=== PATIENT | female | born 1955 | race Caucasian/White ===

== ENCOUNTER 2016-11-17 13:21 | Outpatient (CLI) | payer MEDICARE, MEDICAID ==
[2016-11-17 19:30] LABS: ALBUMIN/GLOBULIN RATIO 1.2 (1.0-2.2); BILIRUBIN,TOTAL 1.8 mg/dL (0.2-1.0); CALCIUM 9.2 mg/dL (8.5-10.3); CREATININE 0.5 mg/dL (0.4-1.0); POTASSIUM 3.8 mmol/L (3.5-5.0)
[2016-11-17 19:33] LABS: BASOPHILS # (AUTO) 0.2 10^3/uL (0.0-0.1); BASOPHILS % (AUTO) 2.7 %; EOSINOPHILS # (AUTO) 0.2 10^3/uL (0.0-0.7); EOSINOPHILS % (AUTO) 3.3 %; HCT - HEMATOCRIT 46.6 % (37.0-47.0); LYMPHOCYTES # (AUTO) 1.2 10^3/uL (1.5-3.5); LYMPHOCYTES % (AUTO) 20.1 %; MEAN CORPUSCULAR HGB CONC 34.2 g/dL (32.0-36.0); MEAN CORPUSCULAR VOLUME 102.4 fL (81.0-99.0); MEAN PLATELET VOLUME 9.8 fL (7.9-10.8); MONOCYTES # (AUTO) 0.6 10^3/uL (0.0-1.0); MONOCYTES % (AUTO) 9.3 %; NEUTROPHILS # (AUTO) 3.9 10^3/uL (1.5-6.6); NEUTROPHILS % (AUTO) 64.6 %; NUCLEATED RED BLOOD CELLS AUTO 0.2 /100WBC; RED BLOOD COUNT 4.55 10^6/uL (4.20-5.40); RED CELL DISTRIBUTION WIDTH 12.7 % (12.0-15.0)
== END 2016-11-17 13:22 | disposition home or self-care (01) ==
LOC: LAB.N 13:21
PROVIDERS: ATTEND Family Medicine
DX: R63.5 Abnormal weight gain (principal)
CPT/HCPCS: 36415; 80053; 80061; 84443; 85025

== ENCOUNTER 2017-01-02 08:28 | Outpatient (CLI) | payer MEDICARE, MEDICAID ==
--- NOTE | 2017-01-03 02:16 | Ultrasound Report ---
EXAM: ABDOMEN ULTRASOUND LIMITED, RUQ EXAM DATE: 01/02/2017 09:40 AM. CLINICAL HISTORY: Hepatitis. Abnormal transaminase. COMPARISON: None. TECHNIQUE: Real-time scanning was performed with static images obtained. FINDINGS: Liver: Liver is diffusely heterogeneous. Multiple mass lesions are noted in the liver. These include a 3 x 2.9 x 5.1 cm solid, mildly vascular left liver mass. Mild capsular retraction is noted. Previou sly measuring 4 x 2.5 x 2.2 cm. 2.1 x 1.8 x 1.4 cm posterior left liver echogenic mass. Posterior aco ustic shadowing noted. 1.1 x 1.3 x 1 cm right-sided echogenic liver mass. Posterior acoustic shadowin g noted. Right liver measures 16 cm. Main portal vein flow: Hepatopetal. Gallbladder: Multiple non-mobile echogenic nodular structure adherent to the gallbladder wall. No gal lstones or sonographic Abbott sign or pericholecystic fluid. Biliary System: CBD measures 11 mm. Incidental dilated common bile duct. No intrahepatic bile duct di lation. Other: None. IMPRESSION: 1. Multiple liver lesions. The dominant lesion in the left liver currently measures 5.1 cm compared w ith the previous 4 cm. Recommend MRI with and without contrast given interval growth. 2. Normal gallbladder. Common bile duct mildly prominent. [id number] Referring Provider Line: [phone] SITE ID: [id number]
== END 2017-01-02 08:29 | disposition home or self-care (01) ==
LOC: DI 08:28
PROVIDERS: ATTEND Family Medicine
DX: K76.9 Liver disease, unspecified (principal)
CPT/HCPCS: 76705

== ENCOUNTER 2017-01-06 13:37 | Outpatient (CLI) | payer MEDICARE, MEDICAID ==
[2017-01-06 19:33] LABS: ALBUMIN/GLOBULIN RATIO 1.1 (1.0-2.2); BILIRUBIN,TOTAL 0.9 mg/dL (0.2-1.0); CALCIUM 9.4 mg/dL (8.5-10.3); CREATININE 0.6 mg/dL (0.4-1.0); POTASSIUM 3.9 mmol/L (3.5-5.0); TOTAL PROTEIN 7.9 g/dL (6.7-8.2)
== END 2017-01-06 13:38 | disposition home or self-care (01) ==
LOC: LAB.N 13:37
PROVIDERS: ATTEND Family Medicine
DX: K76.89 Other specified diseases of liver (principal)
CPT/HCPCS: 36415; 80053

== ENCOUNTER 2017-01-09 08:17 | Outpatient (CLI) | payer MEDICARE, MEDICAID ==
[2017-01-09] MEDS ORDERED: GADOBUTROL 7.5 MMOL/7.5 ML VIAL IVP ONE (10:24)
--- NOTE | 2017-01-09 17:43 | MRI Report ---
EXAM: MR ABDOMEN WITH AND WITHOUT CONTRAST (MR LIVER) EXAM DATE: 01/09/2017 10:26 AM. CLINICAL HISTORY: Liver mass on ultrasound. COMPARISON: Right upper quadrant abdominal ultrasound 01/02/2017. TECHNIQUE: Multiplanar breath-hold T1, T2, and DWI sequences obtained through the abdomen on an sc devin. Images obtained before and after administration of 7 mL Gadavist intravenous contrast. Multiph ase postcontrast images obtained of the liver and abdomen. FINDINGS: Lung Bases: Clear as visualized. Liver: Diffuse parenchymal signal loss on the out of phase images, compatible with steatosis. Multiple (at least 8) hemangiomata, the largest measuring 4.8 x 3.3 cm in left hepatic lobe segment 2 (series 1201 image 74) and 1.0 x 1.3 cm in the posterior right hepatic dome (series 1201 image 84). Multiple (at least 7) small scattered hepatic cysts, the largest level 1 cm in posterior right hepati c lobe segment 7 (series 1201 image 73). Multiple scattered ill-defined subcentimeter hypervascular foci on the arterial phase images without corresponding findings on the portal venous or delayed phases, likely representing perfusion anomalie s (for example in the right hepatic lobe on series 1101 image 81). Conventional hepatic arterial anatomy. Diminutive, patent portal veins. Normal caliber of the portal venous confluence, splenic vein, and SMV. Gallbladder and Bile Ducts: The gallbladder is partially distended and appears normal with no wall th ickening or stone. Mild intra-and extrahepatic biliary ductal dilatation, the common bile duct measur ing 12 mm. No choledocholithiasis seen. Pancreas: Normal. No ductal dilatation. Spleen: Normal. Kidneys: 12 mm exophytic cyst with thin septations arising from the posterior right lower pole, with questionable thickening of the inferior wall (series 1101 image 16). Several small simple cysts elsew here in the bilateral renal cortices, the largest 7 mm in the right upper pole. No hydronephrosis. Adrenal Glands: Normal. Peritoneal Cavity/GI Tract: The stomach and visualized small bowel and colon are unremarkable, withou t evidence of obstruction or acute inflammatory process. No free fluid or adenopathy. Retroperitoneum: Unremarkable. Bones: Dextroscoliosis centered at L2-L3. Degenerative marrow signal changes. IMPRESSION: 1. Steatotic liver. 2. Multiple hemangiomata, as detailed above, the largest corresponding to the dominant lesion seen in the left hepatic lobe on recent ultrasound. 3. Multiple small hepatic cysts. 4. Diminutive caliber of the portal veins. 5. Mild intra-and extrahepatic biliary duct dilatation. Consider correlation with laboratory values t o assess for evidence of obstruction. 6. Mildly complex 12 mm right renal cyst, Bosniak IIF. Consider follow-up renal protocol MRI in 6-12 months. [facility] Referring Provider Line: [phone] SITE ID: [id number]
== END 2017-01-09 08:18 | disposition home or self-care (01) ==
LOC: DI 08:17
PROVIDERS: ATTEND Family Medicine
DX: K76.89 Other specified diseases of liver (principal); K76.9 Liver disease, unspecified
CPT/HCPCS: 74183; A9585

== ENCOUNTER 2017-02-17 11:41 | Emergency (ER) | payer MEDICARE, MEDICAID ==
[2017-02-17 13:12] LABS: BASOPHILS % (AUTO) 1.2 %; EOSINOPHILS # (AUTO) 0.2 10^3/uL (0.0-0.7); EOSINOPHILS % (AUTO) 5.3 %; HCT - HEMATOCRIT 44.3 % (37.0-47.0); HGB - HEMOGLOBIN 15.5 g/dL (12.0-16.0); LYMPHOCYTES # (AUTO) 0.6 10^3/uL (1.5-3.5); LYMPHOCYTES % (AUTO) 19.2 %; MEAN CORPUSCULAR HEMOGLOBIN 34.5 pg (27.0-31.0); MEAN CORPUSCULAR HGB CONC 34.9 g/dL (32.0-36.0); MEAN PLATELET VOLUME 8.9 fL (7.9-10.8); MONOCYTES # (AUTO) 0.3 10^3/uL (0.0-1.0); NEUTROPHILS # (AUTO) 2.2 10^3/uL (1.5-6.6); NEUTROPHILS % (AUTO) 65.3 %; NUCLEATED RED BLOOD CELLS AUTO 0.1 /100WBC; RED BLOOD COUNT 4.48 10^6/uL (4.20-5.40); RED CELL DISTRIBUTION WIDTH 12.2 % (12.0-15.0); UNCORRECTED WHITE BLOOD COUNT 3.4 x10^3/uL; WHITE BLOOD COUNT 3.4 x10^3/uL (4.8-10.8)
--- NOTE | 2017-02-17 13:23 | XRAY Preliminary Report ---
Exam: XR Chest 2 View PA/LAT IMPRESSION: Subtle irregular opacities in left lung base laterally. A short interval follow-up PA and lateral chest radiograph should be considered. If this persists then a chest CT with contrast should be obtained as an underlying lesion cannot be excluded on this examination. [facility] SITE ID: [id number]
[2017-02-17 13:25] LABS: ALBUMIN/GLOBULIN RATIO 1.2 (1.0-2.2); BILIRUBIN,TOTAL 1.1 mg/dL (0.2-1.0); CALCIUM 9.2 mg/dL (8.5-10.3); CREATININE 0.4 mg/dL (0.4-1.0); POTASSIUM 3.7 mmol/L (3.5-5.0); TOTAL PROTEIN 8.2 g/dL (6.7-8.2)
--- NOTE | 2017-02-17 13:26 | XRAY Report ---
EXAM: CHEST RADIOGRAPHY EXAM DATE: 02/17/2017 12:49 PM. CLINICAL HISTORY: Constant sharp pain under right breast x1 week. COMPARISON: None. TECHNIQUE: 2 views. FINDINGS: Lungs/Pleura: Subtle irregular opacities in the left lung base laterally. No pleural effusion or pneu mothorax. Mediastinum: Heart and mediastinal contours are unremarkable. Other: None. IMPRESSION: Subtle irregular opacities in left lung base laterally. A short interval follow-up PA and lateral chest radiograph should be considered. If this persists then a chest CT with contrast should be obtained as an underlying lesion cannot be excluded on this examination. [facility] Referring Provider Line: [phone] SITE ID: [id number]
[2017-02-17] MEDS ORDERED: KETOROLAC 60 MG/2 ML VIAL IVP STA (15:25)
--- NOTE | 2017-02-17 15:28 | ED Physician Documentation ---
PD HPI ABD PAIN - Stated complaint Stated Complaint: SOA, R SIDE CHEST PX - Chief complaint Chief Complaint: Abd Pain - History obtained from History obtained from: Patient - History of Present Illness Timing - onset: Other (This is a 61-year-old woman with history of hepatitis C, a week ago she woke up in the middle the night with sharp lower anterior right- sided chest pain that is worse with coughing and deep breathing but does not change with eating. She had never had it before, it has been constant since. She noted she was sneezing hard the day prior. Of note recently she had had rising liver enzymes and was sent for an abdominal ultrasound which showed masses in the liver, this was followed by MRI of the liver showing multiple hemangiomas but no gallstones.) Review of Systems Ten Systems: 10 systems reviewed and negative Constitutional: denies: Fever, Chills Cardiac: denies: Pedal edema, Calf pain Respiratory: denies: Hemoptysis, Wheezing GI: denies: Nausea, Vomiting, Diarrhea PD PAST MEDICAL HISTORY - Past Medical History Cardiovascular: None Respiratory: None Neuro: None Endocrine/Autoimmune: None GI: Hepatitis : None HEENT: Chronic hearing loss Psych: Depression, Anxiety Musculoskeletal: Osteoarthritis, Chronic back pain Derm: Other - Past Surgical History Past Surgical History: Yes Ortho: Other - Present Medications Home Medications: Ambulatory Orders Medication Instructions Recorded Confirmed HYDROcod/ACETAM 5/325 [[place] 5/325] 1 - 2 ea PO Q6H PRN #20 tablet 06/04/16 oxyCODONE [Roxicodone] 5 mg PO Q4-6H PRN #15 tablet 02/17/17 - Allergies Allergies/Adverse Reactions: Allergies Allergy/AdvReac Type Severity Reaction Status Date / Time ampicillin AdvReac Unknown Verified 06/04/16 14:42 gabapentin AdvReac Dizziness Verified 06/04/16 14:42 risperidone [From Risperdal] AdvReac Unknown Verified 06/04/16 14:42 venlafaxine HCl * AdvReac Dizziness Verified 06/04/16 14:42 [From Effexor] - Social History Does the pt smoke?: Yes Smoking Status: Current every day smoker Does the pt drink ETOH?: Yes Does the pt have substance abuse?: No - Immunizations Immunizations are current?: No Immunizations: TDAP >10years/unknown PD ED PE NORMAL - Vitals Vital signs reviewed: Yes - General General: Alert and oriented X 3, No acute distress - Neck Neck: Supple, no meningeal sign, No bony TTP - Cardiac Cardiac: RRR, No murmur - Respiratory Respiratory: No respiratory distress, Clear bilaterally - Abdomen Abdomen: Soft, Non tender, Other (She is really not tender to the right upper quadrant, but does have focal tenderness laterally over the ribs, maybe rib 9 or so.) - Extremities Extremities: No edema, No calf tenderness / cord - Neuro Neuro: Alert and oriented X 3, Normal speech - Psych Psych: Normal mood, Normal affect Results - Vitals Vitals: Vital Signs - 24 hr 02/17/17 02/17/17 02/17/17 11:57 13:52 15:24 Temperature 36.3 C L 37.2 C 36.9 C Heart Rate 84 106 H 76 Respiratory 22 22 15 Rate Blood Pressure 154/89 H 161/86 H 179/100 H O2 Saturation 94 95 95 02/17/17 17:25 Temperature 37.2 C Heart Rate 77 Respiratory 15 Rate Blood Pressure 157/85 H O2 Saturation 95 Oxygen O2 Source Room air - EKG (time done) 1531 Rate: Rate (enter#) (71) Rhythm: NSR [place]: Normal Intervals: Normal [place] QRS: Normal Ischemia: Normal ST segments Computer interpretation: Agree with computer - Labs Labs: Laboratory Tests 02/17/17 02/17/17 02/17/17 13:07 13:07 15:41 WBC 3.4 L RBC 4.48 Hgb 15.5 Hct 44.3 MCV 99.0 MCH 34.5 H MCHC 34.9 RDW 12.2 Plt Count 131 MPV 8.9 Neut # 2.2 Lymph # 0.6 L [place] # 0.3 Eos # 0.2 Baso # 0.0 Absolute Nucleated RBC 0.00 Nucleated RBCs 0.1 Sodium 141 Potassium 3.7 Chloride 105 Carbon Dioxide 26 Anion Gap 10.0 BUN 13 Creatinine 0.4 Estimated GFR (MDRD) 163 Glucose 103 H Calcium 9.2 Total Bilirubin 1.1 H AST 337 H ALT 191 H Alkaline Phosphatase 108 Troponin I < 0.04 Total Protein 8.2 Albumin 4.4 Globulin 3.8 Albumin/Globulin Ratio 1.2 Lipase 53 H - Rads (name of study) 2 view chest Radiology: EMP read contemporaneously (Focal opacities in the left lower lobe) CTAchest Radiology: EMP read contemporaneously (Bibasilar atelectasis with liver findings but no PE.) PD MEDICAL DECISION MAKING - ED course ED course: 61-year-old woman with right upper quadrant/right chest pain in the setting of known increasing liver enzymes and multiple hemangiomas of the liver, there is no right upper quadrant tenderness, but she does have rib tenderness. We will obtain an EKG and a troponin in addition to the labs that were ordered by the triage nurse, and we will follow the abnormal chest x-ray with a CT. The CT was negative for acute pathology, given the rib tenderness I suspect she has an intercostal strain/tear, she is following up with a inspector electromechanical later this month regarding the liver. Departure - Departure Disposition: Home, Self Care Clinical Impression: Elevated liver enzymes Chest pain Qualifiers: Chest pain type: chest pain on breathing Qualified Code(s): R07.1 - Chest pain on breathing; R07.81 - Pleurodynia Condition: Good Record reviewed to determine appropriate education?: Yes Instructions: ED Chest Pain NonCardiac Prescriptions: oxyCODONE [Roxicodone] 5 mg PO Q4-6H PRN #15 tablet PRN Reason: Pain Comments: As discussed the need to follow-up with the liver doctor later this month as scheduled. Return if worse or if new symptoms develop. Your blood pressure was elevated today on check into the emergency department. This does not mean that you have hypertension, it is a common phenomenon to come to the emergency department and have elevated blood pressure. I recommend that she see your primary care physician within the week to have it rechecked when you are feeling better. Do not drink or drive while taking narcotic pain medication. Note that many narcotic pain relievers also contain Tylenol/acetaminophen. Please ensure that your total dose of acetaminophen from all sources does not exceed 3 g (3000 mg) per day. You may get constipated while on this medication. Take a stool softener such as Colace twice a day while you are on it. Also add an [id number] laxative such as senna or MiraLAX on any day that you do not have a bowel movement. If you received a narcotic pain medication or sedative while in the emergency department, do not drive for the next 24 hours.
[2017-02-17] MEDS ORDERED: KETOROLAC 30 MG/ML VIAL ONE (15:34)
[2017-02-17] MEDS ORDERED: IOPAMIDOL-300 100 ML VIAL ONE (15:36)
[2017-02-17 17:25] VITALS: BP 157/85
--- NOTE | 2017-02-17 18:18 | CT Preliminary Report ---
Exam: CT Chest Angio (PE) IMPRESSION: 1. Negative for acute pulmonary embolism. 2. Bibasilar atelectasis without convincing pneumonia. 3. Heterogeneous appearing liver with inhomogeneous enhancement. Nonspecific findings which could rep resent benign or malignant liver disease. Not well characterized on this exam. Significance uncertain . [facility] SITE ID: [id number]
--- NOTE | 2017-02-17 18:21 | CT Report ---
EXAM: CT ANGIOGRAM CHEST EXAM DATE: 02/17/2017 06:01 PM. CLINICAL HISTORY: R chest pain, abn cxr. COMPARISON: No prior CT.. TECHNIQUE: Routine helical imaging was performed through the chest in the pulmonary arterial phase. I V Contrast: 100 cc Isovue-300 IV. Reconstructions: Coronal 3-D MIP reconstructions.Sagittal and coron al. In accordance with CT protocol optimization, one or more of the following dose reduction techniques w ere utilized for this exam: automated exposure control, adjustment of mA and/or KV based on patient s ize, or use of iterative reconstructive technique. FINDINGS: Pulmonary Arteries: Diagnostic quality: Adequate through the segmental arteries. Negative for acute pulmonary embolism. Main pulmonary artery is normal in size. Lungs/Pleura: There are linear bandlike densities associated with volume loss in the bilateral lower lobes and right middle lobe. Consistent with bibasilar atelectasis. There is no pleural effusion or p neumothorax. No central endobronchial obstructing mass. Mediastinum: Heart size is normal. There is no pericardial effusion. No mediastinal or hilar lymphade nopathy. Thoracic Aorta: No thoracic aortic aneurysm or dissection. Upper Abdomen: The liver demonstrates a heterogeneous pattern of enhancement. There are early areas o f enhancement located within the right and left lobe. There is calcification in the left lobe of the liver and in the dome of the liver. Other: None. IMPRESSION: 1. Negative for acute pulmonary embolism. 2. Bibasilar atelectasis without convincing pneumonia. 3. Heterogeneous appearing liver with inhomogeneous enhancement. Nonspecific findings which could rep resent benign or malignant liver disease. Not well characterized on this exam. Significance uncertain . [facility] Referring Provider Line: [phone] SITE ID: [id number]
== END 2017-02-17 18:51 | disposition home or self-care (01) ==
LOC: ED 11:41
DX: R07.1 Chest pain on breathing (principal); R07.81 Pleurodynia; R03.0 Elevated blood-pressure reading, without diagnosis of hypertension; R79.89 Other specified abnormal findings of blood chemistry; M19.90 Unspecified osteoarthritis, unspecified site; Z86.19 Personal history of other infectious and parasitic diseases; F17.200 Nicotine dependence, unspecified, uncomplicated
CPT/HCPCS: 36415; 71020; 71275; 80053; 83690; 84484; 85025; 93005; 96374; 99283; Q9967

== ENCOUNTER 2017-03-04 11:05 | Outpatient (CLI) | payer MEDICARE, MEDICAID | END 2017-03-04 11:06 | LOC: LAB.WCP 11:05 | PROVIDERS: ATTEND Internal Medicine | DX: C22.0 Liver cell carcinoma (principal) | CPT/HCPCS: 36415; 86317; 86704; 87340; 87522; 87902 ==

== ENCOUNTER 2017-07-14 13:45 | Day surgery (SDC) | payer MEDICARE, MEDICAID ==
[2017-07-14] MEDS ORDERED: LACTATED RINGERS 1,000 ML IV ONE (13:54)
[2017-07-14] MEDS ORDERED: LIDOCAINE-MPF 2% 5 ML VIAL IM ONE (15:30)
[2017-07-14] MEDS ORDERED: PROPOFOL 200 MG/20 ML VIAL IVP ONE (15:30)
[2017-07-14 16:33] VITALS: BP 132/80
== END 2017-07-14 13:46 | disposition home or self-care (01) ==
LOC: SDS 13:45
PROVIDERS: ATTEND Internal Medicine
PROC: 0DBN8ZX Excision of Sigmoid Colon, Via Natural or Artificial Opening Endoscopic, Diagnostic (ICD-10-PCS; principal; 2017-07-14 15:00)
DX: Z12.11 Encounter for screening for malignant neoplasm of colon (principal); K63.5 Polyp of colon; K64.8 Other hemorrhoids; B19.20 Unspecified viral hepatitis C without hepatic coma; Z87.891 Personal history of nicotine dependence
CPT/HCPCS: 45380; J7120

== ENCOUNTER 2018-01-20 09:33 | Outpatient (CLI) | payer MEDICARE, MEDICAID ==
[2018-01-20 12:12] LABS: BASOPHILS # (AUTO) 0.1 10^3/uL (0.0-0.1); BASOPHILS % (AUTO) 1.8 %; EOSINOPHILS # (AUTO) 0.2 10^3/uL (0.0-0.7); EOSINOPHILS % (AUTO) 6.5 %; HGB - HEMOGLOBIN 14.5 g/dL (12.0-16.0); LYMPHOCYTES # (AUTO) 0.7 10^3/uL (1.5-3.5); LYMPHOCYTES % (AUTO) 21.3 %; MEAN CORPUSCULAR HEMOGLOBIN 35.3 pg (27.0-31.0); MEAN CORPUSCULAR HGB CONC 34.8 g/dL (32.0-36.0); MEAN CORPUSCULAR VOLUME 101.4 fL (81.0-99.0); MEAN PLATELET VOLUME 10.3 fL (7.9-10.8); MONOCYTES # (AUTO) 0.3 10^3/uL (0.0-1.0); MONOCYTES % (AUTO) 10.2 %; NEUTROPHILS # (AUTO) 1.9 10^3/uL (1.5-6.6); NEUTROPHILS % (AUTO) 60.2 %; PLT - PLATELET COUNT 93 10^3/uL (130-450); RED BLOOD COUNT 4.11 10^6/uL (4.20-5.40); RED CELL DISTRIBUTION WIDTH 12.8 % (12.0-15.0); WHITE BLOOD COUNT 3.2 x10^3/uL (4.8-10.8)
[2018-01-20 19:09] LABS: ALBUMIN 4.2 g/dL (3.2-5.5); BILIRUBIN,TOTAL 1.8 mg/dL (0.2-1.0); CALCIUM 9.4 mg/dL (8.5-10.3); CREATININE 0.5 mg/dL (0.4-1.0); TOTAL PROTEIN 8.4 g/dL (6.7-8.2)
[2018-01-22 19:42] LABS: HCV RNA QNT 5.07 Log IU/mL (NOT DETECTED); HCV RNA QUANT RT PCR 117000 IU/mL (NOT DETECTED)
== END 2018-01-20 09:34 ==
LOC: LAB.N 09:33
PROVIDERS: ATTEND Internal Medicine
DX: B18.2 Chronic viral hepatitis C (principal)
CPT/HCPCS: 36415; 80053; 85025; 87522

== ENCOUNTER 2018-03-23 13:49 | Day surgery (SDC) | payer MEDICARE, MEDICAID ==
[2018-03-23] MEDS ORDERED: LACTATED RINGERS 1,000 ML IV ONE (14:39)
[2018-03-23] MEDS ORDERED: ONDANSETRON 4 MG/2 ML VIAL ONE (14:45)
--- NOTE | 2018-03-23 15:23 | ANESTHESIA ---
Pre-Anesthesia VS, & Labs - Diagnosis elevated LFTs, chronic Hep C, hx of polyps - Procedure EGD, Cscope Vital Signs: Temp Pulse Resp BP Pulse Ox 37.6 C H 93 20 163/110 H 94 03/23/18 14:24 03/23/18 14:24 03/23/18 14:24 03/23/18 14:24 03/23/18 14:24 Height 5 ft 3 in Weight (kg) 64 kg Body Mass Index 25.7 - NPO >8 hours - Is Patient ?: No Home Medications and Allergies Home Medications: Ambulatory Orders Aspirin 3 PRN 03/23/18 Aspirin 3 PRN 03/23/18 Allergies/Adverse Reactions: Allergies Allergy/AdvReac Type Severity Reaction Status Date / Time ampicillin AdvReac Unknown Verified 07/13/17 13:33 gabapentin AdvReac Dizziness Verified 07/13/17 13:33 risperidone [From Risperdal] AdvReac Unknown Verified 07/13/17 13:33 venlafaxine HCl * AdvReac Dizziness Verified 07/13/17 13:33 [From Effexor] Anes History & Medical History - Anesthetic History Anesthesia Complications: reports: No previous complications Family history of Anesthesia Complications: Denies Family history of Malignant Hyperthermia: Denies - Medical History Cardiovascular: reports: None Pulmonary: reports: None Gastrointestinal: reports: Hepatitis Urinary: reports: None Musculoskeletal: reports: Rheumatoid arthritis Endocrine/Autoimmune: reports: None Blood Disorders: reports: None Skin: reports: None Smoking Status: Current every day smoker - Surgical History General: Colonoscopy, Other Orthopedic: Spine surgery, Other Exam General: Alert, Oriented x3, Cooperative Dental: Other Mouth Openin Fingerbreadth Mallampati classification: I Respiratory: Lungs clear, Decreased breath sounds Cardiovascular: Regular rate Neurological: Normal speech Mental/Cognitive Status: Alert/Oriented X3 Plan Anesthesia Type: MAC Consent for Procedure(s) Verified and Reviewed: Yes Code Status: Attempt Resuscitation ASA classification: 3-Severe systemic disease Is this case an emergency?: No
[2018-03-23] MEDS ORDERED: PROPOFOL 200 MG/20 ML VIAL IVP ONE (15:40)
[2018-03-23] MEDS ORDERED: KETAMINE 500 MG/10 ML VIAL IVP ONE (15:40)
[2018-03-23] MEDS ORDERED: MIDAZOLAM 2 MG/2 ML VIAL IVP ONE (15:40)
[2018-03-23] MEDS ORDERED: ACETAMINOPHEN 325 MG TABLET PO ONE (16:59)
[2018-03-23 17:19] VITALS: BP 150/110
== END 2018-03-23 13:50 | disposition home or self-care (01) ==
LOC: SDS 13:49
PROVIDERS: ATTEND Internal Medicine
PROC: 0DJ08ZZ Inspection of Upper Intestinal Tract, Via Natural or Artificial Opening Endoscopic (ICD-10-PCS; principal; 2018-03-23 15:00)
DX: K76.6 Portal hypertension (principal); K31.89 Other diseases of stomach and duodenum; K25.9 Gastric ulcer, unspecified as acute or chronic, without hemorrhage or perforation; B19.20 Unspecified viral hepatitis C without hepatic coma; R79.89 Other specified abnormal findings of blood chemistry; R19.7 Diarrhea, unspecified; F10.10 Alcohol abuse, uncomplicated; Z86.010 Personal history of colon polyps; K76.89 Other specified diseases of liver; K76.0 Fatty (change of) liver, not elsewhere classified; K83.9 Disease of biliary tract, unspecified; M19.90 Unspecified osteoarthritis, unspecified site; H91.90 Unspecified hearing loss, unspecified ear; F41.9 Anxiety disorder, unspecified; R53.83 Other fatigue; Z87.891 Personal history of nicotine dependence
CPT/HCPCS: 43235; A9270; J7120

== ENCOUNTER 2018-04-14 08:34 | Outpatient (CLI) | payer MEDICARE, MEDICAID ==
[2018-04-14 18:39] LABS: BASOPHILS # (AUTO) 0.2 10^3/uL (0.0-0.1); BASOPHILS % (AUTO) 3.6 %; EOSINOPHILS # (AUTO) 0.3 10^3/uL (0.0-0.7); EOSINOPHILS % (AUTO) 4.2 %; HGB - HEMOGLOBIN 14.6 g/dL (12.0-16.0); LYMPHOCYTES # (AUTO) 1.4 10^3/uL (1.5-3.5); LYMPHOCYTES % (AUTO) 22.2 %; MEAN CORPUSCULAR HEMOGLOBIN 34.5 pg (27.0-31.0); MEAN CORPUSCULAR HGB CONC 33.1 g/dL (32.0-36.0); MEAN CORPUSCULAR VOLUME 104.4 fL (81.0-99.0); MEAN PLATELET VOLUME 10.6 fL (7.9-10.8); MONOCYTES # (AUTO) 0.6 10^3/uL (0.0-1.0); MONOCYTES % (AUTO) 9.5 %; NEUTROPHILS # (AUTO) 3.8 10^3/uL (1.5-6.6); NEUTROPHILS % (AUTO) 60.5 %; PLT - PLATELET COUNT 220 10^3/uL (130-450); RED BLOOD COUNT 4.24 10^6/uL (4.20-5.40); RED CELL DISTRIBUTION WIDTH 12.5 % (12.0-15.0); WHITE BLOOD COUNT 6.3 x10^3/uL (4.8-10.8)
[2018-04-14 18:56] LABS: ALBUMIN 3.9 g/dL (3.2-5.5); BILIRUBIN,TOTAL 2.3 mg/dL (0.2-1.0); CALCIUM 9.4 mg/dL (8.5-10.3); CREATININE 0.7 mg/dL (0.4-1.0); TOTAL PROTEIN 7.9 g/dL (6.7-8.2)
== END 2018-04-14 08:35 | disposition home or self-care (01) ==
LOC: LAB.N 08:34
PROVIDERS: ATTEND Internal Medicine
DX: B18.2 Chronic viral hepatitis C (principal)
CPT/HCPCS: 36415; 80053; 85025

== ENCOUNTER 2018-04-29 08:45 | Outpatient (CLI) | payer MEDICARE, MEDICAID ==
[2018-04-29 13:17] LABS: BILIRUBIN,TOTAL 2.2 mg/dL (0.2-1.0); CALCIUM 9.1 mg/dL (8.5-10.3); CREATININE 0.5 mg/dL (0.4-1.0); TOTAL PROTEIN 7.9 g/dL (6.7-8.2)
[2018-04-29 13:37] LABS: BASOPHILS # (AUTO) 0.1 10^3/uL (0.0-0.1); BASOPHILS % (AUTO) 1.9 %; EOSINOPHILS # (AUTO) 0.6 10^3/uL (0.0-0.7); EOSINOPHILS % (AUTO) 9.3 %; HGB - HEMOGLOBIN 15.5 g/dL (12.0-16.0); LYMPHOCYTES # (AUTO) 1.4 10^3/uL (1.5-3.5); LYMPHOCYTES % (AUTO) 23.3 %; MEAN CORPUSCULAR HEMOGLOBIN 34.5 pg (27.0-31.0); MEAN CORPUSCULAR HGB CONC 34.5 g/dL (32.0-36.0); MEAN CORPUSCULAR VOLUME 100.2 fL (81.0-99.0); MEAN PLATELET VOLUME 10.6 fL (7.9-10.8); MONOCYTES # (AUTO) 0.4 10^3/uL (0.0-1.0); MONOCYTES % (AUTO) 7.2 %; NEUTROPHILS # (AUTO) 3.6 10^3/uL (1.5-6.6); NEUTROPHILS % (AUTO) 58.3 %; PLT - PLATELET COUNT 137 10^3/uL (130-450); RED BLOOD COUNT 4.48 10^6/uL (4.20-5.40); RED CELL DISTRIBUTION WIDTH 12.2 % (12.0-15.0); WHITE BLOOD COUNT 6.1 x10^3/uL (4.8-10.8)
== END 2018-04-29 08:46 | disposition home or self-care (01) ==
LOC: LAB.N 08:45
PROVIDERS: ATTEND Internal Medicine
DX: B18.2 Chronic viral hepatitis C (principal)
CPT/HCPCS: 36415; 80053; 85025; 87522

== ENCOUNTER 2018-06-24 08:00 | Outpatient (CLI) | payer MEDICARE, MEDICAID ==
[2018-06-24 12:32] LABS: BASOPHILS # (AUTO) 0.1 10^3/uL (0.0-0.1); BASOPHILS % (AUTO) 2.4 %; EOSINOPHILS # (AUTO) 0.5 10^3/uL (0.0-0.7); EOSINOPHILS % (AUTO) 8.7 %; HGB - HEMOGLOBIN 15.4 g/dL (12.0-16.0); LYMPHOCYTES # (AUTO) 1.2 10^3/uL (1.5-3.5); MEAN CORPUSCULAR HEMOGLOBIN 34.4 pg (27.0-31.0); MEAN CORPUSCULAR HGB CONC 34.5 g/dL (32.0-36.0); MEAN CORPUSCULAR VOLUME 99.7 fL (81.0-99.0); MEAN PLATELET VOLUME 10.2 fL (7.9-10.8); MONOCYTES # (AUTO) 0.5 10^3/uL (0.0-1.0); NEUTROPHILS # (AUTO) 2.9 10^3/uL (1.5-6.6); NEUTROPHILS % (AUTO) 55.9 %; PLT - PLATELET COUNT 176 10^3/uL (130-450); RED BLOOD COUNT 4.48 10^6/uL (4.20-5.40); WHITE BLOOD COUNT 5.2 x10^3/uL (4.8-10.8)
[2018-06-24 12:46] LABS: ALBUMIN 4.1 g/dL (3.2-5.5); ALBUMIN/GLOBULIN RATIO 1.1 (1.0-2.2); BILIRUBIN,TOTAL 2.3 mg/dL (0.2-1.0); CALCIUM 9.4 mg/dL (8.5-10.3); CREATININE 0.5 mg/dL (0.4-1.0); TOTAL PROTEIN 7.9 g/dL (6.7-8.2)
[2018-06-27 18:36] LABS: HCV RNA QNT <1.18 NOT DETECTED Log IU/mL (NOT DETECTED); HCV RNA QUANT RT PCR <15 NOT DETECTED IU/mL (NOT DETECTED)
== END 2018-06-24 23:59 | disposition home or self-care (01) ==
LOC: LAB.N 08:00
PROVIDERS: ATTEND Internal Medicine
DX: B18.2 Chronic viral hepatitis C (principal)
CPT/HCPCS: 36415; 80053; 85025; 87522

== ENCOUNTER 2018-10-04 09:09 | Outpatient (CLI) | payer MEDICARE, MEDICAID ==
--- NOTE | 2018-10-04 18:34 | Ultrasound Report ---
Reason: HEPATITIS C CHRONIC Procedure Date: 10/04/2018 Accession Number: [id number] / [id number] Procedure: US - Abdomen Limited CPT Code: FULL RESULT: EXAM: ABDOMEN ULTRASOUND LIMITED, RUQ EXAM DATE: 10/04/2018 10:23 AM. CLINICAL HISTORY: HEPATITIS C CHRONIC. COMPARISON: Ultrasound 01/02/2017 and 02/09/2014, MRI 01/09/[address] 02/17/2017. TECHNIQUE: Real-time scanning was performed with static images obtained. FINDINGS: Liver: Increased in size. 18 cm. Increased in echotexture consistent with fatty infiltration. A dominant heterogeneous echogenic left lobe vascular mass measures 3.8 x 3.6 x 3.8 cm. This is been previously evaluated by MRI and felt to be consistent with a hemangioma. A second left lobe echogenic mass measuring 2.2 x 1.4 x 1.8 cm is also seen as well as a right lateral 1.3 x 1.2 x 1.2 cm possible cyst. Main portal vein flow: Hepatopetal. Gallbladder: Mildly contracted. 5.3 mm polyp. No definite stones seen. Biliary System: CBD measures 11 mm. Mild intrahepatic biliary ductal dilatation is present. Free fluid: None. Right kidney 12.3 cm in length. Mid lateral echogenic mass 2.3 x 1.2 x 1.2 cm. It previously measured 9 x 8 x 8 mm on 2013 ultrasound. IMPRESSION: 1. Hepatomegaly with fatty infiltration of the liver and a dominant left lobe vascular mass previously demonstrated to be consistent with a hemangioma by MRI. Overall stable. 2. Gallbladder polyp. 3. Mild intra-and extrahepatic biliary ductal dilatation similar to previous MRI. 4. Enlarging echogenic right renal lesion, question angiomyolipoma versus other. Suggest follow-up by dedicated renal CT. [facility]
== END 2018-10-04 09:10 | disposition home or self-care (01) ==
LOC: DI 09:09
PROVIDERS: ATTEND Internal Medicine
DX: B18.2 Chronic viral hepatitis C (principal); K76.0 Fatty (change of) liver, not elsewhere classified; R16.0 Hepatomegaly, not elsewhere classified; K82.4 Cholesterolosis of gallbladder; N28.9 Disorder of kidney and ureter, unspecified
CPT/HCPCS: 76705

== ENCOUNTER 2018-10-13 13:59 | Outpatient (CLI) | payer MEDICARE, MEDICAID ==
[2018-10-13 19:12] LABS: ALBUMIN 4.1 g/dL (3.2-5.5); BILIRUBIN,TOTAL 1.8 mg/dL (0.2-1.0); CALCIUM 9.4 mg/dL (8.5-10.3); CREATININE 0.5 mg/dL (0.4-1.0); TOTAL PROTEIN 8.3 g/dL (6.7-8.2)
[2018-10-14 13:12] LABS: HEPATITIS C ANTIBODY REACTIVE (NON-REACTIVE)
[2018-10-17 15:50] LABS: HCV RNA QNT 1.66 Log IU/mL (NOT DETECTED); HCV RNA QUANT RT PCR 46 IU/mL (NOT DETECTED)
== END 2018-10-13 23:59 | disposition home or self-care (01) ==
LOC: LAB.N 13:59
PROVIDERS: ATTEND Nurse Practitioner Gerontology
DX: B19.20 Unspecified viral hepatitis C without hepatic coma (principal); I10 Essential (primary) hypertension
CPT/HCPCS: 36415; 80053; 86803

== ENCOUNTER 2018-10-18 10:45 | Outpatient (CLI) | payer MEDICARE, MEDICAID ==
[2018-10-18] MEDS ORDERED: IOVERSOL 320 100 ML VIAL IVP ONE ×2 (11:01→12:15)
--- NOTE | 2018-10-18 15:41 | CT Report ---
Reason: CYST OF KIDNEY,ACQUIRED Procedure Date: 10/18/2018 Accession Number: [id number] / [id number] Procedure: CT - ABDOMEN W CPT Code: FULL RESULT: EXAM: CT ABDOMEN EXAM DATE: 10/18/2018 11:02 AM. CLINICAL HISTORY: Follow-up atypical cyst of right kidney described on abdominal MRI 01/09/2017. History of liver hemangiomata. COMPARISON: 10/04/2018 10:20 AM 10/04/2018 9:51 AM ABDOMEN W/WO 01/09/2017 10:00 AM CHEST ANGIO 02/17/2017 5:47 PM. TECHNIQUE: Routine helical CT imaging was performed through the abdomen. IV contrast: 100 mL Optiray 320 contrast. Enteric contrast: No. Reconstruction: Coronal and sagittal. In accordance with CT protocol optimization, one or more of the following dose reduction techniques were utilized for this exam: automated exposure control, adjustment of mA and/or KV based on patient size, or use of iterative reconstructive technique. FINDINGS: Lung Bases: Unremarkable. Liver: There is a 4.7 cm mass of the left lobe of liver segment 2 with peripheral puddling type enhancement consistent with hemangioma, stable in size. Similar morphology 1.6 cm enhancing liver nodule right lobe of liver segment 7 measuring 16 mm, similar in size, consistent with hemangioma. Stable hepatic cyst. Stable parenchymal calcifications in the upper liver compared to a prior CTA of 2017. Stable 11 mm focal enhancement also segment 2 of liver consistent with additional hemangioma. Gallbladder/Bile Ducts: Normal appearance of the gallbladder. There is stable dilatation of the extrahepatic common bile duct, up to 12 mm with stable abrupt tapered appearance to the ampullary portion. No intrahepatic ductal dilatation. Spleen: Normal. Pancreas: Normal. Adrenal Glands: Normal. Kidneys: Right kidney: There is a 12 mm fat density lesion of the lower pole cortex right kidney series 3 image 45 corresponding to finding requested for surveillance. Size is stable and finding consistent with angiomyolipoma. No stone or hydronephrosis. Left kidney: There is nonobstructing particulate nephrolithiasis of the upper and lower pole. No hydronephrosis. Peritoneal Cavity/Bowel: Normal. No free fluid, free air or adenopathy. No masses or acute inflammatory process. Vasculature: No aneurysms appreciated. 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 In retrospect, this finding was present on the comparison MRI of 2017. Bones: Degenerative disk changes of the lumbar spine with mild dextroscoliosis. Other: None. IMPRESSION: 1. Finding requested for imaging surveillance lower pole right kidney consistent with incidental angiomyolipoma. 2. Stable liver hemangiomata, liver cysts and parenchymal calcifications as described. 3. Stable dilatation of the extrahepatic common bile duct with abrupt tapered appearance to the distal duct. 4. Nonobstructive particulate left-sided nephrolithiasis. 5. 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 [facility]
== END 2018-10-18 10:46 | disposition home or self-care (01) ==
LOC: DI 10:45
PROVIDERS: ATTEND Nurse Practitioner Gerontology
DX: D18.03 Hemangioma of intra-abdominal structures (principal); K76.89 Other specified diseases of liver; N20.0 Calculus of kidney; K83.8 Other specified diseases of biliary tract
CPT/HCPCS: 74160; Q9967

== ENCOUNTER 2019-05-21 07:56 | Emergency (ER) | payer MEDICARE, MEDICAID ==
[2019-05-21] MEDS ORDERED: ONDANSETRON ODT 4 MG TABLET TL STA (08:15)
[2019-05-21 08:36] LABS: BASOPHILS # (AUTO) 0.1 10^3/uL (0.0-0.1); BASOPHILS % (AUTO) 1.4 %; EOSINOPHILS % (AUTO) 0.6 %; HGB - HEMOGLOBIN 14.7 g/dL (12.0-16.0); LYMPHOCYTES # (AUTO) 0.5 10^3/uL (1.5-3.5); LYMPHOCYTES % (AUTO) 9.3 %; MEAN CORPUSCULAR HEMOGLOBIN 36.7 pg (27.0-31.0); MEAN CORPUSCULAR HGB CONC 35.2 g/dL (32.0-36.0); MEAN CORPUSCULAR VOLUME 104.2 fL (81.0-99.0); MEAN PLATELET VOLUME 11.6 fL (7.9-10.8); MONOCYTES # (AUTO) 0.2 10^3/uL (0.0-1.0); MONOCYTES % (AUTO) 4.7 %; NEUTROPHILS # (AUTO) 4.3 10^3/uL (1.5-6.6); NEUTROPHILS % (AUTO) 82.8 %; PLT - PLATELET COUNT 78 10^3/uL (130-450); RED BLOOD COUNT 4.01 10^6/uL (4.20-5.40); RED CELL DISTRIBUTION WIDTH 12.4 % (12.0-15.0); WHITE BLOOD COUNT 5.1 x10^3/uL (4.8-10.8)
[2019-05-21 08:37] VITALS: BP 157/92
[2019-05-21 08:39] LABS: INR 1.5 (0.8-1.2); PT - PROTHROMBIN TIME 16.8 secs (9.9-12.6)
[2019-05-21] MEDS ORDERED: PHYTONADIONE 10 MG/ML AMP PO ONE (08:43)
[2019-05-21] MEDS ORDERED: CHERRY SYRUP 10 ML UDC PO ONE ×2 (08:43→09:02)
[2019-05-21 08:46] LABS: ALBUMIN 3.7 g/dL (3.2-5.5); ALBUMIN/GLOBULIN RATIO 0.7 (1.0-2.2); BILIRUBIN,TOTAL 5.4 mg/dL (0.2-1.0); CALCIUM 9.5 mg/dL (8.5-10.3); CREATININE 0.5 mg/dL (0.4-1.0); TOTAL PROTEIN 9.2 g/dL (6.7-8.2)
--- NOTE | 2019-05-21 08:47 | ED Physician Documentation ---
PD HPI UPPER EXT INJURY - Stated complaint Stated Complaint: LT HAND SWELLING - Chief complaint Chief Complaint: Ext Problem - History obtained from History obtained from: Patient - History of Present Illness Location: Left, Hand Where injury occurred: Home Timing - onset: How many days ago (5) Timing - duration: Days (5) Timing - details: Abrupt onset, Still present Improved by: Rest, Immobilization Worsened by: Moving, Palpating Associated symptoms: Swelling, Discolored Contributing factors: Anticoagulated (has hep C with cirrhosis) Similar symptoms before: Has not had sx before Recently seen: Not recently seen - Additonal information Additional information: 64-year-old female with history of treated hepatitis C and cirrhosis has developed swelling of her left hand. She states that she had this after digging around in her purse and she does not recall any significant injury to her hand. She has increased swelling this morning and she has come to the emergency department with concerns about the swelling to her hand. Review of Systems Constitutional: denies: Fever Eyes: denies: Decreased vision Ears: denies: Ear pain Nose: denies: Congestion Throat: denies: Sore throat Respiratory: reports: Cough GI: reports: Nausea Musculoskeletal: reports: Extremity pain, Extremity swelling Neurologic: denies: Generalized weakness, Focal weakness, Numbness PD PAST MEDICAL HISTORY - Past Medical History Cardiovascular: Hypertension Respiratory: COPD Endocrine/Autoimmune: None GI: Hepatitis : None HEENT: None Psych: None Musculoskeletal: Rheumatoid arthritis Derm: None - Past Surgical History Past Surgical History: Yes General: Colonoscopy, Other Ortho: Spine surgery, Other - Present Medications Home Medications: Ambulatory Orders Medication Instructions Recorded Confirmed Lisinopril mg PO 05/21/19 - Allergies Allergies/Adverse Reactions: Allergies Allergy/AdvReac Type Severity Reaction Status Date / Time ampicillin AdvReac Unknown Verified 05/21/19 08:13 gabapentin AdvReac Dizziness Verified 05/21/19 08:13 risperidone [From Risperdal] AdvReac Unknown Verified 05/21/19 08:13 venlafaxine HCl * AdvReac Dizziness Verified 05/21/19 08:13 [From Effexor] - Social History Does the pt smoke?: Yes Smoking Status: Current every day smoker Does the pt drink ETOH?: Yes Does the pt have substance abuse?: No - Immunizations Immunizations are current?: No Immunizations: TDAP >10years/unknown PD ED PE NORMAL - Vitals Vital signs reviewed: Yes (tachy and hypertensive ) - General General: No acute distress, Well developed/nourished - HEENT HEENT: Atraumatic, PERRL, EOMI, Other (dry mucous membranes) - Neck Neck: Supple, no meningeal sign - Cardiac Cardiac: No murmur, Other (tachy to 100) - Respiratory Respiratory: No respiratory distress, Other (diminished breath sounds ) - Abdomen Abdomen: Soft, Non tender - Back Back: No CVA TTP, No spinal TTP - Derm Derm: Normal color, Warm and dry, No rash - Extremities Extremities: Other (There is swelling and ecchymosis to the dorsum of the left hand michael over the distal 3rd MC. 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, No motor deficit, No sensory deficit, Normal speech Eye Opening: Spontaneous Motor: Obeys Commands Verbal: Oriented GCS Score: 15 - Psych Psych: Normal mood, Normal affect Results - Vitals Vitals: Vital Signs - 24 hr 05/21/19 05/21/19 08:08 08:37 Temperature 36.8 C Heart Rate 109 H 95 Respiratory 16 18 Rate Blood Pressure 165/104 H 157/92 H O2 Saturation 94 94 Oxygen O2 Source Room air - Labs Labs: Laboratory Tests 05/21/19 05/21/19 05/21/19 08:25 08:25 08:25 WBC 5.1 RBC 4.01 L Hgb 14.7 Hct 41.8 MCV 104.2 H MCH 36.7 H MCHC 35.2 RDW 12.4 Plt Count 78 L MPV 11.6 H Neut # (Auto) 4.3 Lymph # (Auto) 0.5 L [place] # (Auto) 0.2 Eos # (Auto) 0.0 Baso # (Auto) 0.1 Absolute Nucleated RBC 0.00 Nucleated RBC % 0.0 PT 16.8 H INR 1.5 H Sodium 139 Potassium 3.5 Chloride 103 Carbon Dioxide 20 L Anion Gap 16.0 H BUN 9 Creatinine 0.5 Estimated GFR (MDRD) 125 Glucose 133 H Calcium 9.5 Total Bilirubin 5.4 H AST 247 H ALT 92 H Alkaline Phosphatase 89 Total Protein 9.2 H Albumin 3.7 Globulin 5.5 H Albumin/Globulin Ratio 0.7 L Lipase 77 H - Rads (name of study) hand Radiology: Prelim report reviewed (Impression: No evidence for acute osseous injury. Soft tissue swelling over dorsum of the metacarpals.), EMP read indepedently, See rad report PD MEDICAL DECISION MAKING - ED course Complexity details: reviewed old records, reviewed results, re-evaluated patient, considered differential, d/w patient ED course: 64-year-old female with a history of cirrhosis has a bruise to the dorsum of the left hand she has a lot of swelling associated with this and she has an elevated INR. She is administered vitamin K 10 mg orally and her hand is placed into a splint. X-rays without evidence of fracture. Departure - Departure Disposition: 01 Home, Self Care Clinical Impression: Elevated INR Traumatic hematoma of left hand Qualifiers: Encounter type: initial encounter Qualified Code(s): S60.222A - Contusion of left hand, initial encounter Condition: Stable Instructions: ED Hematoma Follow-Up: Aria Conway ARNP [Primary Care Provider] -
--- NOTE | 2019-05-21 08:50 | XRAY Report ---
Reason: swelling over distal 3rd MC Procedure Date: 05/21/2019 Accession Number: [id number] / [id number] Procedure: XR - Hand 3 View LT CPT Code: Final Report FULL RESULT: EXAM: LEFT HAND RADIOGRAPHY EXAM DATE: 05/21/2019 08:25 AM. CLINICAL HISTORY: Swelling over distal 3rd MC. COMPARISON: [facility] 05/13/2006 7:05 PM. TECHNIQUE: 3 views. FINDINGS: Bones: No fractures or bone lesions. Joints: No subluxations. Soft Tissues: Soft tissue swelling over the dorsum of the metacarpals. IMPRESSION: No evidence for acute osseous injury. Soft tissue swelling over dorsum of the metacarpals. RADIA
== END 2019-05-21 09:15 | disposition home or self-care (01) ==
LOC: ED 07:56
DX: S60.222A Contusion of left hand, initial encounter (principal); X58.XXXA Exposure to other specified factors, initial encounter; Y92.009 Unspecified place in unspecified non-institutional (private) residence as the place of occurrence of the external cause; R79.1 Abnormal coagulation profile; I10 Essential (primary) hypertension; B19.20 Unspecified viral hepatitis C without hepatic coma; K74.60 Unspecified cirrhosis of liver; F17.200 Nicotine dependence, unspecified, uncomplicated
CPT/HCPCS: 36415; 73130; 80053; 83690; 85025; 85610; 99283; 99284; A9270; Q0162; 80320

== ENCOUNTER 2019-05-23 18:24 | Outpatient (CLI) | payer MEDICARE, MEDICAID | END 2019-05-23 18:25 | disposition critical access hospital (66) | LOC: EMS 18:24 | PROVIDERS: ATTEND Surgery | DX: M79.642 Pain in left hand (principal); R22.32 Localized swelling, mass and lump, left upper limb | CPT/HCPCS: A0425; A0429 ==

== ENCOUNTER 2019-05-23 18:44 | Emergency (ER) | payer MEDICARE, MEDICAID ==
--- NOTE | 2019-05-23 18:55 | ED Physician Documentation ---
History of Present Illness - Stated complaint Stated Complaint: SWELLING/ BRUSING TO L HAND - Chief complaint Chief Complaint: Ext Problem - History obtained from History obtained from: Patient - History of Present Illness Timing: How many days ago (3) Pain level max: 10 Pain level now: 10 Improved by: rest Worsened by: movement - Additonal information Additional information: L hand swelling, ecchymosis. states worse than a few days ago. Was placed in a splint a few days ago, this was removed in clinic this morning. Does not recall any injury. no redness. no fever. Review of Systems Constitutional: denies: Fever, Chills GI: denies: Vomiting Skin: denies: Rash Musculoskeletal: denies: Neck pain, Back pain Neurologic: denies: Headache PD PAST MEDICAL HISTORY - Past Medical History Cardiovascular: Hypertension Respiratory: COPD Endocrine/Autoimmune: None GI: Hepatitis : None HEENT: None Psych: None Musculoskeletal: Rheumatoid arthritis Derm: None - Past Surgical History Past Surgical History: Yes General: Colonoscopy, Other Ortho: Spine surgery, Other - Present Medications Home Medications: Ambulatory Orders Medication Instructions Recorded Confirmed Lisinopril mg PO 05/21/19 - Allergies Allergies/Adverse Reactions: Allergies Allergy/AdvReac Type Severity Reaction Status Date / Time ampicillin AdvReac Unknown Verified 05/21/19 08:13 gabapentin AdvReac Dizziness Verified 05/21/19 08:13 risperidone [From Risperdal] AdvReac Unknown Verified 05/21/19 08:13 venlafaxine HCl * AdvReac Dizziness Verified 05/21/19 08:13 [From Effexor] - Social History Does the pt smoke?: Yes Smoking Status: Current every day smoker Does the pt drink ETOH?: Yes Does the pt have substance abuse?: No - Immunizations Immunizations are current?: No Immunizations: TDAP >10years/unknown PD ED PE NORMAL - Vitals Vital signs reviewed: Yes - General General: Alert and oriented X 3, No acute distress - HEENT HEENT: Moist mucous membranes - Neck Neck: Supple, no meningeal sign - Cardiac Cardiac: RRR - Respiratory Respiratory: No respiratory distress, Clear bilaterally - Derm Derm: Warm and dry - Extremities Extremities: Other (L hand swelling and ecchymosis to the dorsum of the hand with fluctuant clot. NVI. ) - Neuro Neuro: Alert and oriented X 3 - Psych Psych: Normal mood, Normal affect Results - Vitals Vitals: Vital Signs - 24 hr 05/23/19 05/23/19 20:40 21:05 Temperature 36.9 C Heart Rate 88 85 Respiratory 16 20 Rate Blood Pressure 136/88 H 144/79 H O2 Saturation 93 Oxygen O2 Source Room air Procedures - General procedure General procedure: L hand hematoma - EMLA was applied to the area. Stab incision was then made on the dorsum of the hand. Large clot was evacuated. Soaked in warm water. No recurrence hematoma. Patient feels much better. Bandage applied. PD MEDICAL DECISION MAKING - ED course Complexity details: considered differential, d/w patient ED course: 64-year-old female presents to the emergency department with a left hand hematoma. This was drained. Tolerated well. Feels better. No evidence of compartment syndrome. No evidence of infection. Patient counseled regarding signs and symptoms for which I believe and urgent re-evaluation would be necessary. Patient with good understanding of and agreement to plan and is comfortable going home at this time This document was made in part using voice recognition software. While efforts are made to proofread this document, sound alike and grammatical errors may occur. Departure - Departure Disposition: 01 Home, Self Care Clinical Impression: Hematoma Condition: Good Instructions: ED Hematoma Follow-Up: Aria Conway ARNP [Primary Care Provider] - Within 1 week Comments: Return if you worsen. Remove the bandage when you get home. Discharge Date/Time: 05/23/19 22:03
[2019-05-23] MEDS ORDERED: LIDOCAINE/PRILOCAINE 2.5% CREAM 5 GM TUBE TOP STA (19:03)
[2019-05-23 21:06] VITALS: BP 144/79
== END 2019-05-23 22:03 | disposition home or self-care (01) ==
LOC: EDUNIT# → ED 18:44
DX: M79.81 Nontraumatic hematoma of soft tissue (principal); I10 Essential (primary) hypertension; F17.200 Nicotine dependence, unspecified, uncomplicated
CPT/HCPCS: 10140; 99282; 99283; J3490

== ENCOUNTER 2019-05-25 06:07 | Emergency (ER) | payer MEDICARE, MEDICAID ==
[2019-05-25] MEDS ORDERED: BUFFERED LIDOCAINE 10 ML SYRINGE SUBQ STA (06:38)
--- NOTE | 2019-05-25 07:18 | ED Physician Documentation ---
PD HPI UPPER EXT INJURY - Stated complaint Stated Complaint: L HAND INJURY - Chief complaint Chief Complaint: Ext Problem - History obtained from History obtained from: Patient - History of Present Illness Location: Left, Hand Type of injury: Blunt / blow Where injury occurred: Home Timing - onset: How many days ago (5) Timing - duration: Days (5) Improved by: Rest Worsened by: Moving, Palpating Associated symptoms: Swelling, Discolored Contributing factors: Anticoagulated (has cirrhosis) Similar symptoms before: Diagnosis (hematoma) Recently seen: Emergency Dept - Additonal information Additional information: 64-year-old female with a history of cirrhosis has a bruise to the dorsum of the left hand which she apparently got by digging around in her purse. She came to the emergency department initially 4 days ago and at that time we placed her into a splint she had continued swelling was seen in the emergency department again 2 days ago and at that time Dr. Mittal did an incision and drained clot and blood from the dorsum of the hand. The hand deflated pain was improved. The patient has had reaccumulation of hematoma and painful swelling. She was unable to sleep last night secondary to pain. She is able to move her fingers she has sensation to the fingers but any movement causes significant pain. 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 : None HEENT: None Psych: None Musculoskeletal: Rheumatoid arthritis Derm: None - Past Surgical History Past Surgical History: Yes General: Colonoscopy, Other Ortho: Spine surgery, Other - Present Medications Home Medications: Ambulatory Orders Medication Instructions Recorded Confirmed Lisinopril mg PO 05/21/19 oxyCODONE [Roxicodone] 5 - 10 mg PO Q6H PRN #14 tablet 05/25/19 - Allergies Allergies/Adverse Reactions: Allergies Allergy/AdvReac Type Severity Reaction Status Date / Time ampicillin AdvReac Unknown Verified 05/25/19 06:16 gabapentin AdvReac Dizziness Verified 05/25/19 06:16 risperidone [From Risperdal] AdvReac Unknown Verified 05/25/19 06:16 venlafaxine HCl * AdvReac Dizziness Verified 12/19/19 06:16 [From Effexor] - Social History Does the pt smoke?: Yes Smoking Status: Current every day smoker Does the pt drink ETOH?: Yes Does the pt have substance abuse?: No - Immunizations Immunizations are current?: No Immunizations: TDAP >10years/unknown - POLST Patient has POLST: No PD ED PE NORMAL - Vitals Vital signs reviewed: Yes (tachy and hypertensive ) - General General: Alert and oriented X 3, Well developed/nourished, Other (The patient is rocking in pain ) - HEENT HEENT: Atraumatic, PERRL, Other (scleral icterus is present) - Respiratory Respiratory: No respiratory distress - Derm Derm: Normal color, Warm and dry, No rash - Extremities Extremities: Other (The left hand is swollen and ecchymotic there is an accumulation of hematoma under the skin overlying the first and second metacarpals and ecchymosis is is extensive all the way out to the fingertips and up a portion of the wrist. The patient has swelling extending to the palmar surface of the hand. The distal capillary refill is still present and sensation is present. 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, No sensory deficit, Normal speech Eye Opening: Spontaneous Motor: Obeys Commands Verbal: Oriented GCS Score: 15 - Psych Psych: Normal mood, Normal affect Results - Vitals Vitals: Vital Signs - 24 hr 05/25/19 05/25/19 06:15 06:25 Temperature 36.9 C Heart Rate 120 H Respiratory 18 17 Rate Blood Pressure 146/133 H O2 Saturation 93 Oxygen O2 Source Room air - Labs Labs: Laboratory Tests 05/25/19 06:55 Whole Blood INR 1.3 H Procedures - General procedure General procedure: Hematoma evacuation: The dorsum of the hand is cleansed with chlorhexidine and with 1% lidocaine the dorsum of the hand is infiltrated over to prior alarcon on the dorsum of the hand where incisions have been made. These are extended and clot is forcibly removed from the dorsum of the hand this deflates the space on the dorsum of the hand extensively with some relief of pain. PD MEDICAL DECISION MAKING - ED course Complexity details: reviewed old records, reviewed results, re-evaluated patient, considered differential, d/w patient ED course: 64-year-old female with a hematoma to the dorsum of the hand and recurrence of accumulation of hematoma has extreme pain related to the hematoma. The hand is cleansed with chlorhexidine and the incisions are extended and the clot is evacuated again deflating the hand. The hand is then soaked in Hibiclens and saline and bandaged with gauze and an LIZ wrap. The patient has improvement in her pain. Departure - Departure Disposition: 01 Home, Self Care Clinical Impression: Traumatic hematoma of left hand Qualifiers: Encounter type: subsequent encounter Qualified Code(s): S60.222D - Contusion of left hand, subsequent encounter Condition: Stable Instructions: ED Hematoma Follow-Up: Aria Conway ARNP [Primary Care Provider] - Prescriptions: oxyCODONE [Roxicodone] 5 - 10 mg PO Q6H PRN #14 tablet PRN Reason: hand pain
[2019-05-25 07:53] VITALS: BP 140/100
== END 2019-05-25 07:41 | disposition home or self-care (01) ==
LOC: ED 06:07
DX: S60.222A Contusion of left hand, initial encounter (principal); X58.XXXA Exposure to other specified factors, initial encounter; Y93.89 Activity, other specified; Y92.009 Unspecified place in unspecified non-institutional (private) residence as the place of occurrence of the external cause; I10 Essential (primary) hypertension; Z79.01 Long term (current) use of anticoagulants; F17.200 Nicotine dependence, unspecified, uncomplicated
CPT/HCPCS: 10140; 85610; 99283; 99284

== ENCOUNTER 2019-06-06 10:30 | Outpatient (CLI) | payer MEDICAID, MEDICARE ==
[2019-06-06 18:29] LABS: BASOPHILS # (AUTO) 0.2 10^3/uL (0.0-0.1); BASOPHILS % (AUTO) 2.2 %; EOSINOPHILS # (AUTO) 0.2 10^3/uL (0.0-0.7); EOSINOPHILS % (AUTO) 3.2 %; HGB - HEMOGLOBIN 14.1 g/dL (12.0-16.0); LYMPHOCYTES # (AUTO) 1.2 10^3/uL (1.5-3.5); LYMPHOCYTES % (AUTO) 17.7 %; MEAN CORPUSCULAR HEMOGLOBIN 38.8 pg (27.0-31.0); MEAN CORPUSCULAR HGB CONC 35.5 g/dL (32.0-36.0); MEAN CORPUSCULAR VOLUME 109.4 fL (81.0-99.0); MEAN PLATELET VOLUME 12.1 fL (7.9-10.8); MONOCYTES # (AUTO) 0.6 10^3/uL (0.0-1.0); MONOCYTES % (AUTO) 8.3 %; NEUTROPHILS # (AUTO) 4.7 10^3/uL (1.5-6.6); NEUTROPHILS % (AUTO) 67.6 %; PLT - PLATELET COUNT 182 10^3/uL (130-450); RED BLOOD COUNT 3.63 10^6/uL (4.20-5.40); RED CELL DISTRIBUTION WIDTH 13.1 % (12.0-15.0)
[2019-06-06 18:47] LABS: INR 1.4 (0.8-1.2); PT - PROTHROMBIN TIME 15.3 secs (9.9-12.6)
[2019-06-06 19:26] LABS: ALBUMIN 3.4 g/dL (3.2-5.5); BILIRUBIN,DIRECT 1.4 mg/dL (0.1-0.5); BILIRUBIN,TOTAL 3.9 mg/dL (0.2-1.0); CALCIUM 9.2 mg/dL (8.5-10.3); CREATININE 0.6 mg/dL (0.4-1.0); TOTAL PROTEIN 7.6 g/dL (6.7-8.2)
== END 2019-06-06 23:59 | disposition home or self-care (01) ==
LOC: LAB.N 10:30
PROVIDERS: ATTEND Nurse Practitioner Gerontology
DX: S60.222D Contusion of left hand, subsequent encounter (principal); K76.9 Liver disease, unspecified; I10 Essential (primary) hypertension; B19.10 Unspecified viral hepatitis B without hepatic coma; B19.20 Unspecified viral hepatitis C without hepatic coma
CPT/HCPCS: 36415; 80048; 80076; 85025; 85610; 85730

== ENCOUNTER 2019-06-14 10:34 | Emergency (ER) | payer MEDICARE, MEDICAID ==
[2019-06-14 10:46] VITALS: BP 134/80
--- NOTE | 2019-06-14 11:26 | ED Physician Documentation ---
PD HPI UPPER EXT INJURY - Stated complaint Stated Complaint: LT HAND BRUISING - Chief complaint Chief Complaint: Ext Problem - History obtained from History obtained from: Patient - History of Present Illness Location: Left, Forearm, Hand Type of injury: Other (had bruise/hematoma of left hand that had been evacuated and is slowly healing. She noted some redness linear with some tenderness in bruised area. No new injury. Had been told to worry about infection. 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 : None HEENT: None Psych: None Musculoskeletal: Rheumatoid arthritis Derm: None - Past Surgical History Past Surgical History: Yes General: Colonoscopy, Other Ortho: Spine surgery, Other - Present Medications Home Medications: Ambulatory Orders Medication Instructions Recorded Confirmed lisinopriL [Lisinopril] mg PO 05/21/19 oxyCODONE [Roxicodone] 5 - 10 mg PO Q6H PRN #14 tablet 05/25/19 - Allergies Allergies/Adverse Reactions: Allergies Allergy/AdvReac Type Severity Reaction Status Date / Time ampicillin AdvReac Unknown Verified 06/14/19 10:41 gabapentin AdvReac Dizziness Verified 06/14/19 10:41 risperidone [From Risperdal] AdvReac Unknown Verified 06/14/19 10:41 venlafaxine HCl * AdvReac Dizziness Verified 06/14/19 10:41 [From Effexor] - Social History Does the pt smoke?: Yes Smoking Status: Current every day smoker Does the pt drink ETOH?: Yes Does the pt have substance abuse?: No - Immunizations Immunizations are current?: No Immunizations: TDAP >10years/unknown - POLST Patient has POLST: No PD ED PE NORMAL - Vitals Vital signs reviewed: Yes - General General: Alert and oriented X 3, No acute distress, Well developed/nourished - Derm Derm: Normal color, Warm and dry - Extremities Extremities: Other (left dorsum hand with old purple bruise, and in that area is a linear area of redness with some tenderness, but not firm. The redness does not extend beyond the bruised area. It seems like some phlebitis. ) - Neuro Neuro: No motor deficit, No sensory deficit Results - Vitals Vitals: Vital Signs - 24 hr 06/14/19 10:41 Temperature 36.5 C Heart Rate 66 Respiratory 14 Rate Blood Pressure 134/80 H O2 Saturation 94 Oxygen O2 Source Room air PD MEDICAL DECISION MAKING - ED course Complexity details: considered differential, d/w patient Departure - Departure Disposition: 01 Home, Self Care Clinical Impression: Phlebitis of superficial vein Condition: Stable Record reviewed to determine appropriate education?: Yes Instructions: ED Phlebitis Superficial Follow-Up: Aria Conway ARNP [Primary Care Provider] - Comments: I think this is just some inflammation of the local area of the vein. Use some warm face cloth or towels or soak for the area to soften up any of the residual clotting. Tylenol for pain. You can use the wrist and thumb splint to decrease motion and have it hurt less. Recheck if not improved well over the next few days or if worsening. Discharge Date/Time: 06/14/19 12:21
[2019-06-14] MEDS ORDERED: HYDROcod/ACETAM 5/325 MG TABLET PO STA (11:40)
== END 2019-06-14 12:21 | disposition home or self-care (01) ==
LOC: ED 10:34
DX: I80.8 Phlebitis and thrombophlebitis of other sites (principal); I10 Essential (primary) hypertension; F17.200 Nicotine dependence, unspecified, uncomplicated
CPT/HCPCS: 99282; A9270

== ENCOUNTER 2019-07-11 22:07 | Outpatient (CLI) | payer MEDICARE, MEDICAID | END 2019-07-11 22:08 | disposition critical access hospital (66) | LOC: EMS 22:07 | PROVIDERS: ATTEND Surgery | DX: M79.652 Pain in left thigh (principal); R10.32 Left lower quadrant pain | CPT/HCPCS: A0425; A0429 ==

== ENCOUNTER 2019-07-11 22:24 | Inpatient (IN) | payer MEDICARE, MEDICAID ==
--- NOTE | 2019-07-11 22:26 | ED Physician Documentation ---
History of Present Illness - Stated complaint Stated Complaint: UPPER LEG PAIN - History obtained from History obtained from: Patient (The patient is a 64-year-old female who presents via EMS with a chief complaint of left leg pain the patient that started about 1 week ago and got severe tonight. the patient is concerned that she could have a deep vein thrombosis, she states that she had a DVT in her left lower extremity in 2012 and was treated at that time, she denies any trauma but does admit to drinking alcohol daily. she denies any falls however she appears to be clinically intoxicated on my initial exam. she is requesting a ultrasound to rule out a deep vein thrombosis she denies chest pain, shortness of breath, hemoptysis. she denies taking any anticoagulation at this time. she reports a hx of hepatitis that is chronic.) Review of Systems Constitutional: reports: Reviewed and negative Eyes: reports: Reviewed and negative Ears: reports: Reviewed and negative Nose: reports: Reviewed and negative Throat: reports: Reviewed and negative Cardiac: reports: Reviewed and negative Respiratory: reports: Reviewed and negative GI: reports: Reviewed and negative : reports: Reviewed and negative Skin: reports: Reviewed and negative Musculoskeletal: reports: Other (left leg pain) Neurologic: reports: Reviewed and negative Psychiatric: reports: Reviewed and negative Endocrine: reports: Reviewed and negative Immunocompromised: reports: Reviewed and negative PD PAST MEDICAL HISTORY - Present Medications Home Medications: Ambulatory Orders Medication Instructions Recorded Confirmed lisinopriL [Lisinopril] mg PO 05/21/19 - Allergies Allergies/Adverse Reactions: Allergies Allergy/AdvReac Type Severity Reaction Status Date / Time ampicillin AdvReac Unknown Verified 06/14/19 10:41 gabapentin AdvReac Dizziness Verified 06/14/19 10:41 risperidone [From Risperdal] AdvReac Unknown Verified 06/14/19 10:41 venlafaxine HCl * AdvReac Dizziness Verified 06/14/19 10:41 [From Effexor] PD ED PE NORMAL - Vitals Vital signs reviewed: Yes - General General: Alert and oriented X 3, No acute distress - HEENT HEENT: PERRL - Neck Neck: Supple, no meningeal sign - Cardiac Cardiac: RRR, No murmur - Respiratory Respiratory: Clear bilaterally - Abdomen Abdomen: Normal bowel sounds, Soft, Non tender, Non distended - Derm Derm: Warm and dry - Extremities Extremities: No deformity, No edema, Other (The left thigh is tender to palpation there is no crepitus there is no erythema or ecchymosis or swelling or signs of trauma her compartments are soft she is neurovascular intact she has palpable DP and PT pulses she is able to move her left lower extremity and bear weight sensation is intact to light touch cap refill is less than 2 seconds. there is no crepitus on examination of the left thigh.) - Neuro Neuro: Alert and oriented X 3 - Psych Psych: Normal mood, Normal affect Results - Vitals Vitals: Vital Signs - 24 hr 07/11/19 07/12/19 07/12/19 22:29 01:40 02:51 Temperature 36.2 C L Heart Rate 99 72 70 Respiratory 22 14 14 Rate Blood Pressure 153/90 H 101/58 L 103/56 L O2 Saturation 94 92 95 07/12/19 07/12/19 04:58 05:40 Temperature Heart Rate 82 91 Respiratory 24 Rate Blood Pressure 106/57 L 122/80 O2 Saturation 95 97 Oxygen O2 Source Nasal cannula - Labs Labs: Laboratory Tests 07/12/19 07/12/19 07/12/19 00:30 01:10 01:30 WBC 5.8 RBC 3.26 L Hgb 12.1 Hct 35.3 L MCV 108.3 H MCH 37.1 H MCHC 34.3 RDW 12.8 Plt Count 131 MPV 12.0 H Neut # (Auto) 3.8 Lymph # (Auto) 1.1 L [place] # (Auto) 0.7 Eos # (Auto) 0.2 Baso # (Auto) 0.1 Absolute Nucleated RBC 0.00 Nucleated RBC % 0.0 PT 15.3 H INR 1.4 H APTT 37.9 H Sodium 141 Potassium 3.9 Chloride 108 Carbon Dioxide 21 Anion Gap 12.0 BUN 14 Creatinine 0.5 Estimated GFR (MDRD) 125 Glucose 135 H Calcium 8.8 Total Bilirubin 1.8 H AST 121 H ALT 51 Alkaline Phosphatase 129 H Total Creatine Kinase 139 Total Protein 7.1 Albumin 3.3 Globulin 3.8 Albumin/Globulin Ratio 0.9 L Lipase 108 H Urine Color Urine Clarity Urine pH Ur Specific [place] Urine Protein Urine Glucose (UA) Urine Ketones Urine Occult Blood Urine Nitrite Urine Bilirubin Urine Urobilinogen Ur Leukocyte Esterase Urine RBC Urine WBC Ur Squamous Epith Cells Urine Bacteria Urine Casts Urine Mucus Ur Microscopic Review Urine Culture Comments Urine Opiates Screen Ur Oxycodone Screen Urine Methadone Screen Ur Propoxyphene Screen Ur Barbiturates Screen Ur Tricyclics Screen Ur Phencyclidine Scrn Ur Amphetamine Screen U Methamphetamines Scrn U Benzodiazepines Scrn Urine Cocaine Screen U Cannabinoids Screen Ethyl Alcohol 186.5 07/12/19 03:42 WBC RBC Hgb Hct MCV MCH MCHC RDW Plt Count MPV Neut # (Auto) Lymph # (Auto) [place] # (Auto) Eos # (Auto) Baso # (Auto) Absolute Nucleated RBC Nucleated RBC % PT INR APTT Sodium Potassium Chloride Carbon Dioxide Anion Gap BUN Creatinine Estimated GFR (MDRD) Glucose Calcium Total Bilirubin AST ALT Alkaline Phosphatase Total Creatine Kinase Total Protein Albumin Globulin Albumin/Globulin Ratio Lipase Urine Color YELLOW Urine Clarity CLEAR Urine pH 5.5 Ur Specific [place] >=1.030 H Urine Protein NEGATIVE Urine Glucose (UA) NEGATIVE Urine Ketones TRACE Urine Occult Blood LARGE H Urine Nitrite NEGATIVE Urine Bilirubin NEGATIVE Urine Urobilinogen 0.2 (NORMAL) Ur Leukocyte Esterase NEGATIVE Urine RBC 11-25 H Urine WBC 0-3 Ur Squamous Epith Cells FEW Squamous Urine Bacteria Few Urine Casts 0-2 Fine Granular Urine Mucus Moderate Strands Ur Microscopic Review INDICATED Urine Culture Comments NOT INDICATED Urine Opiates Screen POSITIVE H Ur Oxycodone Screen NEGATIVE Urine Methadone Screen NEGATIVE Ur Propoxyphene Screen NEGATIVE Ur Barbiturates Screen NEGATIVE Ur Tricyclics Screen NEGATIVE Ur Phencyclidine Scrn NEGATIVE Ur Amphetamine Screen NEGATIVE U Methamphetamines Scrn NEGATIVE U Benzodiazepines Scrn NEGATIVE Urine Cocaine Screen NEGATIVE U Cannabinoids Screen NEGATIVE Ethyl Alcohol Procedures - General procedure General procedure: compartment pressure measured using striker. area was prepped and draped in normal sterile fashion using betadine. area was anestetized with 3 cc of 1% lidocaine with epi, sterile needle was inserted into the hematoma compartment with measure of 25,26,27. no bleeding after removal of needle, patient tolerated the procedure well. PD MEDICAL DECISION MAKING - ED course Complexity details: other (US shows chronic non occlusive DVT which is consistent with the patient's history that she provided, there is a large hematoma that is not appreciated on physical exam other than tenderness to p alpation, there is no ecchymosis or obvious swelling. will observe patient at this time.) - Consults Consults: Consulted (name) (06:15 dr venegas, general surgeon, here to evaluate the patient. ) - Critical Care Time(min): 30 Departure - Departure Disposition: ED Transfer to [facility] Clinical Impression: Hematoma Hematoma of lower extremity Qualifiers: Encounter type: initial encounter Laterality: left Qualified Code(s): S80.12XA - Contusion of left lower leg, initial encounter Condition: Fair
[2019-07-11] MEDS ORDERED: ACETAMINOPHEN 325 MG TABLET PO ONE (23:08)
[2019-07-12] MEDS ORDERED: MORPHINE 2 MG/ML CARPUJECT ONE (00:37)
--- NOTE | 2019-07-12 00:51 | Ultrasound Report ---
Reason: LEFT LEG PAIN Procedure Date: 07/11/2019 Accession Number: [id number] / [id number] Procedure: US - Duplex Ext Veins Left CPT Code: Final Report FULL RESULT: EXAM: LEFT LOWER EXTREMITY VENOUS ULTRASOUND EXAM DATE: 07/11/2019 11:59 PM CLINICAL HISTORY: Left leg pain. COMPARISON: None. TECHNIQUE: Real-time sonographic vascular imaging was performed by the color coater through the lower extremity utilizing both color-flow and Doppler spectral analysis. Multiple account maintenance representative static images were saved for review. FINDINGS: Exam sensitivity and specificity are greatly compromised due to severe pain described by the patient. Common Femoral Vein (CFV): Normal. CFV-GSV Junction: Normal. Profunda Femoral Vein (PFV): Nonocclusive thrombus. Femoral Vein (FV) Prox: Nonocclusive thrombus suspected. Femoral Vein (FV) Mid: Normal. Femoral Vein (FV) Dist: Nonocclusive thrombus suspected. Popliteal Vein: Nonocclusive thrombus. Calf Veins: Suboptimally visualized. Contralateral Right CFV: Normal. Other: Large heterogeneous abnormality within the medial upper thigh, measuring 10.8 x 5.3 x 8.1 cm, with appearance suggestive of a large hematoma. IMPRESSION: 1. There is a large heterogeneous abnormality within the medial upper thigh measuring 10.8 x 5.3 x 8.1 cm, with appearance suggestive of a hematoma. 2. Thickened valves noted within the deep venous system, suggesting sequelae of chronic deep venous thrombosis. There is nonocclusive thrombus within the profunda femoris proximally, proximal femoral vein, distal femoral vein, and popliteal vein. RADIA The call report notification system was initiated by Dr. Vincent Kumar at 12:51 AM on 07/12/2019. The above call report findings were discussed with Dr. Jacob Tate by Dr. Vincent Kumar at 12:57 AM on 07/12/2019.
[2019-07-12 01:20] LABS: BASOPHILS # (AUTO) 0.1 10^3/uL (0.0-0.1); BASOPHILS % (AUTO) 1.5 %; EOSINOPHILS # (AUTO) 0.2 10^3/uL (0.0-0.7); EOSINOPHILS % (AUTO) 2.6 %; HGB - HEMOGLOBIN 12.1 g/dL (12.0-16.0); LYMPHOCYTES # (AUTO) 1.1 10^3/uL (1.5-3.5); LYMPHOCYTES % (AUTO) 18.4 %; MEAN CORPUSCULAR HEMOGLOBIN 37.1 pg (27.0-31.0); MEAN CORPUSCULAR HGB CONC 34.3 g/dL (32.0-36.0); MEAN CORPUSCULAR VOLUME 108.3 fL (81.0-99.0); MONOCYTES # (AUTO) 0.7 10^3/uL (0.0-1.0); MONOCYTES % (AUTO) 11.2 %; NEUTROPHILS # (AUTO) 3.8 10^3/uL (1.5-6.6); PLT - PLATELET COUNT 131 10^3/uL (130-450); RED BLOOD COUNT 3.26 10^6/uL (4.20-5.40); RED CELL DISTRIBUTION WIDTH 12.8 % (12.0-15.0); WHITE BLOOD COUNT 5.8 x10^3/uL (4.8-10.8)
[2019-07-12 01:44] LABS: INR 1.4 (0.8-1.2); PT - PROTHROMBIN TIME 15.3 secs (9.9-12.6)
[2019-07-12 01:50] LABS: ALBUMIN 3.3 g/dL (3.2-5.5); ALBUMIN/GLOBULIN RATIO 0.9 (1.0-2.2); BILIRUBIN,TOTAL 1.8 mg/dL (0.2-1.0); CALCIUM 8.8 mg/dL (8.5-10.3); CREATININE 0.5 mg/dL (0.4-1.0); TOTAL PROTEIN 7.1 g/dL (6.7-8.2)
[2019-07-12 01:52] LABS: PARTIAL THROMBOPLASTIN TIME 37.9 secs (24.9-33.3)
[2019-07-12] MEDS ORDERED: IOVERSOL 320 100 ML VIAL IVP ONE ×2 (03:32→04:35)
[2019-07-12 04:31] LABS: MUDS CUTOFF CONCENTRATIONS CUTOFF CONC BELOW:
[2019-07-12 04:33] LABS: BILIRUBIN,URINE NEGATIVE (NEGATIVE); GLUCOSE, URINE (UA) NEGATIVE (NEGATIVE); KETONES,URINE (UA) TRACE mg/dL (NEGATIVE); LEUKOCYTE ESTERASE, URINE NEGATIVE (NEGATIVE); NITRITE,URINE NEGATIVE (NEGATIVE); OCCULT BLOOD,URINE LARGE (NEGATIVE); PH,URINE 5.5 PH (5.0-7.5); PROTEIN,URINE NEGATIVE (NEGATIVE); UROBILINOGEN,URINE 0.2 (NORMAL) E.U./dL (NORMAL)
[2019-07-12 04:34] LABS: CLARITY,URINE CLEAR (CLEAR)
[2019-07-12 04:41] LABS: BACTERIA,URINE Few /HPF (None Seen); MUCUS,URINE Moderate Strands; SQUAMOUS EPITHELIAL CELL,UR FEW Squamous (<= Few)
[2019-07-12 04:42] LABS: CASTS, URINE 0-2 Fine Granular /LPF
[2019-07-12 04:43] LABS: AMPHETAMINE SCREEN,URINE NEGATIVE (NEGATIVE); COCAINE SCREEN URINE NEGATIVE (NEGATIVE); METHAMPHETAMINES SCREEN, URINE NEGATIVE (NEGATIVE); OPIATE SCREEN, URINE POSITIVE (NEGATIVE)
[2019-07-12 04:44] LABS: BENZODIAZEPINES SCREEN, URINE NEGATIVE (NEGATIVE); METHADONE SCREEN, URINE NEGATIVE (NEGATIVE); OXYCODONE SCREEN, URINE NEGATIVE (NEGATIVE); PROPOXYPHENE SCREEN, URINE NEGATIVE (NEGATIVE); TRICYCLIC ANTIDEPRESSANT,URINE NEGATIVE (NEGATIVE)
--- NOTE | 2019-07-12 05:20 | CT Report ---
Reason: left thigh hematoma Procedure Date: 07/12/2019 Accession Number: [id number] / [id number] Procedure: CT - LOWER EXTREMITY W - LT CPT Code: Final Report FULL RESULT: EXAM: LEFT LOWER EXTREMITY CT WITH CONTRAST EXAM DATE: 07/12/2019 04:37 AM CLINICAL HISTORY: Patient is intoxicated. Abnormal appearance of the left thigh on the prior ultrasound, further assessment and characterization. COMPARISON: None. TECHNIQUE: Axial helical multidetector images are acquired from the mid iliac bone through the proximal tibia. IV contrast: 100 mL Optiray 320. Post-processing: Coronal and sagittal reformats. Other: None. In accordance with CT protocol optimization, one or more of the following dose reduction techniques were utilized for this exam: automated exposure control, adjustment of mA and/or KV based on patient size, or use of iterative reconstructive technique. FINDINGS: Bones: No fracture or definite suspicious bony lesion demonstrated at this time. Old healed parasymphyseal fracture of the left pubic bone noted. Joints: No dislocation is demonstrated. Soft Tissues: There is a large hematoma within the medial portion of the left thigh, with the epicenter located within the adductor brevis muscle. This measures 14.0 x 10.3 x 7.7 cm (image 51 series 10). The recent prior ultrasound demonstrated nonocclusive thrombus within the deep venous system is difficult to identify on CT. Sonography is more sensitive for detection of nonocclusive thrombus compared to CT. There is a 5 mm nonobstructing left UVJ region stone. IMPRESSION: 1. Large hematoma within the adductor brevis muscle measuring 14.0 x 10.3 x 7.7 cm. 2. Incidentally noted nonobstructing left UVJ stone measuring 5 mm. RADIA
[2019-07-12] MEDS ORDERED: MORPHINE 2 MG/ML CARPUJECT IVP STA (05:34)
[2019-07-12] MEDS ORDERED: LIDOCAINE 1%-EPI 1:100000 20 ML MDV SUBQ STA (05:46)
--- NOTE | 2019-07-12 07:19 | ANESTHESIA ---
Pre-Anesthesia VS, & Labs - Diagnosis Left thigh hematoma, compartment syndrome - Procedure Left thigh fasciotomy Vital Signs: Temp Pulse Resp BP Pulse Ox 36.2 C L 86 18 118/78 95 07/11/19 22:29 07/12/19 07:02 07/12/19 07:02 07/12/19 07:02 07/12/19 07:02 Height 5 ft 2 in Weight (kg) 66.224 kg Body Mass Index 26.6 - NPO >8 hours - Is Patient ?: No - Lab Results Current Lab Results: Laboratory Tests 07/12/19 03:42: Urine Opiates Screen POSITIVE H, Ur Oxycodone Screen NEGATIVE, Urine Methadone Screen NEGATIVE, Ur Propoxyphene Screen NEGATIVE, Ur Barbiturates Screen NEGATIVE, Ur Tricyclics Screen NEGATIVE, Ur Phencyclidine Scrn NEGATIVE, Ur Amphetamine Screen NEGATIVE, U Methamphetamines Scrn NEGATIVE, U Benzodiazepines Scrn NEGATIVE, Urine Cocaine Screen NEGATIVE, U Cannabinoids Screen NEGATIVE 07/12/19 01:30: Sodium 141, Potassium 3.9, Chloride 108, Carbon Dioxide 21, Anion Gap 12.0, BUN 14, Creatinine 0.5, Estimated GFR (MDRD) 125, Glucose 135 H, Calcium 8.8, Total Bilirubin 1.8 H, AST 121 H, ALT 51, Alkaline Phosphatase 129 H, Total Creatine Kinase 139, Total Protein 7.1, Albumin 3.3, Globulin 3.8, Albumin/Globulin Ratio 0.9 L, Lipase 108 H, Ethyl Alcohol 186.5 07/12/19 01:10: WBC 5.8, RBC 3.26 L, Hgb 12.1, Hct 35.3 L, MCV 108.3 H, MCH 37.1 H, MCHC 34.3, RDW 12.8, Plt Count 131, MPV 12.0 H, Neut # (Auto) 3.8, Lymph # (Auto) 1.1 L, [place] # (Auto) 0.7, Eos # (Auto) 0.2, Baso # (Auto) 0.1, Absolute Nucleated RBC 0.00, Nucleated RBC % 0.0 07/12/19 00:30: PT 15.3 H, INR 1.4 H, APTT 37.9 H Fish Bones: 07/12/19 01:10 07/12/19 01:30 Home Medications and Allergies lisinopriL [Lisinopril] mg PO 05/21/19 Allergies/Adverse Reactions: Allergies Allergy/AdvReac Type Severity Reaction Status Date / Time ampicillin AdvReac Unknown Verified 06/14/19 10:41 gabapentin AdvReac Dizziness Verified 06/14/19 10:41 risperidone [From Risperdal] AdvReac Unknown Verified 06/14/19 10:41 venlafaxine HCl * AdvReac Dizziness Verified 06/14/19 10:41 [From Effexor] Anes History & Medical History - Anesthetic History Anesthesia Complications: reports: No previous complications - Medical History Cardiovascular: reports: Hypertension Pulmonary: reports: COPD, Shortness of breath Gastrointestinal: reports: Hepatitis (Hepatitis C. S/p treatment), Cirrhosis Urinary: reports: None, Kidney stones Neuro: reports: None Musculoskeletal: reports: Osteoarthritis, Other (S/p c-spine fracture, required halo. She does have limited neck ROM) Endocrine/Autoimmune: reports: None Blood Disorders: reports: None Skin: reports: None Smoking Status: Current every day smoker Psychosocial: reports: Depression, Anxiety, Alcohol - Surgical History General: Colonoscopy, Other (pilonidal cystectomy) Orthopedic: Spine surgery, Other (orif ankle, orif finger) Exam General: Alert, Oriented x3, Cooperative, No acute distress Dental: Dentures full Upper, Dentures full Lower Mouth Openin Fingerbreadth Neck Mobility: Normal Mallampati classification: I Thyromental Distance: greater than 6 cm Mental/Cognitive Status: Alert/Oriented X3, Normal for patient Plan Anesthesia Type: General Consent for Procedure(s) Verified and Reviewed: Yes Code Status: Attempt Resuscitation ASA classification: 3-Severe systemic disease Is this case an emergency?: Yes
[2019-07-12] MEDS ORDERED: HYDROmorphone 1 MG/ML CARPUJECT IVP PRN (07:38)
[2019-07-12] MEDS ORDERED: fentaNYL 100 MCG/2 ML VIAL IVP ONE (07:40)
[2019-07-12] MEDS ORDERED: PROPOFOL 200 MG/20 ML VIAL IVP ONE (07:40)
[2019-07-12] MEDS ORDERED: ONDANSETRON 4 MG/2 ML VIAL IVP ONE (07:40)
[2019-07-12] MEDS ORDERED: MIDAZOLAM 2 MG/2 ML VIAL IVP ONE (07:40)
[2019-07-12] MEDS ORDERED: PHENYLEPHRINE 10 MG/ML VIAL IV ONE (07:40)
[2019-07-12] MEDS ORDERED: LACTATED RINGERS 1,000 ML IV ONE ×2 (07:44→08:40)
--- NOTE | 2019-07-12 07:48 | CONSULTATION NOTE ---
Chief Complaint - Chief Complaint Chief Complaint: left thigh pain History of Present Illness - Admitted From Admitted From:: ED - History Obtained From History obtained from: patient and chart - History of Present Illness HPI Comment/Other: 64yo F presenting overnight with severe pain of her left upper inner thigh. She says this started and became severe and unremitting overnight but she first noticed pain in this area several weeks ago, which resolved after a few days, then again a week ago with a similar course before resolving and restarting last night. Her earlier episodes were less severe but did limit her mobility somewhat. Now she is not able to walk nor move her hip to any significant degree in any direction. She also has a noted DVT which appears chronic per read but is unknown to patient. She denies anticoagulant/ antiplatelets but says on questioning that she 'tends to be a bleeder;' this has not been worked up. She had a similar episode on her dorsal hand a year or so ago which was drained in the ED; she does not seem to have had any further workup for this. Her compartment pressures measure 26-27 per ED physician. On exam, she has skin sensation intact and palpable DP pulse. She has severe pain with passive flexion, abduction, and adduction of the hip. She will not move it herself due to pain. The area of her upper medial thigh is firm and all other compartments are soft. On imaging, a 14cm hematoma is noted as well as an old-appearing pubic bone fracture nearby. She denies trauma to the area at all recently including falls or twisting or noted bruising. She has elevated TB and liver enzymes, has had more elevated episodes in the past. She has history of hep C and possibly B per chart; she says she was treated and 'things improved' but never resolved. She has an etoh of 186 but denies heavy or regular drinking and has never had withdrawal symptoms per patient. History - Past Medical History Cardiovascular: reports: Hypertension Respiratory: reports: COPD, Shortness of breath (walking up a flight of stairs) Neuro: reports: None Endocrine/Autoimmune: reports: None GI: reports: Hepatitis (Hepatitis C. S/p treatment), Cirrhosis INTERNAL AUDIT CONSULTANT: reports: None : reports: None, Kidney stones HEENT: reports: None Psych: reports: None Musculoskeletal: reports: Osteoarthritis, Other (S/p c-spine fracture, required halo. She does have limited neck ROM) Derm: reports: None MRSA Hx?: No - Past Surgical History General: reports: Colonoscopy, Other (pilonidal cystectomy) Ortho: reports: Spine surgery, Other (orif ankle, orif finger) - Substance History Abuse: Recurrent use of substance despite neg consequences: Alcohol (pt denies abuse but chart review and current presentation suggestive of issues) Tobacco Details: Cigarettes (minimal use now, 30 year history ) - POLST Patient has POLST: No Meds/Allgy - Home Medications Home Medications: Ambulatory Orders Medication Instructions Recorded Confirmed lisinopriL [Lisinopril] mg PO 05/21/19 - Allergies Allergies/Adverse Reactions: Allergies Allergy/AdvReac Type Severity Reaction Status Date / Time ampicillin AdvReac Unknown Verified 06/14/19 10:41 gabapentin AdvReac Dizziness Verified 06/14/19 10:41 risperidone [From Risperdal] AdvReac Unknown Verified 06/14/19 10:41 venlafaxine HCl * AdvReac Dizziness Verified 06/14/19 10:41 [From Effexor] Review of Systems - Musculoskeletal Musculoskeletal: reports: Back pain, Other (severe pain left thigh) - Hematologic/Lymphatic Hematologic/Lymphatic: reports: Blood clots, Bleeding tendencies - All Other Systems All Other Systems: reports: Reviewed and negative Exam - Vital Signs Reviewed Vital Signs: Yes Vital Signs: Vital Signs x48h Pulse Resp BP Pulse Ox 07/12/19 07:02 86 18 118/78 95 07/12/19 05:40 91 24 122/80 97 07/12/19 04:58 82 106/57 L 95 07/12/19 02:51 70 14 103/56 L 95 07/12/19 01:40 72 14 101/58 L 92 - Physical Exam General Appearance: positive: Mild distress Respiratory: positive: Chest non-tender, No respiratory distress Peripheral Pulses: positive: 2+ (L DP) Abdomen: positive: Non-tender, No distention Skin: positive: Color nml, No rash, Warm, Dry Extremities: positive: Other (L medial upper thigh firm and tender, pain with passive motion, no bruising noted, gross sensation intact throughout leg) Neurologic/Psychiatric: positive: Oriented x3 Conclusion and Plan - Lab Results Laboratory Results 07/12/19 03:42: Urine Color YELLOW, Urine Clarity CLEAR, Urine pH 5.5, Ur Specific [place] >=1.030 H, Urine Protein NEGATIVE, Urine Glucose (UA) NEGATIVE, Urine Ketones TRACE, Urine Occult Blood LARGE H, Urine Nitrite NEGATIVE, Urine Bilirubin NEGATIVE, Urine Urobilinogen 0.2 (NORMAL), Ur Leukocyte Esterase NEGATIVE, Urine RBC 11-25 H, Urine WBC 0-3, Ur Squamous Epith Cells FEW Squamous, Urine Bacteria Few, Urine Casts 0-2 Fine Granular, Urine Mucus Moderate Strands, Ur Microscopic Review INDICATED, Urine Culture Comments NOT INDICATED, Urine Opiates Screen POSITIVE H, Ur Oxycodone Screen NEGATIVE, Urine Methadone Screen NEGATIVE, Ur Propoxyphene Screen NEGATIVE, Ur Barbiturates Screen NEGATIVE, Ur Tricyclics Screen NEGATIVE, Ur Phencyclidine Scrn NEGATIVE, Ur Amphetamine Screen NEGATIVE, U Methamphetamines Scrn NEGATIVE, U Benzodiazepines Scrn NEGATIVE, Urine Cocaine Screen NEGATIVE, U Cannabinoids Screen NEGATIVE 07/12/19 01:30: Sodium 141, Potassium 3.9, Chloride 108, Carbon Dioxide 21, Anion Gap 12.0, BUN 14, Creatinine 0.5, Estimated GFR (MDRD) 125, Glucose 135 H, Calcium 8.8, Total Bilirubin 1.8 H, AST 121 H, ALT 51, Alkaline Phosphatase 129 H, Total Creatine Kinase 139, Total Protein 7.1, Albumin 3.3, Globulin 3.8, Albumin/Globulin Ratio 0.9 L, Lipase 108 H, Ethyl Alcohol 186.5 07/12/19 01:10: WBC 5.8, RBC 3.26 L, Hgb 12.1, Hct 35.3 L, MCV 108.3 H, MCH 37.1 H, MCHC 34.3, RDW 12.8, Plt Count 131, MPV 12.0 H, Neut # (Auto) 3.8, Lymph # (Auto) 1.1 L, [place] # (Auto) 0.7, Eos # (Auto) 0.2, Baso # (Auto) 0.1, Absolute Nucleated RBC 0.00, Nucleated RBC % 0.0 07/12/19 00:30: PT 15.3 H, INR 1.4 H, APTT 37.9 H - Diagnostic Imaging Results Diagnostic Imaging Results: positive: Final report reviewed Diagnostic Imaging Results Comments: reviewed personally - Diagnosis Diagnosis: Left Thigh Medial Compartment Syndrome - Plan Plan: - proceed urgently to OR for decompressive fasciotomy --> all risks, benefits, and alternatives discussed with pt who wishes to proceed - admit post op for wound care and physical therapy with plan for delayed closure - pre op abx ordered
--- NOTE | 2019-07-12 08:57 | PHARMACY PROGRESS NOTE ---
- Best Possible Medication History Admit Date and Time: 07/12/19 0718 Processed by: Pharmacy Medication History completed: Yes Patient Interview: Pt unable to participate Secondary Source(s): Physician records, Pharmacy records, Insurance records As the person ultimately responsible for medication therapy, providers are able to order a medication from an existing home medication list in [facility] via the "Reconcile Routine" prior to Confirmation of that medication by software support engineer. Such practice is discouraged except when the physician, in their clinical judgment, deems that a medical need exists for a medication without regard to previous use.
--- NOTE | 2019-07-12 09:11 | IMMEDIATE POSTOPERATIVE NOTE ---
Immediate Postoperative Note - Procedure Note Procedure Date: 07/12/19 Pre-Op Diagnosis: Left Medial Thigh Compartment Syndrome Procedure: 1. Left Medial Thigh Decompressive Fasciotomy 2. Evacuation of Hematoma Post-Op Diagnosis: same Primary Surgeon: Karan Mercado MD Pharmacy Resident: Fredrick Ceballos MD Anesthesia Type: General ET tube Findings: Intramuscular hematoma, both congealed and fluid blood, cavity measuring around 14cm Complications: No complications Estimated Blood Loss (in cc): 50 Drains, Catheters, Devices: ar drain in intramuscular cavity
--- NOTE | 2019-07-12 09:12 | OPERATIVE REPORT ---
Operative Report - General Admit Date: 07/12/19 Procedure Date: 07/12/19 Planned Procedure: Left medial thigh fasciotomy Pre-Op Diagnosis: Left Thigh Hematoma causing Medial Compartment Syndrome Procedure Performed: 1. Left Thigh Fasciotomy of Medial Compartment 2. Evacuation of Hematoma Post Op Diagnosis: same - Procedure Note Primary Surgeon: Karan Mercado MD Secondary Surgeon: Fredrick Ceballos MD Anesthesia Provider: KAYLEIGH Anesthesia Technique: General ET tube Pathology: n/a Estimated Blood Loss (mL): 50 Drain/Tube Type: Oc Indications: 64yo F presenting with severe pain of left upper thigh and inability to walk due to this presents to the ED and is found to have a large intramuscular hematoma causing compartment syndrome. After explaining the diagnosis and procedure, pt provides informed consent for emergent fasciotomy. Findings: Intramuscular hematoma with large (around 14cm) cavity in adductor compartment; muscle viable. Mild coagulopathy apparent. Complications: none - Other Other Information/Narrative: The patient was then taken to the operating room where identification and surgery were confirmed. The patient was placed in the supine position. The patient's left thigh and groin were prepped and draped in the usual sterile fashion. A timeout is performed with the team present. The firm area along the anterior-medial thigh was evaluated and an incision was made over this area and carried down through the subcutaneous tissues. Care is taken to identify and avoid the saphenous vein which was noted and two small branches ligated for exposure. The fascial plane is then incised and the adductor compartment entered. Owen muscle swelled up and edema fluid was noted. The fascia is opened approximately 20 cm to completely expose the area of concern. The muscle had evidence of hematoma and the fibers were carefully divided until the large cavity of blood was entered. Edema of the muscle was noted as well as an intramuscular component of the hematoma. The muscle itself was viable. This was primarily clot which was broken up digitally. Some fresh blood was noted but patient has a mild coagulopathy so unclear whether this was existing or due to tissue manipulation. The clot was thoroughly broken up and evacuated. It was copiously irrigated. Attention was taken to hemostasis which, given her coagulopathy, was tedious. Once satisfied, a 1 inch oc drain was placed in the cavity to provide an outlet for pressure buildup; this is sutured to the dermis with 2-0 silk and a 3-0 plain gut was used to attach it to the deeper muscle to prevent inadvertent removal in the first few days. Saline-soaked gauze was placed in the wound bed and dry fluffs, an ABD, and a loose kerlex were placed over this. The patient tolerated the procedure well and without apparent immediate complication. The patient was taken to PACU in stable condition.
[2019-07-12] MEDS ORDERED: HYDROmorphone 1 MG/ML CARPUJECT ONE (09:18)
[2019-07-12] MEDS: HYDROmorphone 0.5 MG/0.5 ML SYRINGE IVP PRN ×4 (09:18→18:46)
[2019-07-12] MEDS: ONDANSETRON ODT 4 MG TABLET TL PRN ×2 (11:11→18:23)
[2019-07-12] MEDS: oxyCODONE 5 MG TABLET PO PRN ×3 (11:11→22:01)
[2019-07-12] MEDS: SODIUM CHLORIDE FLUSH 0.9% 10 ML SYRINGE IVP SCH ×2 (11:11→15:59)
[2019-07-12] MEDS: SODIUM CHLORIDE FLUSH 0.9% 10 ML SYRINGE IVP PRN (12:49)
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
[2019-07-12 20:18] LABS: HGB - HEMOGLOBIN 9.7 g/dL (12.0-16.0)
[2019-07-13] MEDS: ONDANSETRON ODT 4 MG TABLET TL PRN ×3 (00:47→17:29)
[2019-07-13] MEDS: HYDROmorphone 0.5 MG/0.5 ML SYRINGE IVP PRN ×7 (00:47→21:42)
[2019-07-13] MEDS: SODIUM CHLORIDE FLUSH 0.9% 10 ML SYRINGE IVP SCH ×4 (00:48→17:29)
[2019-07-13 05:31] LABS: BASOPHILS # (AUTO) 0.1 10^3/uL (0.0-0.1); BASOPHILS % (AUTO) 0.6 %; EOSINOPHILS % (AUTO) 0.3 %; HGB - HEMOGLOBIN 9.2 g/dL (12.0-16.0); LYMPHOCYTES % (AUTO) 10.6 %; MEAN CORPUSCULAR HEMOGLOBIN 36.8 pg (27.0-31.0); MEAN CORPUSCULAR HGB CONC 33.6 g/dL (32.0-36.0); MEAN CORPUSCULAR VOLUME 109.6 fL (81.0-99.0); MEAN PLATELET VOLUME 11.7 fL (7.9-10.8); MONOCYTES # (AUTO) 1.1 10^3/uL (0.0-1.0); NEUTROPHILS # (AUTO) 7.4 10^3/uL (1.5-6.6); PLT - PLATELET COUNT 114 10^3/uL (130-450); RED CELL DISTRIBUTION WIDTH 12.9 % (12.0-15.0); WHITE BLOOD COUNT 9.7 x10^3/uL (4.8-10.8)
[2019-07-13 05:49] LABS: ALBUMIN 3.2 g/dL (3.2-5.5); BILIRUBIN,DIRECT 1.2 mg/dL (0.1-0.5); BILIRUBIN,TOTAL 3.8 mg/dL (0.2-1.0); CALCIUM 9.2 mg/dL (8.5-10.3); CREATININE 0.7 mg/dL (0.4-1.0); TOTAL PROTEIN 6.6 g/dL (6.7-8.2)
[2019-07-13 06:24] LABS: HB2 TOTAL 9.1 g/dL; HEMOGLOBIN A1C 0.25 g/dL; HEMOGLOBIN A1C % 4.7 % (4.6-6.2)
[2019-07-13] MEDS ORDERED: PNEUMOCOCCAL 13-VALENT CONJ 0.5 ML SYRINGE IM ONE (09:00)
[2019-07-13] MEDS ORDERED: FLU VACC QS2019-20(6MOS UP)/PF 60 MCG/0.5 ML SYRINGE IM ONE (09:00)
[2019-07-13] MEDS: FLUTICASONE NASAL SPRAY NAS SCH (09:00)
--- NOTE | 2019-07-13 11:01 | PROVIDER PROGRESS NOTE ---
Subjective - General Admit Date: 07/12/19 Procedure Date: 07/12/19 Post Op Days: 1 Procedure Performed: s/p L medial thigh fasciotomy and hematoma evacuation - Review of Systems Wound/Incisions: positive: Other (improving bleeding post op due to oozing from her coagulopathy) All Other Systems: positive: Reviewed and negative Objective - Patient Data Reviewed Vital Signs: Yes Vital Signs: Vital Signs x48h Temp Pulse Resp BP Pulse Ox 07/13/19 07:44 36.8 C 95 16 123/61 96 Weight: Weight 07/11/19 07/12/19 07/13/19 23:59 23:59 23:59 Weight (kg) 66.224 kg 66.2 kg Intake & Output: Intake and Output Totals x24h 07/11/19 07/12/19 07/13/19 23:59 23:59 23:59 Intake Total 1100 Output Total 700 100 Balance 400 -100 - Lab Results Lab Results: 07/13/19 05:20 07/13/19 05:20 Other Lab Results: Lab Results x24hrs 07/13/19 07/13/19 07/13/19 Range/Units 05:20 05:20 05:20 WBC 9.7 (4.8-10.8) x10^3/uL RBC 2.50 L (4.20-5.40) 10^6/uL Hgb 9.2 L (12.0-16.0) g/dL Hct 27.4 L (37.0-47.0) % MCV 109.6 H (81.0-99.0) fL MCH 36.8 H (27.0-31.0) pg MCHC 33.6 (32.0-36.0) g/dL RDW 12.9 (12.0-15.0) % Plt Count 114 L (130-450) 10^3/uL MPV 11.7 H (7.9-10.8) fL Neut # (Auto) 7.4 H (1.5-6.6) 10^3/uL Lymph # (Auto) 1.0 L (1.5-3.5) 10^3/uL [place] # (Auto) 1.1 H (0.0-1.0) 10^3/uL Eos # (Auto) 0.0 (0.0-0.7) 10^3/uL Baso # (Auto) 0.1 (0.0-0.1) 10^3/uL Absolute Nucleated RBC 0.00 x10^3/uL Nucleated RBC % 0.0 /100WBC Sodium 134 L (135-145) mmol/L Potassium 4.4 (3.5-5.0) mmol/L Chloride 102 (101-111) mmol/L Carbon Dioxide 24 (21-32) mmol/L Anion Gap 8.0 (6-13) BUN 27 H (6-20) mg/dL Creatinine 0.7 (0.4-1.0) mg/dL Estimated GFR (MDRD) 85 L (>89) Glucose 152 H (70-100) mg/dL Glycated Hemoglobin 4.7 (4.6-6.2) % Estim Average Glucose 88 (70-100) Calcium 9.2 (8.5-10.3) mg/dL Total Bilirubin 3.8 H (0.2-1.0) mg/dL Direct Bilirubin 1.2 H (0.1-0.5) mg/dL GGT 104 H (8-38) IU/L AST 76 H (10-42) IU/L ALT 40 (10-60) IU/L Alkaline Phosphatase 61 (42-121) IU/L Total Protein 6.6 L (6.7-8.2) g/dL Albumin 3.2 (3.2-5.5) g/dL Globulin 3.4 (2.1-4.2) g/dL 07/12/19 Range/Units 20:11 WBC (4.8-10.8) x10^3/uL RBC (4.20-5.40) 10^6/uL Hgb 9.7 L (12.0-16.0) g/dL Hct 29.3 L (37.0-47.0) % MCV (81.0-99.0) fL MCH (27.0-31.0) pg MCHC (32.0-36.0) g/dL RDW (12.0-15.0) % Plt Count (130-450) 10^3/uL MPV (7.9-10.8) fL Neut # (Auto) (1.5-6.6) 10^3/uL Lymph # (Auto) (1.5-3.5) 10^3/uL [place] # (Auto) (0.0-1.0) 10^3/uL Eos # (Auto) (0.0-0.7) 10^3/uL Baso # (Auto) (0.0-0.1) 10^3/uL Absolute Nucleated RBC x10^3/uL Nucleated RBC % /100WBC Sodium (135-145) mmol/L Potassium (3.5-5.0) mmol/L Chloride (101-111) mmol/L Carbon Dioxide (21-32) mmol/L Anion Gap (6-13) BUN (6-20) mg/dL Creatinine (0.4-1.0) mg/dL Estimated GFR (MDRD) (>89) Glucose (70-100) mg/dL Glycated Hemoglobin (4.6-6.2) % Estim Average Glucose (70-100) Calcium (8.5-10.3) mg/dL Total Bilirubin (0.2-1.0) mg/dL Direct Bilirubin (0.1-0.5) mg/dL GGT (8-38) IU/L AST (10-42) IU/L ALT (10-60) IU/L Alkaline Phosphatase (42-121) IU/L Total Protein (6.7-8.2) g/dL Albumin (3.2-5.5) g/dL Globulin (2.1-4.2) g/dL - Current Medications Current Medications: Current Medications Generic Name Dose Route Start Last Admin Trade Name Freq PRN Reason Stop Dose Admin Hydromorphone HCl 0.5 mg 07/12/19 08:50 07/13/19 10:22 Dilaudid Inj Syringe IVP 0.5 mg Q2HR PRN Administration PAIN 8-10 Ondansetron HCl 4 mg 07/12/19 07:24 07/13/19 07:56 Zofran Odt TL 4 mg Q6HR PRN Administration Nausea / Vomiting Oxycodone HCl 5 mg 07/12/19 07:24 07/12/19 22:01 Roxicodone PO 5 mg Q4HR PRN Administration Pain 5 to 7 Sodium Chloride 10 ml 07/12/19 07:24 07/12/19 12:49 Normal Saline Flush 0.9% IVP 10 ml PRN PRN Administration NEEDED PER PROVIDER ORDERS Sodium Chloride 10 ml 07/12/19 09:00 07/13/19 07:55 Normal Saline Flush 0.9% IVP 10 ml 0100,0900,1700 KIRK Administration - Physical Exam Comments/Other: AAO, NAD, overweight female, appears older than stated age Unlabored RA abd soft, nt/nd L thigh dressed No skin rashes/ lesions visible Impression/Plan - Problem List Problem List: L Thigh Compartment Syndrome due to Hematoma - s/p evacuation of hematoma and fasciotomy, all muscle viable --> wound open for now, ar drain in deep cavity to alleviate any further pressure buildup from bleeding --> will cont; daily wound care for now and close skin later pending her progression - nerve and leg function TBD, will work with PT/ OT while in hospital - oozing from wound due to her coagulopathy but improving; reinforce and change dressing prn - pt denies trauma or inciting event, her co-existing nearby DVTs- albeit non-occlusive- so potential venous backup plus her coagulopathy contributed Cirrhosis - due to heps B & C as well as etoh, apparently - at baseline on admission, TB has increased and plt decreased post op; monitor for worsening liver function including coagulopathy - appreciate medicine assistance with management DVT - non-occlusive in profunda fem/ femoral vein/ popliteal vein, pt was unaware - will need hematology appt as outpatient for coagulation disorders evident from this as well as her presumed spontaneous hematomas, medicine team has helped discover that she already has an appointment next week which may need to be rescheduled
[2019-07-13] MEDS ORDERED: PHYTONADIONE 10 MG/ML AMP SUBQ ONE (12:32)
[2019-07-13] MEDS: ONDANSETRON 4 MG/2 ML VIAL IVP PRN ×2 (14:01→20:06)
--- NOTE | 2019-07-13 19:54 | PROVIDER PROGRESS NOTE ---
Subjective - Prog Note Date Prog Note Date: 07/13/19 - Subjective Subjective: Reports feeling well. She states her pain is 6 out of 10 in her left lower extremity. Denies any chest pain or dyspnea. She was able to work with physical therapy today. Still complains of slight bleeding from the site of the incision. Current Medications - Current Medications Current Medications: Active Medications Fluticasone Propionate (Flonase) 2 sprays YVETTE DAILY [facility] Last Admin: 07/13/19 09:00 Dose: Not Given Hydromorphone HCl (Dilaudid Inj Syringe) 0.5 mg IVP Q2HR PRN PRN Reason: PAIN 8-10 Last Admin: 07/13/19 17:29 Dose: 0.5 mg Ondansetron HCl (Zofran Inj) 4 mg IVP Q6HR PRN PRN Reason: Nausea / Vomiting Last Admin: 07/13/19 14:01 Dose: 4 mg Ondansetron HCl (Zofran Odt) 4 mg TL Q6HR PRN PRN Reason: Nausea / Vomiting Last Admin: 07/13/19 17:29 Dose: 4 mg Oxycodone HCl (Roxicodone) 5 mg PO Q4HR PRN PRN Reason: Pain 5 to 7 Last Admin: 07/12/19 22:01 Dose: 5 mg Sodium Chloride (Normal Saline Flush 0.9%) 10 ml IVP PRN PRN PRN Reason: NEEDED PER PROVIDER ORDERS Last Admin: 07/12/19 12:49 Dose: 10 ml Sodium Chloride (Normal Saline Flush 0.9%) 10 ml IVP 0100,0900,1700 [facility] Last Admin: 07/13/19 17:29 Dose: 10 ml Fluticasone [Flonase] 2 sprays YVETTE DAILY 07/12/19 lisinopriL [Lisinopril] 40 mg PO DAILY 07/12/19 Objective - Vital Signs/Intake & Output Reviewed Vital Signs: Yes Vital Signs: Vital Signs x48h Temp Pulse Pulse Pulse Resp BP BP 07/13/19 16:00 36.7 C 98 16 128/75 07/13/19 15:50 113 H 85 114/86 H 07/13/19 14:40 113 H 88 114/86 H BP Pulse Ox 07/13/19 16:00 95 07/13/19 15:50 122/61 07/13/19 14:40 122/61 Intake & Output: Intake & Output 07/10/19 07/11/19 07/12/19 07/13/19 23:59 23:59 23:59 23:59 Intake Total 1100 Output Total 700 250 Balance 400 -250 - Objective General Appearance: positive: No acute distress, Alert Eyes Bilateral: positive: Normal inspection, Conjunctivae nml ENT: positive: ENT inspection nml Neck: positive: Nml inspection Respiratory: positive: No respiratory distress. negative: Wheezes, Rales, Rhonchi Cardiovascular: positive: No murmur, Tachycardia. negative: Bradycardia, Systolic murmur, Diastolic murmur Peripheral Pulses: 2+ Dorsalis pedis (L) Abdomen: positive: Non-tender, No distention. negative: Tenderness Skin: positive: No rash, Warm, Dry, Other (Dressing in place over the left upper thigh. Proximal portion of dressing is saturated with blood.) Extremities: positive: Full ROM, No pedal edema Neurologic/Psychiatric: positive: Oriented x3. negative: Disoriented to person, Disoriented to place, Disoriented to time - Lab Results Fish Bones: 07/13/19 05:20 07/13/19 05:20 Other Labs: Lab Results x24hrs 07/13/19 07/13/19 07/13/19 Range/Units 05:20 05:20 05:20 WBC 9.7 (4.8-10.8) x10^3/uL RBC 2.50 L (4.20-5.40) 10^6/uL Hgb 9.2 L (12.0-16.0) g/dL Hct 27.4 L (37.0-47.0) % MCV 109.6 H (81.0-99.0) fL MCH 36.8 H (27.0-31.0) pg MCHC 33.6 (32.0-36.0) g/dL RDW 12.9 (12.0-15.0) % Plt Count 114 L (130-450) 10^3/uL MPV 11.7 H (7.9-10.8) fL Neut # (Auto) 7.4 H (1.5-6.6) 10^3/uL Lymph # (Auto) 1.0 L (1.5-3.5) 10^3/uL [place] # (Auto) 1.1 H (0.0-1.0) 10^3/uL Eos # (Auto) 0.0 (0.0-0.7) 10^3/uL Baso # (Auto) 0.1 (0.0-0.1) 10^3/uL Absolute Nucleated RBC 0.00 x10^3/uL Nucleated RBC % 0.0 /100WBC Sodium 134 L (135-145) mmol/L Potassium 4.4 (3.5-5.0) mmol/L Chloride 102 (101-111) mmol/L Carbon Dioxide 24 (21-32) mmol/L Anion Gap 8.0 (6-13) BUN 27 H (6-20) mg/dL Creatinine 0.7 (0.4-1.0) mg/dL Estimated GFR (MDRD) 85 L (>89) Glucose 152 H (70-100) mg/dL Glycated Hemoglobin 4.7 (4.6-6.2) % Estim Average Glucose 88 (70-100) Calcium 9.2 (8.5-10.3) mg/dL Total Bilirubin 3.8 H (0.2-1.0) mg/dL Direct Bilirubin 1.2 H (0.1-0.5) mg/dL GGT 104 H (8-38) IU/L AST 76 H (10-42) IU/L ALT 40 (10-60) IU/L Alkaline Phosphatase 61 (42-121) IU/L Total Protein 6.6 L (6.7-8.2) g/dL Albumin 3.2 (3.2-5.5) g/dL Globulin 3.4 (2.1-4.2) g/dL 07/12/19 Range/Units 20:11 WBC (4.8-10.8) x10^3/uL RBC (4.20-5.40) 10^6/uL Hgb 9.7 L (12.0-16.0) g/dL Hct 29.3 L (37.0-47.0) % MCV (81.0-99.0) fL MCH (27.0-31.0) pg MCHC (32.0-36.0) g/dL RDW (12.0-15.0) % Plt Count (130-450) 10^3/uL MPV (7.9-10.8) fL Neut # (Auto) (1.5-6.6) 10^3/uL Lymph # (Auto) (1.5-3.5) 10^3/uL [place] # (Auto) (0.0-1.0) 10^3/uL Eos # (Auto) (0.0-0.7) 10^3/uL Baso # (Auto) (0.0-0.1) 10^3/uL Absolute Nucleated RBC x10^3/uL Nucleated RBC % /100WBC Sodium (135-145) mmol/L Potassium (3.5-5.0) mmol/L Chloride (101-111) mmol/L Carbon Dioxide (21-32) mmol/L Anion Gap (6-13) BUN (6-20) mg/dL Creatinine (0.4-1.0) mg/dL Estimated GFR (MDRD) (>89) Glucose (70-100) mg/dL Glycated Hemoglobin (4.6-6.2) % Estim Average Glucose (70-100) Calcium (8.5-10.3) mg/dL Total Bilirubin (0.2-1.0) mg/dL Direct Bilirubin (0.1-0.5) mg/dL GGT (8-38) IU/L AST (10-42) IU/L ALT (10-60) IU/L Alkaline Phosphatase (42-121) IU/L Total Protein (6.7-8.2) g/dL Albumin (3.2-5.5) g/dL Globulin (2.1-4.2) g/dL ABX Reporting Has patient been on IV antibiotics over the past 48 hours?: No Assessment/Plan - Problem List (1) Bleeding tendency Impression: She reports a history of bleeding tendencies and was scheduled to be evaluated by hematology next week. PT and INR as well as PTT are slightly elevated. This may be secondary to her cirrhosis from hepatitis C. Vitamin K was administered today given she continues to have slight oozing from the surgical site and her INR has been elevated. We will continue to check her INR on a daily basis. Patient to continue to follow-up with hematology on outpatient basis for further evaluation of this coagulopathy. (2) Chronic deep vein thrombosis (DVT) of left femoral vein Impression: There was suggestion of chronic deep vein thrombosis of the left profunda femoris, proximal femoral vein, distal femoral vein, and popliteal vein. These were nonocclusive thrombosis. She reports no prior history of thrombus in the past and has never been anticoagulated. Fortunately, these appear chronic in nature and an IVC filter does not appear to be warranted at the moment. She does have a coagulopathy given her bleeding tendencies as well as the evidence of thrombosis. She will need to follow-up with hematology. (3) Postoperative anemia Impression: Her hemoglobin decreased yesterday evening is 9.7 from 12.1 on admission. This morning it is 9.2. This is likely exacerbated by her coagulopathy given [place] INR. Platelet count is stable at greater than 100. There are no other signs of bleeding except for the oozing from the site of the dressing. We will continue to monitor her hemoglobin and hold chemical DVT prophylaxis. (4) Hematoma of lower extremity Impression: She is status post evacuation on July 12. The etiology of the hematoma is not clear she denies any trauma to the site although she does report bleeding tendencies. Continue to hold DVT prophylaxis at this moment. She was given vitamin K today given her elevated INR in hopes of decreasing the oozing from the surgical site. Her hemoglobin did decrease yesterday evening but has been stable this morning. We will continue to monitor for signs of bleeding. Continue with dressing changes and PT. Qualifiers: Encounter type: initial encounter Laterality: left Qualified Code(s): S80.12XA - Contusion of left lower leg, initial encounter (5) Compartment syndrome of left lower extremity Impression: He is status post fasciotomy on July 12 with general surgery. The muscle appeared viable while in the OR. Continue with management as per general surgery. (6) Liver cirrhosis Impression: She reports her cirrhosis secondary to hepatitis C as she was diagnosed over 25 years ago. She does drink alcohol but states it is only occasionally and about once a week. She did receive treatment for hepatitis C but it was not successful. Her LFTs are elevated as well as her INR which may secondary to the cirrhosis. Fortunately her AST and ALT are decreased today but her total bilirubin is elevated. She was given vitamin K given her elevated INR. We will continue to trend her liver enzymes. She should have outpatient follow-up with gastroenterology. (7) Hepatitis C Impression: She reports a diagnosis of hepatitis C nearly 25 years ago and was recently treated for it although it was unsuccessful. Continue to trend her LFTs. Qualifiers: Viral hepatitis chronicity: chronic (8) Elevated INR Impression: INR is elevated at 1.4 and this may be secondary to her liver cirrhosis. We will trend her INR after she received vitamin K. (9) Alcohol use Impression: Reports drinking 1 alcoholic beverage a week and denies a history of alcoholism. She has not shown signs of alcohol withdrawal during this hospitalization. Continue to monitor for signs of withdrawal.
[2019-07-13] MEDS: SODIUM CHLORIDE FLUSH 0.9% 10 ML SYRINGE IVP PRN ×2 (20:06→21:42)
[2019-07-14] MEDS: SODIUM CHLORIDE FLUSH 0.9% 10 ML SYRINGE IVP SCH ×4 (01:06→23:41)
[2019-07-14] MEDS: HYDROmorphone 0.5 MG/0.5 ML SYRINGE IVP PRN ×4 (01:06→22:27)
[2019-07-14] MEDS: SODIUM CHLORIDE FLUSH 0.9% 10 ML SYRINGE IVP PRN (04:27)
[2019-07-14 05:37] LABS: BASOPHILS % (AUTO) 0.6 %; EOSINOPHILS % (AUTO) 1.3 %; HGB - HEMOGLOBIN 7.7 g/dL (12.0-16.0); LYMPHOCYTES % (AUTO) 14.8 %; MEAN CORPUSCULAR HEMOGLOBIN 36.8 pg (27.0-31.0); MEAN CORPUSCULAR HGB CONC 32.2 g/dL (32.0-36.0); MEAN CORPUSCULAR VOLUME 114.4 fL (81.0-99.0); MONOCYTES % (AUTO) 15.1 %; NEUTROPHILS % (AUTO) 67.3 %; PLT - PLATELET COUNT 130 10^3/uL (130-450); RED BLOOD COUNT 2.09 10^6/uL (4.20-5.40); RED CELL DISTRIBUTION WIDTH 13.1 % (12.0-15.0); WHITE BLOOD COUNT 12.5 x10^3/uL (4.8-10.8)
[2019-07-14 05:43] LABS: ABNORMAL LYMPHS % (MANUAL) 0 %; BAND NEUTROPHILS % (MANUAL) 0 %
[2019-07-14 05:48] LABS: INR 1.3 (0.8-1.2); PT - PROTHROMBIN TIME 14.9 secs (9.9-12.6)
[2019-07-14 05:51] LABS: ALBUMIN 3.1 g/dL (3.2-5.5); BILIRUBIN,TOTAL 2.9 mg/dL (0.2-1.0); CALCIUM 9.7 mg/dL (8.5-10.3); TOTAL PROTEIN 6.4 g/dL (6.7-8.2)
[2019-07-14 06:06] LABS: LYMPHOCYTES # (MANUAL) 2.4 10^3/uL (1.5-3.5); LYMPHOCYTES % (MANUAL) 19 %; MONOCYTES # (MANUAL) 1.5 10^3/uL (0.0-1.0)
[2019-07-14 06:11] LABS: RBC MORPHOLOGY (MULTIPLE) 1+ MICROCYTOSIS (NORMAL)
[2019-07-14 06:12] LABS: DIFFERENTIAL COMMENT MANUAL DIFFERENTIAL; PLATELET ESTIMATE, MANUAL NORMAL (130-450,000) (NORMAL); PLATELET MORPHOLOGY NORMAL APPEARANCE (NORMAL)
[2019-07-14] MEDS: ONDANSETRON 4 MG/2 ML VIAL IVP PRN (08:11)
[2019-07-14] MEDS: FLUTICASONE NASAL SPRAY NAS SCH (08:16)
[2019-07-14] MEDS: polyethylene glycoL 3350 17 GM PACKET PO SCH (09:25)
[2019-07-14] MEDS: MULTIVITAMIN W/MINERALS TABLET PO SCH (09:25)
[2019-07-14] MEDS: oxyCODONE 5 MG TABLET PO PRN ×3 (10:06→20:35)
--- NOTE | 2019-07-14 17:20 | PROVIDER PROGRESS NOTE ---
Subjective - Prog Note Date Prog Note Date: 07/14/19 Prog Note Time: 17:20 - Subjective Pt reports feeling: Improved Subjective: Julieta has no complaints and is happy with her stay at the hospital. Her father came for a visit. Her wound drain was removed yesterday, and her bleeding overall has slowed down. Surgery has been rounding, and the Hospitalist team is very happy to assist in any way with the patients medical care/chronic condition management. The patient was agreeable to getting blood if needed in the up coming days. Current Medications - Current Medications Current Medications: Active Medications: Fluticasone Propionate (Flonase) 2 sprays YVETTE DAILY [facility] Hydromorphone HCl (Dilaudid Inj Syringe) 0.5 mg IVP Q2HR PRN Multivitamins/Minerals (Theragran M) 1 tab PO DAILYWM [facility] Ondansetron HCl (Zofran Inj) 4 mg IVP BID PRN Oxycodone HCl (Roxicodone) 5 mg PO Q4HR PRN Polyethylene Glycol (Miralax) 17 gm PO DAILY [facility] HOME meds: Fluticasone [Flonase] 2 sprays YVETTE DAILY 07/12/19 lisinopriL [Lisinopril] 40 mg PO DAILY 07/12/19 Objective - Vital Signs/Intake & Output Reviewed Vital Signs: Yes Vital Signs: Vital Signs x48h Temp Pulse Resp BP Pulse Ox 07/14/19 15:56 36.9 C 100 18 112/62 97 Intake & Output: Intake & Output 07/11/19 07/12/19 07/13/19 07/14/19 23:59 23:59 23:59 23:59 Intake Total 1100 730 806 Output Total 700 250 301 Balance 400 480 505 - Objective General Appearance: positive: No acute distress, Alert Eyes Bilateral: positive: PERRL, No lid inflammation Eyes: OU Conjunctivae pale ENT: positive: Pharyngeal erythema, Dry mucous membranes Neck: positive: No JVD, Trachea midline Respiratory: positive: Chest non-tender, No respiratory distress, Breath sounds nml Cardiovascular: positive: Regular rate & rhythm, No gallop, Systolic murmur, Decreased pulse(s) Peripheral Pulses: 1+ Radial (R), 1+ Radial (L) Abdomen: positive: Non-tender, Nml bowel sounds, Hepatomegaly, Other (rounded, soft) Back: positive: Nml inspection Skin: positive: No rash, Warm, Dry, Other (bronze toned, pale extremities) Extremities: positive: Non-tender, Full ROM, No pedal edema Neurologic/Psychiatric: positive: Oriented x3, CN's nml (2-12), Motor nml, Weakness, Sensory loss, Depressed mood/affect Reflexes: Bicep (R): 2+, Bicep (L): 2+ - Lab Results Fish Bones: 07/14/19 05:20 07/14/19 05:20 Other Labs: Lab Results x24hrs 07/14/19 07/14/19 07/14/19 Range/Units 05:20 05:20 05:20 WBC 12.5 H (4.8-10.8) x10^3/uL RBC 2.09 L (4.20-5.40) 10^6/uL Hgb 7.7 L (12.0-16.0) g/dL Hct 23.9 L (37.0-47.0) % MCV 114.4 H (81.0-99.0) fL MCH 36.8 H (27.0-31.0) pg MCHC 32.2 (32.0-36.0) g/dL RDW 13.1 (12.0-15.0) % Plt Count 130 (130-450) 10^3/uL MPV 12.0 H (7.9-10.8) fL Neut # (Auto) Not Reportable Lymph # (Auto) Not Reportable [place] # (Auto) Not Reportable Eos # (Auto) Not Reportable Baso # (Auto) Not Reportable Absolute Nucleated RBC Not Reportable Total Counted 100 Band Neuts % (Manual) 0 (0 - 10) % Abnorm Lymph % (Manual) 0 % Nucleated RBC % Not Reportable Neutrophils # (Manual) 8.6 H (1.5-6.6) 10^3/uL Lymphocytes # (Manual) 2.4 (1.5-3.5) 10^3/uL Monocytes # (Manual) 1.5 H (0.0-1.0) 10^3/uL Eosinophils # (Manual) 0.0 (0-0.7) 10^3/uL Basophils # (Manual) 0.0 (0-0.1) 10^3/uL Differential Comment MANUAL DIFFERENTIAL WBC Morphology NORMAL APPEARANCE (NORMAL) Platelet Estimate NORMAL (130-450,000) (NORMAL) Platelet Morphology NORMAL APPEARANCE (NORMAL) RBC Morph Micro Appear 1+ MICROCYTOSIS (NORMAL) PT 14.9 H (9.9-12.6) secs INR 1.3 H (0.8-1.2) Sodium 133 L (135-145) mmol/L Potassium 4.7 (3.5-5.0) mmol/L Chloride 97 L (101-111) mmol/L Carbon Dioxide 25 (21-32) mmol/L Anion Gap 11.0 (6-13) BUN 44 H (6-20) mg/dL Creatinine 1.0 (0.4-1.0) mg/dL Estimated GFR (MDRD) 56 L (>89) Glucose 140 H (70-100) mg/dL Calcium 9.7 (8.5-10.3) mg/dL Total Bilirubin 2.9 H (0.2-1.0) mg/dL Direct Bilirubin 1.0 H (0.1-0.5) mg/dL AST 68 H (10-42) IU/L ALT 37 (10-60) IU/L Alkaline Phosphatase 47 (42-121) IU/L Total Protein 6.4 L (6.7-8.2) g/dL Albumin 3.1 L (3.2-5.5) g/dL Globulin 3.3 (2.1-4.2) g/dL ABX Reporting Has patient been on IV antibiotics over the past 48 hours?: No Assessment/Plan - Problem List (1) Bleeding tendency Impression: -Patient has had excessive bleeding/bruising episodes since the year 2012 -On 05/23/2019, patient came to the ED after noting swelling to her left hand, which occurred spontaneously -Required evacuation of the hematoma, and on exam, discoloration is still noted to her left hand - Vitamin K was administered on 07/13/2019, which has improved her post op bleeding and cut the # of dressing changes in half -Patient will see hematology on 07/19/2019 in the [facility] clinic as scheduled Chronic deep vein thrombosis (DVT) of left femoral vein -DVT was found on admission imaging showing; chronic deep vein thrombosis of the left profunda femoris, proximal femoral vein, distal femoral vein, and popliteal vein -Nonocclusive thrombosis -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 & thrombosis -Planned follow-up with hematology next week in our [facility] clinic Postoperative anemia -Hemoglobin has been steadily declining from 12.1 on admission, now down to 7.7 -Since being post-op, the patients wound had been draining -Likely steady decline since bleeding more -Patient is not Jehovahs witness, and is not opposed to receiving blood if needed -She is requiring oxygen and does admit to shortness of breath when attempting to get out of bed -Routine labs, transfuse if hemoglobin becomes below 7.0, or for symptoms, or a cute witnessed bleeding Compartment syndrome of left lower extremity -Status post fasciotomy on July 12 with general surgery -Continue with post-operative course Liver cirrhosis -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 -Admits to drinking alcohol but states it is only occasionally and about once a week -Status post treatment for hepatitis C but it was not successful -AST continues to be elevated at 68 today, alk phos normal -INR 1.3, improved from 1.4 today -Status post vitamin K given on 07/13/2019 -Continue routine labs -Recommend outpatient follow-up with gastroenterology Hepatitis C -Patient reports a diagnosis of hepatitis C nearly 25 years ago and was recently treated for it although it was unsuccessful -Continue to trend her LFTs Elevated INR -INR remains elevated at 1.3 -May be secondary to her liver cirrhosis -Continue routine labs Alcohol use -Patient admits to drinking 1 alcoholic beverage a week and denies a history of alcoholism, although record review notes heavy use with ongoing issues -No signs of alcohol withdrawal during this hospitalization
--- NOTE | 2019-07-14 17:27 | PROVIDER PROGRESS NOTE ---
Subjective - General Admit Date: 07/12/19 Procedure Date: 07/12/19 Post Op Days: 2 Procedure Performed: s/p L medial thigh fasciotomy and hematoma evacuation - Review of Systems Wound/Incisions: positive: Other (improving bleeding post op due to oozing from her coagulopathy) Drain Type: ar All Other Systems: positive: Reviewed and negative - Other Other Information/Narrative: Did well moving from bed to chair with PT per reports, still c/o soreness. Pain improved from pre-op but incisional pain present. Eating well. Wound oozing less but still a bit, michael after work with PT. Objective - Patient Data Vital Signs: Vital Signs x48h Temp Pulse Resp BP Pulse Ox 07/14/19 15:56 36.9 C 100 18 112/62 97 Weight: Weight 07/12/19 07/13/19 07/14/19 23:59 23:59 23:59 Weight (kg) 66.2 kg Intake & Output: Intake and Output Totals x24h 07/12/19 07/13/19 07/14/19 23:59 23:59 23:59 Intake Total 1100 730 806 Output Total 700 250 301 Balance 400 480 505 - Lab Results Lab Results: 07/14/19 05:20 07/14/19 05:20 Other Lab Results: Lab Results x24hrs 07/14/19 07/14/19 07/14/19 Range/Units 05:20 05:20 05:20 WBC 12.5 H (4.8-10.8) x10^3/uL RBC 2.09 L (4.20-5.40) 10^6/uL Hgb 7.7 L (12.0-16.0) g/dL Hct 23.9 L (37.0-47.0) % MCV 114.4 H (81.0-99.0) fL MCH 36.8 H (27.0-31.0) pg MCHC 32.2 (32.0-36.0) g/dL RDW 13.1 (12.0-15.0) % Plt Count 130 (130-450) 10^3/uL MPV 12.0 H (7.9-10.8) fL Neut # (Auto) Not Reportable Lymph # (Auto) Not Reportable [place] # (Auto) Not Reportable Eos # (Auto) Not Reportable Baso # (Auto) Not Reportable Absolute Nucleated RBC Not Reportable Total Counted 100 Band Neuts % (Manual) 0 (0 - 10) % Abnorm Lymph % (Manual) 0 % Nucleated RBC % Not Reportable Neutrophils # (Manual) 8.6 H (1.5-6.6) 10^3/uL Lymphocytes # (Manual) 2.4 (1.5-3.5) 10^3/uL Monocytes # (Manual) 1.5 H (0.0-1.0) 10^3/uL Eosinophils # (Manual) 0.0 (0-0.7) 10^3/uL Basophils # (Manual) 0.0 (0-0.1) 10^3/uL Differential Comment MANUAL DIFFERENTIAL WBC Morphology NORMAL APPEARANCE (NORMAL) Platelet Estimate NORMAL (130-450,000) (NORMAL) Platelet Morphology NORMAL APPEARANCE (NORMAL) RBC Morph Micro Appear 1+ MICROCYTOSIS (NORMAL) PT 14.9 H (9.9-12.6) secs INR 1.3 H (0.8-1.2) Sodium 133 L (135-145) mmol/L Potassium 4.7 (3.5-5.0) mmol/L Chloride 97 L (101-111) mmol/L Carbon Dioxide 25 (21-32) mmol/L Anion Gap 11.0 (6-13) BUN 44 H (6-20) mg/dL Creatinine 1.0 (0.4-1.0) mg/dL Estimated GFR (MDRD) 56 L (>89) Glucose 140 H (70-100) mg/dL Calcium 9.7 (8.5-10.3) mg/dL Total Bilirubin 2.9 H (0.2-1.0) mg/dL Direct Bilirubin 1.0 H (0.1-0.5) mg/dL AST 68 H (10-42) IU/L ALT 37 (10-60) IU/L Alkaline Phosphatase 47 (42-121) IU/L Total Protein 6.4 L (6.7-8.2) g/dL Albumin 3.1 L (3.2-5.5) g/dL Globulin 3.3 (2.1-4.2) g/dL - Current Medications Current Medications: Current Medications Generic Name Dose Route Start Last Admin Trade Name Freq PRN Reason Stop Dose Admin Fluticasone Propionate 2 sprays 07/13/19 09:00 07/14/19 08:16 Flonase YVETTE Not Given DAILY [facility] Hydromorphone HCl 0.5 mg 07/12/19 08:50 07/14/19 12:08 Dilaudid Inj Syringe IVP 0.5 mg Q2HR PRN Administration PAIN 8-10 Multivitamins/Minerals 1 tab 07/14/19 09:00 07/14/19 09:25 Theragran M PO 1 tab DAILYWM [facility] Administration Ondansetron HCl 4 mg 07/13/19 20:44 07/14/19 08:11 Zofran Inj IVP 4 mg BID PRN Administration Nausea / Vomiting Oxycodone HCl 5 mg 07/12/19 07:24 07/14/19 16:35 Roxicodone PO 5 mg Q4HR PRN Administration Pain 5 to 7 Polyethylene Glycol 17 gm 07/14/19 09:00 07/14/19 09:25 Miralax PO 17 gm DAILY [facility] Administration Sodium Chloride 10 ml 07/12/19 07:24 07/14/19 04:27 Normal Saline Flush 0.9% IVP 10 ml PRN PRN Administration NEEDED PER PROVIDER ORDERS Sodium Chloride 10 ml 07/12/19 09:00 07/14/19 16:36 Normal Saline Flush 0.9% IVP 10 ml 0100,0900,1700 [facility] Administration - Physical Exam Comments/Other: AAO, NAD EOMI, MMM, no scleral icterus unlabored RA soft, nt/nd dressing intact, mild saturation Impression/Plan - Problem List Problem List: L thigh hematoma with compartment syndrome s/p evacuation and fasciotomy. - continues to improve - wound care; hope to close skin and remove drain prior to d/c - PT/OT for mobility - likely needs swing bed/ rehab DVT - hematology appointment next week - non-occlusive, unknown to pt Cirrhosis - appreciate medicine assistance - coagulopathy likely 2/2 this; may need more vit K
[2019-07-14] MEDS ORDERED: PHYTONADIONE 10 MG/ML AMP SUBQ ONE (17:31)
[2019-07-15] MEDS: oxyCODONE 5 MG TABLET PO PRN ×4 (03:53→20:49)
[2019-07-15 05:42] LABS: BASOPHILS # (AUTO) 0.1 10^3/uL (0.0-0.1); BASOPHILS % (AUTO) 0.8 %; EOSINOPHILS # (AUTO) 0.2 10^3/uL (0.0-0.7); EOSINOPHILS % (AUTO) 2.7 %; LYMPHOCYTES # (AUTO) 1.7 10^3/uL (1.5-3.5); LYMPHOCYTES % (AUTO) 18.8 %; MEAN CORPUSCULAR HEMOGLOBIN 37.1 pg (27.0-31.0); MEAN CORPUSCULAR HGB CONC 33.5 g/dL (32.0-36.0); MEAN CORPUSCULAR VOLUME 110.8 fL (81.0-99.0); MEAN PLATELET VOLUME 11.2 fL (7.9-10.8); MONOCYTES # (AUTO) 1.3 10^3/uL (0.0-1.0); MONOCYTES % (AUTO) 14.4 %; NEUTROPHILS # (AUTO) 5.5 10^3/uL (1.5-6.6); NEUTROPHILS % (AUTO) 62.5 %; PLT - PLATELET COUNT 133 10^3/uL (130-450); RED BLOOD COUNT 1.86 10^6/uL (4.20-5.40); RED CELL DISTRIBUTION WIDTH 12.8 % (12.0-15.0); WHITE BLOOD COUNT 8.9 x10^3/uL (4.8-10.8)
[2019-07-15 05:46] LABS: INR 1.4 (0.8-1.2); PT - PROTHROMBIN TIME 15.2 secs (9.9-12.6)
[2019-07-15 05:50] LABS: HGB - HEMOGLOBIN 6.9 g/dL (12.0-16.0)
[2019-07-15 06:01] LABS: ALBUMIN 2.8 g/dL (3.2-5.5); ALBUMIN/GLOBULIN RATIO 0.9 (1.0-2.2); BILIRUBIN,TOTAL 2.7 mg/dL (0.2-1.0); CREATININE 0.8 mg/dL (0.4-1.0); CRP - C-REACTIVE PROTEIN 1.1 mg/dL (0-1.0); TOTAL PROTEIN 5.8 g/dL (6.7-8.2)
[2019-07-15] MEDS: SODIUM CHLORIDE FLUSH 0.9% 10 ML SYRINGE IVP SCH ×3 (07:56→23:38)
[2019-07-15] MEDS: ONDANSETRON 4 MG/2 ML VIAL IVP PRN (07:56)
[2019-07-15] MEDS: MULTIVITAMIN W/MINERALS TABLET PO SCH (08:19)
[2019-07-15] MEDS: polyethylene glycoL 3350 17 GM PACKET PO SCH (08:20)
[2019-07-15] MEDS: HYDROmorphone 0.5 MG/0.5 ML SYRINGE IVP PRN ×2 (08:21→13:11)
[2019-07-15] MEDS: SODIUM CHLORIDE FLUSH 0.9% 10 ML SYRINGE IVP PRN ×2 (08:23→13:11)
--- NOTE | 2019-07-15 09:06 | XRAY Report ---
Reason: hypoxia, cough Procedure Date: 07/15/2019 Accession Number: [id number] / [id number] Procedure: XR - Chest 1 View X-Ray CPT Code: 06714 Final Report FULL RESULT: EXAM: CHEST RADIOGRAPHY, PORTABLE 1 VIEW EXAM DATE: 07/15/2019 08:55 AM. CLINICAL HISTORY: Hypoxia and cough in a 64-year-old female. COMPARISON: CHEST ANGIO 02/17/2017 5:47 PM. CHEST 2 VIEW PA/LAT 02/17/2017 12:40 PM. CHEST 2 VIEW PA/LAT 12/24/2014 5:27 AM. TECHNIQUE: 0838 hour AP upright portable view. FINDINGS: Lungs/Pleura: Probable small amount of postinflammatory scarring left lung base, similar to prior chest radiograph of February 2017. Lungs otherwise clear. No pleural effusion. No pneumothorax. Mediastinum: Heart size normal, without adenopathy or pulmonary vascular congestion. Other: Trachea is midline. Osseous structures are unremarkable. IMPRESSION: Minimal postinflammatory scarring left lung base, chronic and stable. No pneumonia, CHF or other acute process. RADIA
[2019-07-15] MEDS: FLUTICASONE NASAL SPRAY NAS SCH (09:14)
--- NOTE | 2019-07-15 10:11 | PROVIDER PROGRESS NOTE ---
Subjective - General Admit Date: 07/12/19 Procedure Date: 07/12/19 Post Op Days: 3 Procedure Performed: s/p L medial thigh fasciotomy and hematoma evacuation - Review of Systems Wound/Incisions: positive: Other (improving bleeding post op due to oozing from her coagulopathy) Drain Type: ar All Other Systems: positive: Reviewed and negative - Other Other Information/Narrative: Pt doing well, александр diet, still oozing slowly and has dropped Hg enough to warrant transfusion this AM. Is working with PT, slow progress. Needs to be up more. Objective - Patient Data Vital Signs: Vital Signs x48h Temp Pulse Pulse Resp BP BP Pulse Ox 07/15/19 09:17 36.8 C 92 16 110/57 L 07/15/19 09:14 37 C 94 18 111/49 L 07/15/19 08:37 37.1 C 95 18 119/56 L 07/15/19 08:00 37.2 C 94 20 118/51 L 91 L Intake & Output: Intake and Output Totals x24h 07/13/19 07/14/19 07/15/19 23:59 23:59 23:59 Intake Total 730 806 640 Output Total 250 351 350 Balance 480 455 290 - Lab Results Lab Results: 07/15/19 05:18 07/15/19 05:18 Other Lab Results: Lab Results x24hrs 07/15/19 07/15/19 07/15/19 Range/Units 05:18 05:18 05:18 WBC (4.8-10.8) x10^3/uL RBC (4.20-5.40) 10^6/uL Hgb (12.0-16.0) g/dL Hct (37.0-47.0) % MCV (81.0-99.0) fL MCH (27.0-31.0) pg MCHC (32.0-36.0) g/dL RDW (12.0-15.0) % Plt Count (130-450) 10^3/uL MPV (7.9-10.8) fL Neut # (Auto) (1.5-6.6) 10^3/uL Lymph # (Auto) (1.5-3.5) 10^3/uL [place] # (Auto) (0.0-1.0) 10^3/uL Eos # (Auto) (0.0-0.7) 10^3/uL Baso # (Auto) (0.0-0.1) 10^3/uL Absolute Nucleated RBC x10^3/uL Nucleated RBC % /100WBC PT 15.2 H (9.9-12.6) secs INR 1.4 H (0.8-1.2) Sodium 133 L (135-145) mmol/L Potassium 4.5 (3.5-5.0) mmol/L Chloride 99 L (101-111) mmol/L Carbon Dioxide 27 (21-32) mmol/L Anion Gap 7.0 (6-13) BUN 36 H (6-20) mg/dL Creatinine 0.8 (0.4-1.0) mg/dL Estimated GFR (MDRD) 72 L (>89) Glucose 114 H (70-100) mg/dL Calcium 9.0 (8.5-10.3) mg/dL Magnesium 2.0 (1.7-2.8) mg/dL Total Bilirubin 2.7 H (0.2-1.0) mg/dL AST 87 H (10-42) IU/L ALT 44 (10-60) IU/L Alkaline Phosphatase 46 (42-121) IU/L C-Reactive Protein 1.1 H (0-1.0) mg/dL Total Protein 5.8 L (6.7-8.2) g/dL Albumin 2.8 L (3.2-5.5) g/dL Globulin 3.0 (2.1-4.2) g/dL Albumin/Globulin Ratio 0.9 L (1.0-2.2) Lipase 49 (22-51) U/L Blood Type O POSITIVE Antibody Screen NEGATIVE Crossmatch IS Only See Detail 07/15/19 Range/Units 05:18 WBC 8.9 (4.8-10.8) x10^3/uL RBC 1.86 L (4.20-5.40) 10^6/uL Hgb 6.9 L* (12.0-16.0) g/dL Hct 20.6 L (37.0-47.0) % MCV 110.8 H (81.0-99.0) fL MCH 37.1 H (27.0-31.0) pg MCHC 33.5 (32.0-36.0) g/dL RDW 12.8 (12.0-15.0) % Plt Count 133 (130-450) 10^3/uL MPV 11.2 H (7.9-10.8) fL Neut # (Auto) 5.5 (1.5-6.6) 10^3/uL Lymph # (Auto) 1.7 (1.5-3.5) 10^3/uL [place] # (Auto) 1.3 H (0.0-1.0) 10^3/uL Eos # (Auto) 0.2 (0.0-0.7) 10^3/uL Baso # (Auto) 0.1 (0.0-0.1) 10^3/uL Absolute Nucleated RBC 0.03 x10^3/uL Nucleated RBC % 0.3 /100WBC PT (9.9-12.6) secs INR (0.8-1.2) Sodium (135-145) mmol/L Potassium (3.5-5.0) mmol/L Chloride (101-111) mmol/L Carbon Dioxide (21-32) mmol/L Anion Gap (6-13) BUN (6-20) mg/dL Creatinine (0.4-1.0) mg/dL Estimated GFR (MDRD) (>89) Glucose (70-100) mg/dL Calcium (8.5-10.3) mg/dL Magnesium (1.7-2.8) mg/dL Total Bilirubin (0.2-1.0) mg/dL AST (10-42) IU/L ALT (10-60) IU/L Alkaline Phosphatase (42-121) IU/L C-Reactive Protein (0-1.0) mg/dL Total Protein (6.7-8.2) g/dL Albumin (3.2-5.5) g/dL Globulin (2.1-4.2) g/dL Albumin/Globulin Ratio (1.0-2.2) Lipase (22-51) U/L Blood Type Antibody Screen Crossmatch IS Only - Current Medications Current Medications: Current Medications Generic Name Dose Route Start Last Admin Trade Name Freq PRN Reason Stop Dose Admin Fluticasone Propionate 2 sprays 07/13/19 09:00 07/15/19 09:14 Flonase YVETTE Not Given DAILY KIRK Hydromorphone HCl 0.5 mg 07/12/19 08:50 07/15/19 08:21 Dilaudid Inj Syringe IVP 0.5 mg Q2HR PRN Administration PAIN 8-10 Multivitamins/Minerals 1 tab 07/14/19 09:00 07/15/19 08:19 Theragran M PO 1 tab DAILYWM KIRK Administration Ondansetron HCl 4 mg 07/13/19 20:44 07/15/19 07:56 Zofran Inj IVP 4 mg BID PRN Administration Nausea / Vomiting Oxycodone HCl 5 mg 07/12/19 07:24 07/15/19 09:12 Roxicodone PO 5 mg Q4HR PRN Administration Pain 5 to 7 Polyethylene Glycol 17 gm 07/14/19 09:00 07/15/19 08:20 Miralax PO 17 gm DAILY KIRK Administration Sodium Chloride 10 ml 07/12/19 07:24 07/15/19 08:23 Normal Saline Flush 0.9% IVP 10 ml PRN PRN Administration NEEDED PER PROVIDER ORDERS Sodium Chloride 10 ml 07/12/19 09:00 07/15/19 07:56 Normal Saline Flush 0.9% IVP 10 ml 0100,0900,1700 KIRK Administration - Physical Exam Comments/Other: AAO, NAD EOMI, MMM, no scleral icterus unlabored RA soft, nt/nd L thigh dressed, saturated at top; leg movement limited by pain but soft compartments Impression/Plan - Problem List Problem List: - Anemia: pre-existing but exacerbated by open wound and coagulopathy --> has gotten vit K with some improvement --> transfuse this AM --> cont' to hold chemoprophylaxis, only SCD - S/P fasciotomy: wound care, work with PT --> ar in place --> hope to close skin in coming days - DVT: non-occlusive, appears chronic; FU with heme for mgmt - Cirrhosis: contributing to coagulopathy, appreciate medicine assistance
--- NOTE | 2019-07-15 17:57 | PROVIDER PROGRESS NOTE ---
Subjective - Prog Note Date Prog Note Date: 07/15/19 Prog Note Time: 17:55 - Subjective Pt reports feeling: Improved Subjective: Julieta states she has been sleepy today, and still have pain in her left leg when getting out of bed. She remains short of breath with movement, denies chest pain, a new rash, confusion, worsening cough. She is having no ill effects since getting a unit of blood today. Current Medications - Current Medications Current Medications: Active Medications: Fluticasone Propionate (Flonase) 2 sprays YVETTE DAILY KIRK Hydromorphone HCl (Dilaudid Inj Syringe) 0.5 mg IVP Q2HR PRN Multivitamins/Minerals (Theragran M) 1 tab PO DAILYWM KIRK Ondansetron HCl (Zofran Inj) 4 mg IVP BID PRN Oxycodone HCl (Roxicodone) 5 mg PO Q4HR PRN Polyethylene Glycol (Miralax) 17 gm PO DAILY [facility] HOME meds: Fluticasone [Flonase] 2 sprays YVETTE DAILY 07/12/19 lisinopriL [Lisinopril] 40 mg PO DAILY 07/12/19 Objective - Vital Signs/Intake & Output Reviewed Vital Signs: Yes Vital Signs: Vital Signs x48h Temp Pulse Pulse Resp BP BP Pulse Ox 07/15/19 17:00 36.8 C 93 22 130/48 L 95 07/15/19 11:18 36.8 C 93 19 106/50 L Intake & Output: Intake & Output 07/12/19 07/13/19 07/14/19 07/15/19 23:59 23:59 23:59 23:59 Intake Total 1100 452 314 2710 Output Total 700 250 351 500 Balance 400 480 455 657 - Objective General Appearance: positive: No acute distress, Alert, Lethargic Eyes: OU Conjunctivae pale ENT: positive: Pharyngeal erythema, Dry mucous membranes Neck: positive: No JVD, Trachea midline Respiratory: positive: Chest non-tender, No respiratory distress, Other (diminished with scattered crackles bilaterally) Cardiovascular: positive: Regular rate & rhythm, No gallop, Tachycardia, Systolic murmur, Decreased pulse(s) Peripheral Pulses: 1+ Radial (R), 1+ Radial (L) Abdomen: positive: Non-tender, Hepatomegaly, Abnml bowel sounds, Other (firm, rounded) Back: positive: Nml inspection Skin: positive: No rash, Warm, Dry, Other (bronze toned skin, scattered bruising) Extremities: positive: No pedal edema, Other (Left thigh post op site, oozing today, painful when moving) Neurologic/Psychiatric: positive: Oriented x3, CN's nml (2-12), Motor nml, Sensation nml, Weakness, Depressed mood/affect Reflexes: Bicep (R): 3+, Bicep (L): 3+ - Lab Results Fish Bones: 07/15/19 05:18 07/15/19 05:18 Other Labs: Lab Results x24hrs 07/15/19 07/15/19 07/15/19 Range/Units 05:18 05:18 05:18 WBC (4.8-10.8) x10^3/uL RBC (4.20-5.40) 10^6/uL Hgb (12.0-16.0) g/dL Hct (37.0-47.0) % MCV (81.0-99.0) fL MCH (27.0-31.0) pg MCHC (32.0-36.0) g/dL RDW (12.0-15.0) % Plt Count (130-450) 10^3/uL MPV (7.9-10.8) fL Neut # (Auto) (1.5-6.6) 10^3/uL Lymph # (Auto) (1.5-3.5) 10^3/uL [place] # (Auto) (0.0-1.0) 10^3/uL Eos # (Auto) (0.0-0.7) 10^3/uL Baso # (Auto) (0.0-0.1) 10^3/uL Absolute Nucleated RBC x10^3/uL Nucleated RBC % /100WBC PT 15.2 H (9.9-12.6) secs INR 1.4 H (0.8-1.2) Sodium 133 L (135-145) mmol/L Potassium 4.5 (3.5-5.0) mmol/L Chloride 99 L (101-111) mmol/L Carbon Dioxide 27 (21-32) mmol/L Anion Gap 7.0 (6-13) BUN 36 H (6-20) mg/dL Creatinine 0.8 (0.4-1.0) mg/dL Estimated GFR (MDRD) 72 L (>89) Glucose 114 H (70-100) mg/dL Calcium 9.0 (8.5-10.3) mg/dL Magnesium 2.0 (1.7-2.8) mg/dL Total Bilirubin 2.7 H (0.2-1.0) mg/dL AST 87 H (10-42) IU/L ALT 44 (10-60) IU/L Alkaline Phosphatase 46 (42-121) IU/L C-Reactive Protein 1.1 H (0-1.0) mg/dL Total Protein 5.8 L (6.7-8.2) g/dL Albumin 2.8 L (3.2-5.5) g/dL Globulin 3.0 (2.1-4.2) g/dL Albumin/Globulin Ratio 0.9 L (1.0-2.2) Lipase 49 (22-51) U/L Blood Type O POSITIVE Antibody Screen NEGATIVE Crossmatch IS Only See Detail 07/15/19 Range/Units 05:18 WBC 8.9 (4.8-10.8) x10^3/uL RBC 1.86 L (4.20-5.40) 10^6/uL Hgb 6.9 L* (12.0-16.0) g/dL Hct 20.6 L (37.0-47.0) % MCV 110.8 H (81.0-99.0) fL MCH 37.1 H (27.0-31.0) pg MCHC 33.5 (32.0-36.0) g/dL RDW 12.8 (12.0-15.0) % Plt Count 133 (130-450) 10^3/uL MPV 11.2 H (7.9-10.8) fL Neut # (Auto) 5.5 (1.5-6.6) 10^3/uL Lymph # (Auto) 1.7 (1.5-3.5) 10^3/uL [place] # (Auto) 1.3 H (0.0-1.0) 10^3/uL Eos # (Auto) 0.2 (0.0-0.7) 10^3/uL Baso # (Auto) 0.1 (0.0-0.1) 10^3/uL Absolute Nucleated RBC 0.03 x10^3/uL Nucleated RBC % 0.3 /100WBC PT (9.9-12.6) secs INR (0.8-1.2) Sodium (135-145) mmol/L Potassium (3.5-5.0) mmol/L Chloride (101-111) mmol/L Carbon Dioxide (21-32) mmol/L Anion Gap (6-13) BUN (6-20) mg/dL Creatinine (0.4-1.0) mg/dL Estimated GFR (MDRD) (>89) Glucose (70-100) mg/dL Calcium (8.5-10.3) mg/dL Magnesium (1.7-2.8) mg/dL Total Bilirubin (0.2-1.0) mg/dL AST (10-42) IU/L ALT (10-60) IU/L Alkaline Phosphatase (42-121) IU/L C-Reactive Protein (0-1.0) mg/dL Total Protein (6.7-8.2) g/dL Albumin (3.2-5.5) g/dL Globulin (2.1-4.2) g/dL Albumin/Globulin Ratio (1.0-2.2) Lipase (22-51) U/L Blood Type Antibody Screen Crossmatch IS Only - Diagnostic Imaging Diagnostic Imaging Results: positive: Final report reviewed Diagnostic Imaging Comments: EXAM: CHEST RADIOGRAPHY, PORTABLE 1 VIEW 07/15/2019 08:55 AM. IMPRESSION: Minimal postinflammatory scarring left lung base, chronic and stable. No pneumonia, CHF or other acute process. ABX Reporting Has patient been on IV antibiotics over the past 48 hours?: No Assessment/Plan - Problem List (1) Bleeding tendency Impression: -Hemoglobin has been steadily declining from 12.1 on admission, now down to 6.9 -Since being post-op, the patients wound had been draining -Likely steady decline since bleeding more -Patient is not Jehovahs witness, and is not opposed to receiving blood if needed -She is requiring oxygen and does admit to shortness of breath when attempting to get out of bed -Today patient received 1 unit PRBCs given a fall in hemoglobin, tachycardia, and shortness of breath with fatigue (symptomatic) -Routine labs, transfuse if hemoglobin becomes below 7.0, or for symptoms, or acute witnessed bleeding Bleeding tendency -Patient has had excessive bleeding/bruising episodes since the year 2012 -On 05/23/2019, patient came to the ED after noting swelling to her left hand, which occurred spontaneously -Required evacuation of the hematoma, and on exam, discoloration is still noted to her left hand - Vitamin K was administered on 07/13/2019, repeated on 07/14, which has improved her post op bleeding and cut the # of dressing changes in half -Patient will see hematology on 07/19/2019 in the [facility] as scheduled Chronic deep vein thrombosis (DVT) of left femoral vein -DVT was found on admission imaging showing; chronic deep vein thrombosis of the left profunda femoris, proximal femoral vein, distal femoral vein, and po pliteal vein -Nonocclusive thrombosis -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 & thrombosis -Planned follow-up with hematology next week in our [facility] [place] [facility] Compartment syndrome of left lower extremity -Status post fasciotomy on July 12 with general surgery -Continue with post-operative course Liver cirrhosis -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 -Admits to drinking alcohol but states it is only occasionally and about once a week -Status post treatment for hepatitis, but it was not successful -AST continues to be elevated at 87 today, alk phos normal -INR 1.4 today -Status post vitamin K given on 07/13/2019, repeated on 07/14 -Continue routine labs -Recommend outpatient follow-up with gastroenterology Hepatitis C -Patient reports a diagnosis of hepatitis nearly 25 years ago and was recently treated for it although it was unsuccessful -Continue to trend her LFTs Elevated INR -INR remains elevated at 1.4 -May be secondary to her liver cirrhosis -Continue routine labs Alcohol use -Patient admits to drinking 1 alcoholic beverage a week and denies a history of alcoholism, although record review notes heavy use with ongoing issues -On admission, patient was positive for acute intoxication -No signs of alcohol withdrawal during this hospitalization
[2019-07-16] MEDS: oxyCODONE 5 MG TABLET PO PRN ×5 (01:09→22:11)
[2019-07-16] MEDS: HYDROmorphone 0.5 MG/0.5 ML SYRINGE IVP PRN (04:31)
[2019-07-16 05:41] LABS: BASOPHILS # (AUTO) 0.1 10^3/uL (0.0-0.1); BASOPHILS % (AUTO) 0.9 %; EOSINOPHILS # (AUTO) 0.2 10^3/uL (0.0-0.7); EOSINOPHILS % (AUTO) 2.7 %; HGB - HEMOGLOBIN 7.2 g/dL (12.0-16.0); LYMPHOCYTES # (AUTO) 1.1 10^3/uL (1.5-3.5); LYMPHOCYTES % (AUTO) 14.3 %; MEAN CORPUSCULAR HEMOGLOBIN 35.8 pg (27.0-31.0); MEAN CORPUSCULAR HGB CONC 33.6 g/dL (32.0-36.0); MEAN CORPUSCULAR VOLUME 106.5 fL (81.0-99.0); MEAN PLATELET VOLUME 10.7 fL (7.9-10.8); MONOCYTES # (AUTO) 1.1 10^3/uL (0.0-1.0); MONOCYTES % (AUTO) 13.9 %; NEUTROPHILS # (AUTO) 5.2 10^3/uL (1.5-6.6); NEUTROPHILS % (AUTO) 67.4 %; PLT - PLATELET COUNT 111 10^3/uL (130-450); RED BLOOD COUNT 2.01 10^6/uL (4.20-5.40); RED CELL DISTRIBUTION WIDTH 15.3 % (12.0-15.0); WHITE BLOOD COUNT 7.8 x10^3/uL (4.8-10.8)
[2019-07-16 05:50] LABS: ALBUMIN 2.8 g/dL (3.2-5.5); BILIRUBIN,TOTAL 3.5 mg/dL (0.2-1.0); CALCIUM 8.2 mg/dL (8.5-10.3); CREATININE 0.6 mg/dL (0.4-1.0); TOTAL PROTEIN 5.5 g/dL (6.7-8.2)
[2019-07-16] MEDS: MULTIVITAMIN W/MINERALS TABLET PO SCH (08:10)
[2019-07-16] MEDS: FLUTICASONE NASAL SPRAY NAS SCH (08:11)
[2019-07-16] MEDS: polyethylene glycoL 3350 17 GM PACKET PO SCH (08:11)
[2019-07-16] MEDS: SODIUM CHLORIDE FLUSH 0.9% 10 ML SYRINGE IVP SCH ×3 (08:12→23:55)
[2019-07-16] MEDS ORDERED: DOCUSATE SODIUM 250 MG CAPSULE PO SCH (09:00)
[2019-07-16] MEDS ORDERED: SENNA 8.6 MG TABLET PO SCH (09:00)
--- NOTE | 2019-07-16 09:44 | PROVIDER PROGRESS NOTE ---
Subjective - General Admit Date: 07/12/19 Procedure Date: 07/12/19 Post Op Days: 4 Procedure Performed: s/p L medial thigh fasciotomy and hematoma evacuation - Review of Systems Wound/Incisions: positive: Other (improving bleeding post op due to oozing from her coagulopathy) Drain Type: ar All Other Systems: positive: Reviewed and negative - Other Other Information/Narrative: Doing fairly well, c/o same pain, did almost no work with PT yesterday. Hg improved with transfusion. Still some oozing but less. Objective - Patient Data Vital Signs: Vital Signs x48h Temp Pulse Resp BP Pulse Ox 07/16/19 07:56 37.1 C 96 20 110/55 L 96 Intake & Output: Intake and Output Totals x24h 07/14/19 07/15/19 07/16/19 23:59 23:59 23:59 Intake Total 806 1797 250 Output Total 351 825 100 Balance 455 972 150 - Lab Results Lab Results: 07/16/19 05:30 07/16/19 05:30 Other Lab Results: Lab Results x24hrs 07/16/19 07/16/19 07/15/19 Range/Units 05:30 05:30 05:18 WBC 7.8 (4.8-10.8) x10^3/uL RBC 2.01 L (4.20-5.40) 10^6/uL Hgb 7.2 L (12.0-16.0) g/dL Hct 21.4 L (37.0-47.0) % MCV 106.5 H (81.0-99.0) fL MCH 35.8 H (27.0-31.0) pg MCHC 33.6 (32.0-36.0) g/dL RDW 15.3 H (12.0-15.0) % Plt Count 111 L (130-450) 10^3/uL MPV 10.7 (7.9-10.8) fL Neut # (Auto) 5.2 (1.5-6.6) 10^3/uL Lymph # (Auto) 1.1 L (1.5-3.5) 10^3/uL [place] # (Auto) 1.1 H (0.0-1.0) 10^3/uL Eos # (Auto) 0.2 (0.0-0.7) 10^3/uL Baso # (Auto) 0.1 (0.0-0.1) 10^3/uL Absolute Nucleated RBC 0.00 x10^3/uL Nucleated RBC % 0.0 /100WBC Sodium 132 L (135-145) mmol/L Potassium 4.1 (3.5-5.0) mmol/L Chloride 99 L (101-111) mmol/L Carbon Dioxide 26 (21-32) mmol/L Anion Gap 7.0 (6-13) BUN 27 H (6-20) mg/dL Creatinine 0.6 (0.4-1.0) mg/dL Estimated GFR (MDRD) 101 (>89) Glucose 120 H (70-100) mg/dL Calcium 8.2 L (8.5-10.3) mg/dL Magnesium 2.0 (1.7-2.8) mg/dL Total Bilirubin 3.5 H (0.2-1.0) mg/dL AST 102 H (10-42) IU/L ALT 55 (10-60) IU/L Alkaline Phosphatase 51 (42-121) IU/L Total Protein 5.5 L (6.7-8.2) g/dL Albumin 2.8 L (3.2-5.5) g/dL Globulin 2.7 (2.1-4.2) g/dL Albumin/Globulin Ratio 1.0 (1.0-2.2) Blood Type O POSITIVE Antibody Screen NEGATIVE Crossmatch IS Only See Detail - Current Medications Current Medications: Current Medications Generic Name Dose Route Start Last Admin Trade Name Analisa PRN Reason Stop Dose Admin Docusate Sodium 250 - 500 mg 07/16/19 09:00 07/16/19 08:11 Colace 250mg Capsule PO 250 mg DAILY KIRK Administration Fluticasone Propionate 2 sprays 07/13/19 09:00 07/16/19 08:11 Flonase YVETTE Not Given DAILY KIRK Hydromorphone HCl 0.5 mg 07/12/19 08:50 07/16/19 04:31 Dilaudid Inj Syringe IVP 0.5 mg Q2HR PRN Administration PAIN 8-10 Multivitamins/Minerals 1 tab 07/14/19 09:00 07/16/19 08:10 Theragran M PO 1 tab DAILYWM KIRK Administration Ondansetron HCl 4 mg 07/13/19 20:44 07/15/19 07:56 Zofran Inj IVP 4 mg BID PRN Administration Nausea / Vomiting Oxycodone HCl 5 mg 07/12/19 07:24 07/16/19 01:09 Roxicodone PO 5 mg Q4HR PRN Administration Pain 5 to 7 Polyethylene Glycol 17 gm 07/14/19 09:00 07/16/19 08:11 Miralax PO 17 gm DAILY KIRK Administration Senna 8.6 - 17.2 mg 07/16/19 09:00 07/16/19 08:11 Senokot PO 8.6 mg DAILY KIRK Administration Sodium Chloride 10 ml 07/12/19 07:24 07/15/19 13:11 Normal Saline Flush 0.9% IVP 10 ml PRN PRN Administration NEEDED PER PROVIDER ORDERS Sodium Chloride 10 ml 07/12/19 09:00 07/16/19 08:12 Normal Saline Flush 0.9% IVP 10 ml 0100,0900,1700 KIRK Administration - Physical Exam Comments/Other: AAO, NAD EOMI, MMM, no scleral icterus unlabored RA soft, nt/nd inc clean and dressed, no saturation of dressing; skin and compartments clear and soft Impression/Plan - Problem List Problem List: L thigh hematoma with compartment syndrome s/p evacuation and fasciotomy. - continues to improve --> still slowly oozing due to coagulopathy and open wound; will order another vit K dose today - wound care; hope to close skin and remove drain prior to d/c - PT/OT for mobility; counseled again importance of working more with them as she is even more deconditioned than on arrival - likely needs swing bed/ rehab DVT - hematology appointment next week - non-occlusive, unknown to pt Cirrhosis - appreciate medicine assistance - coagulopathy likely 2/2 this
[2019-07-16] MEDS ORDERED: PHYTONADIONE 10 MG/ML AMP SUBQ ONE (11:10)
--- NOTE | 2019-07-16 14:37 | PROVIDER PROGRESS NOTE ---
Subjective - Prog Note Date Prog Note Date: 07/16/19 Prog Note Time: 14:37 - Subjective Pt reports feeling: Improved Subjective: Julieta states that today her post-op wound feels prickly, tight, and hot. She has required more dressing changes today. She states that since receiving her blood transfusion, she has not had more energy. She states that when she gets her pain medication, it helps with the pain. She claims that when getting out of bed, she has dizziness, shortness of breath, and feels cold most days. She states that she knew someday she would turn yellow since having hepatitis and liver cirrhosis. She denies other new symptoms such as a new cough, sore throat, a rash, dysuria, changes in bowels, or new insomnia. Current Medications - Current Medications Current Medications: Active Medications: Docusate Sodium 250 mg PO DAILY KIRK Fluticasone Propionate (Flonase) 2 sprays YVETTE DAILY KIRK Hydromorphone HCl (Dilaudid Inj Syringe) 0.5 mg IVP Q2HR PRN Multivitamins/Minerals (Theragran M) 1 tab PO DAILYWM KIRK Ondansetron HCl (Zofran Inj) 4 mg IVP BID PRN Oxycodone HCl (Roxicodone) 5 mg PO Q4HR PRN Polyethylene Glycol (Miralax) 17 gm PO DAILY KIRK Senna (Senokot) 8.6 mg PO DAILY KIRK Lactulose 10 mg PO TIDWM Propranolol 10 mg BID HOME meds: Fluticasone [Flonase] 2 sprays YVETTE DAILY 07/12/19 lisinopriL [Lisinopril] 40 mg PO DAILY 07/12/19 Objective - Vital Signs/Intake & Output Reviewed Vital Signs: Yes Vital Signs: Vital Signs x48h Temp Pulse Resp BP Pulse Ox 07/16/19 07:56 37.1 C 96 20 110/55 L 96 Intake & Output: Intake & Output 07/13/19 07/14/19 07/15/19 07/16/19 23:59 23:59 23:59 23:59 Intake Total 882 415 7615 490 Output Total 250 351 825 100 Balance 480 455 972 390 - Objective General Appearance: positive: No acute distress, Alert Eyes Bilateral: positive: No lid inflammation Eyes: OU Conjunctivae pale, OU Scleral icterus ENT: positive: Pharyngeal erythema, Dry mucous membranes Neck: positive: No JVD, Trachea midline Respiratory: positive: Chest non-tender, No respiratory distress, Other (scattered crackles bilaterally) Cardiovascular: positive: Regular rate & rhythm, Tachycardia, Systolic murmur, Decreased pulse(s) Peripheral Pulses: 1+ Radial (R), 1+ Radial (L) Abdomen: positive: Tenderness (bilateral low quadrants with deep palpation), Guarding, Hepatomegaly, Abnml bowel sounds, Other (obese, soft, rounded) Back: positive: Nml inspection Skin: positive: No rash, Warm, Dry, Embolic lesions, Other (jaundice, new today, very dark urine, mild scleral yellowing) Extremities: positive: Non-tender, Full ROM, No pedal edema, Joint swelling Neurologic/Psychiatric: positive: Oriented x3, CN's nml (2-12), Motor nml, Sensation nml, Mood/affect nml, Weakness, Depressed mood/affect (flat, fatigue) Reflexes: Bicep (R): 3+, Bicep (L): 3+ - Lab Results Fish Bones: 07/16/19 16:08 07/16/19 05:30 Other Labs: Lab Results x24hrs 07/16/19 07/16/19 Range/Units 05:30 05:30 WBC 7.8 (4.8-10.8) x10^3/uL RBC 2.01 L (4.20-5.40) 10^6/uL Hgb 7.2 L (12.0-16.0) g/dL Hct 21.4 L (37.0-47.0) % MCV 106.5 H (81.0-99.0) fL MCH 35.8 H (27.0-31.0) pg MCHC 33.6 (32.0-36.0) g/dL RDW 15.3 H (12.0-15.0) % Plt Count 111 L (130-450) 10^3/uL MPV 10.7 (7.9-10.8) fL Neut # (Auto) 5.2 (1.5-6.6) 10^3/uL Lymph # (Auto) 1.1 L (1.5-3.5) 10^3/uL [place] # (Auto) 1.1 H (0.0-1.0) 10^3/uL Eos # (Auto) 0.2 (0.0-0.7) 10^3/uL Baso # (Auto) 0.1 (0.0-0.1) 10^3/uL Absolute Nucleated RBC 0.00 x10^3/uL Nucleated RBC % 0.0 /100WBC Sodium 132 L (135-145) mmol/L Potassium 4.1 (3.5-5.0) mmol/L Chloride 99 L (101-111) mmol/L Carbon Dioxide 26 (21-32) mmol/L Anion Gap 7.0 (6-13) BUN 27 H (6-20) mg/dL Creatinine 0.6 (0.4-1.0) mg/dL Estimated GFR (MDRD) 101 (>89) Glucose 120 H (70-100) mg/dL Calcium 8.2 L (8.5-10.3) mg/dL Magnesium 2.0 (1.7-2.8) mg/dL Total Bilirubin 3.5 H (0.2-1.0) mg/dL AST 102 H (10-42) IU/L ALT 55 (10-60) IU/L Alkaline Phosphatase 51 (42-121) IU/L Total Protein 5.5 L (6.7-8.2) g/dL Albumin 2.8 L (3.2-5.5) g/dL Globulin 2.7 (2.1-4.2) g/dL Albumin/Globulin Ratio 1.0 (1.0-2.2) ABX Reporting Has patient been on IV antibiotics over the past 48 hours?: No Assessment/Plan - Problem List (1) Acute blood loss anemia Impression: -Hemoglobin post transfusion only increased to 7.2, rechecked tonight, now 7.1 -Since being post-op, the patients wound had been draining -Patient complains of ongoing dizziness when changing positions, shortness of breath, and feels cold frequently -Routine labs, transfuse if hemoglobin becomes below 7.0, or for symptoms, or acute witnessed bleeding Bleeding tendency -Patient has had excessive bleeding/bruising episodes since the year 2012 -Patient states she has rectal bleeding for the past 1 year, continues currently (bright red) -On 05/23/2019, patient came to the ED after noting swelling to her left hand, which occurred spontaneously -Required evacuation of the hematoma, and on exam, discoloration is still noted to her left hand - Vitamin K was administered on 07/13/2019, 07/14, & 07/16 per surgery with little effect -Patient will see hematology on 07/19/2019 in the [facility] as scheduled Jaundice -Albumin low at 2.8, total bili was 1.8, reached a max of 3.8, and is now 3.6 -AST elevated at 102, ALT normal at 55 -GGT 104 -Continues to have hyponatremia related to liver disease, today 132 -Dark, orange urine was noted in the pure wick canister -Jaundice was noticed somewhat early this morning, more profound this evening -Ammonia level also elevated at 44.8 -Continues with elevated INR, now 1.4 -At least 3 doses of vitamin K with little to no effect -Abdominal ultrasound is pending to evaluate for portal hypertension -Starting lactulose, low dose propranolol this evening -Routine labs, keep patient updated Chronic deep vein thrombosis (DVT) of left femoral vein -DVT was found on admission imaging showing; chronic deep vein thrombosis of the left profunda femoris, proximal femoral vein, distal femoral vein, and popliteal vein -Nonocclusive thrombosis -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 & thrombosis -Planned follow-up with hematology next week in our [facility] Compartment syndrome of left lower extremity -Status post fasciotomy on July 12 with general surgery -Continue with post-operative course Liver cirrhosis -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 -Admits to drinking alcohol but states it is only occasionally and about once a week -Status post treatment for hepatitis, but it was not successful -AST continues to be elevated at 102 today, alk phos normal -Elevated ammonia at 44.8 -Total and direct bili are high at 3.6 & 1.5 -INR 1.4 today -Status post vitamin K given on 07/13/2019, repeated on 07/14 & 07/16 -Continue routine labs -Recommend outpatient follow-up with gastroenterology, hematology possible a financial aids officer Hepatitis C -Patient reports a diagnosis of hepatitis nearly 25 years ago and was recently treated for it although it was unsuccessful -Continue to trend her LFTs Elevated INR -INR remains elevated at 1.4 -May be secondary to her liver cirrhosis -Continue routine labs Alcohol use -Patient admits to drinking 1 alcoholic beverage a week and denies a history of alcoholism, although record review notes heavy use with ongoing issues -On admission, patient was positive for acute intoxication -No signs of alcohol withdrawal during this hospitalization
[2019-07-16 16:15] LABS: HGB - HEMOGLOBIN 7.1 g/dL (12.0-16.0)
[2019-07-16 16:19] LABS: INR 1.4 (0.8-1.2); PT - PROTHROMBIN TIME 15.2 secs (9.9-12.6)
[2019-07-16 16:26] LABS: PARTIAL THROMBOPLASTIN TIME 29.8 secs (24.9-33.3)
[2019-07-16 16:28] LABS: BILIRUBIN,DIRECT 1.5 mg/dL (0.1-0.5); BILIRUBIN,INDIRECT 2.1 mg/dL; BILIRUBIN,TOTAL 3.6 mg/dL (0.2-1.0)
[2019-07-16] MEDS: LACTULOSE 10 GM /15 ML UDC PO SCH (17:48)
[2019-07-16] MEDS: PROPRANOLOL 10 MG TABLET PO SCH (21:25)
[2019-07-16] MEDS: DOCUSATE SODIUM 250 MG CAPSULE PO SCH (22:11)
[2019-07-17] MEDS: oxyCODONE 5 MG TABLET PO PRN ×2 (02:19→10:38)
[2019-07-17 05:39] LABS: BASOPHILS # (AUTO) 0.1 10^3/uL (0.0-0.1); BASOPHILS % (AUTO) 0.7 %; EOSINOPHILS # (AUTO) 0.3 10^3/uL (0.0-0.7); EOSINOPHILS % (AUTO) 2.7 %; LYMPHOCYTES # (AUTO) 1.4 10^3/uL (1.5-3.5); LYMPHOCYTES % (AUTO) 13.3 %; MEAN CORPUSCULAR HEMOGLOBIN 35.5 pg (27.0-31.0); MEAN CORPUSCULAR VOLUME 107.6 fL (81.0-99.0); MEAN PLATELET VOLUME 10.8 fL (7.9-10.8); MONOCYTES # (AUTO) 1.5 10^3/uL (0.0-1.0); MONOCYTES % (AUTO) 14.4 %; NEUTROPHILS % (AUTO) 68.1 %; PLT - PLATELET COUNT 149 10^3/uL (130-450); RED BLOOD COUNT 1.97 10^6/uL (4.20-5.40); RED CELL DISTRIBUTION WIDTH 15.5 % (12.0-15.0); WHITE BLOOD COUNT 10.2 x10^3/uL (4.8-10.8)
[2019-07-17 05:53] LABS: ALBUMIN 2.7 g/dL (3.2-5.5); BILIRUBIN,TOTAL 3.9 mg/dL (0.2-1.0); CALCIUM 8.4 mg/dL (8.5-10.3); CREATININE 0.7 mg/dL (0.4-1.0); TOTAL PROTEIN 5.4 g/dL (6.7-8.2)
[2019-07-17] MEDS: MULTIVITAMIN W/MINERALS TABLET PO SCH (08:37)
[2019-07-17] MEDS: PROPRANOLOL 10 MG TABLET PO SCH ×2 (08:37→22:51)
[2019-07-17] MEDS: LACTULOSE 10 GM /15 ML UDC PO SCH ×3 (08:37→17:34)
[2019-07-17] MEDS: SENNA 8.6 MG TABLET PO SCH (08:37)
[2019-07-17] MEDS: polyethylene glycoL 3350 17 GM PACKET PO SCH (08:37)
[2019-07-17] MEDS: DOCUSATE SODIUM 250 MG CAPSULE PO SCH ×3 (08:38→19:12)
--- NOTE | 2019-07-17 08:46 | Ultrasound Report ---
Reason: portal hypertension, jaundice Procedure Date: 07/17/2019 Accession Number: [id number] / [id number] Procedure: US - Abdomen Complete CPT Code: Final Report FULL RESULT: EXAM: ABDOMEN ULTRASOUND EXAM DATE: 07/17/2019 07:30 AM. CLINICAL HISTORY: Portal hypertension, jaundice. COMPARISON: CT ABDOMEN W/ 10/18/2018 11:02 AM Limited abdominal ultrasound 01/02/2017. TECHNIQUE: Real-time scanning was performed with static images obtained. FINDINGS: Liver: The parenchyma is echogenic diffusely. There is a heterogeneous hypoechoic lesion in the left lobe of the liver and strength approximately 4.1 x 2.8 x 2.2 cm, corresponding to the hemangioma seen on prior CT of the abdomen on 10/18/2018. This appears stable in size. There is a small cyst in the lateral right lobe measuring 1.4 x 1.3 x 1.2 cm, as seen on prior CT. There is a cluster of coarse calcifications in the left lobe of the liver measuring 1.7 x 1.0 x 2.2 cm, as seen on CT. The right lobe of the liver measures up to 16.3 cm. Main portal vein flow: Reversed, hepatofugal. Gallbladder: Normal. No stones, wall thickening, or sonographic Abbott's sign. Biliary System: Common bile duct measures 13.5 mm. There is mild intrahepatic biliary dilatation. Pancreas: Visualized portion is unremarkable. The main pancreatic duct diameter is at the upper limit of normal, measuring 3 mm within the pancreatic body. Kidneys: Right: 11.3 cm longitudinally. Normal. No contour-deforming mass, stones, or hydronephrosis. Left: 12.5 cm longitudinally. Normal. No contour-deforming mass, stones, or hydronephrosis. Spleen: 10.4 Normal in size and echotexture. Aorta and Inferior Vena Cava: Unremarkable. Other: None. IMPRESSION: 1. Fatty infiltrated liver. 2. Reversed hepatofugal flow in the main portal vein. 3. Liver hemangioma, cyst, and calcifications appear similar to prior CT of the abdomen with contrast and limited abdominal ultrasound. 4. The common bile duct is dilated up to 13.5 cm in diameter. There is mild intrahepatic biliary dilatation. 5. Main pancreatic duct diameter is at the upper limit of normal. RADIA
--- NOTE | 2019-07-17 10:02 | PROVIDER PROGRESS NOTE ---
Subjective - General Admit Date: 07/12/19 Procedure Date: 07/12/19 Post Op Days: 5 Procedure Performed: s/p L medial thigh fasciotomy and hematoma evacuation - Review of Systems Wound/Incisions: positive: Other (improving bleeding post op due to oozing from her coagulopathy) Drain Type: ar All Other Systems: positive: Reviewed and negative - Other Other Information/Narrative: Still moving minimally. Increased bleeding with significant mobilization; another transfusion this AM. Still needs to move more. Liver labs worsening and pt increasingly de-conditioned; also poor assessment of LLE function thus f ar. Objective - Patient Data Vital Signs: Vital Signs x48h Temp Pulse Resp BP BP Pulse Ox 07/17/19 08:00 37.4 C 80 16 96/47 L 92 07/17/19 05:44 83 97/45 L 07/17/19 05:43 85 89/40 L 07/17/19 05:42 83 80/47 L 07/17/19 02:05 37.2 C Intake & Output: Intake and Output Totals x24h 07/15/19 07/16/19 07/17/19 23:59 23:59 23:59 Intake Total 1797 1080 Output Total 825 325 Balance 972 755 - Lab Results Lab Results: 07/17/19 05:32 07/17/19 05:32 Other Lab Results: Lab Results x24hrs 07/17/19 07/17/19 07/16/19 Range/Units 05:32 05:32 16:08 WBC 10.2 (4.8-10.8) x10^3/uL RBC 1.97 L (4.20-5.40) 10^6/uL Hgb 7.0 L* (12.0-16.0) g/dL Hct 21.2 L (37.0-47.0) % MCV 107.6 H (81.0-99.0) fL MCH 35.5 H (27.0-31.0) pg MCHC 33.0 (32.0-36.0) g/dL RDW 15.5 H (12.0-15.0) % Plt Count 149 (130-450) 10^3/uL MPV 10.8 (7.9-10.8) fL Neut # (Auto) 7.0 H (1.5-6.6) 10^3/uL Lymph # (Auto) 1.4 L (1.5-3.5) 10^3/uL [place] # (Auto) 1.5 H (0.0-1.0) 10^3/uL Eos # (Auto) 0.3 (0.0-0.7) 10^3/uL Baso # (Auto) 0.1 (0.0-0.1) 10^3/uL Absolute Nucleated RBC 0.00 x10^3/uL Nucleated RBC % 0.0 /100WBC PT (9.9-12.6) secs INR (0.8-1.2) APTT (24.9-33.3) secs Sodium 130 L (135-145) mmol/L Potassium 4.1 (3.5-5.0) mmol/L Chloride 97 L (101-111) mmol/L Carbon Dioxide 25 (21-32) mmol/L Anion Gap 8.0 (6-13) BUN 26 H (6-20) mg/dL Creatinine 0.7 (0.4-1.0) mg/dL Estimated GFR (MDRD) 85 L (>89) Glucose 120 H (70-100) mg/dL Calcium 8.4 L (8.5-10.3) mg/dL Total Bilirubin 3.9 H (0.2-1.0) mg/dL Direct Bilirubin (0.1-0.5) mg/dL Indirect Bilirubin mg/dL AST 88 H (10-42) IU/L ALT 52 (10-60) IU/L Alkaline Phosphatase 55 (42-121) IU/L Ammonia 44.8 H (7-35) umol/L Total Protein 5.4 L (6.7-8.2) g/dL Albumin 2.7 L (3.2-5.5) g/dL Globulin 2.7 (2.1-4.2) g/dL Albumin/Globulin Ratio 1.0 (1.0-2.2) TSH (0.34-5.60) uIU/mL 07/16/19 07/16/19 07/16/19 Range/Units 16:08 16:08 16:08 WBC (4.8-10.8) x10^3/uL RBC (4.20-5.40) 10^6/uL Hgb (12.0-16.0) g/dL Hct (37.0-47.0) % MCV (81.0-99.0) fL MCH (27.0-31.0) pg MCHC (32.0-36.0) g/dL RDW (12.0-15.0) % Plt Count (130-450) 10^3/uL MPV (7.9-10.8) fL Neut # (Auto) (1.5-6.6) 10^3/uL Lymph # (Auto) (1.5-3.5) 10^3/uL [place] # (Auto) (0.0-1.0) 10^3/uL Eos # (Auto) (0.0-0.7) 10^3/uL Baso # (Auto) (0.0-0.1) 10^3/uL Absolute Nucleated RBC x10^3/uL Nucleated RBC % /100WBC PT 15.2 H (9.9-12.6) secs INR 1.4 H (0.8-1.2) APTT 29.8 (24.9-33.3) secs Sodium (135-145) mmol/L Potassium (3.5-5.0) mmol/L Chloride (101-111) mmol/L Carbon Dioxide (21-32) mmol/L Anion Gap (6-13) BUN (6-20) mg/dL Creatinine (0.4-1.0) mg/dL Estimated GFR (MDRD) (>89) Glucose (70-100) mg/dL Calcium (8.5-10.3) mg/dL Total Bilirubin 3.6 H (0.2-1.0) mg/dL Direct Bilirubin 1.5 H (0.1-0.5) mg/dL Indirect Bilirubin 2.1 mg/dL AST (10-42) IU/L ALT (10-60) IU/L Alkaline Phosphatase (42-121) IU/L Ammonia (7-35) umol/L Total Protein (6.7-8.2) g/dL Albumin (3.2-5.5) g/dL Globulin (2.1-4.2) g/dL Albumin/Globulin Ratio (1.0-2.2) TSH 1.95 (0.34-5.60) uIU/mL 07/16/19 Range/Units 16:08 WBC (4.8-10.8) x10^3/uL RBC (4.20-5.40) 10^6/uL Hgb 7.1 L (12.0-16.0) g/dL Hct 21.5 L (37.0-47.0) % MCV (81.0-99.0) fL MCH (27.0-31.0) pg MCHC (32.0-36.0) g/dL RDW (12.0-15.0) % Plt Count (130-450) 10^3/uL MPV (7.9-10.8) fL Neut # (Auto) (1.5-6.6) 10^3/uL Lymph # (Auto) (1.5-3.5) 10^3/uL [place] # (Auto) (0.0-1.0) 10^3/uL Eos # (Auto) (0.0-0.7) 10^3/uL Baso # (Auto) (0.0-0.1) 10^3/uL Absolute Nucleated RBC x10^3/uL Nucleated RBC % /100WBC PT (9.9-12.6) secs INR (0.8-1.2) APTT (24.9-33.3) secs Sodium (135-145) mmol/L Potassium (3.5-5.0) mmol/L Chloride (101-111) mmol/L Carbon Dioxide (21-32) mmol/L Anion Gap (6-13) BUN (6-20) mg/dL Creatinine (0.4-1.0) mg/dL Estimated GFR (MDRD) (>89) Glucose (70-100) mg/dL Calcium (8.5-10.3) mg/dL Total Bilirubin (0.2-1.0) mg/dL Direct Bilirubin (0.1-0.5) mg/dL Indirect Bilirubin mg/dL AST (10-42) IU/L ALT (10-60) IU/L Alkaline Phosphatase (42-121) IU/L Ammonia (7-35) umol/L Total Protein (6.7-8.2) g/dL Albumin (3.2-5.5) g/dL Globulin (2.1-4.2) g/dL Albumin/Globulin Ratio (1.0-2.2) TSH (0.34-5.60) uIU/mL - Current Medications Current Medications: Current Medications Generic Name Dose Route Start Last Admin Trade Name Freq PRN Reason Stop Dose Admin Docusate Sodium 250 mg 07/17/19 09:00 07/17/19 08:38 Colace 250mg Capsule PO 250 mg DAILY KIRK Administration Docusate Sodium 250 - 500 mg 07/16/19 22:00 07/17/19 08:38 Colace 250mg Capsule PO 250 mg BID KIRK Administration Fluticasone Propionate 2 sprays 07/13/19 09:00 07/16/19 08:11 Flonase YVETTE Not Given DAILY KIRK Hydromorphone HCl 0.5 mg 07/12/19 08:50 07/16/19 04:31 Dilaudid Inj Syringe IVP 0.5 mg Q2HR PRN Administration PAIN 8-10 Lactulose 10 gm 07/16/19 18:00 07/17/19 08:37 Enulose PO 10 gm TIDWM KIRK Administration Multivitamins/Minerals 1 tab 07/14/19 09:00 07/17/19 08:37 Theragran M PO 1 tab DAILYWM KIRK Administration Ondansetron HCl 4 mg 07/13/19 20:44 07/15/19 07:56 Zofran Inj IVP 4 mg BID PRN Administration Nausea / Vomiting Oxycodone HCl 5 mg 07/12/19 07:24 07/17/19 02:19 Roxicodone PO 5 mg Q4HR PRN Administration Pain 5 to 7 Polyethylene Glycol 17 gm 07/14/19 09:00 07/17/19 08:37 Miralax PO 17 gm DAILY KIRK Administration Propranolol HCl 10 mg 07/16/19 21:00 07/17/19 08:37 Inderal PO Not Given BID KIRK Senna 8.6 mg 07/17/19 09:00 07/17/19 08:37 Senokot PO 8.6 mg DAILY KIRK Administration Sodium Chloride 10 ml 07/12/19 07:24 07/15/19 13:11 Normal Saline Flush 0.9% IVP 10 ml PRN PRN Administration NEEDED PER PROVIDER ORDERS Sodium Chloride 10 ml 07/12/19 09:00 07/16/19 23:55 Normal Saline Flush 0.9% IVP 10 ml 0100,[id number],1700 [facility] Administration - Physical Exam Comments/Other: AAO, NAD MMM unlabored RA soft, nt/nd L thigh wound with minimal oozing, clean, no infection; still too swollen to close but compartments soft Impression/Plan - Problem List Problem List: L thigh hematoma with compartment syndrome s/p evacuation and fasciotomy. - continues to improve --> still slowly oozing due to coagulopathy and open wound - wound care; hope to close skin and remove drain prior to d/c - PT/OT for mobility; counseled again importance of working more with them as she is even more deconditioned than on arrival - likely needs swing bed/ rehab - SCDs only; chemoprophylaxis contraindicated DVT - hematology appointment in two days; they will graciously see her as inpatient which will be helpful for advancing her care - non-occlusive, unknown to pt Cirrhosis - appreciate medicine assistance - coagulopathy likely 2/2 this
[2019-07-17] MEDS: SODIUM CHLORIDE FLUSH 0.9% 10 ML SYRINGE IVP SCH ×2 (10:38→16:10)
[2019-07-17] MEDS: FLUTICASONE NASAL SPRAY NAS SCH (10:39)
--- NOTE | 2019-07-17 10:55 | PROVIDER PROGRESS NOTE ---
Subjective - Prog Note Date Prog Note Date: 07/17/19 Prog Note Time: 10:55 - Subjective Pt reports feeling: No change Subjective: Julieta was presented with the medical advise that a larger hospital may serve her more appropriately, but she wishes to wait until hematology can see her on 07/19/2019 since her father is her main support and [place] Valdez (oncology/hematology at the [facility]) was approached to day by myself and Dr. Mercado (surgery) for his advise on any labs that should be ordered, treatment, or ideas as to why the patient may be bleeding abnormally. He suggested that the patient have an inpatient consult by his team to assist with her care during this hospital stay. She continues to complain of lethargy, feeling sleepy today, has very dark orange urine, poor a ppetite, intermittent dizziness, and shortness of breath with activity. She understands that an additional unit of PRBCs are going to be given. Current Medications - Current Medications Current Medications: Active Medications: Fluticasone Propionate (Flonase) 2 sprays YVETTE DAILY KIRK Hydromorphone HCl (Dilaudid Inj Syringe) 0.5 mg IVP Q2HR PRN Lactulose (Enulose) 10 gm PO TIDWM KIRK Multivitamins/Minerals (Theragran M) 1 tab PO DAILYWM KIRK Midodrine 2.5 mg TIDWM Ondansetron HCl (Zofran Inj) 4 mg IVP BID PRN Oxycodone HCl (Roxicodone) 5 mg PO Q4HR PRN Polyethylene Glycol (Miralax) 17 gm PO DAILY KIRK Propranolol HCl (Inderal) 5 mg PO BID KIRK Senna (Senokot) 8.6 mg PO DAILY KIRK Spironolactone 25 mg BID PO HOME meds: Fluticasone [Flonase] 2 sprays YVETTE DAILY 07/12/19 lisinopriL [Lisinopril] 40 mg PO DAILY 07/12/19 Objective - Vital Signs/Intake & Output Reviewed Vital Signs: Yes Vital Signs: Vital Signs x48h Temp Pulse Pulse Resp BP BP BP 07/17/19 10:39 37.0 C 79 16 104/47 L 07/17/19 10:26 37.2 C 84 16 100/54 L 07/17/19 08:00 37.4 C 80 16 96/47 L 07/17/19 05:44 83 97/45 L 07/17/19 05:43 85 89/40 L 07/17/19 05:42 83 80/47 L Pulse Ox 07/17/19 10:39 07/17/19 10:26 07/17/19 08:00 92 07/17/19 05:44 07/17/19 05:43 07/17/19 05:42 Intake & Output: Intake & Output 07/14/19 07/15/19 07/16/19 07/17/19 23:59 23:59 23:59 23:59 Intake Total 806 1797 1080 0 Output Total 351 825 325 Balance 455 972 755 0 - Objective General Appearance: positive: Mild distress, Lethargic Eyes Bilateral: positive: No lid inflammation Eyes: OU Scleral icterus ENT: positive: Pharyngeal erythema, Dry mucous membranes Neck: positive: Trachea midline Respiratory: positive: Chest non-tender, Other (diminished, very shallow breaths) Cardiovascular: positive: Regular rate & rhythm, No gallop, Tachycardia, JVD present (scant), Systolic murmur, Decreased pulse(s) Peripheral Pulses: 1+ Radial (R), 1+ Radial (L) Abdomen: positive: Tenderness (bilateral low quadrants), Guarding, Hepatomegaly, Other (obese, rounded, soft) Back: positive: Nml inspection Skin: positive: Warm, Dry, Other (bronze/jaundice- mild scattered bruising) Extremities: positive: Joint swelling, Other (Left thigh wound is swollen, oozing, and has a drain in place) Neurologic/Psychiatric: positive: Oriented x3, CN's nml (2-12), Weakness, Sensory loss, Slurred/abnml speech (sluggish speech), Depressed mood/affect Reflexes: Bicep (R): 2+, Bicep (L): 2+ - Lab Results Fish Bones: 07/17/19 05:32 07/17/19 05:32 Other Labs: Lab Results x24hrs 07/17/19 07/17/19 07/16/19 Range/Units 05:32 05:32 16:08 WBC 10.2 (4.8-10.8) x10^3/uL RBC 1.97 L (4.20-5.40) 10^6/uL Hgb 7.0 L* (12.0-16.0) g/dL Hct 21.2 L (37.0-47.0) % MCV 107.6 H (81.0-99.0) fL MCH 35.5 H (27.0-31.0) pg MCHC 33.0 (32.0-36.0) g/dL RDW 15.5 H (12.0-15.0) % Plt Count 149 (130-450) 10^3/uL MPV 10.8 (7.9-10.8) fL Neut # (Auto) 7.0 H (1.5-6.6) 10^3/uL Lymph # (Auto) 1.4 L (1.5-3.5) 10^3/uL Hood # (Auto) 1.5 H (0.0-1.0) 10^3/uL Eos # (Auto) 0.3 (0.0-0.7) 10^3/uL Baso # (Auto) 0.1 (0.0-0.1) 10^3/uL Absolute Nucleated RBC 0.00 x10^3/uL Nucleated RBC % 0.0 /100WBC PT (9.9-12.6) secs INR (0.8-1.2) APTT (24.9-33.3) secs Sodium 130 L (135-145) mmol/L Potassium 4.1 (3.5-5.0) mmol/L Chloride 97 L (101-111) mmol/L Carbon Dioxide 25 (21-32) mmol/L Anion Gap 8.0 (6-13) BUN 26 H (6-20) mg/dL Creatinine 0.7 (0.4-1.0) mg/dL Estimated GFR (MDRD) 85 L (>89) Glucose 120 H (70-100) mg/dL Calcium 8.4 L (8.5-10.3) mg/dL Total Bilirubin 3.9 H (0.2-1.0) mg/dL Direct Bilirubin (0.1-0.5) mg/dL Indirect Bilirubin mg/dL AST 88 H (10-42) IU/L ALT 52 (10-60) IU/L Alkaline Phosphatase 55 (42-121) IU/L Ammonia 44.8 H (7-35) umol/L Total Protein 5.4 L (6.7-8.2) g/dL Albumin 2.7 L (3.2-5.5) g/dL Globulin 2.7 (2.1-4.2) g/dL Albumin/Globulin Ratio 1.0 (1.0-2.2) TSH (0.34-5.60) uIU/mL Blood Type Antibody Screen Crossmatch IS Only 07/16/19 07/16/19 07/16/19 Range/Units 16:08 16:08 16:08 WBC (4.8-10.8) x10^3/uL RBC (4.20-5.40) 10^6/uL Hgb (12.0-16.0) g/dL Hct (37.0-47.0) % MCV (81.0-99.0) fL MCH (27.0-31.0) pg MCHC (32.0-36.0) g/dL RDW (12.0-15.0) % Plt Count (130-450) 10^3/uL MPV (7.9-10.8) fL Neut # (Auto) (1.5-6.6) 10^3/uL Lymph # (Auto) (1.5-3.5) 10^3/uL Hood # (Auto) (0.0-1.0) 10^3/uL Eos # (Auto) (0.0-0.7) 10^3/uL Baso # (Auto) (0.0-0.1) 10^3/uL Absolute Nucleated RBC x10^3/uL Nucleated RBC % /100WBC PT 15.2 H (9.9-12.6) secs INR 1.4 H (0.8-1.2) APTT 29.8 (24.9-33.3) secs Sodium (135-145) mmol/L Potassium (3.5-5.0) mmol/L Chloride (101-111) mmol/L Carbon Dioxide (21-32) mmol/L Anion Gap (6-13) BUN (6-20) mg/dL Creatinine (0.4-1.0) mg/dL Estimated GFR (MDRD) (>89) Glucose (70-100) mg/dL Calcium (8.5-10.3) mg/dL Total Bilirubin 3.6 H (0.2-1.0) mg/dL Direct Bilirubin 1.5 H (0.1-0.5) mg/dL Indirect Bilirubin 2.1 mg/dL AST (10-42) IU/L ALT (10-60) IU/L Alkaline Phosphatase (42-121) IU/L Ammonia (7-35) umol/L Total Protein (6.7-8.2) g/dL Albumin (3.2-5.5) g/dL Globulin (2.1-4.2) g/dL Albumin/Globulin Ratio (1.0-2.2) TSH 1.95 (0.34-5.60) uIU/mL Blood Type Antibody Screen Crossmatch IS Only 07/16/19 07/15/19 Range/Units 16:08 05:18 WBC (4.8-10.8) x10^3/uL RBC (4.20-5.40) 10^6/uL Hgb 7.1 L (12.0-16.0) g/dL Hct 21.5 L (37.0-47.0) % MCV (81.0-99.0) fL MCH (27.0-31.0) pg MCHC (32.0-36.0) g/dL RDW (12.0-15.0) % Plt Count (130-450) 10^3/uL MPV (7.9-10.8) fL Neut # (Auto) (1.5-6.6) 10^3/uL Lymph # (Auto) (1.5-3.5) 10^3/uL Hood # (Auto) (0.0-1.0) 10^3/uL Eos # (Auto) (0.0-0.7) 10^3/uL Baso # (Auto) (0.0-0.1) 10^3/uL Absolute Nucleated RBC x10^3/uL Nucleated RBC % /100WBC PT (9.9-12.6) secs INR (0.8-1.2) APTT (24.9-33.3) secs Sodium (135-145) mmol/L Potassium (3.5-5.0) mmol/L Chloride (101-111) mmol/L Carbon Dioxide (21-32) mmol/L Anion Gap (6-13) BUN (6-20) mg/dL Creatinine (0.4-1.0) mg/dL Estimated GFR (MDRD) (>89) Glucose (70-100) mg/dL Calcium (8.5-10.3) mg/dL Total Bilirubin (0.2-1.0) mg/dL Direct Bilirubin (0.1-0.5) mg/dL Indirect Bilirubin mg/dL AST (10-42) IU/L ALT (10-60) IU/L Alkaline Phosphatase (42-121) IU/L Ammonia (7-35) umol/L Total Protein (6.7-8.2) g/dL Albumin (3.2-5.5) g/dL Globulin (2.1-4.2) g/dL Albumin/Globulin Ratio (1.0-2.2) TSH (0.34-5.60) uIU/mL Blood Type O POSITIVE Antibody Screen NEGATIVE Crossmatch IS Only See Detail - Diagnostic Imaging Diagnostic Imaging Results: positive: Final report reviewed Diagnostic Imaging Comments: EXAM: ABDOMEN ULTRASOUND 07/17/2019 07:30 AM IMPRESSION: 1. Fatty infiltrated liver. 2. Reversed hepatofugal flow in the main portal vein. 3. Liver hemangioma, cyst, and calcifications appear similar to prior CT of the abdomen with contrast and limited abdominal ultrasound. 4. The common bile duct is dilated up to 13.5 cm in diameter. There is mild intrahepatic biliary dilatation. 5. Main pancreatic duct diameter is at the upper limit of normal. ABX Reporting Has patient been on IV antibiotics over the past 48 hours?: No Assessment/Plan - Problem List (1) Acute blood loss anemia Impression: -Hemoglobin 7.0, 2nd unit of PRBCs now infusing -Since being post-op, the patients wound has been draining/oozing -Patient complains of ongoing dizziness when changing positions, shortness of breath, and feels cold frequently -Routine labs, transfuse if hemoglobin becomes below 7.0, or for symptoms, or acute witnessed bleeding Portal hypertension -Abdominal US shows reversed hepatofugal flow in the main portal vein -Continues on propranolol which was started last PM -Mentation still at baseline, no confusion, but sleepy today Bleeding tendency -Patient has had excessive bleeding/bruising episodes since the year 2012 -Patient states she has rectal bleeding for the past 1 year, continues currently (bright red) -On 05/23/2019, patient came to the ED after noting swelling to her left hand, w hich occurred spontaneously -Required evacuation of the hematoma, and on exam, discoloration is still noted to her left hand -Now getting her 2nd unit of PRBCs today -Pictures of the wound has been requested - Vitamin K was administered on 07/13/2019, 07/14, & 07/16 per surgery with little effect -Checking stool for blood, pending -Patient will see hematology on 07/19/2019, an inpatient consult for Chin Kolb has been made Jaundice -Albumin low at 2.8, total bili was 1.8, now up to 3.9 -AST elevated at 88, ALT normal at 55 -GGT 104 -Continues to have hyponatremia related to liver disease, today 130 -Dark, orange urine was noted in the pure wick canister -Jaundice was noticed on 07/16, continues today -Ammonia level also elevated at 44.8 -Continues with elevated INR, now 1.4 -At least 3 doses of vitamin K with little to no effect -Abdominal ultrasound is pending to evaluate for portal hypertension -Continues on lactulose, low dose propranolol BID with B/P parameters -Routine labs, keep patient updated Chronic deep vein thrombosis (DVT) of left femoral vein -DVT was found on admission imaging showing; chronic deep vein thrombosis of the left profunda femoris, proximal femoral vein, distal femoral vein, and popliteal vein -Nonocclusive thrombosis -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 & thrombosis -Planned follow-up with hematology next week in our [facility] clinic Compartment syndrome of left lower extremity -Status post fasciotomy on July 12 with general surgery -No indication for wound closure today, still waiting for some swelling to resolve -The wound continues to ooze with multiple dressing changes per 24 hours -Pictures of the wound for the chart have been requested -Continue with post-operative course Liver cirrhosis -Portal HTN has been confirmed via abdominal US today -Falling serum sodium, now 130 -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 -Admits to drinking alcohol but states it is only occasionally and about once a week -Status post treatment for hepatitis, but it was not successful -AST continues to be elevated at 88 today, alk phos normal -Elevated ammonia at 44.8 -Total bili keeps trending up, now 3.9 -INR 1.4 -Status post vitamin K given on 07/13/2019, repeated on 07/14 & 07/16 -Continue routine labs -Recommend outpatient follow-up with gastroenterology, hematology possible a regulatory affairs manager -No BM for the past 6 days, now moved bowels for today -Patient wishes to NOT be transferred to a higher level of care, wishes to wait until she sees Dr. Kolb hematology -Continues on low dose propranolol, lactulose TID, starting on spironolactone today (with B/P parameters), midodrine started to allow for needed meds Hepatitis C -Patient reports a diagnosis of hepatitis nearly 25 years ago and was recently treated for it although it was unsuccessful -Continue to trend her LFTs Elevated INR -INR remains elevated at 1.4 -May be secondary to her liver cirrhosis -Continue routine labs Alcohol use -Patient admits to drinking 1 alcoholic beverage a week and denies a history of alcoholism, although record review notes heavy use with ongoing issues -On admission, patient was positive for acute intoxication, no ETOH withdrawal during this hospital stay -No signs of alcohol withdrawal during this hospitalization
[2019-07-17] MEDS: HYDROmorphone 0.5 MG/0.5 ML SYRINGE IVP PRN ×3 (13:28→18:16)
[2019-07-17] MEDS: MIDODRINE 2.5 MG TABLET PO SCH (17:34)
[2019-07-17] MEDS: SPIRONOLACTONE 25 MG TABLET PO SCH (17:37)
[2019-07-17] MEDS: HYDROmorphone 1 MG/ML CARPUJECT IVP PRN (20:38)
[2019-07-17] MEDS: SODIUM CHLORIDE FLUSH 0.9% 10 ML SYRINGE IVP PRN (20:38)
[2019-07-17] MEDS ORDERED: PROPRANOLOL 10 MG TABLET PO SCH (21:00)
[2019-07-18] MEDS: SODIUM CHLORIDE FLUSH 0.9% 10 ML SYRINGE IVP SCH ×3 (01:13→16:42)
[2019-07-18] MEDS: HYDROmorphone 0.5 MG/0.5 ML SYRINGE IVP PRN ×3 (01:13→21:16)
[2019-07-18] MEDS: SODIUM CHLORIDE FLUSH 0.9% 10 ML SYRINGE IVP PRN ×2 (03:22→21:17)
[2019-07-18 06:08] LABS: BASOPHILS % (AUTO) 0.8 %; EOSINOPHILS % (AUTO) 3.8 %; HGB - HEMOGLOBIN 7.9 g/dL (12.0-16.0); LYMPHOCYTES % (AUTO) 11.6 %; MEAN CORPUSCULAR HEMOGLOBIN 33.5 pg (27.0-31.0); MEAN CORPUSCULAR HGB CONC 33.2 g/dL (32.0-36.0); MEAN CORPUSCULAR VOLUME 100.8 fL (81.0-99.0); MEAN PLATELET VOLUME 10.6 fL (7.9-10.8); MONOCYTES % (AUTO) 16.6 %; NEUTROPHILS % (AUTO) 66.2 %; PLT - PLATELET COUNT 148 10^3/uL (130-450); RED BLOOD COUNT 2.36 10^6/uL (4.20-5.40); RED CELL DISTRIBUTION WIDTH 17.5 % (12.0-15.0); WHITE BLOOD COUNT 10.3 x10^3/uL (4.8-10.8)
[2019-07-18 06:13] LABS: ABNORMAL LYMPHS % (MANUAL) 0 %; BAND NEUTROPHILS % (MANUAL) 0 %
[2019-07-18 06:16] LABS: INR 1.5 (0.8-1.2); PT - PROTHROMBIN TIME 16.5 secs (9.9-12.6)
[2019-07-18 06:25] LABS: ALBUMIN 2.6 g/dL (3.2-5.5); ALBUMIN/GLOBULIN RATIO 0.9 (1.0-2.2); BILIRUBIN,TOTAL 5.4 mg/dL (0.2-1.0); CALCIUM 8.1 mg/dL (8.5-10.3); CREATININE 0.7 mg/dL (0.4-1.0); MAGNESIUM 1.8 mg/dL (1.7-2.8); PHOSPHORUS 3.2 mg/dL (2.5-4.6); TOTAL PROTEIN 5.5 g/dL (6.7-8.2)
[2019-07-18 06:40] LABS: BASOPHILS # (MANUAL) 0.1 10^3/uL (0-0.1); BASOPHILS % (MANUAL) 1 %; EOSINOPHILS # (MANUAL) 0.5 10^3/uL (0-0.7); LYMPHOCYTES # (MANUAL) 1.5 10^3/uL (1.5-3.5); LYMPHOCYTES % (MANUAL) 15 %; MONOCYTES # (MANUAL) 1.1 10^3/uL (0.0-1.0)
[2019-07-18 06:48] LABS: DIFFERENTIAL COMMENT MANUAL DIFFERENTIAL; PLATELET ESTIMATE, MANUAL NORMAL (130-450,000) (NORMAL); PLATELET MORPHOLOGY NORMAL APPEARANCE (NORMAL)
[2019-07-18 06:51] LABS: FOLATE 12.69 ng/mL (5.90 - >24.8)
[2019-07-18] MEDS: HYDROmorphone 1 MG/ML CARPUJECT IVP PRN ×2 (07:57→16:41)
--- NOTE | 2019-07-18 08:16 | PROVIDER PROGRESS NOTE ---
Subjective - Prog Note Date Prog Note Date: 07/18/19 Prog Note Time: 08:15 - Subjective Pt reports feeling: Improved Subjective: Julieta complains of bilateral shoulder tightness related to using her grab bar over the bed for repositioning, and notes that she feels a little stuck in bed due to her leg wound. She denies any new chest pain, nausea, vomiting, changes in bowels, dysuria, a new cough, or problems urinating. She understands that transferring to a higher level of care DOES NOT include over to [facility], which was explained this morning. No indication for urgent transport off the [place] and we are awaiting her hematology appointment for 07/19, which was ordered as a consult with Dr. Chin Kolb ([facility]). Current Medications - Current Medications Current Medications: Active Medications: Fluticasone Propionate (Flonase) 2 sprays YVETTE DAILY KIRK Hydromorphone HCl (Dilaudid Inj Syringe) 0.5 mg IVP Q2HR PRN Lactulose (Enulose) 10 gm PO TIDWM [facility] Multivitamins/Minerals (Theragran M) 1 tab PO DAILYWM KIRK Midodrine 2.5 mg TIDWM Ondansetron HCl (Zofran Inj) 4 mg IVP BID PRN Oxycodone HCl (Roxicodone) 5 mg PO Q4HR PRN Polyethylene Glycol (Miralax) 17 gm PO DAILY KIRK Propranolol HCl (Inderal) 10 mg PO BID KIRK Senna (Senokot) 8.6 mg PO DAILY KIRK Spironolactone 25 mg BID PO HOME meds: Fluticasone [Flonase] 2 sprays YVETTE DAILY 07/12/19 lisinopriL [Lisinopril] 40 mg PO DAILY 07/12/19 Objective - Vital Signs/Intake & Output Reviewed Vital Signs: Yes Intake & Output: Intake & Output 07/15/19 07/16/19 07/17/19 07/18/19 23:59 23:59 23:59 23:59 Intake Total 1797 1080 1453 Output Total 825 325 300 450 Balance 944 177 4141 450 - Objective General Appearance: positive: Alert, Mild distress Eyes Bilateral: positive: No lid inflammation Eyes: OU Scleral icterus ENT: positive: Pharyngeal erythema, Dry mucous membranes Neck: positive: No JVD, Trachea midline Respiratory: positive: Chest non-tender, No respiratory distress, Other (diminished bilaterally) Cardiovascular: positive: Regular rate & rhythm, No gallop, Systolic murmur, Decreased pulse(s) Peripheral Pulses: 1+ Radial (R), 1+ Radial (L) Abdomen: positive: Tenderness, Guarding, Hepatomegaly, Abnml bowel sounds, Other (obese, firm) Back: positive: Nml inspection Skin: positive: No rash, Warm, Dry, Other (bronze, jaundice skin) Extremities: positive: Pedal edema, Joint swelling, Other (left thigh wound oozing, post op swelling) Neurologic/Psychiatric: positive: Oriented x3, Weakness, Sensory loss, Slurred/abnml speech (sluggishe speech), Depressed mood/affect (flat) Reflexes: Bicep (R): 3+, Bicep (L): 3+ - Lab Results Fish Bones: 07/18/19 05:59 07/18/19 05:59 Other Labs: Lab Results x24hrs 07/18/19 07/18/19 07/18/19 Range/Units 05:59 05:59 05:59 WBC (4.8-10.8) x10^3/uL RBC (4.20-5.40) 10^6/uL Hgb (12.0-16.0) g/dL Hct (37.0-47.0) % MCV (81.0-99.0) fL MCH (27.0-31.0) pg MCHC (32.0-36.0) g/dL RDW (12.0-15.0) % Plt Count (130-450) 10^3/uL MPV (7.9-10.8) fL Neut # (Auto) Lymph # (Auto) [place] # (Auto) Eos # (Auto) Baso # (Auto) Absolute Nucleated RBC Total Counted Band Neuts % (Manual) (0 - 10) % Abnorm Lymph % (Manual) % Nucleated RBC % Neutrophils # (Manual) (1.5-6.6) 10^3/uL Lymphocytes # (Manual) (1.5-3.5) 10^3/uL Monocytes # (Manual) (0.0-1.0) 10^3/uL Eosinophils # (Manual) (0-0.7) 10^3/uL Basophils # (Manual) (0-0.1) 10^3/uL Differential Comment WBC Morphology (NORMAL) Platelet Estimate (NORMAL) Platelet Morphology (NORMAL) RBC Morph Micro Appear (NORMAL) PT (9.9-12.6) secs INR (0.8-1.2) Sodium 128 L (135-145) mmol/L Potassium 3.8 (3.5-5.0) mmol/L Chloride 95 L (101-111) mmol/L Carbon Dioxide 24 (21-32) mmol/L Anion Gap 9.0 (6-13) BUN 27 H (6-20) mg/dL Creatinine 0.7 (0.4-1.0) mg/dL Estimated GFR (MDRD) 85 L (>89) Glucose 130 H (70-100) mg/dL Lactic Acid 1.0 (0.5-2.2) mmol/L Calcium 8.1 L (8.5-10.3) mg/dL Phosphorus 3.2 (2.5-4.6) mg/dL Magnesium 1.8 (1.7-2.8) mg/dL Total Bilirubin 5.4 H (0.2-1.0) mg/dL AST 67 H (10-42) IU/L ALT 44 (10-60) IU/L Alkaline Phosphatase 63 (42-121) IU/L Total Protein 5.5 L (6.7-8.2) g/dL Albumin 2.6 L (3.2-5.5) g/dL Globulin 2.9 (2.1-4.2) g/dL Albumin/Globulin Ratio 0.9 L (1.0-2.2) Vitamin B12 760 (180-914) pg/mL Folate 12.69 (5.90 - >24.8) ng/mL Blood Type Antibody Screen Crossmatch IS Only 07/18/19 07/18/19 07/15/19 Range/Units 05:59 05:59 05:18 WBC 10.3 (4.8-10.8) x10^3/uL RBC 2.36 L (4.20-5.40) 10^6/uL Hgb 7.9 L (12.0-16.0) g/dL Hct 23.8 L (37.0-47.0) % MCV 100.8 H (81.0-99.0) fL MCH 33.5 H (27.0-31.0) pg MCHC 33.2 (32.0-36.0) g/dL RDW 17.5 H (12.0-15.0) % Plt Count 148 (130-450) 10^3/uL MPV 10.6 (7.9-10.8) fL Neut # (Auto) Not Reportable Lymph # (Auto) Not Reportable [place] # (Auto) Not Reportable Eos # (Auto) Not Reportable Baso # (Auto) Not Reportable Absolute Nucleated RBC Not Reportable Total Counted 100 Band Neuts % (Manual) 0 (0 - 10) % Abnorm Lymph % (Manual) 0 % Nucleated RBC % Not Reportable Neutrophils # (Manual) 7.0 H (1.5-6.6) 10^3/uL Lymphocytes # (Manual) 1.5 (1.5-3.5) 10^3/uL Monocytes # (Manual) 1.1 H (0.0-1.0) 10^3/uL Eosinophils # (Manual) 0.5 (0-0.7) 10^3/uL Basophils # (Manual) 0.1 (0-0.1) 10^3/uL Differential Comment MANUAL DIFFERENTIAL WBC Morphology NORMAL APPEARANCE (NORMAL) Platelet Estimate NORMAL (130-450,000) (NORMAL) Platelet Morphology NORMAL APPEARANCE (NORMAL) RBC Morph Micro Appear 1+ ANISOCYTOSIS (NORMAL) PT 16.5 H (9.9-12.6) secs INR 1.5 H (0.8-1.2) Sodium (135-145) mmol/L Potassium (3.5-5.0) mmol/L Chloride (101-111) mmol/L Carbon Dioxide (21-32) mmol/L Anion Gap (6-13) BUN (6-20) mg/dL Creatinine (0.4-1.0) mg/dL Estimated GFR (MDRD) (>89) Glucose (70-100) mg/dL Lactic Acid (0.5-2.2) mmol/L Calcium (8.5-10.3) mg/dL Phosphorus (2.5-4.6) mg/dL Magnesium (1.7-2.8) mg/dL Total Bilirubin (0.2-1.0) mg/dL AST (10-42) IU/L ALT (10-60) IU/L Alkaline Phosphatase (42-121) IU/L Total Protein (6.7-8.2) g/dL Albumin (3.2-5.5) g/dL Globulin (2.1-4.2) g/dL Albumin/Globulin Ratio (1.0-2.2) Vitamin B12 (180-914) pg/mL Folate (5.90 - >24.8) ng/mL Blood Type Cancelled Antibody Screen Cancelled Crossmatch IS Only See Detail 07/15/19 Range/Units 05:18 WBC (4.8-10.8) x10^3/uL RBC (4.20-5.40) 10^6/uL Hgb (12.0-16.0) g/dL Hct (37.0-47.0) % MCV (81.0-99.0) fL MCH (27.0-31.0) pg MCHC (32.0-36.0) g/dL RDW (12.0-15.0) % Plt Count (130-450) 10^3/uL MPV (7.9-10.8) fL Neut # (Auto) Lymph # (Auto) [place] # (Auto) Eos # (Auto) Baso # (Auto) Absolute Nucleated RBC Total Counted Band Neuts % (Manual) (0 - 10) % Abnorm Lymph % (Manual) % Nucleated RBC % Neutrophils # (Manual) (1.5-6.6) 10^3/uL Lymphocytes # (Manual) (1.5-3.5) 10^3/uL Monocytes # (Manual) (0.0-1.0) 10^3/uL Eosinophils # (Manual) (0-0.7) 10^3/uL Basophils # (Manual) (0-0.1) 10^3/uL Differential Comment WBC Morphology (NORMAL) Platelet Estimate (NORMAL) Platelet Morphology (NORMAL) RBC Morph Micro Appear (NORMAL) PT (9.9-12.6) secs INR (0.8-1.2) Sodium (135-145) mmol/L Potassium (3.5-5.0) mmol/L Chloride (101-111) mmol/L Carbon Dioxide (21-32) mmol/L Anion Gap (6-13) BUN (6-20) mg/dL Creatinine (0.4-1.0) mg/dL Estimated GFR (MDRD) (>89) Glucose (70-100) mg/dL Lactic Acid (0.5-2.2) mmol/L Calcium (8.5-10.3) mg/dL Phosphorus (2.5-4.6) mg/dL Magnesium (1.7-2.8) mg/dL Total Bilirubin (0.2-1.0) mg/dL AST (10-42) IU/L ALT (10-60) IU/L Alkaline Phosphatase (42-121) IU/L Total Protein (6.7-8.2) g/dL Albumin (3.2-5.5) g/dL Globulin (2.1-4.2) g/dL Albumin/Globulin Ratio (1.0-2.2) Vitamin B12 (180-914) pg/mL Folate (5.90 - >24.8) ng/mL Blood Type O POSITIVE Antibody Screen NEGATIVE Crossmatch IS Only See Detail ABX Reporting Has patient been on IV antibiotics over the past 48 hours?: No Assessment/Plan - Problem List (1) Acute blood loss anemia Impression: -Hemoglobin has improved to 7.9, status post 2nd unit of PRBCs -Since being post-op, the patients wound has been draining/oozing -Patient complains of ongoing dizziness when changing positions, shortness of breath, and feels cold frequently-improved today -Routine labs, transfuse if hemoglobin becomes below 7.0, or for symptoms, or acute witnessed bleeding Portal hypertension -Abdominal US shows reversed hepatofugal flow in the main portal vein -Continues on propranolol, spironolactone, lactulose, and midodrine -Mentation still at baseline, mild confusion Bleeding tendency -Patient has had excessive bleeding/bruising episodes since the year 2013 -Patient states she has rectal bleeding for the past 1 year, continues currently (bright red) -On 05/23/2019, patient came to the ED after noting swelling to her left hand, which occurred spontaneously -Required evacuation of the hematoma, and on exam, discoloration is still noted to her left hand -See chart for pictures of the wound - Vitamin K was administered on 07/13/2019, 07/14, & 07/16 per surgery with little effect -Checking stool for blood, pending -Patient will see hematology on 07/19/2019, an inpatient consult for Chin Kolb has been made Jaundice -Albumin low at 2.8, total bili was 1.8, now up to 5.4 -AST elevated at 67, ALT normal at 44 -GGT 104 -Continues to have hyponatremia related to liver disease, today 128 -Dark, orange urine was noted in the pure wick canister -Jaundice was noticed on 07/16, continues today -Ammonia level also elevated at 44.8 -Continues with elevated INR, now 1.5 -At least 3 doses of vitamin K with little to no effect -Abdominal ultrasound is pending to evaluate for portal hypertension -Continues on lactulose, low dose propranolol BID with B/P parameters -Routine labs, keep patient updated Chronic deep vein thrombosis (DVT) of left femoral vein -DVT was found on admission imaging showing; chronic deep vein thrombosis of the left profunda femoris, proximal femoral vein, distal femoral vein, and popliteal vein -Nonocclusive thrombosis -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 & thrombosis -Planned follow-up with hematology next week in our [facility] clinic Compartment syndrome of left lower extremity -Status post fasciotomy on July 12 with general surgery -No indication for wound closure today, still waiting for some swelling to resolve -The wound continues to ooze with multiple dressing changes per 24 hours -Pictures of the wound for the chart have been requested -Continue with post-operative course Liver cirrhosis -Portal HTN has been confirmed via abdominal US -Falling serum sodium, now 128 -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 Kolb hematology -Continues on low dose propranolol, lactulose TID, spironolactone, & midodrine Hepatitis C -Patient reports a diagnosis of hepatitis nearly 25 years ago and was recently treated for it although it was unsuccessful -Continue to trend her LFTs Elevated INR -INR remains elevated at 1.5 -Secondary to her liver cirrhosis -Continue routine labs Alcohol use -Patient admits to drinking 1 alcoholic beverage a week and denies a history of alcoholism, although record review notes heavy use with ongoing issues -On admission, patient was positive for acute intoxication, no ETOH withdrawal during this hospital stay -No signs of alcohol withdrawal during this hospitalization
[2019-07-18] MEDS: SPIRONOLACTONE 25 MG TABLET PO SCH ×2 (09:23→17:16)
[2019-07-18] MEDS: DOCUSATE SODIUM 250 MG CAPSULE PO SCH ×3 (09:23→21:06)
[2019-07-18] MEDS: SENNA 8.6 MG TABLET PO SCH (09:23)
[2019-07-18] MEDS: PROPRANOLOL 10 MG TABLET PO SCH ×2 (09:24→21:08)
[2019-07-18] MEDS: FLUTICASONE NASAL SPRAY NAS SCH (09:24)
[2019-07-18] MEDS: MIDODRINE 2.5 MG TABLET PO SCH ×3 (09:24→17:15)
[2019-07-18] MEDS: MULTIVITAMIN W/MINERALS TABLET PO SCH (09:24)
[2019-07-18] MEDS: LACTULOSE 10 GM /15 ML UDC PO SCH ×3 (09:24→17:15)
[2019-07-18] MEDS: polyethylene glycoL 3350 17 GM PACKET PO SCH (09:24)
--- NOTE | 2019-07-18 10:15 | PROVIDER PROGRESS NOTE ---
Subjective - General Admit Date: 07/12/19 Procedure Date: 07/12/19 Post Op Days: 6 Procedure Performed: s/p L medial thigh fasciotomy and hematoma evacuation - Review of Systems Wound/Incisions: positive: Other (improving bleeding post op due to oozing from her coagulopathy) Drain Type: ar All Other Systems: positive: Reviewed and negative - Other Other Information/Narrative: In deep sleep during my AM rounds so will see later with dressing changes. No saturation or kody bleeding with dressing change this AM. TB continues to climb but Hg up to 7.9. Objective - Patient Data Vital Signs: Vital Signs x48h Temp Pulse Resp BP Pulse Ox 07/18/19 07:55 37.0 C 90 20 101/47 L 94 Intake & Output: Intake and Output Totals x24h 07/16/19 07/17/19 07/18/19 23:59 23:59 23:59 Intake Total 1080 1453 400 Output Total 325 300 600 Balance 755 1153 -200 - Lab Results Lab Results: 07/18/19 05:59 07/18/19 05:59 Other Lab Results: Lab Results x24hrs 07/18/19 07/18/19 07/18/19 Range/Units 05:59 05:59 05:59 WBC (4.8-10.8) x10^3/uL RBC (4.20-5.40) 10^6/uL Hgb (12.0-16.0) g/dL Hct (37.0-47.0) % MCV (81.0-99.0) fL MCH (27.0-31.0) pg MCHC (32.0-36.0) g/dL RDW (12.0-15.0) % Plt Count (130-450) 10^3/uL MPV (7.9-10.8) fL Neut # (Auto) Lymph # (Auto) [place] # (Auto) Eos # (Auto) Baso # (Auto) Absolute Nucleated RBC Total Counted Band Neuts % (Manual) (0 - 10) % Abnorm Lymph % (Manual) % Nucleated RBC % Neutrophils # (Manual) (1.5-6.6) 10^3/uL Lymphocytes # (Manual) (1.5-3.5) 10^3/uL Monocytes # (Manual) (0.0-1.0) 10^3/uL Eosinophils # (Manual) (0-0.7) 10^3/uL Basophils # (Manual) (0-0.1) 10^3/uL Differential Comment WBC Morphology (NORMAL) Platelet Estimate (NORMAL) Platelet Morphology (NORMAL) RBC Morph Micro Appear (NORMAL) PT (9.9-12.6) secs INR (0.8-1.2) Sodium 128 L (135-145) mmol/L Potassium 3.8 (3.5-5.0) mmol/L Chloride 95 L (101-111) mmol/L Carbon Dioxide 24 (21-32) mmol/L Anion Gap 9.0 (6-13) BUN 27 H (6-20) mg/dL Creatinine 0.7 (0.4-1.0) mg/dL Estimated GFR (MDRD) 85 L (>89) Glucose 130 H (70-100) mg/dL Lactic Acid 1.0 (0.5-2.2) mmol/L Calcium 8.1 L (8.5-10.3) mg/dL Phosphorus 3.2 (2.5-4.6) mg/dL Magnesium 1.8 (1.7-2.8) mg/dL Total Bilirubin 5.4 H (0.2-1.0) mg/dL AST 67 H (10-42) IU/L ALT 44 (10-60) IU/L Alkaline Phosphatase 63 (42-121) IU/L Total Protein 5.5 L (6.7-8.2) g/dL Albumin 2.6 L (3.2-5.5) g/dL Globulin 2.9 (2.1-4.2) g/dL Albumin/Globulin Ratio 0.9 L (1.0-2.2) Vitamin B12 760 (180-914) pg/mL Folate 12.69 (5.90 - >24.8) ng/mL Blood Type Antibody Screen Crossmatch IS Only 07/18/19 07/18/19 07/15/19 Range/Units 05:59 05:59 05:18 WBC 10.3 (4.8-10.8) x10^3/uL RBC 2.36 L (4.20-5.40) 10^6/uL Hgb 7.9 L (12.0-16.0) g/dL Hct 23.8 L (37.0-47.0) % MCV 100.8 H (81.0-99.0) fL MCH 33.5 H (27.0-31.0) pg MCHC 33.2 (32.0-36.0) g/dL RDW 17.5 H (12.0-15.0) % Plt Count 148 (130-450) 10^3/uL MPV 10.6 (7.9-10.8) fL Neut # (Auto) Not Reportable Lymph # (Auto) Not Reportable [place] # (Auto) Not Reportable Eos # (Auto) Not Reportable Baso # (Auto) Not Reportable Absolute Nucleated RBC Not Reportable Total Counted 100 Band Neuts % (Manual) 0 (0 - 10) % Abnorm Lymph % (Manual) 0 % Nucleated RBC % Not Reportable Neutrophils # (Manual) 7.0 H (1.5-6.6) 10^3/uL Lymphocytes # (Manual) 1.5 (1.5-3.5) 10^3/uL Monocytes # (Manual) 1.1 H (0.0-1.0) 10^3/uL Eosinophils # (Manual) 0.5 (0-0.7) 10^3/uL Basophils # (Manual) 0.1 (0-0.1) 10^3/uL Differential Comment MANUAL DIFFERENTIAL WBC Morphology NORMAL APPEARANCE (NORMAL) Platelet Estimate NORMAL (130-450,000) (NORMAL) Platelet Morphology NORMAL APPEARANCE (NORMAL) RBC Morph Micro Appear 1+ ANISOCYTOSIS (NORMAL) PT 16.5 H (9.9-12.6) secs INR 1.5 H (0.8-1.2) Sodium (135-145) mmol/L Potassium (3.5-5.0) mmol/L Chloride (101-111) mmol/L Carbon Dioxide (21-32) mmol/L Anion Gap (6-13) BUN (6-20) mg/dL Creatinine (0.4-1.0) mg/dL Estimated GFR (MDRD) (>89) Glucose (70-100) mg/dL Lactic Acid (0.5-2.2) mmol/L Calcium (8.5-10.3) mg/dL Phosphorus (2.5-4.6) mg/dL Magnesium (1.7-2.8) mg/dL Total Bilirubin (0.2-1.0) mg/dL AST (10-42) IU/L ALT (10-60) IU/L Alkaline Phosphatase (42-121) IU/L Total Protein (6.7-8.2) g/dL Albumin (3.2-5.5) g/dL Globulin (2.1-4.2) g/dL Albumin/Globulin Ratio (1.0-2.2) Vitamin B12 (180-914) pg/mL Folate (5.90 - >24.8) ng/mL Blood Type Cancelled Antibody Screen Cancelled Crossmatch IS Only See Detail 07/15/19 Range/Units 05:18 WBC (4.8-10.8) x10^3/uL RBC (4.20-5.40) 10^6/uL Hgb (12.0-16.0) g/dL Hct (37.0-47.0) % MCV (81.0-99.0) fL MCH (27.0-31.0) pg MCHC (32.0-36.0) g/dL RDW (12.0-15.0) % Plt Count (130-450) 10^3/uL MPV (7.9-10.8) fL Neut # (Auto) Lymph # (Auto) [place] # (Auto) Eos # (Auto) Baso # (Auto) Absolute Nucleated RBC Total Counted Band Neuts % (Manual) (0 - 10) % Abnorm Lymph % (Manual) % Nucleated RBC % Neutrophils # (Manual) (1.5-6.6) 10^3/uL Lymphocytes # (Manual) (1.5-3.5) 10^3/uL Monocytes # (Manual) (0.0-1.0) 10^3/uL Eosinophils # (Manual) (0-0.7) 10^3/uL Basophils # (Manual) (0-0.1) 10^3/uL Differential Comment WBC Morphology (NORMAL) Platelet Estimate (NORMAL) Platelet Morphology (NORMAL) RBC Morph Micro Appear (NORMAL) PT (9.9-12.6) secs INR (0.8-1.2) Sodium (135-145) mmol/L Potassium (3.5-5.0) mmol/L Chloride (101-111) mmol/L Carbon Dioxide (21-32) mmol/L Anion Gap (6-13) BUN (6-20) mg/dL Creatinine (0.4-1.0) mg/dL Estimated GFR (MDRD) (>89) Glucose (70-100) mg/dL Lactic Acid (0.5-2.2) mmol/L Calcium (8.5-10.3) mg/dL Phosphorus (2.5-4.6) mg/dL Magnesium (1.7-2.8) mg/dL Total Bilirubin (0.2-1.0) mg/dL AST (10-42) IU/L ALT (10-60) IU/L Alkaline Phosphatase (42-121) IU/L Total Protein (6.7-8.2) g/dL Albumin (3.2-5.5) g/dL Globulin (2.1-4.2) g/dL Albumin/Globulin Ratio (1.0-2.2) Vitamin B12 (180-914) pg/mL Folate (5.90 - >24.8) ng/mL Blood Type O POSITIVE Antibody Screen NEGATIVE Crossmatch IS Only See Detail - Current Medications Current Medications: Current Medications Generic Name Dose Route Start Last Admin Trade Name Freq PRN Reason Stop Dose Admin Docusate Sodium 250 mg 07/17/19 09:00 07/18/19 09:23 Colace 250mg Capsule PO 250 mg DAILY KIRK Administration Docusate Sodium 250 - 500 mg 07/16/19 22:00 07/18/19 09:25 Colace 250mg Capsule PO Not Given BID KIRK Fluticasone Propionate 2 sprays 07/13/19 09:00 07/18/19 09:24 Flonase YVETTE Not Given DAILY KIRK Hydromorphone HCl 0.5 mg 07/12/19 08:50 07/18/19 01:13 Dilaudid Inj Syringe IVP 0.5 mg Q2HR PRN Administration PAIN 8-10 Hydromorphone HCl 1 mg 07/17/19 17:38 07/18/19 07:57 Dilaudid Inj Carp IVP 1 mg TID PRN Administration PAIN Lactulose 10 gm 07/16/19 18:00 07/18/19 09:24 Enulose PO Not Given TIDWM KIRK Midodrine 2.5 mg 07/17/19 17:00 07/18/19 09:24 PO 2.5 mg TIDWM KIRK Administration Multivitamins/Minerals 1 tab 07/14/19 09:00 07/18/19 09:24 Theragran M PO 1 tab DAILYWM KIRK Administration Ondansetron HCl 4 mg 07/13/19 20:44 07/15/19 07:56 Zofran Inj IVP 4 mg BID PRN Administration Nausea / Vomiting Oxycodone HCl 5 mg 07/12/19 07:24 07/17/19 10:38 Roxicodone PO 5 mg Q4HR PRN Administration Pain 5 to 7 Polyethylene Glycol 17 gm 07/14/19 09:00 07/18/19 09:24 Miralax PO 17 gm DAILY KIRK Administration Propranolol HCl 10 mg 07/17/19 21:00 07/18/19 09:24 Inderal PO 10 mg BID KIKR Administration Senna 8.6 mg 07/17/19 09:00 07/18/19 09:23 Senokot PO 8.6 mg DAILY KIRK Administration Sodium Chloride 10 ml 07/12/19 07:24 07/18/19 03:22 Normal Saline Flush 0.9% IVP 10 ml PRN PRN Administration NEEDED PER PROVIDER ORDERS Sodium Chloride 10 ml 07/12/19 09:00 07/18/19 09:24 Normal Saline Flush 0.9% IVP 10 ml 0100,0900,1700 KIRK Administration Spironolactone 25 mg 07/17/19 17:00 07/18/19 09:23 Aldactone PO 25 mg BIDWM KIRK Administration - Physical Exam Comments/Other: resting comfortably, unlabored breathing L leg soft; dressing not saturated Impression/Plan - Problem List Problem List: L thigh hematoma with compartment syndrome s/p evacuation and fasciotomy. - continues to improve --> will assess again for possible closure when I see her later during dressing change - wound care; hope to close skin and remove drain prior to d/c - PT/OT for mobility - likely needs swing bed/ rehab - SCDs only; chemoprophylaxis contraindicated DVT - hematology appointment tomorrow; they will graciously see her as inpatient which will be helpful for advancing her care - non-occlusive, unknown to pt Cirrhosis - appreciate medicine assistance - coagulopathy likely 2/2 this - TB climbing and reportedly a bit confused this AM, monitor closely
[2019-07-18] MEDS: oxyCODONE 5 MG TABLET PO PRN (18:33)
[2019-07-19] MEDS: HYDROmorphone 1 MG/ML CARPUJECT IVP PRN ×2 (00:33→09:41)
[2019-07-19] MEDS: oxyCODONE 5 MG TABLET PO PRN ×5 (00:33→21:30)
[2019-07-19] MEDS: SODIUM CHLORIDE FLUSH 0.9% 10 ML SYRINGE IVP SCH ×3 (00:34→15:36)
[2019-07-19] MEDS: SODIUM CHLORIDE FLUSH 0.9% 10 ML SYRINGE IVP PRN ×2 (04:43→22:22)
[2019-07-19] MEDS: HYDROmorphone 0.5 MG/0.5 ML SYRINGE IVP PRN ×2 (04:45→22:21)
[2019-07-19 05:10] LABS: BASOPHILS % (AUTO) 0.8 %; EOSINOPHILS % (AUTO) 4.4 %; HGB - HEMOGLOBIN 7.9 g/dL (12.0-16.0); LYMPHOCYTES % (AUTO) 13.6 %; MEAN CORPUSCULAR HEMOGLOBIN 34.1 pg (27.0-31.0); MEAN CORPUSCULAR HGB CONC 33.1 g/dL (32.0-36.0); MEAN PLATELET VOLUME 10.6 fL (7.9-10.8); MONOCYTES % (AUTO) 19.9 %; NEUTROPHILS % (AUTO) 60.4 %; PLT - PLATELET COUNT 174 10^3/uL (130-450); RED BLOOD COUNT 2.32 10^6/uL (4.20-5.40); WHITE BLOOD COUNT 9.5 x10^3/uL (4.8-10.8)
[2019-07-19 05:20] LABS: ABNORMAL LYMPHS % (MANUAL) 0 %; ALBUMIN 2.6 g/dL (3.2-5.5); ALBUMIN/GLOBULIN RATIO 0.9 (1.0-2.2); BILIRUBIN,TOTAL 6.1 mg/dL (0.2-1.0); CREATININE 0.7 mg/dL (0.4-1.0); MAGNESIUM 1.9 mg/dL (1.7-2.8); PHOSPHORUS 3.1 mg/dL (2.5-4.6); TOTAL PROTEIN 5.5 g/dL (6.7-8.2)
[2019-07-19 05:26] LABS: INR 1.4 (0.8-1.2); PT - PROTHROMBIN TIME 16.1 secs (9.9-12.6)
[2019-07-19 06:47] LABS: BAND NEUTROPHILS % (MANUAL) 2 %; LYMPHOCYTES # (MANUAL) 1.2 10^3/uL (1.5-3.5); LYMPHOCYTES % (MANUAL) 13 %; MONOCYTES # (MANUAL) 0.5 10^3/uL (0.0-1.0)
[2019-07-19 06:48] LABS: PLATELET ESTIMATE, MANUAL NORMAL (130-450,000) (NORMAL)
[2019-07-19 06:49] LABS: DIFFERENTIAL COMMENT MANUAL DIFFERENTIAL
[2019-07-19] MEDS: SENNA 8.6 MG TABLET PO SCH (09:23)
[2019-07-19] MEDS: LACTULOSE 10 GM /15 ML UDC PO SCH ×3 (09:23→19:11)
[2019-07-19] MEDS: DOCUSATE SODIUM 250 MG CAPSULE PO SCH ×3 (09:23→21:29)
[2019-07-19] MEDS: PROPRANOLOL 10 MG TABLET PO SCH ×2 (09:24→21:29)
[2019-07-19] MEDS: MIDODRINE 2.5 MG TABLET PO SCH ×3 (09:24→16:10)
[2019-07-19] MEDS: SPIRONOLACTONE 25 MG TABLET PO SCH ×2 (09:24→19:11)
[2019-07-19] MEDS: polyethylene glycoL 3350 17 GM PACKET PO SCH (09:24)
[2019-07-19] MEDS: MULTIVITAMIN W/MINERALS TABLET PO SCH (09:24)
[2019-07-19] MEDS: FLUTICASONE NASAL SPRAY NAS SCH (09:48)
--- NOTE | 2019-07-19 15:12 | PROVIDER PROGRESS NOTE ---
Subjective - General Admit Date: 07/12/19 Procedure Date: 07/12/19 Post Op Days: 7 Procedure Performed: s/p L medial thigh fasciotomy and hematoma evacuation - Review of Systems Wound/Incisions: positive: Other (improving bleeding post op due to oozing from her coagulopathy) Drain Type: ar All Other Systems: positive: Reviewed and negative - Other Other Information/Narrative: [place] drain removed during wound care yesterday; wound clean and dry. Liver labs continue to worsen and pt works minimally with therapies; she states this is due to pain from the incision. Plan for closure today. Objective - Patient Data Vital Signs: Vital Signs x48h Temp Pulse Resp BP Pulse Ox 07/19/19 11:46 87 98/51 L 07/19/19 09:25 87 104/52 L 07/19/19 08:00 37 C 81 20 99/45 L 93 Intake & Output: Intake and Output Totals x24h 07/17/19 07/18/19 07/19/19 23:59 23:59 23:59 Intake Total 1453 2380 680 Output Total 300 1090 150 Balance 1153 1290 530 - Lab Results Lab Results: 07/19/19 04:50 07/19/19 04:50 Other Lab Results: Lab Results x24hrs 07/19/19 07/19/19 07/19/19 Range/Units 04:50 04:50 04:50 WBC (4.8-10.8) x10^3/uL RBC (4.20-5.40) 10^6/uL Hgb (12.0-16.0) g/dL Hct (37.0-47.0) % MCV (81.0-99.0) fL MCH (27.0-31.0) pg MCHC (32.0-36.0) g/dL RDW (12.0-15.0) % Plt Count (130-450) 10^3/uL MPV (7.9-10.8) fL Neut # (Auto) Lymph # (Auto) [place] # (Auto) Eos # (Auto) Baso # (Auto) Absolute Nucleated RBC Total Counted Band Neuts % (Manual) (0 - 10) % Abnorm Lymph % (Manual) % Nucleated RBC % Neutrophils # (Manual) (1.5-6.6) 10^3/uL Lymphocytes # (Manual) (1.5-3.5) 10^3/uL Monocytes # (Manual) (0.0-1.0) 10^3/uL Eosinophils # (Manual) (0-0.7) 10^3/uL Basophils # (Manual) (0-0.1) 10^3/uL Differential Comment Platelet Estimate (NORMAL) RBC Morph Micro Appear (NORMAL) PT 16.1 H (9.9-12.6) secs INR 1.4 H (0.8-1.2) Sodium 129 L (135-145) mmol/L Potassium 3.9 (3.5-5.0) mmol/L Chloride 98 L (101-111) mmol/L Carbon Dioxide 24 (21-32) mmol/L Anion Gap 7.0 (6-13) BUN 25 H (6-20) mg/dL Creatinine 0.7 (0.4-1.0) mg/dL Estimated GFR (MDRD) 85 L (>89) Glucose 121 H (70-100) mg/dL Calcium 8.0 L (8.5-10.3) mg/dL Phosphorus 3.1 (2.5-4.6) mg/dL Magnesium 1.9 (1.7-2.8) mg/dL Total Bilirubin 6.1 H (0.2-1.0) mg/dL GGT 63 H (8-38) IU/L AST 64 H (10-42) IU/L ALT 40 (10-60) IU/L Alkaline Phosphatase 74 (42-121) IU/L Ammonia 54.7 H (7-35) umol/L Total Protein 5.5 L (6.7-8.2) g/dL Albumin 2.6 L (3.2-5.5) g/dL Globulin 2.9 (2.1-4.2) g/dL Albumin/Globulin Ratio 0.9 L (1.0-2.2) 07/19/19 Range/Units 04:50 WBC 9.5 (4.8-10.8) x10^3/uL RBC 2.32 L (4.20-5.40) 10^6/uL Hgb 7.9 L (12.0-16.0) g/dL Hct 23.9 L (37.0-47.0) % MCV 103.0 H (81.0-99.0) fL MCH 34.1 H (27.0-31.0) pg MCHC 33.1 (32.0-36.0) g/dL RDW 17.0 H (12.0-15.0) % Plt Count 174 (130-450) 10^3/uL MPV 10.6 (7.9-10.8) fL Neut # (Auto) Not Reportable Lymph # (Auto) Not Reportable [place] # (Auto) Not Reportable Eos # (Auto) Not Reportable Baso # (Auto) Not Reportable Absolute Nucleated RBC Not Reportable Total Counted 100 Band Neuts % (Manual) 2 (0 - 10) % Abnorm Lymph % (Manual) 0 % Nucleated RBC % Not Reportable Neutrophils # (Manual) 7.8 H (1.5-6.6) 10^3/uL Lymphocytes # (Manual) 1.2 L (1.5-3.5) 10^3/uL Monocytes # (Manual) 0.5 (0.0-1.0) 10^3/uL Eosinophils # (Manual) 0.0 (0-0.7) 10^3/uL Basophils # (Manual) 0.0 (0-0.1) 10^3/uL Differential Comment MANUAL DIFFERENTIAL Platelet Estimate NORMAL (130-450,000) (NORMAL) RBC Morph Micro Appear 1+ TARGET CELLS (NORMAL) PT (9.9-12.6) secs INR (0.8-1.2) Sodium (135-145) mmol/L Potassium (3.5-5.0) mmol/L Chloride (101-111) mmol/L Carbon Dioxide (21-32) mmol/L Anion Gap (6-13) BUN (6-20) mg/dL Creatinine (0.4-1.0) mg/dL Estimated GFR (MDRD) (>89) Glucose (70-100) mg/dL Calcium (8.5-10.3) mg/dL Phosphorus (2.5-4.6) mg/dL Magnesium (1.7-2.8) mg/dL Total Bilirubin (0.2-1.0) mg/dL GGT (8-38) IU/L AST (10-42) IU/L ALT (10-60) IU/L Alkaline Phosphatase (42-121) IU/L Ammonia (7-35) umol/L Total Protein (6.7-8.2) g/dL Albumin (3.2-5.5) g/dL Globulin (2.1-4.2) g/dL Albumin/Globulin Ratio (1.0-2.2) - Current Medications Current Medications: Current Medications Generic Name Dose Route Start Last Admin Trade Name Freq PRN Reason Stop Dose Admin Docusate Sodium 250 mg 07/17/19 09:00 07/19/19 09:23 Colace 250mg Capsule PO 250 mg DAILY KIRK Administration Docusate Sodium 250 - 500 mg 07/16/19 22:00 07/19/19 09:24 Colace 250mg Capsule PO Not Given BID KIRK Fluticasone Propionate 2 sprays 07/13/19 09:00 07/19/19 09:48 Flonase YVETTE 2 sprays DAILY KIRK Administration Hydromorphone HCl 0.5 mg 07/12/19 08:50 07/19/19 04:45 Dilaudid Inj Syringe IVP 0.5 mg Q2HR PRN Administration PAIN 8-10 Hydromorphone HCl 1 mg 07/17/19 17:38 07/19/19 09:41 Dilaudid Inj Carp IVP 1 mg TID PRN Administration PAIN Lactulose 10 gm 07/16/19 18:00 07/19/19 11:47 Enulose PO 10 gm TIDWM KIRK Administration Midodrine 2.5 mg 07/17/19 17:00 07/19/19 11:47 PO 2.5 mg TIDWM KIRK Administration Multivitamins/Minerals 1 tab 07/14/19 09:00 07/19/19 09:24 Theragran M PO 1 tab DAILYWM KIRK Administration Ondansetron HCl 4 mg 07/13/19 20:44 07/15/19 07:56 Zofran Inj IVP 4 mg BID PRN Administration Nausea / Vomiting Oxycodone HCl 5 mg 07/12/19 07:24 07/19/19 10:21 Roxicodone PO 5 mg Q4HR PRN Administration Pain 5 to 7 Polyethylene Glycol 17 gm 07/14/19 09:00 07/19/19 09:24 Miralax PO 17 gm DAILY KIRK Administration Propranolol HCl 10 mg 07/17/19 21:00 07/19/19 09:24 Inderal PO 10 mg BID KIRK Administration Senna 8.6 mg 07/17/19 09:00 07/19/19 09:23 Senokot PO 8.6 mg DAILY KIRK Administration Sodium Chloride 10 ml 07/12/19 07:24 07/19/19 04:43 Normal Saline Flush 0.9% IVP 10 ml PRN PRN Administration NEEDED PER PROVIDER ORDERS Sodium Chloride 10 ml 07/12/19 09:00 07/19/19 09:24 Normal Saline Flush 0.9% IVP 10 ml 0100,0900,1700 KIRK Administration Spironolactone 25 mg 07/17/19 17:00 07/19/19 09:24 Aldactone PO 25 mg BIDWM KIRK Administration - Physical Exam Comments/Other: AAO, NAD MMM, no scleral icterus unlabored RA soft, nt/nd L thigh inc dressed, MAEW, compartments soft Impression/Plan - Problem List Problem List: OR today for closure of left thigh wound --> all R/B/A discussed and pt wishes to proceed --> she understands if we are unable to completely close skin she may have VAC or other dressing needs ongoing Should be fine tomorrow or soon to go to swing bed for focus on PT Heme appt. today; appreciate assistance with complex case
--- NOTE | 2019-07-19 15:42 | ANESTHESIA ---
Pre-Anesthesia VS, & Labs - Diagnosis Diagnosis Bleeding tendency Elevated INR Elevated LFTs Alcoholism Liver cirrhosis Hypertension Tobacco dependence Chronic deep vein thrombosis (DVT) of lower extremity Kidney stone Hepatitis C Hepatitis B COPD with emphysema Chronic back pain Insomnia Compartment syndrome of left lower extremity Postoperative compartment syndrome of left lo wer extremity - Procedure wound closure Vital Signs: Temp Pulse Resp BP Pulse Ox 37 C 87 20 98/51 L 93 07/19/19 08:00 07/19/19 11:46 07/19/19 08:00 07/19/19 11:46 07/19/19 08:00 Height 5 ft 2 in Weight (kg) 66.2 kg Body Mass Index 26.6 - NPO >8 hours - Is Patient ?: No - Lab Results Current Lab Results: Laboratory Tests 07/19/19 04:50: Ammonia 54.7 H 07/19/19 04:50: Sodium 129 L, Potassium 3.9, Chloride 98 L, Carbon Dioxide 24, Anion Gap 7.0, BUN 25 H, Creatinine 0.7, Estimated GFR (MDRD) 85 L, Glucose 121 H, Calcium 8.0 L, Phosphorus 3.1, Magnesium 1.9, Total Bilirubin 6.1 H, GGT 63 H , AST 64 H, ALT 40, Alkaline Phosphatase 74, Total Protein 5.5 L, Albumin 2.6 L, Globulin 2.9, Albumin/Globulin Ratio 0.9 L 07/19/19 04:50: PT 16.1 H, INR 1.4 H 07/19/19 04:50: WBC 9.5, RBC 2.32 L, Hgb 7.9 L, Hct 23.9 L, MCV 103.0 H, MCH 34.1 H, MCHC 33.1, RDW 17.0 H, Plt Count 174, MPV 10.6, Neut # (Auto) Not Reportable, Lymph # (Auto) Not Reportable, [place] # (Auto) Not Reportable, Eos # (Auto) Not Reportable, Baso # (Auto) Not Reportable, Absolute Nucleated RBC Not Reportable, Total Counted 100, Band Neuts % (Manual) 2, Abnorm Lymph % (Manual) 0, Nucleated RBC % Not Reportable, Neutrophils # (Manual) 7.8 H, Lymphocytes # (Manual) 1.2 L, Monocytes # (Manual) 0.5, Eosinophils # (Manual) 0.0, Basophils # (Manual) 0.0, Differential Comment MANUAL DIFFERENTIAL, Platelet Estimate NORMAL (130-450,000), RBC Morph Micro Appear 1+ TARGET CELLS 07/18/19 05:59: Vitamin B12 760, Folate 12.69 07/18/19 05:59: Lactic Acid 1.0 07/18/19 05:59: Sodium 128 L, Potassium 3.8, Chloride 95 L, Carbon Dioxide 24, Anion Gap 9.0, BUN 27 H, Creatinine 0.7, Estimated GFR (MDRD) 85 L, Glucose 130 H, Calcium 8.1 L, Phosphorus 3.2, Magnesium 1.8, Total Bilirubin 5.4 H, AST 67 H , ALT 44, Alkaline Phosphatase 63, Total Protein 5.5 L, Albumin 2.6 L, Globulin 2.9, Albumin/Globulin Ratio 0.9 L 07/18/19 05:59: PT 16.5 H, INR 1.5 H 07/18/19 05:59: WBC 10.3, RBC 2.36 L, Hgb 7.9 L, Hct 23.8 L, MCV 100.8 H, MCH 33.5 H, MCHC 33.2, RDW 17.5 H, Plt Count 148, MPV 10.6, Neut # (Auto) Not Reportable, Lymph # (Auto) Not Reportable, [place] # (Auto) Not Reportable, Eos # (Auto) Not Reportable, Baso # (Auto) Not Reportable, Absolute Nucleated RBC Not Reportable, Total Counted 100, Band Neuts % (Manual) 0, Abnorm Lymph % (Manual) 0, Nucleated RBC % Not Reportable, Neutrophils # (Manual) 7.0 H, Lymphocytes # (Manual) 1.5, Monocytes # (Manual) 1.1 H, Eosinophils # (Manual) 0.5, Basophils # (Manual) 0.1, Differential Comment MANUAL DIFFERENTIAL, WBC Morphology NORMAL APPEARANCE, Platelet Estimate NORMAL (130-450,000), Platelet Morphology NORMAL APPEARANCE, RBC Morph Micro Appear 1+ ANISOCYTOSIS 07/17/19 05:32: Sodium 130 L, Potassium 4.1, Chloride 97 L, Carbon Dioxide 25, Anion Gap 8.0, BUN 26 H, Creatinine 0.7, Estimated GFR (MDRD) 85 L, Glucose 120 H, Calcium 8.4 L, Total Bilirubin 3.9 H, AST 88 H, ALT 52, Alkaline Phosphatase 55, Total Protein 5.4 L, Albumin 2.7 L, Globulin 2.7, Albumin/Globulin Ratio 1.0 07/17/19 05:32: WBC 10.2, RBC 1.97 L, Hgb 7.0 L*, Hct 21.2 L, MCV 107.6 H, MCH 35.5 H, MCHC 33.0, RDW 15.5 H, Plt Count 149, MPV 10.8, Neut # (Auto) 7.0 H, Lymph # (Auto) 1.4 L, [place] # (Auto) 1.5 H, Eos # (Auto) 0.3, Baso # (Auto) 0.1, Absolute Nucleated RBC 0.00, Nucleated RBC % 0.0 07/16/19 16:08: Ammonia 44.8 H 07/16/19 16:08: PT 15.2 H, INR 1.4 H, APTT 29.8 07/16/19 16:08: TSH 1.95 07/16/19 16:08: Total Bilirubin 3.6 H, Direct Bilirubin 1.5 H, Indirect Bilirubin 2.1 07/16/19 16:08: Hgb 7.1 L, Hct 21.5 L 07/16/19 05:30: Sodium 132 L, Potassium 4.1, Chloride 99 L, Carbon Dioxide 26, Anion Gap 7.0, BUN 27 H, Creatinine 0.6, Estimated GFR (MDRD) 101, Glucose 120 H , Calcium 8.2 L, Magnesium 2.0, Total Bilirubin 3.5 H, AST 102 H, ALT 55, Alkaline Phosphatase 51, Total Protein 5.5 L, Albumin 2.8 L, Globulin 2.7, Albumin/Globulin Ratio 1.0 07/16/19 05:30: WBC 7.8, RBC 2.01 L, Hgb 7.2 L, Hct 21.4 L, MCV 106.5 H, MCH 35.8 H, MCHC 33.6, RDW 15.3 H, Plt Count 111 L, MPV 10.7, Neut # (Auto) 5.2, Lymph # (Auto) 1.1 L, [place] # (Auto) 1.1 H, Eos # (Auto) 0.2, Baso # (Auto) 0.1, Absolute Nucleated RBC 0.00, Nucleated RBC % 0.0 07/15/19 05:18: Blood Type Cancelled, Antibody Screen Cancelled, Crossmatch IS Only See Detail 07/15/19 05:18: Blood Type O POSITIVE, Antibody Screen NEGATIVE, Crossmatch IS Only See Detail 07/15/19 05:18: Sodium 133 L, Potassium 4.5, Chloride 99 L, Carbon Dioxide 27, Anion Gap 7.0, BUN 36 H, Creatinine 0.8, Estimated GFR (MDRD) 72 L, Glucose 114 H, Calcium 9.0, Magnesium 2.0, Total Bilirubin 2.7 H, AST 87 H, ALT 44, Alkaline Phosphatase 46, C-Reactive Protein 1.1 H, Total Protein 5.8 L, Albumin 2.8 L, Globulin 3.0, Albumin/Globulin Ratio 0.9 L, Lipase 49 07/15/19 05:18: PT 15.2 H, INR 1.4 H 07/15/19 05:18: WBC 8.9, RBC 1.86 L, Hgb 6.9 L*, Hct 20.6 L, MCV 110.8 H, MCH 37.1 H, MCHC 33.5, RDW 12.8, Plt Count 133, MPV 11.2 H, Neut # (Auto) 5.5, Lymph # (Auto) 1.7, [place] # (Auto) 1.3 H, Eos # (Auto) 0.2, Baso # (Auto) 0.1, Absolute Nucleated RBC 0.03, Nucleated RBC % 0.3 07/14/19 05:20: Sodium 133 L, Potassium 4.7, Chloride 97 L, Carbon Dioxide 25, Anion Gap 11.0, BUN 44 H, Creatinine 1.0, Estimated GFR (MDRD) 56 L, Glucose 140 H, Calcium 9.7, Total Bilirubin 2.9 H, Direct Bilirubin 1.0 H, AST 68 H, ALT 37, Alkaline Phosphatase 47, Total Protein 6.4 L, Albumin 3.1 L, Globulin 3.3 07/14/19 05:20: PT 14.9 H, INR 1.3 H 07/14/19 05:20: WBC 12.5 H, RBC 2.09 L, Hgb 7.7 L, Hct 23.9 L, MCV 114.4 H, MCH 36.8 H, MCHC 32.2, RDW 13.1, Plt Count 130, MPV 12.0 H, Neut # (Auto) Not Reportable, Lymph # (Auto) Not Reportable, [place] # (Auto) Not Reportable, Eos # (Auto) Not Reportable, Baso # (Auto) Not Reportable, Absolute Nucleated RBC Not Reportable, Total Counted 100, Band Neuts % (Manual) 0, Abnorm Lymph % (Manual) 0, Nucleated RBC % Not Reportable, Neutrophils # (Manual) 8.6 H, Lymphocytes # (Manual) 2.4, Monocytes # (Manual) 1.5 H, Eosinophils # (Manual) 0.0, Basophils # (Manual) 0.0, Differential Comment MANUAL DIFFERENTIAL, WBC Morphology NORMAL APPEARANCE, Platelet Estimate NORMAL (130-450,000), Platelet Morphology NORMAL APPEARANCE, RBC Morph Micro Appear 1+ MICROCYTOSIS 07/13/19 05:20: WBC 9.7, RBC 2.50 L, Hgb 9.2 L, Hct 27.4 L, MCV 109.6 H, MCH 36.8 H, MCHC 33.6, RDW 12.9, Plt Count 114 L, MPV 11.7 H, Neut # (Auto) 7.4 H, Lymph # (Auto) 1.0 L, [place] # (Auto) 1.1 H, Eos # (Auto) 0.0, Baso # (Auto) 0.1, Absolute Nucleated RBC 0.00, Nucleated RBC % 0.0 07/13/19 05:20: Glycated Hemoglobin 4.7, Estim Average Glucose 88 07/13/19 05:20: Sodium 134 L, Potassium 4.4, Chloride 102, Carbon Dioxide 24, An ion Gap 8.0, BUN 27 H, Creatinine 0.7, Estimated GFR (MDRD) 85 L, Glucose 152 H, Calcium 9.2, Total Bilirubin 3.8 H, Direct Bilirubin 1.2 H, GGT 104 H, AST 76 H, ALT 40, Alkaline Phosphatase 61, Total Protein 6.6 L, Albumin 3.2, Globulin 3.4 07/12/19 20:11: Hgb 9.7 L, Hct 29.3 L 07/12/19 07:50: Blood Type O POSITIVE, Antibody Screen NEGATIVE 07/12/19 03:42: Urine Opiates Screen POSITIVE H, Ur Oxycodone Screen NEGATIVE, Urine Methadone Screen NEGATIVE, Ur Propoxyphene Screen NEGATIVE, Ur Barbiturates Screen NEGATIVE, Ur Tricyclics Screen NEGATIVE, Ur Phencyclidine Scrn NEGATIVE, Ur Amphetamine Screen NEGATIVE, U Methamphetamines Scrn NEGATIVE, U Benzodiazepines Scrn NEGATIVE, Urine Cocaine Screen NEGATIVE, U Cannabinoids Screen NEGATIVE 07/12/19 01:30: Sodium 141, Potassium 3.9, Chloride 108, Carbon Dioxide 21, Anion Gap 12.0, BUN 14, Creatinine 0.5, Estimated GFR (MDRD) 125, Glucose 135 H, Calcium 8.8, Total Bilirubin 1.8 H, AST 121 H, ALT 51, Alkaline Phosphatase 129 H, Total Creatine Kinase 139, Total Protein 7.1, Albumin 3.3, Globulin 3.8, Albumin/Globulin Ratio 0.9 L, Lipase 108 H, Ethyl Alcohol 186.5 07/12/19 01:10: Blood Type Recheck O POSITIVE 07/12/19 01:10: WBC 5.8, RBC 3.26 L, Hgb 12.1, Hct 35.3 L, MCV 108.3 H, MCH 37.1 H, MCHC 34.3, RDW 12.8, Plt Count 131, MPV 12.0 H, Neut # (Auto) 3.8, Lymph # (Auto) 1.1 L, [place] # (Auto) 0.7, Eos # (Auto) 0.2, Baso # (Auto) 0.1, Absolute Nucleated RBC 0.00, Nucleated RBC % 0.0 07/12/19 00:30: PT 15.3 H, INR 1.4 H, APTT 37.9 H Fish Bones: 07/19/19 04:50 07/19/19 04:50 Home Medications and Allergies Home Medications: Ambulatory Orders Fluticasone [Flonase] 2 sprays YVETTE DAILY 07/12/19 lisinopriL [Lisinopril] 40 mg PO DAILY 07/12/19 Active Medications Docusate Sodium (Colace 250mg Capsule) 250 mg PO DAILY [facility] Last Admin: 07/19/19 09:23 Dose: 250 mg Docusate Sodium (Colace 250mg Capsule) 250 - 500 mg PO BID [facility] Last Admin: 07/19/19 09:24 Dose: Not Given Fluticasone Propionate (Flonase) 2 sprays YVETTE DAILY [facility] Last Admin: 07/19/19 09:48 Dose: 2 sprays Hydromorphone HCl (Dilaudid Inj Syringe) 0.5 mg IVP Q2HR PRN PRN Reason: PAIN 8-10 Last Admin: 07/19/19 04:45 Dose: 0.5 mg Hydromorphone HCl (Dilaudid Inj Carp) 1 mg IVP TID PRN PRN Reason: PAIN Last Admin: 07/19/19 09:41 Dose: 1 mg Lactulose (Enulose) 10 gm PO TIDWM [facility] Last Admin: 07/19/19 11:47 Dose: 10 gm Midodrine () 2.5 mg PO TIDWM [facility] Last Admin: 07/19/19 11:47 Dose: 2.5 mg Multivitamins/Minerals (Theragran M) 1 tab PO DAILYWM [facility] Last Admin: 07/19/19 09:24 Dose: 1 tab Ondansetron HCl (Zofran Inj) 4 mg IVP BID PRN PRN Reason: Nausea / Vomiting Last Admin: 07/15/19 07:56 Dose: 4 mg Oxycodone HCl (Roxicodone) 5 mg PO Q4HR PRN PRN Reason: Pain 5 to 7 Last Admin: 07/19/19 15:36 Dose: 5 mg Polyethylene Glycol (Miralax) 17 gm PO DAILY [facility] Last Admin: 07/19/19 09:24 Dose: 17 gm Propranolol HCl (Inderal) 10 mg PO BID [facility] Last Admin: 07/19/19 09:24 Dose: 10 mg Senna (Senokot) 8.6 mg PO DAILY [facility] Last Admin: 07/19/19 09:23 Dose: 8.6 mg Sodium Chloride (Normal Saline Flush 0.9%) 10 ml IVP PRN PRN PRN Reason: NEEDED PER PROVIDER ORDERS Last Admin: 07/19/19 04:43 Dose: 10 ml Sodium Chloride (Normal Saline Flush 0.9%) 10 ml IVP 0100,0900,1700 [facility] Last Admin: 07/19/19 15:36 Dose: 10 ml Spironolactone (Aldactone) 25 mg PO BIDWM [facility] Last Admin: 07/19/19 09:24 Dose: 25 mg Fluticasone [Flonase] 2 sprays YVETTE DAILY 07/12/19 lisinopriL [Lisinopril] 40 mg PO DAILY 07/12/19 Allergies/Adverse Reactions: Allergies Allergy/AdvReac Type Severity Reaction Status Date / Time gabapentin AdvReac Intermediate Dizziness/S Verified 07/12/19 08:55 elling risperidone [From Risperdal] AdvReac Intermediate Sedation/Ti Verified 07/12/19 08:55 ngling ampicillin AdvReac Vaginal Verified 07/12/19 08:55 yeast infection venlafaxine HCl * AdvReac Dizziness Verified 06/14/19 10:41 [From Effexor] Anes History & Medical History - Anesthetic History Anesthesia Complications: reports: No previous complications - Medical History Cardiovascular: reports: Hypertension, Deep vein thrombosis, Murmur Pulmonary: reports: COPD, Pneumonia, Shortness of breath Gastrointestinal: reports: GERD, GI bleed, Hemorrhoids, Hepatitis, Cirrhosis, Other (umbilical hernia repair) Urinary: reports: Nocturia, Frequency, Kidney stones Neuro: reports: Dementia, Headaches, Peripheral neuropathy, Tremors Musculoskeletal: reports: Osteoarthritis, Fatigue, Chronic back pain Endocrine/Autoimmune: reports: None Blood Disorders: reports: None Skin: reports: Other (bronze skin) Smoking Status: Current some day smoker Psychosocial: reports: Depression, Anxiety, Alcohol Other Past Medical History: Tobacco and alcohol dependency. Hepatitis B & C - Surgical History General: Colonoscopy Orthopedic: Spine surgery, Other Exam General: Alert Dental: Dentures full Upper, Dentures full Lower Mouth Opening: Greater than 4 Fingerbreadths Mallampati classification: II Thyromental Distance: 4-6 cm Respiratory: Decreased breath sounds Cardiovascular: Regular rate Plan Anesthesia Type: General, MAC, Total IV Consent for Procedure(s) Verified and Reviewed: Yes Code Status: Attempt Resuscitation ASA classification: 3-Severe systemic disease Is this case an emergency?: No
--- NOTE | 2019-07-19 15:59 | PROVIDER PROGRESS NOTE ---
Assessment/Plan - Problem List (1) Acute blood loss anemia Assessment/Plan: Follow CBC, transfuse if Hgb < 7 (2) Bleeding tendency Assessment/Plan: Awaiting Hematology Auxiliary Operator to see her here at 3 pm today. (3) Compartment syndrome of left lower extremity Assessment/Plan: According to the General Surgeon who spoke with me today, the patient will be taken to the OR to sew up her open wound later today, after she is seen in consultation by the Systems Support Engineer this afternoon. (4) Liver cirrhosis Assessment/Plan: This is multifactorial: From alcohol use, hepatitis B and hepatitis C. Follow LFTs intermittently. (5) Chronic deep vein thrombosis (DVT) of left femoral vein Assessment/Plan: Continue present medical management. (6) Alcohol use Assessment/Plan: She is now out of the window for concern of alcohol withdrawal. Continue with thiamine replacement orally. - Current Meds Current Meds: Current Medications Generic Name Dose Route Start Last Admin Trade Name Freq PRN Reason Stop Dose Admin Docusate Sodium 250 mg 07/17/19 09:00 07/19/19 09:23 Colace 250mg Capsule PO 250 mg DAILY KIRK Administration Docusate Sodium 250 - 500 mg 07/16/19 22:00 07/19/19 09:24 Colace 250mg Capsule PO Not Given BID KIRK Fluticasone Propionate 2 sprays 07/13/19 09:00 07/19/19 09:48 Flonase YVETTE 2 sprays DAILY KIRK Administration Hydromorphone HCl 0.5 mg 07/12/19 08:50 07/19/19 04:45 Dilaudid Inj Syringe IVP 0.5 mg Q2HR PRN Administration PAIN 8-10 Hydromorphone HCl 1 mg 07/17/19 17:38 07/19/19 09:41 Dilaudid Inj Carp IVP 1 mg TID PRN Administration PAIN Lactulose 10 gm 07/16/19 18:00 07/19/19 11:47 Enulose PO 10 gm TIDWM KIRK Administration Midodrine 2.5 mg 07/17/19 17:00 07/19/19 11:47 PO 2.5 mg TIDWM KIRK Administration Multivitamins/Minerals 1 tab 07/14/19 09:00 07/19/19 09:24 Theragran M PO 1 tab DAILYWM KIRK Administration Ondansetron HCl 4 mg 07/13/19 20:44 07/15/19 07:56 Zofran Inj IVP 4 mg BID PRN Administration Nausea / Vomiting Oxycodone HCl 5 mg 07/12/19 07:24 07/19/19 15:36 Roxicodone PO 5 mg Q4HR PRN Administration Pain 5 to 7 Polyethylene Glycol 17 gm 07/14/19 09:00 07/19/19 09:24 Miralax PO 17 gm DAILY KIRK Administration Propranolol HCl 10 mg 07/17/19 21:00 07/19/19 09:24 Inderal PO 10 mg BID KIRK Administration Senna 8.6 mg 07/17/19 09:00 07/19/19 09:23 Senokot PO 8.6 mg DAILY KIRK Administration Sodium Chloride 10 ml 07/12/19 07:24 07/19/19 04:43 Normal Saline Flush 0.9% IVP 10 ml PRN PRN Administration NEEDED PER PROVIDER ORDERS Sodium Chloride 10 ml 07/12/19 09:00 07/19/19 15:36 Normal Saline Flush 0.9% IVP 10 ml 0100,0900,1700 KIRK Administration Spironolactone 25 mg 07/17/19 17:00 07/19/19 09:24 Aldactone PO 25 mg BIDWM KIRK Administration - Lab Result Fish Bone Diagrams: 07/19/19 04:50 07/19/19 04:50 Subjective - Subjective Patient Reports: Resting Comfortably Objective Vital Signs: Vital Signs - 24 hr 07/18/19 07/18/19 07/18/19 16:38 21:08 23:33 Temperature 37.6 C H Heart Rate [ 79 80 79 Brachial] Respiratory 18 Rate Blood Pressure 103/45 L 104/58 L 96/48 L [Right Brachial artery] O2 Saturation 93 07/19/19 07/19/19 07/19/19 08:00 09:25 11:46 Temperature 37 C Heart Rate [ 81 87 87 Brachial] Respiratory 20 Rate Blood Pressure 99/45 L 104/52 L 98/51 L [Right Brachial artery] O2 Saturation 93 Oxygen O2 Source Room air I&O (Last 24 Hrs): Intake and Output Totals x24h 07/17/19 07/18/19 07/19/19 23:59 23:59 23:59 Intake Total 1453 2380 680 Output Total 300 1090 150 Balance 1153 1290 530 General: Alert, Oriented x3 HEENT: Mucous membr. moist/pink, Other (Hoarse voice) Neck: Supple, No JVD Neuro: Alert, Non Focal Cardiovascular: Regular rate Respiratory: No respiratory distress Abdomen: Soft Extremities: Other (Wound of L medial thigh) - Results Results: Laboratory Results WBC 9.5 x10^3/uL (4.8-10.8) 07/19/19 04:50 RBC 2.32 10^6/uL (4.20-5.40) L 07/19/19 04:50 Hgb 7.9 g/dL (12.0-16.0) L 07/19/19 04:50 Hct 23.9 % (37.0-47.0) L 07/19/19 04:50 MCV 103.0 fL (81.0-99.0) H 07/19/19 04:50 MCH 34.1 pg (27.0-31.0) H 07/19/19 04:50 MCHC 33.1 g/dL (32.0-36.0) 07/19/19 04:50 RDW 17.0 % (12.0-15.0) H 07/19/19 04:50 Plt Count 174 10^3/uL (130-450) 07/19/19 04:50 MPV 10.6 fL (7.9-10.8) 07/19/19 04:50 Neut # (Auto) Not Reportable 07/19/19 04:50 Lymph # (Auto) Not Reportable 07/19/19 04:50 [place] # (Auto) Not Reportable 07/19/19 04:50 Eos # (Auto) Not Reportable 07/19/19 04:50 Baso # (Auto) Not Reportable 07/19/19 04:50 Absolute Nucleated RBC Not Reportable 07/19/19 04:50 Total Counted 100 07/19/19 04:50 Band Neuts % (Manual) 2 % (0-10) 07/19/19 04:50 Abnorm Lymph % (Manual) 0 % 07/19/19 04:50 Nucleated RBC % Not Reportable 07/19/19 04:50 Neutrophils # (Manual) 7.8 10^3/uL (1.5-6.6) H 07/19/19 04:50 Lymphocytes # (Manual) 1.2 10^3/uL (1.5-3.5) L 07/19/19 04:50 Monocytes # (Manual) 0.5 10^3/uL (0.0-1.0) 07/19/19 04:50 Eosinophils # (Manual) 0.0 10^3/uL (0-0.7) 07/19/19 04:50 Basophils # (Manual) 0.0 10^3/uL (0-0.1) 07/19/19 04:50 Differential Comment MANUAL DIFFERENTIAL 07/19/19 04:50 WBC Morphology NORMAL APPEARANCE (NORMAL) 07/18/19 05:59 Platelet Estimate NORMAL (130-450,000) (NORMAL) 07/19/19 04:50 Platelet Morphology NORMAL APPEARANCE (NORMAL) 07/18/19 05:59 RBC Morph Micro Appear 2+ POLYCHROMASIA (NORMAL) 1+ ANISOCYTOSIS (NORMAL) 07/18/19 05:59 RBC Morph Micro Appear 1+ MACROCYTOSIS (NORMAL) 1+ HYPOCHROMASIA (NORMAL) 1+ POLYCHROMASIA (NORMAL) 1+ TARGET CELLS (NORMAL) 07/19/19 04:50 RBC Morph Micro Appear 1+ MACROCYTOSIS (NORMAL) 1+ HYPOCHROMASIA (NORMAL) 1+ POLYCHROMASIA (NORMAL) 1+ TARGET CELLS (NORMAL) 07/19/19 04:50 RBC Morph Micro Appear 1+ MACROCYTOSIS (NORMAL) 1+ HYPOCHROMASIA (NORMAL) 1+ POLYCHROMASIA (NORMAL) 1+ TARGET CELLS (NORMAL) 07/19/19 04:50 RBC Morph Micro Appear 1+ MACROCYTOSIS (NORMAL) 1+ HYPOCHROMASIA (NORMAL) 1+ POLYCHROMASIA (NORMAL) 1+ TARGET CELLS (NORMAL) 07/19/19 04:50 PT 16.1 secs (9.9-12.6) H 07/19/19 04:50 INR 1.4 (0.8-1.2) H 07/19/19 04:50 APTT 29.8 secs (24.9-33.3) 07/16/19 16:08 Sodium 129 mmol/L (135-145) L 07/19/19 04:50 Potassium 3.9 mmol/L (3.5-5.0) 07/19/19 04:50 Chloride 98 mmol/L (101-111) L 07/19/19 04:50 Carbon Dioxide 24 mmol/L (21-32) 07/19/19 04:50 Anion Gap 7.0 (6-13) 07/19/19 04:50 BUN 25 mg/dL (6-20) H 07/19/19 04:50 Creatinine 0.7 mg/dL (0.4-1.0) 07/19/19 04:50 Estimated GFR (MDRD) 85 (>89) L 07/19/19 04:50 Glucose 121 mg/dL (70-100) H 07/19/19 04:50 Glycated Hemoglobin 4.7 % (4.6-6.2) 07/13/19 05:20 Estim Average Glucose 88 (70-100) 07/13/19 05:20 Lactic Acid 1.0 mmol/L (0.5-2.2) 07/18/19 05:59 Calcium 8.0 mg/dL (8.5-10.3) L 07/19/19 04:50 Phosphorus 3.1 mg/dL (2.5-4.6) 07/19/19 04:50 Magnesium 1.9 mg/dL (1.7-2.8) 07/19/19 04:50 Total Bilirubin 6.1 mg/dL (0.2-1.0) H 07/19/19 04:50 Direct Bilirubin 1.5 mg/dL (0.1-0.5) H 07/16/19 16:08 Indirect Bilirubin 2.1 mg/dL 07/16/19 16:08 GGT 63 IU/L (8-38) H 07/19/19 04:50 AST 64 IU/L (10-42) H 07/19/19 04:50 ALT 40 IU/L (10-60) 07/19/19 04:50 Alkaline Phosphatase 74 IU/L (42-121) 07/19/19 04:50 Ammonia 54.7 umol/L (7-35) H 07/19/19 04:50 Total Creatine Kinase 139 IU/L (22-269) 07/12/19 01:30 C-Reactive Protein 1.1 mg/dL (0-1.0) H 07/15/19 05:18 Total Protein 5.5 g/dL (6.7-8.2) L 07/19/19 04:50 Albumin 2.6 g/dL (3.2-5.5) L 07/19/19 04:50 Globulin 2.9 g/dL (2.1-4.2) 07/19/19 04:50 Albumin/Globulin Ratio 0.9 (1.0-2.2) L 07/19/19 04:50 Lipase 49 U/L (22-51) 07/15/19 05:18 Vitamin B12 760 pg/mL (180-914) 07/18/19 05:59 Folate 12.69 ng/mL (5.90 - >24.8) 07/18/19 05:59 TSH 1.95 uIU/mL (0.34-5.60) 07/16/19 16:08 Urine Color YELLOW 07/12/19 03:42 Urine Clarity CLEAR (CLEAR) 07/12/19 03:42 Urine pH 5.5 PH (5.0-7.5) 07/12/19 03:42 Ur Specific [place] >=1.030 (1.002-1.030) H 07/12/19 03:42 Urine Protein NEGATIVE mg/dL (NEGATIVE) 07/12/19 03:42 Urine Glucose (UA) NEGATIVE mg/dL (NEGATIVE) 07/12/19 03:42 Urine Ketones TRACE mg/dL (NEGATIVE) 07/12/19 03:42 Urine Occult Blood LARGE (NEGATIVE) H 07/12/19 03:42 Urine Nitrite NEGATIVE (NEGATIVE) 07/12/19 03:42 Urine Bilirubin NEGATIVE (NEGATIVE) 07/12/19 03:42 Urine Urobilinogen 0.2 (NORMAL) E.U./dL (NORMAL) 07/12/19 03:42 Ur Leukocyte Esterase NEGATIVE (NEGATIVE) 07/12/19 03:42 Urine RBC 11-25 /HPF (0-5) H 07/12/19 03:42 Urine WBC 0-3 /HPF (0-5) 07/12/19 03:42 Ur Squamous Epith Cells FEW Squamous (<= Few) 07/12/19 03:42 Urine Bacteria Few /HPF (None Seen) 07/12/19 03:42 Urine Casts 0-2 Fine Granular /LPF 07/12/19 03:42 Urine Mucus Moderate Strands 07/12/19 03:42 Ur Microscopic Review INDICATED 07/12/19 03:42 Urine Culture Comments NOT INDICATED 07/12/19 03:42 Urine Opiates Screen POSITIVE (NEGATIVE) H 07/12/19 03:42 Ur Oxycodone Screen NEGATIVE (NEGATIVE) 07/12/19 03:42 Urine Methadone Screen NEGATIVE (NEGATIVE) 07/12/19 03:42 Ur Propoxyphene Screen NEGATIVE (NEGATIVE) 07/12/19 03:42 Ur Barbiturates Screen NEGATIVE (NEGATIVE) 07/12/19 03:42 Ur Tricyclics Screen NEGATIVE (NEGATIVE) 07/12/19 03:42 Ur Phencyclidine Scrn NEGATIVE (NEGATIVE) 07/12/19 03:42 Ur Amphetamine Screen NEGATIVE (NEGATIVE) 07/12/19 03:42 U Methamphetamines Scrn NEGATIVE (NEGATIVE) 07/12/19 03:42 U Benzodiazepines Scrn NEGATIVE (NEGATIVE) 07/12/19 03:42 Urine Cocaine Screen NEGATIVE (NEGATIVE) 07/12/19 03:42 U Cannabinoids Screen NEGATIVE (NEGATIVE) 07/12/19 03:42 Ethyl Alcohol 186.5 mg/dL 07/12/19 01:30 Blood Type O POSITIVE 07/15/19 05:18 Blood Type Recheck O POSITIVE 07/12/19 01:10 Antibody Screen NEGATIVE 07/15/19 05:18 Crossmatch IS Only See Detail 07/15/19 05:18 - Procedures Procedures: Procedures EXCISION OF SIGMOID COLON, ENDO, DIAGN (07/14/17) INSPECTION OF UPPER INTESTINAL TRACT, ENDO (03/23/18)
[2019-07-19] MEDS ORDERED: LIDOCAINE-MPF 2% 5 ML VIAL IM ONE (16:37)
[2019-07-19] MEDS ORDERED: fentaNYL 100 MCG/2 ML VIAL IVP ONE (16:37)
[2019-07-19] MEDS ORDERED: MIDAZOLAM 2 MG/2 ML VIAL IVP ONE (16:37)
[2019-07-19] MEDS ORDERED: SODIUM CHLORIDE 0.9% 1,000 ML IV ONE (16:37)
[2019-07-19] MEDS ORDERED: PROPOFOL 200 MG/20 ML VIAL IVP ONE (16:37)
[2019-07-19] MEDS ORDERED: KETAMINE 500 MG/10 ML VIAL IVP ONE (16:37)
--- NOTE | 2019-07-19 17:56 | OPERATIVE REPORT ---
Operative Report - General Admit Date: 07/12/19 Procedure Date: 07/19/19 Pre-Op Diagnosis: S/P Left Thigh Fasciotomy Procedure Performed: Intermediate Closure of Left Thigh Wound; 18cm in length Post Op Diagnosis: same - Procedure Note Primary Surgeon: Karan Mercado MD Anesthesia Provider: Cristina Combs CRNA Anesthesia Technique: MAC Estimated Blood Loss (mL): 5 Drain/Tube Type: Other (Provena Incisional Wound VAC) Indications: 64yo F s/p left thigh fasciotomy and hematoma evacuation after presentation with compartment syndrome last week. She has been undergoing wound care and monitoring and is now ready for closure of her wound. Informed consent reviewed and signed by patient. Findings: Improved swelling of muscle and underlying tissues; all tissue viable. Able to close skin without tension. Complications: none - Other Other Information/Narrative: Patient is taken to the OR suite and placed in supine position. She is induced to an acceptable level of anesthesia. Her left leg is prepped and draped in sterile fashion. A timeout is performed with the team present. Attention is then turned to the open wound of her left thigh. The area is thoroughly irrigated. All tissue is viable and swelling is improved. Hemostasis is ensured; her coagulopathy induced minor oozing which is controlled with electrocautery. Subcutaneous flaps are raised. The wound is closed in two layers: the dermis with interrupted 2-0 Vicryl and the skin with a running 2-0 Prolene. This came together with no undue tension. The area is irrigated and dried and an incisional VAC wound system is placed as dressing. Patient tolerated the procedure well and was taken to the PACU hemodynamically stable.
[2019-07-19] MEDS: fentaNYL 100 MCG/2 ML VIAL ONE ×2 (17:57→18:04)
[2019-07-20] MEDS ORDERED: IBUPROFEN 400 MG TABLET PO STA (00:11)
[2019-07-20] MEDS: oxyCODONE 5 MG TABLET PO PRN ×5 (03:50→20:54)
[2019-07-20] MEDS: HYDROmorphone 0.5 MG/0.5 ML SYRINGE IVP PRN ×4 (03:51→22:08)
[2019-07-20] MEDS: SODIUM CHLORIDE FLUSH 0.9% 10 ML SYRINGE IVP PRN ×4 (03:52→22:08)
[2019-07-20] MEDS: SODIUM CHLORIDE FLUSH 0.9% 10 ML SYRINGE IVP SCH ×3 (04:11→09:10)
[2019-07-20 04:57] LABS: BASOPHILS % (AUTO) 0.4 %; EOSINOPHILS % (AUTO) 1.8 %; HGB - HEMOGLOBIN 7.7 g/dL (12.0-16.0); LYMPHOCYTES % (AUTO) 12.1 %; MEAN CORPUSCULAR HEMOGLOBIN 32.9 pg (27.0-31.0); MEAN CORPUSCULAR HGB CONC 32.5 g/dL (32.0-36.0); MEAN CORPUSCULAR VOLUME 101.3 fL (81.0-99.0); MEAN PLATELET VOLUME 10.4 fL (7.9-10.8); MONOCYTES % (AUTO) 19.9 %; PLT - PLATELET COUNT 174 10^3/uL (130-450); RED BLOOD COUNT 2.34 10^6/uL (4.20-5.40); RED CELL DISTRIBUTION WIDTH 16.7 % (12.0-15.0); WHITE BLOOD COUNT 9.6 x10^3/uL (4.8-10.8)
[2019-07-20 05:00] LABS: INR 1.5 (0.8-1.2); PT - PROTHROMBIN TIME 16.6 secs (9.9-12.6)
[2019-07-20 05:03] LABS: ABNORMAL LYMPHS % (MANUAL) 0 %
[2019-07-20 05:07] LABS: ALBUMIN 2.6 g/dL (3.2-5.5); ALBUMIN/GLOBULIN RATIO 0.9 (1.0-2.2); BILIRUBIN,TOTAL 6.7 mg/dL (0.2-1.0); CALCIUM 8.2 mg/dL (8.5-10.3); CREATININE 0.6 mg/dL (0.4-1.0); TOTAL PROTEIN 5.4 g/dL (6.7-8.2)
[2019-07-20 05:37] LABS: BAND NEUTROPHILS % (MANUAL) 2 %; EOSINOPHILS # (MANUAL) 0.5 10^3/uL (0-0.7); LYMPHOCYTES # (MANUAL) 1.1 10^3/uL (1.5-3.5); LYMPHOCYTES % (MANUAL) 11 %; METAMYELOCYTES % (MANUAL) 3 %; MONOCYTES # (MANUAL) 0.5 10^3/uL (0.0-1.0); MYELOCYTES % (MANUAL) 2 %
[2019-07-20 05:39] LABS: DIFFERENTIAL COMMENT MANUAL DIFFERENTIAL; PLATELET ESTIMATE, MANUAL NORMAL (130-450,000) (NORMAL)
[2019-07-20] MEDS: DOCUSATE SODIUM 250 MG CAPSULE PO SCH ×3 (08:25→20:54)
[2019-07-20] MEDS: MIDODRINE 2.5 MG TABLET PO SCH ×3 (08:25→16:32)
[2019-07-20] MEDS: PROPRANOLOL 10 MG TABLET PO SCH ×2 (08:26→20:54)
[2019-07-20] MEDS: LACTULOSE 10 GM /15 ML UDC PO SCH ×3 (08:26→16:30)
[2019-07-20] MEDS: MULTIVITAMIN W/MINERALS TABLET PO SCH (08:26)
[2019-07-20] MEDS: SPIRONOLACTONE 25 MG TABLET PO SCH ×2 (08:26→16:31)
[2019-07-20] MEDS: SENNA 8.6 MG TABLET PO SCH (08:27)
[2019-07-20] MEDS: polyethylene glycoL 3350 17 GM PACKET PO SCH (08:27)
[2019-07-20] MEDS: FLUTICASONE NASAL SPRAY NAS SCH (08:28)
[2019-07-20 12:30] LABS: GLUCOSE, URINE (UA) NEGATIVE (NEGATIVE); KETONES,URINE (UA) NEGATIVE (NEGATIVE); LEUKOCYTE ESTERASE, URINE NEGATIVE (NEGATIVE); NITRITE,URINE NEGATIVE (NEGATIVE); OCCULT BLOOD,URINE NEGATIVE (NEGATIVE); PROTEIN,URINE NEGATIVE (NEGATIVE); UROBILINOGEN,URINE 2 E.U./dL (NORMAL)
--- NOTE | 2019-07-20 12:31 | PROVIDER PROGRESS NOTE ---
Subjective - General Admit Date: 07/12/19 Procedure Date: 07/19/19 Post Op Days: 1 Procedure Performed: s/p L medial thigh fasciotomy and hematoma evacuation - Review of Systems Drain Type: Provena incisional VAC All Other Systems: positive: Reviewed and negative - Other Other Information/Narrative: Doing well, still c/o pain but leg soft and VAC intact Objective - Patient Data Vital Signs: Vital Signs x48h Temp Pulse Resp BP Pulse Ox 07/20/19 08:00 37.4 C 89 18 112/46 L 99 07/20/19 05:13 102/49 L 07/20/19 05:00 38.2 C H 88 16 92/48 L 90 L Intake & Output: Intake and Output Totals x24h 07/18/19 07/19/19 07/20/19 23:59 23:59 23:59 Intake Total 2380 1220 690 Output Total 1090 275 100 Balance 1290 945 590 - Lab Results Lab Results: 07/20/19 04:45 07/20/19 04:45 Other Lab Results: Lab Results x24hrs 07/20/19 07/20/19 07/20/19 Range/Units 04:45 04:45 04:45 WBC 9.6 (4.8-10.8) x10^3/uL RBC 2.34 L (4.20-5.40) 10^6/uL Hgb 7.7 L (12.0-16.0) g/dL Hct 23.7 L (37.0-47.0) % MCV 101.3 H (81.0-99.0) fL MCH 32.9 H (27.0-31.0) pg MCHC 32.5 (32.0-36.0) g/dL RDW 16.7 H (12.0-15.0) % Plt Count 174 (130-450) 10^3/uL MPV 10.4 (7.9-10.8) fL Neut # (Auto) Not Reportable Lymph # (Auto) Not Reportable [place] # (Auto) Not Reportable Eos # (Auto) Not Reportable Baso # (Auto) Not Reportable Absolute Nucleated RBC Not Reportable Total Counted 100 Band Neuts % (Manual) 2 (0 - 10) % Abnorm Lymph % (Manual) 0 % Metamyelocytes % 3 H ( - 0) % Myelocytes % 2 H ( - 0) % Nucleated RBC % Not Reportable Neutrophils # (Manual) 7.1 H (1.5-6.6) 10^3/uL Lymphocytes # (Manual) 1.1 L (1.5-3.5) 10^3/uL Monocytes # (Manual) 0.5 (0.0-1.0) 10^3/uL Eosinophils # (Manual) 0.5 (0-0.7) 10^3/uL Basophils # (Manual) 0.0 (0-0.1) 10^3/uL Differential Comment MANUAL DIFFERENTIAL Platelet Estimate NORMAL (130-450,000) (NORMAL) RBC Morph Micro Appear 1+ POLYCHROMASIA (NORMAL) PT 16.6 H (9.9-12.6) secs INR 1.5 H (0.8-1.2) Sodium 129 L (135-145) mmol/L Potassium 4.3 (3.5-5.0) mmol/L Chloride 96 L (101-111) mmol/L Carbon Dioxide 23 (21-32) mmol/L Anion Gap 10.0 (6-13) BUN 23 H (6-20) mg/dL Creatinine 0.6 (0.4-1.0) mg/dL Estimated GFR (MDRD) 101 (>89) Glucose 130 H (70-100) mg/dL Calcium 8.2 L (8.5-10.3) mg/dL Total Bilirubin 6.7 H (0.2-1.0) mg/dL AST 69 H (10-42) IU/L ALT 42 (10-60) IU/L Alkaline Phosphatase 69 (42-121) IU/L Total Protein 5.4 L (6.7-8.2) g/dL Albumin 2.6 L (3.2-5.5) g/dL Globulin 2.8 (2.1-4.2) g/dL Albumin/Globulin Ratio 0.9 L (1.0-2.2) - Current Medications Current Medications: Current Medications Generic Name Dose Route Start Last Admin Trade Name Freq PRN Reason Stop Dose Admin Docusate Sodium 250 - 500 mg 07/16/19 22:00 07/20/19 08:25 Colace 250mg Capsule PO 500 mg BID KIRK Administration Fluticasone Propionate 2 sprays 07/13/19 09:00 07/20/19 08:28 Flonase YVETTE 2 sprays DAILY KIRK Administration Hydromorphone HCl 0.5 mg 07/12/19 08:50 07/20/19 11:37 Dilaudid Inj Syringe IVP 0.5 mg Q2HR PRN Administration PAIN 8-10 Hydromorphone HCl 1 mg 07/17/19 17:38 07/19/19 09:41 Dilaudid Inj Carp IVP 1 mg TID PRN Administration PAIN Lactulose 10 gm 07/16/19 18:00 07/20/19 08:26 Enulose PO 10 gm TIDWM KIRK Administration Midodrine 2.5 mg 07/17/19 17:00 07/20/19 08:25 PO 2.5 mg TIDWM KIRK Administration Multivitamins/Minerals 1 tab 07/14/19 09:00 07/20/19 08:26 Theragran M PO 1 tab DAILYWM KIRK Administration Ondansetron HCl 4 mg 07/13/19 20:44 07/15/19 07:56 Zofran Inj IVP 4 mg BID PRN Administration Nausea / Vomiting Oxycodone HCl 5 mg 07/12/19 07:24 07/20/19 08:25 Roxicodone PO 5 mg Q4HR PRN Administration Pain 5 to 7 Polyethylene Glycol 17 gm 07/14/19 09:00 07/20/19 08:27 Miralax PO 17 gm DAILY KIRK Administration Propranolol HCl 10 mg 07/17/19 21:00 07/20/19 08:26 Inderal PO 10 mg BID KIRK Administration Senna 8.6 mg 07/17/19 09:00 07/20/19 08:27 Senokot PO 8.6 mg DAILY KIRK Administration Sodium Chloride 10 ml 07/12/19 07:24 07/20/19 09:15 Normal Saline Flush 0.9% IVP 20 ml PRN PRN Administration NEEDED PER PROVIDER ORDERS Sodium Chloride 10 ml 07/12/19 09:00 07/20/19 09:10 Normal Saline Flush 0.9% IVP 20 ml 0100,0900,1700 KIRK Administration Spironolactone 25 mg 07/17/19 17:00 07/20/19 08:26 Aldactone PO 25 mg BIDWM KIRK Administration - Physical Exam Comments/Other: AAO, NAD EOMI, MMM, no scleral icterus unlabored RA soft, nt/nd L thigh dressed with inc VAC, good seal; skin otherwise clean and dry and compartments soft Impression/Plan - Problem List Problem List: L thigh hematoma with compartment syndrome s/p evacuation and fasciotomy. - closed yesterday in OR, incisional VAC in place - PT/OT for mobility - likely needs swing bed/ rehab - SCDs only; chemoprophylaxis contraindicated DVT - hematology appointment yesterday, will FU report when available - non-occlusive, unknown to pt Cirrhosis - appreciate medicine assistance - coagulopathy likely 2/2 this - monitor closely; needs outpt FU
[2019-07-20 12:34] LABS: CLARITY,URINE CLEAR (CLEAR)
[2019-07-20 12:35] LABS: BILIRUBIN,URINE MODERATE (NEGATIVE); ICTOTEST,URINE POSITIVE
[2019-07-20 12:40] LABS: BACTERIA,URINE Rare /HPF (None Seen); RBC,URINE 0-5 /HPF (0-5); SQUAMOUS EPITHELIAL CELL,UR MANY Squamous (<= Few)
--- NOTE | 2019-07-20 13:03 | XRAY Report ---
Reason: Post-op fever, eval for infiltrate Procedure Date: 07/20/2019 Accession Number: [id number] / [id number] Procedure: XR - Chest 1 View X-Ray CPT Code: 47232 Final Report FULL RESULT: EXAM: CHEST RADIOGRAPHY EXAM DATE: 07/20/2019 11:32 AM. CLINICAL HISTORY: Post-op fever, eval for infiltrate. COMPARISON: CHEST 1 VIEW 07/15/2019 8:38 AM. TECHNIQUE: 1 view. FINDINGS: Heart size is normal. Calcified plaque in the aortic arch. No consolidation, pleural effusion, or pneumothorax. Levoconvex curvature of the upper thoracic spine. IMPRESSION: No acute cardiopulmonary findings. RADIA
--- NOTE | 2019-07-20 16:10 | PROVIDER PROGRESS NOTE ---
Assessment/Plan - Problem List (1) Fever Assessment/Plan: She spiked a fever overnight Will cx blood and urine and check a CXR for infiltrate. A murmur is present but Echo already done this admission showed no vegetations (2) Hyperbilirubinemia Assessment/Plan: The bili has been increasing especially the last 3 days. The transaminases and AST are stable. The abdomen is nontender. Will obtain a direct bili I suspect this is worsening of her cirrhosis from drugs affecting her liver. She may need repeat abdominal imaging Continue Lactulose Follow Ammonia daily. (3) Liver cirrhosis Assessment/Plan: Per Hx this was due to alcohol, Hep C and Hep B. Her transaminases have been stable, INR remains mildly elevated daily, but bili is rising. (4) Compartment syndrome of left lower extremity Assessment/Plan: She is POD #1 of surgical closure with drain left in. (5) Bleeding tendency Assessment/Plan: The Ophthalmic Tech saw her yesterday afternoon, but did not leave a Note. Today I have received a copy of the blood results he wants: will order Factors II, V, VII, XIII activity level, Factor VIII, vonWillkibrand factor, [id number] plt test (6) Anemia Assessment/Plan: Hgb stable at 7-7.5 Follow CBC daily (7) Chronic deep vein thrombosis (DVT) of left femoral vein Assessment/Plan: As per Hx (8) Alcohol use Assessment/Plan: As per Hx - Current Meds Current Meds: Current Medications Generic Name Dose Route Start Last Admin Trade Name Freq PRN Reason Stop Dose Admin Docusate Sodium 250 - 500 mg 07/16/19 22:00 07/20/19 08:25 Colace 250mg Capsule PO 500 mg BID KIRK Administration Fluticasone Propionate 2 sprays 07/13/19 09:00 07/20/19 08:28 Flonase YVETTE 2 sprays DAILY KIRK Administration Hydromorphone HCl 0.5 mg 07/12/19 08:50 07/20/19 11:37 Dilaudid Inj Syringe IVP 0.5 mg Q2HR PRN Administration PAIN 8-10 Hydromorphone HCl 1 mg 07/17/19 17:38 07/19/19 09:41 Dilaudid Inj Carp IVP 1 mg TID PRN Administration PAIN Lactulose 10 gm 07/16/19 18:00 07/20/19 12:11 Enulose PO 10 gm TIDWM KIRK Administration Midodrine 2.5 mg 07/17/19 17:00 07/20/19 12:12 PO 2.5 mg TIDWM KIRK Administration Multivitamins/Minerals 1 tab 07/14/19 09:00 07/20/19 08:26 Theragran M PO 1 tab DAILYWM KIRK Administration Ondansetron HCl 4 mg 07/13/19 20:44 07/15/19 07:56 Zofran Inj IVP 4 mg BID PRN Administration Nausea / Vomiting Oxycodone HCl 5 mg 07/12/19 07:24 07/20/19 12:11 Roxicodone PO 5 mg Q4HR PRN Administration Pain 5 to 7 Polyethylene Glycol 17 gm 07/14/19 09:00 07/20/19 08:27 Miralax PO 17 gm DAILY KIRK Administration Propranolol HCl 10 mg 07/17/19 21:00 07/20/19 08:26 Inderal PO 10 mg BID KIRK Administration Sodium Chloride 10 ml 07/12/19 07:24 07/20/19 09:15 Normal Saline Flush 0.9% IVP 20 ml PRN PRN Administration NEEDED PER PROVIDER ORDERS Sodium Chloride 10 ml 07/12/19 09:00 07/20/19 09:10 Normal Saline Flush 0.9% IVP 20 ml 0100,0900,1700 KIRK Administration Spironolactone 25 mg 07/17/19 17:00 07/20/19 08:26 Aldactone PO 25 mg BIDWM KIRK Administration - Lab Result Fish Bone Diagrams: 07/20/19 04:45 07/20/19 04:45 - Additional Planning My Orders: My Active Orders 07/20/19 Evaluate and Treat PT [PT] Routine 07/20/19 06:00 AMMONIA [CHEM] Urgent BILIRUBIN,DIRECT [CHEM] Urgent 07/20/19 21:00 Senna [Senokot] 8.6 mg PO BID Subjective - Subjective Patient Reports: Resting Comfortably Objective Vital Signs: Vital Signs - 24 hr 07/19/19 07/19/19 07/19/19 17:50 17:55 18:00 Temperature 37.2 C 37.2 C Heart Rate 78 78 75 Heart Rate [ Brachial] Heart Rate [ Radial] Respiratory 15 19 14 Rate Blood Pressure 101/53 L 104/66 107/61 Blood Pressure [Right Brachial artery] O2 Saturation 97 98 98 07/19/19 07/19/19 07/19/19 18:05 18:10 18:15 Temperature 36.8 C 37.6 C H 37.1 C Heart Rate 74 73 Heart Rate [ 71 Brachial] Heart Rate [ Radial] Respiratory 15 16 16 Rate Blood Pressure 108/62 102/60 Blood Pressure 100/56 L [Right Brachial artery] O2 Saturation 98 96 90 L 07/19/19 07/19/19 07/19/19 19:11 20:14 21:14 Temperature 37.1 C 37.5 C Heart Rate Heart Rate [ 87 97 Brachial] Heart Rate [ 80 Radial] Respiratory 18 16 16 Rate Blood Pressure Blood Pressure 102/45 L 117/80 115/52 L [Right Brachial artery] O2 Saturation 97 96 07/19/19 07/19/19 07/19/19 21:15 23:35 23:58 Temperature 37.3 C 38.2 C H 39.2 C H Heart Rate Heart Rate [ 94 93 Brachial] Heart Rate [ Radial] Respiratory 16 18 Rate Blood Pressure Blood Pressure 102/57 L [Right Brachial artery] O2 Saturation 91 L 95 07/20/19 07/20/19 07/20/19 00:49 02:00 05:00 Temperature 38.3 C H 37.8 C H 38.2 C H Heart Rate Heart Rate [ 92 88 Brachial] Heart Rate [ Radial] Respiratory 18 16 Rate Blood Pressure Blood Pressure 92/48 L [Right Brachial artery] O2 Saturation 90 L 07/20/19 07/20/19 05:13 08:00 Temperature 37.4 C Heart Rate Heart Rate [ 89 Brachial] Heart Rate [ Radial] Respiratory 18 Rate Blood Pressure Blood Pressure 102/49 L 112/46 L [Right Brachial artery] O2 Saturation 99 Oxygen O2 Source Room air I&O (Last 24 Hrs): Intake and Output Totals x24h 07/18/19 07/19/19 07/20/19 23:59 23:59 23:59 Intake Total 2380 1220 930 Output Total 1090 275 100 Balance 1290 945 830 General: Other (Lethargic) HEENT: Mucous membr. moist/pink Neck: Supple Neuro: Other (Lethargic) Cardiovascular: Regular rate, Other (3/6 murmur) Respiratory: No respiratory distress, Breath sounds nml Abdomen: Soft Extremities: No edema, Other (Drain L thigh wound) - Results Results: Laboratory Results WBC 9.6 x10^3/uL (4.8-10.8) 07/20/19 04:45 RBC 2.34 10^6/uL (4.20-5.40) L 07/20/19 04:45 Hgb 7.7 g/dL (12.0-16.0) L 07/20/19 04:45 Hct 23.7 % (37.0-47.0) L 07/20/19 04:45 MCV 101.3 fL (81.0-99.0) H 07/20/19 04:45 MCH 32.9 pg (27.0-31.0) H 07/20/19 04:45 MCHC 32.5 g/dL (32.0-36.0) 07/20/19 04:45 RDW 16.7 % (12.0-15.0) H 07/20/19 04:45 Plt Count 174 10^3/uL (130-450) 07/20/19 04:45 MPV 10.4 fL (7.9-10.8) 07/20/19 04:45 Neut # (Auto) Not Reportable 07/20/19 04:45 Lymph # (Auto) Not Reportable 07/20/19 04:45 [place] # (Auto) Not Reportable 07/20/19 04:45 Eos # (Auto) Not Reportable 07/20/19 04:45 Baso # (Auto) Not Reportable 07/20/19 04:45 Absolute Nucleated RBC Not Reportable 07/20/19 04:45 Total Counted 100 07/20/19 04:45 Band Neuts % (Manual) 2 % (0-10) 07/20/19 04:45 Abnorm Lymph % (Manual) 0 % 07/20/19 04:45 Metamyelocytes % 3 % (-0) H 07/20/19 04:45 Myelocytes % 2 % (-0) H 07/20/19 04:45 Nucleated RBC % Not Reportable 07/20/19 04:45 Neutrophils # (Manual) 7.1 10^3/uL (1.5-6.6) H 07/20/19 04:45 Lymphocytes # (Manual) 1.1 10^3/uL (1.5-3.5) L 07/20/19 04:45 Monocytes # (Manual) 0.5 10^3/uL (0.0-1.0) 07/20/19 04:45 Eosinophils # (Manual) 0.5 10^3/uL (0-0.7) 07/20/19 04:45 Basophils # (Manual) 0.0 10^3/uL (0-0.1) 07/20/19 04:45 Differential Comment MANUAL DIFFERENTIAL 07/20/19 04:45 WBC Morphology NORMAL APPEARANCE (NORMAL) 07/18/19 05:59 Platelet Estimate NORMAL (130-450,000) (NORMAL) 07/20/19 04:45 Platelet Morphology NORMAL APPEARANCE (NORMAL) 07/18/19 05:59 RBC Morph Micro Appear 1+ MACROCYTOSIS (NORMAL) 1+ HYPOCHROMASIA (NORMAL) 1+ POLYCHROMASIA (NORMAL) 1+ TARGET CELLS (NORMAL) 07/19/19 04:50 RBC Morph Micro Appear 1+ MACROCYTOSIS (NORMAL) 1+ HYPOCHROMASIA (NORMAL) 1+ POLYCHROMASIA (NORMAL) 1+ TARGET CELLS (NORMAL) 07/19/19 04:50 RBC Morph Micro Appear 1+ MACROCYTOSIS (NORMAL) 1+ HYPOCHROMASIA (NORMAL) 1+ POLYCHROMASIA (NORMAL) 1+ TARGET CELLS (NORMAL) 07/19/19 04:50 RBC Morph Micro Appear 1+ MACROCYTOSIS (NORMAL) 1+ HYPOCHROMASIA (NORMAL) 1+ POLYCHROMASIA (NORMAL) 1+ TARGET CELLS (NORMAL) 07/19/19 04:50 RBC Morph Micro Appear 1+ MACROCYTOSIS (NORMAL) 1+ HYPOCHROMASIA (NORMAL) 1+ POLYCHROMASIA (NORMAL) 07/20/19 04:45 RBC Morph Micro Appear 1+ MACROCYTOSIS (NORMAL) 1+ HYPOCHROMASIA (NORMAL) 1+ POLYCHROMASIA (NORMAL) 07/20/19 04:45 RBC Morph Micro Appear 1+ MACROCYTOSIS (NORMAL) 1+ HYPOCHROMASIA (NORMAL) 1+ POLYCHROMASIA (NORMAL) 07/20/19 04:45 PT 16.6 secs (9.9-12.6) H 07/20/19 04:45 INR 1.5 (0.8-1.2) H 07/20/19 04:45 APTT 29.8 secs (24.9-33.3) 07/16/19 16:08 Sodium 129 mmol/L (135-145) L 07/20/19 04:45 Potassium 4.3 mmol/L (3.5-5.0) 07/20/19 04:45 Chloride 96 mmol/L (101-111) L 07/20/19 04:45 Carbon Dioxide 23 mmol/L (21-32) 07/20/19 04:45 Anion Gap 10.0 (6-13) 07/20/19 04:45 BUN 23 mg/dL (6-20) H 07/20/19 04:45 Creatinine 0.6 mg/dL (0.4-1.0) 07/20/19 04:45 Estimated GFR (MDRD) 101 (>89) 07/20/19 04:45 Glucose 130 mg/dL (70-100) H 07/20/19 04:45 Glycated Hemoglobin 4.7 % (4.6-6.2) 07/13/19 05:20 Estim Average Glucose 88 (70-100) 07/13/19 05:20 Lactic Acid 1.0 mmol/L (0.5-2.2) 07/18/19 05:59 Calcium 8.2 mg/dL (8.5-10.3) L 07/20/19 04:45 Phosphorus 3.1 mg/dL (2.5-4.6) 07/19/19 04:50 Magnesium 1.9 mg/dL (1.7-2.8) 07/19/19 04:50 Total Bilirubin 6.7 mg/dL (0.2-1.0) H 07/20/19 04:45 Direct Bilirubin 1.5 mg/dL (0.1-0.5) H 07/16/19 16:08 Indirect Bilirubin 2.1 mg/dL 07/16/19 16:08 GGT 63 IU/L (8-38) H 07/19/19 04:50 AST 69 IU/L (10-42) H 07/20/19 04:45 ALT 42 IU/L (10-60) 07/20/19 04:45 Alkaline Phosphatase 69 IU/L (42-121) 07/20/19 04:45 Ammonia 54.7 umol/L (7-35) H 07/19/19 04:50 Total Creatine Kinase 139 IU/L (22-269) 07/12/19 01:30 C-Reactive Protein 1.1 mg/dL (0-1.0) H 07/15/19 05:18 Total Protein 5.4 g/dL (6.7-8.2) L 07/20/19 04:45 Albumin 2.6 g/dL (3.2-5.5) L 07/20/19 04:45 Globulin 2.8 g/dL (2.1-4.2) 07/20/19 04:45 Albumin/Globulin Ratio 0.9 (1.0-2.2) L 07/20/19 04:45 Lipase 49 U/L (22-51) 07/15/19 05:18 Vitamin B12 760 pg/mL (180-914) 07/18/19 05:59 Folate 12.69 ng/mL (5.90 - >24.8) 07/18/19 05:59 TSH 1.95 uIU/mL (0.34-5.60) 07/16/19 16:08 Urine Color DARK YELLOW 07/20/19 12:20 Urine Clarity CLEAR (CLEAR) 07/20/19 12:20 Urine pH 6.0 PH (5.0-7.5) 07/20/19 12:20 Ur Specific [place] 1.015 (1.002-1.030) 07/20/19 12:20 Urine Protein NEGATIVE mg/dL (NEGATIVE) 07/20/19 12:20 Urine Glucose (UA) NEGATIVE mg/dL (NEGATIVE) 07/20/19 12:20 Urine Ketones NEGATIVE mg/dL (NEGATIVE) 07/20/19 12:20 Urine Occult Blood NEGATIVE (NEGATIVE) 07/20/19 12:20 Urine Nitrite NEGATIVE (NEGATIVE) 07/20/19 12:20 Urine Bilirubin MODERATE (NEGATIVE) H 07/20/19 12:20 Urine Urobilinogen 2 E.U./dL (NORMAL) H 07/20/19 12:20 Ur Leukocyte Esterase NEGATIVE (NEGATIVE) 07/20/19 12:20 Urine RBC 0-5 /HPF (0-5) 07/20/19 12:20 Urine WBC 0-3 /HPF (0-5) 07/20/19 12:20 Ur Squamous Epith Cells MANY Squamous (<= Few) H 07/20/19 12:20 Urine Bacteria Rare /HPF (None Seen) 07/20/19 12:20 Urine Casts 0-2 Fine Granular /LPF 07/12/19 03:42 Urine Mucus Moderate Strands 07/12/19 03:42 Ur Microscopic Review INDICATED 07/12/19 03:42 Urine Culture Comments NOT INDICATED 07/20/19 12:20 Urine Opiates Screen POSITIVE (NEGATIVE) H 07/12/19 03:42 Ur Oxycodone Screen NEGATIVE (NEGATIVE) 07/12/19 03:42 Urine Methadone Screen NEGATIVE (NEGATIVE) 07/12/19 03:42 Ur Propoxyphene Screen NEGATIVE (NEGATIVE) 07/12/19 03:42 Ur Barbiturates Screen NEGATIVE (NEGATIVE) 07/12/19 03:42 Ur Tricyclics Screen NEGATIVE (NEGATIVE) 07/12/19 03:42 Ur Phencyclidine Scrn NEGATIVE (NEGATIVE) 07/12/19 03:42 Ur Amphetamine Screen NEGATIVE (NEGATIVE) 07/12/19 03:42 U Methamphetamines Scrn NEGATIVE (NEGATIVE) 07/12/19 03:42 U Benzodiazepines Scrn NEGATIVE (NEGATIVE) 07/12/19 03:42 Urine Cocaine Screen NEGATIVE (NEGATIVE) 07/12/19 03:42 U Cannabinoids Screen NEGATIVE (NEGATIVE) 07/12/19 03:42 Ethyl Alcohol 186.5 mg/dL 07/12/19 01:30 Blood Type O POSITIVE 07/15/19 05:18 Blood Type Recheck O POSITIVE 07/12/19 01:10 Antibody Screen NEGATIVE 07/15/19 05:18 Crossmatch IS Only See Detail 07/15/19 05:18 - Procedures Procedures: Procedures EXCISION OF SIGMOID COLON, ENDO, DIAGN (07/14/17) INSPECTION OF UPPER INTESTINAL TRACT, ENDO (03/23/18)
[2019-07-20] MEDS ORDERED: SENNA 8.6 MG TABLET PO SCH (21:00)
[2019-07-21] MEDS: SODIUM CHLORIDE FLUSH 0.9% 10 ML SYRINGE IVP SCH ×3 (00:45→16:19)
[2019-07-21] MEDS: HYDROmorphone 0.5 MG/0.5 ML SYRINGE IVP PRN ×3 (00:45→12:14)
[2019-07-21] MEDS: metroNIDAZOLE 500 MG/100 ML 500 MG/100 ML BAG IV SCH ×3 (01:50→20:58)
[2019-07-21 05:43] LABS: BASOPHILS # (AUTO) 0.1 10^3/uL (0.0-0.1); BASOPHILS % (AUTO) 0.5 %; EOSINOPHILS # (AUTO) 0.2 10^3/uL (0.0-0.7); EOSINOPHILS % (AUTO) 1.3 %; HGB - HEMOGLOBIN 7.9 g/dL (12.0-16.0); LYMPHOCYTES # (AUTO) 0.4 10^3/uL (1.5-3.5); LYMPHOCYTES % (AUTO) 3.1 %; MEAN CORPUSCULAR HEMOGLOBIN 34.2 pg (27.0-31.0); MEAN CORPUSCULAR HGB CONC 32.8 g/dL (32.0-36.0); MEAN CORPUSCULAR VOLUME 104.3 fL (81.0-99.0); MEAN PLATELET VOLUME 10.6 fL (7.9-10.8); MONOCYTES # (AUTO) 1.3 10^3/uL (0.0-1.0); MONOCYTES % (AUTO) 9.4 %; NEUTROPHILS # (AUTO) 11.8 10^3/uL (1.5-6.6); NEUTROPHILS % (AUTO) 84.6 %; PLT - PLATELET COUNT 169 10^3/uL (130-450); RED BLOOD COUNT 2.31 10^6/uL (4.20-5.40); RED CELL DISTRIBUTION WIDTH 16.8 % (12.0-15.0)
[2019-07-21 05:49] LABS: INR 1.7 (0.8-1.2); PT - PROTHROMBIN TIME 18.6 secs (9.9-12.6)
[2019-07-21 05:56] LABS: ALBUMIN 2.4 g/dL (3.2-5.5); ALBUMIN/GLOBULIN RATIO 0.9 (1.0-2.2); BILIRUBIN,TOTAL 6.8 mg/dL (0.2-1.0); CALCIUM 8.2 mg/dL (8.5-10.3); CREATININE 0.9 mg/dL (0.4-1.0); TOTAL PROTEIN 5.2 g/dL (6.7-8.2)
--- NOTE | 2019-07-21 08:23 | PROVIDER PROGRESS NOTE ---
Assessment/Plan - Problem List (1) Fever Assessment/Plan: New elevated white count today to 14 and has had another midnight of spiking a fever over 38 degrees C. Blood cultures were ordered yesterday, after the previous night's fever, and yesterday the chest x-ray was normal, urinalysis was normal and no antibiotics were started yesterday daytime. Today will start empiric antibiotics to cover Staph due to her recent thigh surgery and also antibiotic for covering potential SBP given her cirrhosis: IV R ocephin and IV Vanco. (2) Hyperbilirubinemia Assessment/Plan: The bili has plateaued at an elevated 6.5. Direct (conjugated) bili was 3.1 yesterday. The most likely reason is her advanced cirrhosis or chronic persistent Hepatitis. Will avoid hepatotoxic meds, she is not getting a systemic steroid (only topical Flonase intranasally). Follow LFTs daily. Follow Ammonia daily. Continue Lactulose treatment. Will order re-imaging of abdomen/pelvis with CT. (3) Compartment syndrome of left lower extremity Assessment/Plan: Followed by Gen Surgery. Wound vac in place. No need to CT the area given her fever, per the surgeon, as it will be abnormal related to surgical manipulation. (4) Liver cirrhosis Assessment/Plan: As per Hx. Dr Kolb's impression had been that the rising bili was acute on chronic hyperbilirubinemia, from liver congestion caused by reversal of flow in hepato- portal vessel, which was reported on abdominal ultrasound. Follow LFTs and Ammonia daily. (5) Bleeding tendency Assessment/Plan: The consult done by [employer] Dr Martin Kolb 2 days ago, is now viewable. I spoke to him by phone today to clarify that the patient does not have " end- stage renal failure", which is in his Assessment, and he will correct that. His advice was that if she needs to return to the ER, she needs FFP and vitamin K before surgery. But no FFP or vit K if she is holding stable. I called Dr Mercado, surgeon, and notified her of that. All the Factor levels that Dr Kolb requested were done and are pending, except our lab told me they do not do the PFA-100 test, and I informed Dr Kolb of that in our phone conversation. Monitor CBC daily. (6) Anemia Assessment/Plan: Multifactorial. Watch CBC daily. Transfuse PRBCs if Hgb <7. (7) Chronic deep vein thrombosis (DVT) of left femoral vein Assessment/Plan: Since this is chronic, no urgent need for systemic anticoagulation currently, as per Dr Kolb's recommendations. (8) Hyponatremia Assessment/Plan: Chronic low Na by labs. This is likely from her liver cirrhosis and Spironolactone being used. She appears euvolemic and the serum sodium is not dropping. Follow BMP daily. (9) Heart murmur Assessment/Plan: Today the patient was more alert and she did confirm that she has had a known heart murmur. The Echo done this admission showed mitral and tricuspid regurgitation. (10) Alcohol use Assessment/Plan: As per remote Hx. (11) Hepatitis C Qualifiers: Viral hepatitis chronicity: chronic Assessment/Plan: Apparently her Hep C was inadequately treated, per Dr Kolb's consult note. - Current Meds Current Meds: Current Medications Generic Name Dose Route Start Last Admin Trade Name Freq PRN Reason Stop Dose Admin Docusate Sodium 250 - 500 mg 07/16/19 22:00 07/20/19 20:54 Colace 250mg Capsule PO 250 mg BID KIRK Administration Fluticasone Propionate 2 sprays 07/13/19 09:00 07/20/19 08:28 Flonase YVETTE 2 sprays DAILY KIRK Administration Hydromorphone HCl 0.5 mg 07/12/19 08:50 07/21/19 00:45 Dilaudid Inj Syringe IVP 0.5 mg Q2HR PRN Administration PAIN 8-10 Hydromorphone HCl 1 mg 07/17/19 17:38 07/19/19 09:41 Dilaudid Inj Carp IVP 1 mg TID PRN Administration PAIN Metronidazole 500 mg in 100 mls @ 100 mls/hr 07/21/19 02:00 07/21/19 03:09 Flagyl 500 Mg/100 Ml IV Infused Q8H KIRK Infusion Lactulose 10 gm 07/16/19 18:00 07/20/19 16:30 Enulose PO 10 gm TIDWM KIRK Administration Midodrine 2.5 mg 07/17/19 17:00 07/20/19 16:32 PO 2.5 mg TIDWM KIRK Administration Multivitamins/Minerals 1 tab 07/14/19 09:00 07/20/19 08:26 Theragran M PO 1 tab DAILYWM KIRK Administration Ondansetron HCl 4 mg 07/13/19 20:44 07/15/19 07:56 Zofran Inj IVP 4 mg BID PRN Administration Nausea / Vomiting Oxycodone HCl 5 mg 07/12/19 07:24 07/20/19 20:54 Roxicodone PO 5 mg Q4HR PRN Administration Pain 5 to 7 Polyethylene Glycol 17 gm 07/14/19 09:00 07/20/19 08:27 Miralax PO 17 gm DAILY KIRK Administration Propranolol HCl 10 mg 07/17/19 21:00 07/20/19 20:54 Inderal PO 10 mg BID KIRK Administration Sodium Chloride 10 ml 07/12/19 07:24 07/20/19 22:08 Normal Saline Flush 0.9% IVP 10 ml PRN PRN Administration NEEDED PER PROVIDER ORDERS Sodium Chloride 10 ml 07/12/19 09:00 07/21/19 01:50 Normal Saline Flush 0.9% IVP 10 ml 0100,0900,1700 KIRK Administration Spironolactone 25 mg 07/17/19 17:00 07/20/19 16:31 Aldactone PO 25 mg BIDWM KIRK Administration - Lab Result Fish Bone Diagrams: 07/21/19 05:33 07/21/19 05:33 - Additional Planning My Orders: My Active Orders 07/20/19 16:19 Miscellaneous Laboratory Order [LAB] Urgent 07/21/19 05:00 BILIRUBIN,DIRECT [CHEM] Urgent 07/21/19 05:33 FACTOR VIII ACTIVITY,CLOTTING [REFLAB] DAILYLAB MISC TEST QUEST FROZEN [REFLAB] Timed MISC TEST QUEST FROZEN [REFLAB] Timed MISC TEST [facility] FROZEN [REFLAB] Timed MISC TEST [facility] FROZEN [REFLAB] Timed 07/21/19 09:00 Senna [Senokot] 8.6 mg PO DAILY Vancomycin Per Pharmacy [Vancomycin-Pharmacy To Dose] 100 gm Sodium Chloride 0.9% [Normal Saline 0.9%] 250 ml IV Q400H Subjective - Subjective Patient Reports: Resting Comfortably, Other (No appetite) Objective Vital Signs: Vital Signs - 24 hr 07/20/19 07/20/19 07/20/19 16:00 20:47 23:44 Temperature 37.2 C 37 C 38.5 C H Heart Rate [ 90 79 96 Brachial] Respiratory 16 18 16 Rate Blood Pressure 119/83 H 113/54 L 105/81 H [Right Brachial artery] O2 Saturation 95 94 94 07/21/19 07/21/19 03:00 07:33 Temperature 37.4 C 38.5 C H Heart Rate [ 94 Brachial] Respiratory 20 Rate Blood Pressure 98/47 L [Right Brachial artery] O2 Saturation 88 L Oxygen O2 Source Room air I&O (Last 24 Hrs): Intake and Output Totals x24h 07/19/19 07/20/19 07/21/19 23:59 23:59 23:59 Intake Total 1220 1290 300 Output Total 275 100 175 Balance 945 1190 125 General: Alert, Oriented x3 HEENT: EOMI, Mucous membr. moist/pink Neck: Supple, No JVD Neuro: Alert, Non Focal Cardiovascular: Regular rate, Other (2/6 syst murmur) Respiratory: Breath sounds nml Abdomen: Soft, No tenderness, Other (Mildly distended) Extremities: No edema - Results Results: Laboratory Results WBC 14.0 x10^3/uL (4.8-10.8) H 07/21/19 05:33 RBC 2.31 10^6/uL (4.20-5.40) L 07/21/19 05:33 Hgb 7.9 g/dL (12.0-16.0) L 07/21/19 05:33 Hct 24.1 % (37.0-47.0) L 07/21/19 05:33 MCV 104.3 fL (81.0-99.0) H 07/21/19 05:33 MCH 34.2 pg (27.0-31.0) H 07/21/19 05:33 MCHC 32.8 g/dL (32.0-36.0) 07/21/19 05:33 RDW 16.8 % (12.0-15.0) H 07/21/19 05:33 Plt Count 169 10^3/uL (130-450) 07/21/19 05:33 MPV 10.6 fL (7.9-10.8) 07/21/19 05:33 Neut # (Auto) 11.8 10^3/uL (1.5-6.6) H 07/21/19 05:33 Lymph # (Auto) 0.4 10^3/uL (1.5-3.5) L 07/21/19 05:33 [place] # (Auto) 1.3 10^3/uL (0.0-1.0) H 07/21/19 05:33 Eos # (Auto) 0.2 10^3/uL (0.0-0.7) 07/21/19 05:33 Baso # (Auto) 0.1 10^3/uL (0.0-0.1) 07/21/19 05:33 Absolute Nucleated RBC 0.07 x10^3/uL 07/21/19 05:33 Total Counted 100 07/20/19 04:45 Band Neuts % (Manual) 2 % (0-10) 07/20/19 04:45 Abnorm Lymph % (Manual) 0 % 07/20/19 04:45 Metamyelocytes % 3 % (-0) H 07/20/19 04:45 Myelocytes % 2 % (-0) H 07/20/19 04:45 Nucleated RBC % 0.5 /100WBC 07/21/19 05:33 Neutrophils # (Manual) 7.1 10^3/uL (1.5-6.6) H 07/20/19 04:45 Lymphocytes # (Manual) 1.1 10^3/uL (1.5-3.5) L 07/20/19 04:45 Monocytes # (Manual) 0.5 10^3/uL (0.0-1.0) 07/20/19 04:45 Eosinophils # (Manual) 0.5 10^3/uL (0-0.7) 07/20/19 04:45 Basophils # (Manual) 0.0 10^3/uL (0-0.1) 07/20/19 04:45 Differential Comment MANUAL DIFFERENTIAL 07/20/19 04:45 WBC Morphology NORMAL APPEARANCE (NORMAL) 07/18/19 05:59 Platelet Estimate NORMAL (130-450,000) (NORMAL) 07/20/19 04:45 Platelet Morphology NORMAL APPEARANCE (NORMAL) 07/18/19 05:59 RBC Morph Micro Appear 1+ MACROCYTOSIS (NORMAL) 1+ HYPOCHROMASIA (NORMAL) 1+ POLYCHROMASIA (NORMAL) 1+ TARGET CELLS (NORMAL) 07/19/19 04:50 RBC Morph Micro Appear 1+ MACROCYTOSIS (NORMAL) 1+ HYPOCHROMASIA (NORMAL) 1+ POLYCHROMASIA (NORMAL) 1+ TARGET CELLS (NORMAL) 07/19/19 04:50 RBC Morph Micro Appear 1+ MACROCYTOSIS (NORMAL) 1+ HYPOCHROMASIA (NORMAL) 1+ POLYCHROMASIA (NORMAL) 1+ TARGET CELLS (NORMAL) 07/19/19 04:50 RBC Morph Micro Appear 1+ MACROCYTOSIS (NORMAL) 1+ HYPOCHROMASIA (NORMAL) 1+ POLYCHROMASIA (NORMAL) 1+ TARGET CELLS (NORMAL) 07/19/19 04:50 RBC Morph Micro Appear 1+ MACROCYTOSIS (NORMAL) 1+ HYPOCHROMASIA (NORMAL) 1+ POLYCHROMASIA (NORMAL) 07/20/19 04:45 RBC Morph Micro Appear 1+ MACROCYTOSIS (NORMAL) 1+ HYPOCHROMASIA (NORMAL) 1+ POLYCHROMASIA (NORMAL) 07/20/19 04:45 RBC Morph Micro Appear 1+ MACROCYTOSIS (NORMAL) 1+ HYPOCHROMASIA (NORMAL) 1+ POLYCHROMASIA (NORMAL) 07/20/19 04:45 PT 18.6 secs (9.9-12.6) H 07/21/19 05:33 INR 1.7 (0.8-1.2) H 07/21/19 05:33 APTT 29.8 secs (24.9-33.3) 07/16/19 16:08 Sodium 129 mmol/L (135-145) L 07/21/19 05:33 Potassium 4.3 mmol/L (3.5-5.0) 07/21/19 05:33 Chloride 95 mmol/L (101-111) L 07/21/19 05:33 Carbon Dioxide 24 mmol/L (21-32) 07/21/19 05:33 Anion Gap 10.0 (6-13) 07/21/19 05:33 BUN 27 mg/dL (6-20) H 07/21/19 05:33 Creatinine 0.9 mg/dL (0.4-1.0) 07/21/19 05:33 Estimated GFR (MDRD) 63 (>89) L 07/21/19 05:33 Glucose 127 mg/dL (70-100) H 07/21/19 05:33 Glycated Hemoglobin 4.7 % (4.6-6.2) 07/13/19 05:20 Estim Average Glucose 88 (70-100) 07/13/19 05:20 Lactic Acid 1.0 mmol/L (0.5-2.2) 07/18/19 05:59 Calcium 8.2 mg/dL (8.5-10.3) L 07/21/19 05:33 Phosphorus 3.1 mg/dL (2.5-4.6) 07/19/19 04:50 Magnesium 1.9 mg/dL (1.7-2.8) 07/19/19 04:50 Total Bilirubin 6.8 mg/dL (0.2-1.0) H 07/21/19 05:33 Direct Bilirubin 3.1 mg/dL (0.1-0.5) H 07/20/19 16:15 Indirect Bilirubin 2.1 mg/dL 07/16/19 16:08 GGT 63 IU/L (8-38) H 07/19/19 04:50 AST 58 IU/L (10-42) H 07/21/19 05:33 ALT 37 IU/L (10-60) 07/21/19 05:33 Alkaline Phosphatase 67 IU/L (42-121) 07/21/19 05:33 Ammonia 43.5 umol/L (7-35) H 07/20/19 16:15 Total Creatine Kinase 139 IU/L (22-269) 07/12/19 01:30 C-Reactive Protein 1.1 mg/dL (0-1.0) H 07/15/19 05:18 Total Protein 5.2 g/dL (6.7-8.2) L 07/21/19 05:33 Albumin 2.4 g/dL (3.2-5.5) L 07/21/19 05:33 Globulin 2.8 g/dL (2.1-4.2) 07/21/19 05:33 Albumin/Globulin Ratio 0.9 (1.0-2.2) L 07/21/19 05:33 Lipase 49 U/L (22-51) 07/15/19 05:18 Vitamin B12 760 pg/mL (180-914) 07/18/19 05:59 Folate 12.69 ng/mL (5.90 - >24.8) 07/18/19 05:59 TSH 1.95 uIU/mL (0.34-5.60) 07/16/19 16:08 Urine Color DARK YELLOW 07/20/19 12:20 Urine Clarity CLEAR (CLEAR) 07/20/19 12:20 Urine pH 6.0 PH (5.0-7.5) 07/20/19 12:20 Ur Specific [place] 1.015 (1.002-1.030) 07/20/19 12:20 Urine Protein NEGATIVE mg/dL (NEGATIVE) 07/20/19 12:20 Urine Glucose (UA) NEGATIVE mg/dL (NEGATIVE) 07/20/19 12:20 Urine Ketones NEGATIVE mg/dL (NEGATIVE) 07/20/19 12:20 Urine Occult Blood NEGATIVE (NEGATIVE) 07/20/19 12:20 Urine Nitrite NEGATIVE (NEGATIVE) 07/20/19 12:20 Urine Bilirubin MODERATE (NEGATIVE) H 07/20/19 12:20 Urine Urobilinogen 2 E.U./dL (NORMAL) H 07/20/19 12:20 Ur Leukocyte Esterase NEGATIVE (NEGATIVE) 07/20/19 12:20 Urine RBC 0-5 /HPF (0-5) 07/20/19 12:20 Urine WBC 0-3 /HPF (0-5) 07/20/19 12:20 Ur Squamous Epith Cells MANY Squamous (<= Few) H 07/20/19 12:20 Urine Bacteria Rare /HPF (None Seen) 07/20/19 12:20 Urine Casts 0-2 Fine Granular /LPF 07/12/19 03:42 Urine Mucus Moderate Strands 07/12/19 03:42 Ur Microscopic Review INDICATED 07/12/19 03:42 Urine Culture Comments NOT INDICATED 07/20/19 12:20 Urine Opiates Screen POSITIVE (NEGATIVE) H 07/12/19 03:42 Ur Oxycodone Screen NEGATIVE (NEGATIVE) 07/12/19 03:42 Urine Methadone Screen NEGATIVE (NEGATIVE) 07/12/19 03:42 Ur Propoxyphene Screen NEGATIVE (NEGATIVE) 07/12/19 03:42 Ur Barbiturates Screen NEGATIVE (NEGATIVE) 07/12/19 03:42 Ur Tricyclics Screen NEGATIVE (NEGATIVE) 07/12/19 03:42 Ur Phencyclidine Scrn NEGATIVE (NEGATIVE) 07/12/19 03:42 Ur Amphetamine Screen NEGATIVE (NEGATIVE) 07/12/19 03:42 U Methamphetamines Scrn NEGATIVE (NEGATIVE) 07/12/19 03:42 U Benzodiazepines Scrn NEGATIVE (NEGATIVE) 07/12/19 03:42 Urine Cocaine Screen NEGATIVE (NEGATIVE) 07/12/19 03:42 U Cannabinoids Screen NEGATIVE (NEGATIVE) 07/12/19 03:42 Ethyl Alcohol 186.5 mg/dL 07/12/19 01:30 Blood Type O POSITIVE 07/15/19 05:18 Blood Type Recheck O POSITIVE 07/12/19 01:10 Antibody Screen NEGATIVE 07/15/19 05:18 Crossmatch IS Only See Detail 07/15/19 05:18 - Procedures Procedures: Procedures EXCISION OF SIGMOID COLON, ENDO, DIAGN (07/14/17) INSPECTION OF UPPER INTESTINAL TRACT, ENDO (03/23/18)
[2019-07-21] MEDS: SODIUM CHLORIDE FLUSH 0.9% 10 ML SYRINGE IVP PRN (08:43)
[2019-07-21] MEDS: MIDODRINE 2.5 MG TABLET PO SCH ×3 (08:48→16:23)
[2019-07-21] MEDS: SPIRONOLACTONE 25 MG TABLET PO SCH ×2 (08:48→16:19)
[2019-07-21] MEDS: MULTIVITAMIN W/MINERALS TABLET PO SCH (08:48)
[2019-07-21] MEDS: LACTULOSE 10 GM /15 ML UDC PO SCH ×3 (08:48→16:23)
[2019-07-21] MEDS: DOCUSATE SODIUM 250 MG CAPSULE PO SCH ×2 (08:49→18:36)
[2019-07-21] MEDS ORDERED: VANCOMYCIN PER PHARMACY 100 GM in SODIUM CHLORIDE 0.9% 250 ML IV SCH (09:00)
--- NOTE | 2019-07-21 09:33 | PROVIDER PROGRESS NOTE ---
Subjective - General Admit Date: 07/12/19 Procedure Date: 07/19/19 Post Op Days: 2 Procedure Performed: s/p L medial thigh fasciotomy and hematoma evacuation - Review of Systems Wound/Incisions: positive: Other (improving bleeding post op due to oozing from her coagulopathy) Drain Type: Provena incisional VAC All Other Systems: positive: Reviewed and negative - Other Other Information/Narrative: Continues to weaken, tired and sore this morning. Fever again overnight and now has mild leukocytosis. Objective - Patient Data Vital Signs: Vital Signs x48h Temp Pulse Resp BP Pulse Ox 07/21/19 07:33 38.5 C H 94 20 98/47 L 88 L 07/21/19 03:00 37.4 C Intake & Output: Intake and Output Totals x24h 07/19/19 07/20/19 07/21/19 23:59 23:59 23:59 Intake Total 1220 1290 540 Output Total 275 100 175 Balance 945 1190 365 - Lab Results Lab Results: 07/21/19 05:33 07/21/19 05:33 Other Lab Results: Lab Results x24hrs 07/21/19 07/21/19 07/21/19 Range/Units 05:33 05:33 05:33 WBC (4.8-10.8) x10^3/uL RBC (4.20-5.40) 10^6/uL Hgb (12.0-16.0) g/dL Hct (37.0-47.0) % MCV (81.0-99.0) fL MCH (27.0-31.0) pg MCHC (32.0-36.0) g/dL RDW (12.0-15.0) % Plt Count (130-450) 10^3/uL MPV (7.9-10.8) fL Neut # (Auto) (1.5-6.6) 10^3/uL Lymph # (Auto) (1.5-3.5) 10^3/uL [place] # (Auto) (0.0-1.0) 10^3/uL Eos # (Auto) (0.0-0.7) 10^3/uL Baso # (Auto) (0.0-0.1) 10^3/uL Absolute Nucleated RBC x10^3/uL Nucleated RBC % /100WBC PT 18.6 H (9.9-12.6) secs INR 1.7 H (0.8-1.2) Sodium 129 L (135-145) mmol/L Potassium 4.3 (3.5-5.0) mmol/L Chloride 95 L (101-111) mmol/L Carbon Dioxide 24 (21-32) mmol/L Anion Gap 10.0 (6-13) BUN 27 H (6-20) mg/dL Creatinine 0.9 (0.4-1.0) mg/dL Estimated GFR (MDRD) 63 L (>89) Glucose 127 H (70-100) mg/dL Calcium 8.2 L (8.5-10.3) mg/dL Total Bilirubin 6.8 H (0.2-1.0) mg/dL Direct Bilirubin 3.1 H (0.1-0.5) mg/dL AST 58 H (10-42) IU/L ALT 37 (10-60) IU/L Alkaline Phosphatase 67 (42-121) IU/L Ammonia (7-35) umol/L Total Protein 5.2 L (6.7-8.2) g/dL Albumin 2.4 L (3.2-5.5) g/dL Globulin 2.8 (2.1-4.2) g/dL Albumin/Globulin Ratio 0.9 L (1.0-2.2) Urine Color Urine Clarity (CLEAR) Urine pH (5.0-7.5) PH Ur Specific [place] (1.002-1.030) Urine Protein (NEGATIVE) mg/dL Urine Glucose (UA) (NEGATIVE) mg/dL Urine Ketones (NEGATIVE) mg/dL Urine Occult Blood (NEGATIVE) Urine Nitrite (NEGATIVE) Urine Bilirubin (NEGATIVE) Urine Urobilinogen (NORMAL) E.U./dL Ur Leukocyte Esterase (NEGATIVE) Urine RBC (0-5) /HPF Urine WBC (0-5) /HPF Ur Squamous Epith Cells (<= Few) Urine Bacteria (None Seen) /HPF Urine Culture Comments 07/21/19 07/20/19 07/20/19 Range/Units 05:33 16:15 16:15 WBC 14.0 H (4.8-10.8) x10^3/uL RBC 2.31 L (4.20-5.40) 10^6/uL Hgb 7.9 L (12.0-16.0) g/dL Hct 24.1 L (37.0-47.0) % MCV 104.3 H (81.0-99.0) fL MCH 34.2 H (27.0-31.0) pg MCHC 32.8 (32.0-36.0) g/dL RDW 16.8 H (12.0-15.0) % Plt Count 169 (130-450) 10^3/uL MPV 10.6 (7.9-10.8) fL Neut # (Auto) 11.8 H (1.5-6.6) 10^3/uL Lymph # (Auto) 0.4 L (1.5-3.5) 10^3/uL [place] # (Auto) 1.3 H (0.0-1.0) 10^3/uL Eos # (Auto) 0.2 (0.0-0.7) 10^3/uL Baso # (Auto) 0.1 (0.0-0.1) 10^3/uL Absolute Nucleated RBC 0.07 x10^3/uL Nucleated RBC % 0.5 /100WBC PT (9.9-12.6) secs INR (0.8-1.2) Sodium (135-145) mmol/L Potassium (3.5-5.0) mmol/L Chloride (101-111) mmol/L Carbon Dioxide (21-32) mmol/L Anion Gap (6-13) BUN (6-20) mg/dL Creatinine (0.4-1.0) mg/dL Estimated GFR (MDRD) (>89) Glucose (70-100) mg/dL Calcium (8.5-10.3) mg/dL Total Bilirubin (0.2-1.0) mg/dL Direct Bilirubin 3.1 H (0.1-0.5) mg/dL AST (10-42) IU/L ALT (10-60) IU/L Alkaline Phosphatase (42-121) IU/L Ammonia 43.5 H (7-35) umol/L Total Protein (6.7-8.2) g/dL Albumin (3.2-5.5) g/dL Globulin (2.1-4.2) g/dL Albumin/Globulin Ratio (1.0-2.2) Urine Color Urine Clarity (CLEAR) Urine pH (5.0-7.5) PH Ur Specific [place] (1.002-1.030) Urine Protein (NEGATIVE) mg/dL Urine Glucose (UA) (NEGATIVE) mg/dL Urine Ketones (NEGATIVE) mg/dL Urine Occult Blood (NEGATIVE) Urine Nitrite (NEGATIVE) Urine Bilirubin (NEGATIVE) Urine Urobilinogen (NORMAL) E.U./dL Ur Leukocyte Esterase (NEGATIVE) Urine RBC (0-5) /HPF Urine WBC (0-5) /HPF Ur Squamous Epith Cells (<= Few) Urine Bacteria (None Seen) /HPF Urine Culture Comments 07/20/19 Range/Units 12:20 WBC (4.8-10.8) x10^3/uL RBC (4.20-5.40) 10^6/uL Hgb (12.0-16.0) g/dL Hct (37.0-47.0) % MCV (81.0-99.0) fL MCH (27.0-31.0) pg MCHC (32.0-36.0) g/dL RDW (12.0-15.0) % Plt Count (130-450) 10^3/uL MPV (7.9-10.8) fL Neut # (Auto) (1.5-6.6) 10^3/uL Lymph # (Auto) (1.5-3.5) 10^3/uL [place] # (Auto) (0.0-1.0) 10^3/uL Eos # (Auto) (0.0-0.7) 10^3/uL Baso # (Auto) (0.0-0.1) 10^3/uL Absolute Nucleated RBC x10^3/uL Nucleated RBC % /100WBC PT (9.9-12.6) secs INR (0.8-1.2) Sodium (135-145) mmol/L Potassium (3.5-5.0) mmol/L Chloride (101-111) mmol/L Carbon Dioxide (21-32) mmol/L Anion Gap (6-13) BUN (6-20) mg/dL Creatinine (0.4-1.0) mg/dL Estimated GFR (MDRD) (>89) Glucose (70-100) mg/dL Calcium (8.5-10.3) mg/dL Total Bilirubin (0.2-1.0) mg/dL Direct Bilirubin (0.1-0.5) mg/dL AST (10-42) IU/L ALT (10-60) IU/L Alkaline Phosphatase (42-121) IU/L Ammonia (7-35) umol/L Total Protein (6.7-8.2) g/dL Albumin (3.2-5.5) g/dL Globulin (2.1-4.2) g/dL Albumin/Globulin Ratio (1.0-2.2) Urine Color DARK YELLOW Urine Clarity CLEAR (CLEAR) Urine pH 6.0 (5.0-7.5) PH Ur Specific [place] 1.015 (1.002-1.030) Urine Protein NEGATIVE (NEGATIVE) mg/dL Urine Glucose (UA) NEGATIVE (NEGATIVE) mg/dL Urine Ketones NEGATIVE (NEGATIVE) mg/dL Urine Occult Blood NEGATIVE (NEGATIVE) Urine Nitrite NEGATIVE (NEGATIVE) Urine Bilirubin MODERATE H (NEGATIVE) Urine Urobilinogen 2 H (NORMAL) E.U./dL Ur Leukocyte Esterase NEGATIVE (NEGATIVE) Urine RBC 0-5 (0-5) /HPF Urine WBC 0-3 (0-5) /HPF Ur Squamous Epith Cells MANY Squamous H (<= Few) Urine Bacteria Rare (None Seen) /HPF Urine Culture Comments NOT INDICATED - Current Medications Current Medications: Current Medications Generic Name Dose Route Start Last Admin Trade Name Freq PRN Reason Stop Dose Admin Docusate Sodium 250 - 500 mg 07/16/19 22:00 07/21/19 08:49 Colace 250mg Capsule PO 250 mg BID KIRK Administration Fluticasone Propionate 2 sprays 07/13/19 09:00 07/20/19 08:28 Flonase YVETTE 2 sprays DAILY KIRK Administration Hydromorphone HCl 0.5 mg 07/12/19 08:50 07/21/19 08:43 Dilaudid Inj Syringe IVP 0.5 mg Q2HR PRN Administration PAIN 8-10 Hydromorphone HCl 1 mg 07/17/19 17:38 07/19/19 09:41 Dilaudid Inj Carp IVP 1 mg TID PRN Administration PAIN Metronidazole 500 mg in 100 mls @ 100 mls/hr 07/21/19 02:00 07/21/19 03:09 Flagyl 500 Mg/100 Ml IV Infused Q8H KIRK Infusion Lactulose 10 gm 07/16/19 18:00 07/21/19 08:48 Enulose PO 10 gm TIDWM KIRK Administration Midodrine 2.5 mg 07/17/19 17:00 07/21/19 08:48 PO 2.5 mg TIDWM KIRK Administration Multivitamins/Minerals 1 tab 07/14/19 09:00 07/21/19 08:48 Theragran M PO 1 tab DAILYWM KIRK Administration Ondansetron HCl 4 mg 07/13/19 20:44 07/15/19 07:56 Zofran Inj IVP 4 mg BID PRN Administration Nausea / Vomiting Oxycodone HCl 5 mg 07/12/19 07:24 07/20/19 20:54 Roxicodone PO 5 mg Q4HR PRN Administration Pain 5 to 7 Polyethylene Glycol 17 gm 07/14/19 09:00 07/20/19 08:27 Miralax PO 17 gm DAILY KIRK Administration Propranolol HCl 10 mg 07/17/19 21:00 07/20/19 20:54 Inderal PO 10 mg BID KIRK Administration Sodium Chloride 10 ml 07/12/19 07:24 07/21/19 08:43 Normal Saline Flush 0.9% IVP 10 ml PRN PRN Administration NEEDED PER PROVIDER ORDERS Sodium Chloride 10 ml 07/12/19 09:00 07/21/19 01:50 Normal Saline Flush 0.9% IVP 10 ml 0100,0900,1700 KIRK Administration Spironolactone 25 mg 07/17/19 17:00 07/21/19 08:48 Aldactone PO 25 mg BIDWM KIRK Administration - Physical Exam Comments/Other: AAO, NAD MMM, EOMI unlabored RA abd soft, nt/nd L inc dressed with VAC which has good seal, no erythema or swelling, soft compartments skin jaundiced appearing Impression/Plan - Problem List Problem List: L thigh inc closed, POD#2 --> incisional VAC in place, doubt this is source of infection but will take down if no other source found Leukocytosis, fever --> CXR, UA unremarkable yesterday --> CT abd today --> blood cultures pending --> empiric abx started overnight --> will re-scan legs for increasing DVT if no other source, also inspect incisi on under VAC PT/OT needs to mobilize, increasingly deconditioned Cirrhosis labs worsening outpt FU appreciate medicine team assistance, also appreciate heme input (no note yet seen but they apparently requested labs that med team has ordered)
[2019-07-21] MEDS: SODIUM CHLORIDE 0.9% 500 ML IV PRN (09:40)
[2019-07-21] MEDS: cefTRIAXone 2 GM in SODIUM CHLORIDE 0.9% MINIBAG 100 ML IV SCH (09:45)
[2019-07-21] MEDS ORDERED: IOVERSOL 320 50 ML VIAL ONE (09:48)
[2019-07-21] MEDS ORDERED: IOVERSOL 320 100 ML VIAL IVP ONE ×2 (09:48→14:01)
[2019-07-21] MEDS ORDERED: VANCOMYCIN INJ 1 GM, VANCOMYCIN INJ 500 MG in SODIUM CHLORIDE 0.9% 500 ML IV ONE (10:00)
--- NOTE | 2019-07-21 10:01 | PHARMACY PROGRESS NOTE ---
- Therapy Status Vancomycin regimen day #: 1 Therapy status: Awaiting steady state Treatment indication: Fever and white count increase; Provider believes patient has risk for MRSA infection Trough goal: 15-20 Concurrent antibiotics: ceftriaxone and metronidazole - DOMINGO Risk Risk level for Acute Kidney Injury: Moderate Acute Kidney Injury risk factors: Baseline CrCl <50, IV contrast within 72 hrs - Monitoring and Recommendation Clinical response to treatment: I&O Previous 24 hours 07/19/19 07/20/19 07/21/19 23:59 23:59 23:59 Intake Total 1220 1290 540 Output Total 275 100 175 Balance 945 1190 365 Lab Results 07/21/19 07/20/19 07/19/19 05:33 04:45 04:50 BUN 27 H 23 H 25 H Creatinine 0.9 0.6 0.7 Estimated GFR (MDRD) 63 L 101 85 L 07/18/19 07/17/19 07/16/19 05:59 05:32 05:30 BUN 27 H 26 H 27 H Creatinine 0.7 0.7 0.6 Estimated GFR (MDRD) 85 L 85 L 101 07/15/19 07/14/19 07/13/19 05:18 05:20 05:20 BUN 36 H 44 H 27 H Creatinine 0.8 1.0 0.7 Estimated GFR (MDRD) 72 L 56 L 85 L 07/12/19 01:30 BUN 14 Creatinine 0.5 Estimated GFR (MDRD) 125 Cultures 07/20/19 08:19 Blood - Right Arm Blood Culture - Preliminary NO GROWTH AFTER 1 DAY 07/20/19 08:15 Blood - Left Arm Blood Culture - Preliminary NO GROWTH AFTER 1 DAY 07/20/19 18:35 Stool Occult Blood - Final Monitoring plan: Daily serum creatinine Areas for additional monitoring: IV to PO when appropriate, Therapy de- escalation based on culture results Pharmacy recommendation: Continue current regime
[2019-07-21] MEDS: ONDANSETRON 4 MG/2 ML VIAL IVP PRN (10:29)
[2019-07-21] MEDS: polyethylene glycoL 3350 17 GM PACKET PO SCH (10:36)
[2019-07-21] MEDS: PROPRANOLOL 10 MG TABLET PO SCH ×2 (10:37→20:58)
[2019-07-21] MEDS: SENNA 8.6 MG TABLET PO SCH (10:37)
[2019-07-21] MEDS: FLUTICASONE NASAL SPRAY NAS SCH (12:16)
[2019-07-21] MEDS ORDERED: IOVERSOL 320 50 ML VIAL PO ONE (14:01)
[2019-07-21] MEDS: FERROUS GLUCONATE 324 MG TABLET PO SCH (14:18)
[2019-07-21] MEDS: oxyCODONE 5 MG TABLET PO PRN (14:19)
--- NOTE | 2019-07-21 14:35 | CT Report ---
Reason: Fever, ascites Procedure Date: 07/21/2019 Accession Number: [id number] / [id number] Procedure: CT - Abdomen/Pelvis W CPT Code: Final Report FULL RESULT: EXAM: CT ABDOMEN AND PELVIS EXAM DATE: 07/21/2019 02:00 PM. CLINICAL HISTORY: Fever, ascites. COMPARISONS: ABDOMEN W/ 10/18/2018 11:02 AM LOWER EXTREMITY LEFT W/ 07/12/2019 4:19 AM ABDOMEN W/WO 01/09/2017 10:00 AM. TECHNIQUE: Routine helical CT imaging was performed through the abdomen and pelvis. IV contrast: OPTIRAY 320. Enteric contrast: Yes. Reconstructions: Coronal and sagittal. In accordance with CT protocol optimization, one or more of the following dose reduction techniques were utilized for this exam: automated exposure control, adjustment of mA and/or KV based on patient size, or use of iterative reconstructive technique. FINDINGS: Lung Bases: Unremarkable. Liver: No developing masses detected. Stable cystic foci in the posterior upper right hepatic lobe and the lateral segment of the left hepatic lobe. Subtle hemangioma at the posterior right hepatic lobe on previous study is minimally visible today. Gallbladder/Bile Ducts: Normal appearance of the gallbladder. Stable prominence of the common bile duct up to 12 mm. Spleen: Normal. Pancreas: Normal. Adrenal Glands: Normal. Kidneys: No hydronephrosis. 2 stable nonobstructing nephroliths lower pole left kidney, the largest measuring 3 mm. Peritoneal Cavity/Bowel: Normal. No free fluid, free air or adenopathy. No masses or acute inflammatory process. The appendix is well visualized and normal. Pelvic Organs: Normal. The bladder and visualized pelvic organs are within normal limits. 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 More caudally it lies to the left of the abdominal aorta, and in the pelvis it extends into the lower pelvis, into the perirectal space. It courses immediately lateral and inferior to the uterus as well. Its caliber is approximately equal to the abdominal aorta and IVC throughout its path. Bones: Nothing acute. Other: There is a minimally imaged intramuscular hematoma of the musculature medial to the left femur. Comparison to previous lower extremity CT, there is now a small volume of fluid anterior to the musculature, that contains tiny locules of air, question recent procedure. There is also subcutaneous fat stranding at the lateral hip. IMPRESSION: 1. No ascites identified in the abdomen or pelvis. 2. 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 Consideration of this finding is suggestive for any future surgeries in this region. 3. Minimally imaged large intramuscular hematoma of the proximal left thigh, with fat stranding, small amount of free fluid and tiny locules of air are now seen. RADIA
--- NOTE | 2019-07-21 17:18 | MISCELLANEOUS PROVIDER NOTE ---
Miscellaneous Provider Note - - Note: SURGERY Reviewed CT and re-examined pt. Cellulitis of L thigh now present, not seen on exam this AM. Medicine team has started abx. Monitor closely.
[2019-07-21] MEDS ORDERED: SODIUM CHLORIDE 0.9% 500 ML IV ONE (21:04)
[2019-07-21] MEDS: VANCOMYCIN INJ 1 GM in SODIUM CHLORIDE 0.9% 250 ML IV SCH (21:55)
[2019-07-21] MEDS ORDERED: SODIUM CHLORIDE 0.9% 1,000 ML IV ONE (23:49)
[2019-07-22] MEDS ORDERED: SODIUM CHLORIDE 0.9% 500 ML IV ONE ×2 (04:54→06:00)
[2019-07-22] MEDS ORDERED: SODIUM CHLORIDE 0.9% 500 ML ONE (05:24)
[2019-07-22] MEDS: SODIUM CHLORIDE FLUSH 0.9% 10 ML SYRINGE IVP SCH ×3 (05:24→16:48)
[2019-07-22] MEDS: metroNIDAZOLE 500 MG/100 ML 500 MG/100 ML BAG IV SCH ×3 (06:07→21:11)
[2019-07-22 06:15] LABS: BASOPHILS % (AUTO) 0.5 %; EOSINOPHILS % (AUTO) 1.3 %; LYMPHOCYTES % (AUTO) 2.6 %; MEAN CORPUSCULAR HEMOGLOBIN 33.9 pg (27.0-31.0); MEAN CORPUSCULAR HGB CONC 32.2 g/dL (32.0-36.0); MEAN CORPUSCULAR VOLUME 105.2 fL (81.0-99.0); MONOCYTES % (AUTO) 10.7 %; NEUTROPHILS % (AUTO) 83.8 %; PLT - PLATELET COUNT 120 10^3/uL (130-450); RED BLOOD COUNT 1.74 10^6/uL (4.20-5.40); WHITE BLOOD COUNT 8.5 x10^3/uL (4.8-10.8)
[2019-07-22 06:25] LABS: ALBUMIN 1.8 g/dL (3.2-5.5); ALBUMIN/GLOBULIN RATIO 0.8 (1.0-2.2); BILIRUBIN,TOTAL 4.9 mg/dL (0.2-1.0); CALCIUM 7.6 mg/dL (8.5-10.3); CREATININE 0.8 mg/dL (0.4-1.0); TOTAL PROTEIN 4.2 g/dL (6.7-8.2)
[2019-07-22 06:38] LABS: HGB - HEMOGLOBIN 5.9 g/dL (12.0-16.0)
[2019-07-22 06:39] LABS: ABNORMAL LYMPHS % (MANUAL) 0 %
[2019-07-22 06:43] LABS: BAND NEUTROPHILS % (MANUAL) 11 %; BASOPHILS # (MANUAL) 0.1 10^3/uL (0-0.1); BASOPHILS % (MANUAL) 1 %; LYMPHOCYTES # (MANUAL) 0.2 10^3/uL (1.5-3.5); LYMPHOCYTES % (MANUAL) 2 %; MONOCYTES # (MANUAL) 0.3 10^3/uL (0.0-1.0)
[2019-07-22 06:50] LABS: DIFFERENTIAL COMMENT MANUAL DIFFERENTIAL; PLATELET ESTIMATE, MANUAL NORMAL (130-450,000) (NORMAL); PLATELET MORPHOLOGY NORMAL APPEARANCE (NORMAL)
[2019-07-22] MEDS: MIDODRINE 2.5 MG TABLET PO SCH ×3 (07:28→16:47)
[2019-07-22 07:41] LABS: BASOPHILS % (AUTO) 0.4 %; EOSINOPHILS # (AUTO) 0.1 10^3/uL (0.0-0.7); EOSINOPHILS % (AUTO) 1.5 %; LYMPHOCYTES # (AUTO) 0.2 10^3/uL (1.5-3.5); LYMPHOCYTES % (AUTO) 2.5 %; MEAN CORPUSCULAR HEMOGLOBIN 33.7 pg (27.0-31.0); MEAN CORPUSCULAR HGB CONC 31.9 g/dL (32.0-36.0); MEAN CORPUSCULAR VOLUME 105.5 fL (81.0-99.0); MEAN PLATELET VOLUME 10.7 fL (7.9-10.8); MONOCYTES # (AUTO) 0.8 10^3/uL (0.0-1.0); MONOCYTES % (AUTO) 9.2 %; NEUTROPHILS # (AUTO) 7.8 10^3/uL (1.5-6.6); NEUTROPHILS % (AUTO) 85.4 %; PLT - PLATELET COUNT 132 10^3/uL (130-450); RED BLOOD COUNT 1.81 10^6/uL (4.20-5.40); RED CELL DISTRIBUTION WIDTH 16.7 % (12.0-15.0); WHITE BLOOD COUNT 9.2 x10^3/uL (4.8-10.8)
[2019-07-22 07:47] LABS: HGB - HEMOGLOBIN 6.1 g/dL (12.0-16.0)
[2019-07-22] MEDS: SPIRONOLACTONE 25 MG TABLET PO SCH ×2 (07:54→16:47)
[2019-07-22] MEDS: PROPRANOLOL 10 MG TABLET PO SCH ×2 (07:55→21:11)
[2019-07-22] MEDS: polyethylene glycoL 3350 17 GM PACKET PO SCH (07:55)
[2019-07-22] MEDS: DOCUSATE SODIUM 250 MG CAPSULE PO SCH ×2 (07:56→21:01)
[2019-07-22] MEDS: SENNA 8.6 MG TABLET PO SCH (07:56)
[2019-07-22] MEDS: LACTULOSE 10 GM /15 ML UDC PO SCH ×3 (07:57→16:47)
[2019-07-22] MEDS: cefTRIAXone 2 GM in SODIUM CHLORIDE 0.9% MINIBAG 100 ML IV SCH (08:21)
[2019-07-22] MEDS: MULTIVITAMIN W/MINERALS TABLET PO SCH (08:21)
[2019-07-22] MEDS: FLUTICASONE NASAL SPRAY NAS SCH (08:26)
[2019-07-22] MEDS: FERROUS GLUCONATE 324 MG TABLET PO SCH (08:30)
--- NOTE | 2019-07-22 08:32 | PROVIDER PROGRESS NOTE ---
Assessment/Plan - Problem List (1) Hypotension Assessment/Plan: Overnight her BP was 80's, she received saline boluses and 2L fluids in total. Today her BP is 89 after Midodrine. Her narcotics were on hold due to low BP. Lactic acid is normal ruling out septic shock. She is losing fluids with diarrhea. Hgb did drop to <6, no obvious external site of blood loss seen. Plan- Transfer to ICU, may need pressors. Check an EKG and troponin, R/O cardiogenic cause. Transfuse blood. Continue iv fluids She needs a central line placed for more access ports. I informed the patient that she will be transferred to the ICU, and spoke to her father by phone at her bedside. (2) Cellulitis of left leg Assessment/Plan: She spiked a fever again last night. Blood cx were again drawn. Today's WBC has decreased from 14>> 8>>9 today Yesterday, the CT of abd/pelvis did image a portion of the L hip which reported fat stranding of the soft tissue of the L upper thigh, in the direction toward the L hip area, consistent with cellulitis. Yesterday's exam (per the Gen Surgeon) showed more pain and swelling of that area yesterday evening, compared to earlier last morning. This morning the surgeon felt that the area was already less swollen. She is now on Vanco for Staph and MRSA coverage, plus Flagyl for anaerobes and Ceftriaxone for gram negs. She will need at least 10 days of treatment for cellulitis, today is Day #2. (3) Diarrhea Assessment/Plan: This started after Lactulose was begun. Will send off for bacterial cx and C diff. Lactulose may need adjusting (4) Anemia Assessment/Plan: Hgb rechercked and it is truly low No obvious site of bleeding noted. Probably worsened due to 2L hemodilution from overnight hydration orders to treat low BP. Will transfuse 2U PRBcs. Follow CBC daily. (5) Bleeding tendency Assessment/Plan: The consult was done by [employer] Dr Martin Kolb. He felt she was oozing due to poor liver-created bleeding Factors. His advice was that if she needs to return to the ER, she needs FFP and vitamin K before surgery. But no FFP or vit K if she is holding stable. All the Factor levels that Dr Kolb requested were done and are pending, except our lab told me they do not do the PFA-100 test, and I informed Dr Kolb of that. Monitor CBC daily. (6) Compartment syndrome of left lower extremity Assessment/Plan: Followed by Gen Surgeon. Wound vac in place with trivial drainage Needs pain control (7) Hyperbilirubinemia Assessment/Plan: The bili plateaued at an elevated 6.5, and decreased to 4.8 today. The most likely reason is her advanced cirrhosis or chronic persistent Hepatitis. Will avoid hepatotoxic meds, she is not getting a systemic steroid (only topical Flonase intranasally). Follow LFTs daily. Follow Ammonia daily. Continue Lactulose treatment. (8) Liver cirrhosis Assessment/Plan: As per Hx (9) Chronic deep vein thrombosis (DVT) of left femoral vein Assessment/Plan: As per Hx, and the risk of starting blood thinner outweighs the benefit at this time (10) Hyponatremia Assessment/Plan: Slight improvement after receiving 2L saline overnight Follow BMP daily. (11) Heart murmur Assessment/Plan: Echo this admission showed mild mitral and tricuspid regurgitation (12) Alcohol use Assessment/Plan: As per Hx (13) Hepatitis C Qualifiers: Viral hepatitis chronicity: chronic Assessment/Plan: As per Hx, and it was "inadequately treated" per the consult of Dr Martin Kolb - Current Meds Current Meds: Current Medications Generic Name Dose Route Start Last Admin Trade Name Freq PRN Reason Stop Dose Admin Docusate Sodium 250 - 500 mg 07/16/19 22:00 07/22/19 07:56 Colace 250mg Capsule PO Not Given BID KIRK Ferrous Gluconate 324 mg 07/21/19 14:00 07/21/19 14:18 Fergon PO 324 mg DAILYWM KIRK Administration Fluticasone Propionate 2 sprays 07/13/19 09:00 07/22/19 08:26 Flonase YVETTE 2 sprays DAILY KIRK Administration Hydromorphone HCl 0.5 mg 07/12/19 08:50 07/21/19 12:14 Dilaudid Inj Syringe IVP 0.5 mg Q2HR PRN Administration PAIN 8-10 Hydromorphone HCl 1 mg 07/17/19 17:38 07/19/19 09:41 Dilaudid Inj Carp IVP 1 mg TID PRN Administration PAIN Ceftriaxone Sodium 2 gm/ 100 mls @ 200 mls/hr 07/21/19 09:00 07/22/19 08:21 Sodium Chloride IV 200 mls/hr DAILY KIRK Administration Metronidazole 500 mg in 100 mls @ 100 mls/hr 07/21/19 02:00 07/22/19 06:07 Flagyl 500 Mg/100 Ml IV 100 mls/hr Q8H KIRK Administration Sodium Chloride 500 mls @ 0 mls/hr 07/21/19 09:25 07/22/19 06:09 Normal Saline 0.9% IV 0 mls/hr Q24H PRN Infusion TKO RATE TKO Vancomycin HCl 1 gm/ Sodium 250 mls @ 167 mls/hr 07/21/19 22:00 07/21/19 23:25 Chloride IV Infused Q12H KIRK Infusion Lactulose 10 gm 07/16/19 18:00 07/22/19 07:57 Enulose PO Not Given TIDWM KIRK Midodrine 2.5 mg 07/17/19 17:00 07/22/19 07:28 PO 2.5 mg TIDWM KIRK Administration Multivitamins/Minerals 1 tab 07/14/19 09:00 07/22/19 08:21 Theragran M PO 1 tab DAILYWM KIRK Administration Ondansetron HCl 4 mg 07/13/19 20:44 07/21/19 10:29 Zofran Inj IVP 4 mg BID PRN Administration Nausea / Vomiting Oxycodone HCl 5 mg 07/12/19 07:24 07/21/19 14:19 Roxicodone PO 5 mg Q4HR PRN Administration Pain 5 to 7 Polyethylene Glycol 17 gm 07/14/19 09:00 07/22/19 07:55 Miralax PO Not Given DAILY KIRK Propranolol HCl 10 mg 07/17/19 21:00 07/22/19 07:55 Inderal PO Not Given BID KIRK Senna 8.6 mg 07/21/19 09:00 07/22/19 07:56 Senokot PO Not Given DAILY KIRK Sodium Chloride 10 ml 07/12/19 07:24 07/21/19 08:43 Normal Saline Flush 0.9% IVP 10 ml PRN PRN Administration NEEDED PER PROVIDER ORDERS Sodium Chloride 10 ml 07/12/19 09:00 07/22/19 05:24 Normal Saline Flush 0.9% IVP Not Given 0100,0900,1700 [facility] Spironolactone 25 mg 07/17/19 17:00 07/22/19 07:54 Aldactone PO Not Given BIDWM KIRK - Lab Result Fish Bone Diagrams: 07/22/19 07:20 07/22/19 05:45 - EKG Results EKG Interpreted Independently: Yes EKG Comparison: Unchanged from prior EKG EKG Findings: NSR, rate 94, LVH with left IVCD. Similar to 2017 EKG. - Additional Planning My Orders: My Active Orders 07/21/19 09:00 Senna [Senokot] 8.6 mg PO DAILY 07/21/19 09:25 Sodium Chloride 0.9% [Normal Saline 0.9%] 500 ml IV Q24H 07/21/19 13:23 CULTURE, BLOOD #1 [RM] Stat 07/21/19 14:00 Ferrous Gluconate [Fergon] 324 mg PO DAILYWM 07/21/19 22:00 Vancomycin Inj [Vancomycin] 1 gm Sodium Chloride 0.9% [Normal Saline 0.9%] 250 ml IV Q12H 07/22/19 08:19 Central Line Insertion [RC] ONCE Transfer [Admit \\ Transfer \\ Status] [RC] .ONCE 07/22/19 08:20 Daily Weight [RC] 0600 IO [RC] Q1HR Initiate Bowel Care Protocol [RC] QSHIFT Initiate Flu Vaccine Screening [RC] ONCE Initiate ICU Electrolyte Prot. [RC] .protocol Initiate Line Care Protocol [RC] .protocol Initiate Personal Care Protoco [RC] .protocol Initiate Pneumonia Vaccine Scr [RC] ONCE MRSA PCR,CCU ADMIT Routine TROPONIN I HIGH SENSITIVITY [IAI] Stat 07/22/19 08:21 Telemetry- [RC] Q4HR Turn, Cough and Deep Breathe [RC] Routine 07/22/19 08:22 Oral Care - Nursing [RC] Routine Turn and Reposition [RC] Routine 07/22/19 08:24 EKG - Electrocardiogram [RC] Routine 07/22/19 09:00 Pantoprazole [Protonix] 40 mg IVP QDAC 07/23/19 05:00 MAGNESIUM [CHEM] DAILYLAB PT WITH INR [COAG] DAILYLAB 07/23/19 09:30 VANCOMYCIN TROUGH [CHEM] Timed Subjective - Subjective Patient Reports: Pain Nursing Reports: Other (BP low but patient is warm and dry and mentating) Objective Vital Signs: Vital Signs - 24 hr 07/21/19 07/21/19 07/21/19 11:48 16:00 19:00 Temperature 38.4 C H 37.7 C H 37.5 C Heart Rate [ 95 86 Brachial] Respiratory 21 17 Rate Blood Pressure [Left Brachial artery] Blood Pressure 103/86 H 91/41 L [Right Brachial artery] O2 Saturation 90 L 97 07/21/19 07/21/19 07/21/19 21:00 21:46 23:53 Temperature 39.5 C H Heart Rate [ 89 96 Brachial] Respiratory 16 Rate Blood Pressure 82/41 L 97/57 L 89/45 L [Left Brachial artery] Blood Pressure 88/36 L [Right Brachial artery] O2 Saturation 95 07/22/19 07/22/19 07/22/19 00:36 02:00 03:35 Temperature 38.0 C H 37.9 C H 37.9 C H Heart Rate [ 91 87 Brachial] Respiratory Rate Blood Pressure 93/37 L 85/39 L [Left Brachial artery] Blood Pressure 92/38 L [Right Brachial artery] O2 Saturation 07/22/19 07/22/19 07/22/19 03:40 06:30 06:35 Temperature 37.3 C Heart Rate [ 91 90 91 Brachial] Respiratory Rate Blood Pressure 81/34 L [Left Brachial artery] Blood Pressure 97/45 L 78/53 L [Right Brachial artery] O2 Saturation 07/22/19 07/22/19 07/22/19 06:40 06:45 07:32 Temperature Heart Rate [ 88 90 93 Brachial] Respiratory 94 H Rate Blood Pressure 85/39 L 81/46 L [Left Brachial artery] Blood Pressure 81/39 L [Right Brachial artery] O2 Saturation 07/22/19 08:00 Temperature 37.2 C Heart Rate [ 95 Brachial] Respiratory 18 Rate Blood Pressure [Left Brachial artery] Blood Pressure 89/48 L [Right Brachial artery] O2 Saturation 96 Oxygen O2 Source Nasal cannula I&O (Last 24 Hrs): Intake and Output Totals x24h 07/20/19 07/21/19 07/22/19 23:59 23:59 23:59 Intake Total 1290 2577.334 1596.333 Output Total 100 175 50 Balance 1190 2402.334 1546.333 General: Alert, Oriented x3 HEENT: Mucous membr. moist/pink, Other (Icteric, unchanged) Neck: Supple, No JVD Neuro: Alert, Non Focal Cardiovascular: Regular rate, Other (murmur) Respiratory: No respiratory distress, Breath sounds nml Abdomen: Normal bowel sounds, Soft Extremities: Other (Wound L upper thigh, minimally tender) - Results Results: Laboratory Results WBC 9.2 x10^3/uL (4.8-10.8) 07/22/19 07:20 RBC 1.81 10^6/uL (4.20-5.40) L 07/22/19 07:20 Hgb 6.1 g/dL (12.0-16.0) L* 07/22/19 07:20 Hct 19.1 % (37.0-47.0) L* 07/22/19 07:20 MCV 105.5 fL (81.0-99.0) H 07/22/19 07:20 MCH 33.7 pg (27.0-31.0) H 07/22/19 07:20 MCHC 31.9 g/dL (32.0-36.0) L 07/22/19 07:20 RDW 16.7 % (12.0-15.0) H 07/22/19 07:20 Plt Count 132 10^3/uL (130-450) 07/22/19 07:20 MPV 10.7 fL (7.9-10.8) 07/22/19 07:20 Neut # (Auto) 7.8 10^3/uL (1.5-6.6) H 07/22/19 07:20 Lymph # (Auto) 0.2 10^3/uL (1.5-3.5) L 07/22/19 07:20 [place] # (Auto) 0.8 10^3/uL (0.0-1.0) 07/22/19 07:20 Eos # (Auto) 0.1 10^3/uL (0.0-0.7) 07/22/19 07:20 Baso # (Auto) 0.0 10^3/uL (0.0-0.1) 07/22/19 07:20 Absolute Nucleated RBC 0.02 x10^3/uL 07/22/19 07:20 Total Counted 100 07/22/19 05:45 Band Neuts % (Manual) 11 % (0-10) H 07/22/19 05:45 Abnorm Lymph % (Manual) 0 % 07/22/19 05:45 Metamyelocytes % 3 % (-0) H 07/20/19 04:45 Myelocytes % 2 % (-0) H 07/20/19 04:45 Nucleated RBC % 0.2 /100WBC 07/22/19 07:20 Neutrophils # (Manual) 8.0 10^3/uL (1.5-6.6) H 07/22/19 05:45 Lymphocytes # (Manual) 0.2 10^3/uL (1.5-3.5) L 07/22/19 05:45 Monocytes # (Manual) 0.3 10^3/uL (0.0-1.0) 07/22/19 05:45 Eosinophils # (Manual) 0.0 10^3/uL (0-0.7) 07/22/19 05:45 Basophils # (Manual) 0.1 10^3/uL (0-0.1) 07/22/19 05:45 Differential Comment MANUAL DIFFERENTIAL 07/22/19 05:45 WBC Morphology NORMAL APPEARANCE (NORMAL) 07/22/19 05:45 Platelet Estimate NORMAL (130-450,000) (NORMAL) 07/22/19 05:45 Platelet Morphology NORMAL APPEARANCE (NORMAL) 07/22/19 05:45 RBC Morph Micro Appear 1+ MACROCYTOSIS (NORMAL) 1+ HYPOCHROMASIA (NORMAL) 1+ POLYCHROMASIA (NORMAL) 1+ TARGET CELLS (NORMAL) 07/19/19 04:50 RBC Morph Micro Appear 1+ MACROCYTOSIS (NORMAL) 1+ HYPOCHROMASIA (NORMAL) 1+ POLYCHROMASIA (NORMAL) 1+ TARGET CELLS (NORMAL) 07/19/19 04:50 RBC Morph Micro Appear 1+ MACROCYTOSIS (NORMAL) 1+ HYPOCHROMASIA (NORMAL) 1+ POLYCHROMASIA (NORMAL) 1+ TARGET CELLS (NORMAL) 07/19/19 04:50 RBC Morph Micro Appear 1+ MACROCYTOSIS (NORMAL) 1+ HYPOCHROMASIA (NORMAL) 1+ POLYCHROMASIA (NORMAL) 07/20/19 04:45 RBC Morph Micro Appear 1+ MACROCYTOSIS (NORMAL) 1+ HYPOCHROMASIA (NORMAL) 1+ POLYCHROMASIA (NORMAL) 07/20/19 04:45 RBC Morph Micro Appear 1+ MACROCYTOSIS (NORMAL) 1+ HYPOCHROMASIA (NORMAL) 1+ POLYCHROMASIA (NORMAL) 07/20/19 04:45 RBC Morph Micro Appear 1+ HYPOCHROMASIA (NORMAL) 1+ MACROCYTOSIS (NORMAL) 1+ POLYCHROMASIA (NORMAL) 07/22/19 05:45 RBC Morph Micro Appear 1+ HYPOCHROMASIA (NORMAL) 1+ MACROCYTOSIS (NORMAL) 1+ POLYCHROMASIA (NORMAL) 07/22/19 05:45 RBC Morph Micro Appear 1+ HYPOCHROMASIA (NORMAL) 1+ MACROCYTOSIS (NORMAL) 1+ POLYCHROMASIA (NORMAL) 07/22/19 05:45 PT 18.6 secs (9.9-12.6) H 07/21/19 05:33 INR 1.7 (0.8-1.2) H 07/21/19 05:33 APTT 29.8 secs (24.9-33.3) 07/16/19 16:08 Sodium 130 mmol/L (135-145) L 07/22/19 05:45 Potassium 4.0 mmol/L (3.5-5.0) 07/22/19 05:45 Chloride 102 mmol/L (101-111) 07/22/19 05:45 Carbon Dioxide 21 mmol/L (21-32) 07/22/19 05:45 Anion Gap 7.0 (6-13) 07/22/19 05:45 BUN 28 mg/dL (6-20) H 07/22/19 05:45 Creatinine 0.8 mg/dL (0.4-1.0) 07/22/19 05:45 Estimated GFR (MDRD) 72 (>89) L 07/22/19 05:45 Glucose 135 mg/dL (70-100) H 07/22/19 05:45 Glycated Hemoglobin 4.7 % (4.6-6.2) 07/13/19 05:20 Estim Average Glucose 88 (70-100) 07/13/19 05:20 Lactic Acid 1.6 mmol/L (0.5-2.2) 07/22/19 07:56 Calcium 7.6 mg/dL (8.5-10.3) L 07/22/19 05:45 Phosphorus 3.1 mg/dL (2.5-4.6) 07/19/19 04:50 Magnesium 1.9 mg/dL (1.7-2.8) 07/19/19 04:50 Total Bilirubin 4.9 mg/dL (0.2-1.0) H 07/22/19 05:45 Direct Bilirubin 3.1 mg/dL (0.1-0.5) H 07/21/19 05:33 Indirect Bilirubin 2.1 mg/dL 07/16/19 16:08 GGT 63 IU/L (8-38) H 07/19/19 04:50 AST 57 IU/L (10-42) H 07/22/19 05:45 ALT 34 IU/L (10-60) 07/22/19 05:45 Alkaline Phosphatase 45 IU/L (42-121) 07/22/19 05:45 Ammonia 43.5 umol/L (7-35) H 07/20/19 16:15 Total Creatine Kinase 139 IU/L (22-269) 07/12/19 01:30 C-Reactive Protein 1.1 mg/dL (0-1.0) H 07/15/19 05:18 Total Protein 4.2 g/dL (6.7-8.2) L 07/22/19 05:45 Albumin 1.8 g/dL (3.2-5.5) L 07/22/19 05:45 Globulin 2.4 g/dL (2.1-4.2) 07/22/19 05:45 Albumin/Globulin Ratio 0.8 (1.0-2.2) L 07/22/19 05:45 Lipase 49 U/L (22-51) 07/15/19 05:18 Vitamin B12 760 pg/mL (180-914) 07/18/19 05:59 Folate 12.69 ng/mL (5.90 - >24.8) 07/18/19 05:59 TSH 1.95 uIU/mL (0.34-5.60) 07/16/19 16:08 Cortisol 22.5 ug/dL 07/22/19 05:45 Urine Color DARK YELLOW 07/20/19 12:20 Urine Clarity CLEAR (CLEAR) 07/20/19 12:20 Urine pH 6.0 PH (5.0-7.5) 07/20/19 12:20 Ur Specific [place] 1.015 (1.002-1.030) 07/20/19 12:20 Urine Protein NEGATIVE mg/dL (NEGATIVE) 07/20/19 12:20 Urine Glucose (UA) NEGATIVE mg/dL (NEGATIVE) 07/20/19 12:20 Urine Ketones NEGATIVE mg/dL (NEGATIVE) 07/20/19 12:20 Urine Occult Blood NEGATIVE (NEGATIVE) 07/20/19 12:20 Urine Nitrite NEGATIVE (NEGATIVE) 07/20/19 12:20 Urine Bilirubin MODERATE (NEGATIVE) H 07/20/19 12:20 Urine Urobilinogen 2 E.U./dL (NORMAL) H 07/20/19 12:20 Ur Leukocyte Esterase NEGATIVE (NEGATIVE) 07/20/19 12:20 Urine RBC 0-5 /HPF (0-5) 07/20/19 12:20 Urine WBC 0-3 /HPF (0-5) 07/20/19 12:20 Ur Squamous Epith Cells MANY Squamous (<= Few) H 07/20/19 12:20 Urine Bacteria Rare /HPF (None Seen) 07/20/19 12:20 Urine Casts 0-2 Fine Granular /LPF 07/12/19 03:42 Urine Mucus Moderate Strands 07/12/19 03:42 Ur Microscopic Review INDICATED 07/12/19 03:42 Urine Culture Comments NOT INDICATED 07/20/19 12:20 Urine Opiates Screen POSITIVE (NEGATIVE) H 07/12/19 03:42 Ur Oxycodone Screen NEGATIVE (NEGATIVE) 07/12/19 03:42 Urine Methadone Screen NEGATIVE (NEGATIVE) 07/12/19 03:42 Ur Propoxyphene Screen NEGATIVE (NEGATIVE) 07/12/19 03:42 Ur Barbiturates Screen NEGATIVE (NEGATIVE) 07/12/19 03:42 Ur Tricyclics Screen NEGATIVE (NEGATIVE) 07/12/19 03:42 Ur Phencyclidine Scrn NEGATIVE (NEGATIVE) 07/12/19 03:42 Ur Amphetamine Screen NEGATIVE (NEGATIVE) 07/12/19 03:42 U Methamphetamines Scrn NEGATIVE (NEGATIVE) 07/12/19 03:42 U Benzodiazepines Scrn NEGATIVE (NEGATIVE) 07/12/19 03:42 Urine Cocaine Screen NEGATIVE (NEGATIVE) 07/12/19 03:42 U Cannabinoids Screen NEGATIVE (NEGATIVE) 07/12/19 03:42 Ethyl Alcohol 186.5 mg/dL 07/12/19 01:30 Blood Type O POSITIVE 07/15/19 05:18 Blood Type Recheck O POSITIVE 07/12/19 01:10 Antibody Screen NEGATIVE 07/15/19 05:18 Crossmatch IS Only See Detail 07/15/19 05:18 - Procedures Procedures: Procedures EXCISION OF SIGMOID COLON, ENDO, DIAGN (07/14/17) INSPECTION OF UPPER INTESTINAL TRACT, ENDO (03/23/18)
[2019-07-22] MEDS: HYDROmorphone 0.5 MG/0.5 ML SYRINGE IVP PRN (09:35)
--- NOTE | 2019-07-22 10:11 | PROVIDER PROGRESS NOTE ---
Subjective - General Admit Date: 07/12/19 Procedure Date: 07/19/19 Post Op Days: 3 Procedure Performed: s/p L medial thigh fasciotomy and hematoma evacuation - Review of Systems Wound/Incisions: positive: Other (improving bleeding post op due to oozing from her coagulopathy) Drain Type: Provena incisional VAC All Other Systems: positive: Reviewed and negative - Other Other Information/Narrative: Moved to ICU this AM for persistent hypotension overnight. Pt awake and alert. Transfusion ordered for low hg, likely from slow ooze post op again. Cellulitis improving. Objective - Patient Data Vital Signs: Vital Signs x48h Temp Pulse Pulse Resp BP BP Pulse Ox 07/22/19 09:00 36.7 C 95 13 99/50 L 96 07/22/19 08:00 37.2 C 95 18 89/48 L 96 07/22/19 07:32 93 94 H 81/46 L 07/22/19 06:45 90 81/39 L 07/22/19 06:40 88 85/39 L 07/22/19 06:35 91 78/53 L 07/22/19 06:30 37.3 C 90 81/34 L 07/22/19 03:40 91 97/45 L 07/22/19 03:35 37.9 C H 87 85/39 L Weight: Weight 07/20/19 07/21/19 07/22/19 23:59 23:59 23:59 Weight (kg) 66.2 kg Intake & Output: Intake and Output Totals x24h 07/20/19 07/21/19 07/22/19 23:59 23:59 23:59 Intake Total 1290 2577.334 1796.333 Output Total 100 175 900 Balance 1190 2402.334 896.333 - Lab Results Lab Results: 07/22/19 07:20 07/22/19 05:45 Other Lab Results: Lab Results x24hrs 07/22/19 07/22/19 07/22/19 Range/Units 07:56 07:20 07:20 WBC 9.2 (4.8-10.8) x10^3/uL RBC 1.81 L (4.20-5.40) 10^6/uL Hgb 6.1 L* (12.0-16.0) g/dL Hct 19.1 L* (37.0-47.0) % MCV 105.5 H (81.0-99.0) fL MCH 33.7 H (27.0-31.0) pg MCHC 31.9 L (32.0-36.0) g/dL RDW 16.7 H (12.0-15.0) % Plt Count 132 (130-450) 10^3/uL MPV 10.7 (7.9-10.8) fL Neut # (Auto) 7.8 H Lymph # (Auto) 0.2 L [place] # (Auto) 0.8 Eos # (Auto) 0.1 Baso # (Auto) 0.0 Absolute Nucleated RBC 0.02 Total Counted Band Neuts % (Manual) (0 - 10) % Abnorm Lymph % (Manual) % Nucleated RBC % 0.2 Neutrophils # (Manual) (1.5-6.6) 10^3/uL Lymphocytes # (Manual) (1.5-3.5) 10^3/uL Monocytes # (Manual) (0.0-1.0) 10^3/uL Eosinophils # (Manual) (0-0.7) 10^3/uL Basophils # (Manual) (0-0.1) 10^3/uL Differential Comment WBC Morphology (NORMAL) Platelet Estimate (NORMAL) Platelet Morphology (NORMAL) RBC Morph Micro Appear (NORMAL) Sodium (135-145) mmol/L Potassium (3.5-5.0) mmol/L Chloride (101-111) mmol/L Carbon Dioxide (21-32) mmol/L Anion Gap (6-13) BUN (6-20) mg/dL Creatinine (0.4-1.0) mg/dL Estimated GFR (MDRD) (>89) Glucose (70-100) mg/dL Lactic Acid 1.6 (0.5-2.2) mmol/L Calcium (8.5-10.3) mg/dL Total Bilirubin (0.2-1.0) mg/dL AST (10-42) IU/L ALT (10-60) IU/L Alkaline Phosphatase (42-121) IU/L Troponin I High Sens (2.3-14.8) ng/L Total Protein (6.7-8.2) g/dL Albumin (3.2-5.5) g/dL Globulin (2.1-4.2) g/dL Albumin/Globulin Ratio (1.0-2.2) Cortisol ug/dL Blood Type O POSITIVE Antibody Screen NEGATIVE Crossmatch IS Only See Detail 07/22/19 07/22/19 07/22/19 Range/Units 05:45 05:45 05:45 WBC 8.5 (4.8-10.8) x10^3/uL RBC 1.74 L (4.20-5.40) 10^6/uL Hgb 5.9 L* (12.0-16.0) g/dL Hct 18.3 L* (37.0-47.0) % MCV 105.2 H (81.0-99.0) fL MCH 33.9 H (27.0-31.0) pg MCHC 32.2 (32.0-36.0) g/dL RDW 17.0 H (12.0-15.0) % Plt Count 120 L (130-450) 10^3/uL MPV 11.0 H (7.9-10.8) fL Neut # (Auto) Not Reportable Lymph # (Auto) Not Reportable [place] # (Auto) Not Reportable Eos # (Auto) Not Reportable Baso # (Auto) Not Reportable Absolute Nucleated RBC Not Reportable Total Counted 100 Band Neuts % (Manual) 11 H (0 - 10) % Abnorm Lymph % (Manual) 0 % Nucleated RBC % Not Reportable Neutrophils # (Manual) 8.0 H (1.5-6.6) 10^3/uL Lymphocytes # (Manual) 0.2 L (1.5-3.5) 10^3/uL Monocytes # (Manual) 0.3 (0.0-1.0) 10^3/uL Eosinophils # (Manual) 0.0 (0-0.7) 10^3/uL Basophils # (Manual) 0.1 (0-0.1) 10^3/uL Differential Comment MANUAL DIFFERENTIAL WBC Morphology NORMAL APPEARANCE (NORMAL) Platelet Estimate NORMAL (130-450,000) (NORMAL) Platelet Morphology NORMAL APPEARANCE (NORMAL) RBC Morph Micro Appear 1+ POLYCHROMASIA (NORMAL) Sodium 130 L (135-145) mmol/L Potassium 4.0 (3.5-5.0) mmol/L Chloride 102 (101-111) mmol/L Carbon Dioxide 21 (21-32) mmol/L Anion Gap 7.0 (6-13) BUN 28 H (6-20) mg/dL Creatinine 0.8 (0.4-1.0) mg/dL Estimated GFR (MDRD) 72 L (>89) Glucose 135 H (70-100) mg/dL Lactic Acid (0.5-2.2) mmol/L Calcium 7.6 L (8.5-10.3) mg/dL Total Bilirubin 4.9 H (0.2-1.0) mg/dL AST 57 H (10-42) IU/L ALT 34 (10-60) IU/L Alkaline Phosphatase 45 (42-121) IU/L Troponin I High Sens 9.4 (2.3-14.8) ng/L Total Protein 4.2 L (6.7-8.2) g/dL Albumin 1.8 L (3.2-5.5) g/dL Globulin 2.4 (2.1-4.2) g/dL Albumin/Globulin Ratio 0.8 L (1.0-2.2) Cortisol ug/dL Blood Type Antibody Screen Crossmatch IS Only 07/22/19 Range/Units 05:45 WBC (4.8-10.8) x10^3/uL RBC (4.20-5.40) 10^6/uL Hgb (12.0-16.0) g/dL Hct (37.0-47.0) % MCV (81.0-99.0) fL MCH (27.0-31.0) pg MCHC (32.0-36.0) g/dL RDW (12.0-15.0) % Plt Count (130-450) 10^3/uL MPV (7.9-10.8) fL Neut # (Auto) Lymph # (Auto) [place] # (Auto) Eos # (Auto) Baso # (Auto) Absolute Nucleated RBC Total Counted Band Neuts % (Manual) (0 - 10) % Abnorm Lymph % (Manual) % Nucleated RBC % Neutrophils # (Manual) (1.5-6.6) 10^3/uL Lymphocytes # (Manual) (1.5-3.5) 10^3/uL Monocytes # (Manual) (0.0-1.0) 10^3/uL Eosinophils # (Manual) (0-0.7) 10^3/uL Basophils # (Manual) (0-0.1) 10^3/uL Differential Comment WBC Morphology (NORMAL) Platelet Estimate (NORMAL) Platelet Morphology (NORMAL) RBC Morph Micro Appear (NORMAL) Sodium (135-145) mmol/L Potassium (3.5-5.0) mmol/L Chloride (101-111) mmol/L Carbon Dioxide (21-32) mmol/L Anion Gap (6-13) BUN (6-20) mg/dL Creatinine (0.4-1.0) mg/dL Estimated GFR (MDRD) (>89) Glucose (70-100) mg/dL Lactic Acid (0.5-2.2) mmol/L Calcium (8.5-10.3) mg/dL Total Bilirubin (0.2-1.0) mg/dL AST (10-42) IU/L ALT (10-60) IU/L Alkaline Phosphatase (42-121) IU/L Troponin I High Sens (2.3-14.8) ng/L Total Protein (6.7-8.2) g/dL Albumin (3.2-5.5) g/dL Globulin (2.1-4.2) g/dL Albumin/Globulin Ratio (1.0-2.2) Cortisol 22.5 ug/dL Blood Type Antibody Screen Crossmatch IS Only - Current Medications Current Medications: Current Medications Generic Name Dose Route Start Last Admin Trade Name Freq PRN Reason Stop Dose Admin Docusate Sodium 250 - 500 mg 07/16/19 22:00 07/22/19 07:56 Colace 250mg Capsule PO Not Given BID KIRK Ferrous Gluconate 324 mg 07/21/19 14:00 07/22/19 08:30 Fergon PO 324 mg DAILYWM KIRK Administration Fluticasone Propionate 2 sprays 07/13/19 09:00 07/22/19 08:26 Flonase YVETTE 2 sprays DAILY KIRK Administration Hydromorphone HCl 0.5 mg 07/12/19 08:50 07/22/19 09:35 Dilaudid Inj Syringe IVP 0.5 mg Q2HR PRN Administration PAIN 8-10 Hydromorphone HCl 1 mg 07/17/19 17:38 07/19/19 09:41 Dilaudid Inj Carp IVP 1 mg TID PRN Administration PAIN Ceftriaxone Sodium 2 gm/ 100 mls @ 200 mls/hr 07/21/19 09:00 07/22/19 08:50 Sodium Chloride IV Infused DAILY KIRK Infusion Metronidazole 500 mg in 100 mls @ 100 mls/hr 07/21/19 02:00 07/22/19 07:10 Flagyl 500 Mg/100 Ml IV Infused Q8H KIRK Infusion Sodium Chloride 500 mls @ 0 mls/hr 07/21/19 09:25 07/22/19 06:09 Normal Saline 0.9% IV 0 mls/hr Q24H PRN Infusion TKO RATE TKO Vancomycin HCl 1 gm/ Sodium 250 mls @ 167 mls/hr 07/21/19 22:00 07/21/19 23:25 Chloride IV Infused Q12H KIRK Infusion Lactulose 10 gm 07/16/19 18:00 07/22/19 07:57 Enulose PO Not Given TIDWM KIRK Midodrine 2.5 mg 07/17/19 17:00 07/22/19 07:28 PO 2.5 mg TIDWM KIRK Administration Multivitamins/Minerals 1 tab 07/14/19 09:00 07/22/19 08:21 Theragran M PO 1 tab DAILYWM KIRK Administration Ondansetron HCl 4 mg 07/13/19 20:44 07/21/19 10:29 Zofran Inj IVP 4 mg BID PRN Administration Nausea / Vomiting Oxycodone HCl 5 mg 07/12/19 07:24 07/21/19 14:19 Roxicodone PO 5 mg Q4HR PRN Administration Pain 5 to 7 Polyethylene Glycol 17 gm 07/14/19 09:00 07/22/19 07:55 Miralax PO Not Given DAILY KIRK Propranolol HCl 10 mg 07/17/19 21:00 07/22/19 07:55 Inderal PO Not Given BID KIRK Senna 8.6 mg 07/21/19 09:00 07/22/19 07:56 Senokot PO Not Given DAILY KIRK Sodium Chloride 10 ml 07/12/19 07:24 07/21/19 08:43 Normal Saline Flush 0.9% IVP 10 ml PRN PRN Administration NEEDED PER PROVIDER ORDERS Sodium Chloride 10 ml 07/12/19 09:00 07/22/19 05:24 Normal Saline Flush 0.9% IVP Not Given 0100,0900,1700 KIRK Spironolactone 25 mg 07/17/19 17:00 07/22/19 07:54 Aldactone PO Not Given BIDWM KIRK - Physical Exam Comments/Other: AAO, NAD, weak feeling EOMI, MMM, no scleral icterus unlabored RA soft, nt/nd L thigh cellulitis improving, compartments soft, VAC with good seal; calves soft skin jaundice improved Impression/Plan - Problem List Problem List: L thigh inc closed, POD#3 --> incisional VAC in place --> cellulitis but no evidence of abscess; on IV abx PT/OT needs to mobilize, increasingly deconditioned Cirrhosis - outpt FU - appreciate medicine team assistance, also appreciate heme input
[2019-07-22] MEDS: oxyCODONE 5 MG TABLET PO PRN ×3 (10:25→20:12)
[2019-07-22] MEDS: PANTOPRAZOLE 40 MG VIAL IVP SCH (10:36)
--- NOTE | 2019-07-22 12:23 | XRAY Report ---
Reason: central line placement verification Procedure Date: 07/22/2019 Accession Number: [id number] / [id number] Procedure: XR - Chest for Line Placement CPT Code: Final Report FULL RESULT: EXAM: CHEST RADIOGRAPHY EXAM DATE: 07/22/2019 11:57 AM. CLINICAL HISTORY: Central line placement verification. COMPARISON: CHEST 1 VIEW 07/20/2019 11:15 AM. TECHNIQUE: 1 view. FINDINGS: Lungs/Pleura: Central bronchial wall thickening with lower lung predominant opacities are stable. No evidence for pneumothorax. Mediastinum: Stable heart size and mediastinum. Other: Right central venous catheter terminates in the upper SVC. IMPRESSION: 1. Expected position of right central venous catheter terminating in the upper SVC. 2. No pneumothorax. 3. Unchanged pulmonary opacities compared to recent prior. RADIA
[2019-07-22] MEDS: VANCOMYCIN INJ 1 GM in SODIUM CHLORIDE 0.9% 250 ML IV SCH ×2 (12:25→22:21)
--- NOTE | 2019-07-22 12:25 | ANESTHESIA PROCEDURE NOTE ---
Anesth Central Line Template - Central Line Central Line Preparation: Consent Obtained, Time out completed, Ultrasound used, Sterile prep and drape Central line location: Right IJ Central line type: Triple lumen Central line catheter tip site resides: Superior vena cava (SVC) (Line placed using seldinger technique and U/S guidance. Wire clearly seen in RIJ prior to dilation of vessel. Run of ventricular ectopy during wire thread quickly res olved once wire pulled back. Patient awake during procedure, tolerated well. Dressed with tegederm.) Central line aftercare: Chlorhexidine disc placed, Secured (sutured), Placement confirmed, No complications, Bundle checklist complete, Pt tolerated well
[2019-07-22] MEDS: BENZOCAINE/MENTHOL LOZENGE MM PRN ×2 (15:24→21:15)
[2019-07-23] MEDS: oxyCODONE 5 MG TABLET PO PRN ×5 (00:29→17:20)
[2019-07-23] MEDS: SODIUM CHLORIDE FLUSH 0.9% 10 ML SYRINGE IVP SCH ×3 (01:25→17:31)
[2019-07-23] MEDS: BENZOCAINE/MENTHOL LOZENGE MM PRN ×2 (01:25→13:29)
[2019-07-23] MEDS: SODIUM CHLORIDE FLUSH 0.9% 10 ML SYRINGE IVP PRN ×2 (04:31→06:19)
[2019-07-23 05:18] LABS: BASOPHILS % (AUTO) 0.6 %; EOSINOPHILS % (AUTO) 5.2 %; HGB - HEMOGLOBIN 8.4 g/dL (12.0-16.0); LYMPHOCYTES % (AUTO) 3.8 %; MEAN CORPUSCULAR HEMOGLOBIN 32.8 pg (27.0-31.0); MEAN CORPUSCULAR HGB CONC 33.7 g/dL (32.0-36.0); MEAN CORPUSCULAR VOLUME 97.3 fL (81.0-99.0); MEAN PLATELET VOLUME 10.9 fL (7.9-10.8); MONOCYTES % (AUTO) 9.2 %; NEUTROPHILS % (AUTO) 80.3 %; PLT - PLATELET COUNT 138 10^3/uL (130-450); RED BLOOD COUNT 2.56 10^6/uL (4.20-5.40); RED CELL DISTRIBUTION WIDTH 20.7 % (12.0-15.0); WHITE BLOOD COUNT 9.8 x10^3/uL (4.8-10.8)
[2019-07-23 05:24] LABS: INR 1.8 (0.8-1.2); PT - PROTHROMBIN TIME 19.6 secs (9.9-12.6)
[2019-07-23 05:26] LABS: ABNORMAL LYMPHS % (MANUAL) 0 %
[2019-07-23 05:28] LABS: ALBUMIN 1.9 g/dL (3.2-5.5); ALBUMIN/GLOBULIN RATIO 0.7 (1.0-2.2); BILIRUBIN,TOTAL 3.9 mg/dL (0.2-1.0); CALCIUM 7.4 mg/dL (8.5-10.3); CREATININE 0.6 mg/dL (0.4-1.0); MAGNESIUM 1.9 mg/dL (1.7-2.8); TOTAL PROTEIN 4.7 g/dL (6.7-8.2)
[2019-07-23] MEDS: HYDROmorphone 0.5 MG/0.5 ML SYRINGE IVP PRN ×3 (05:47→20:33)
[2019-07-23 05:48] LABS: BAND NEUTROPHILS % (MANUAL) 11 %; EOSINOPHILS # (MANUAL) 0.6 10^3/uL (0-0.7); LYMPHOCYTES # (MANUAL) 0.3 10^3/uL (1.5-3.5); LYMPHOCYTES % (MANUAL) 3 %; MONOCYTES # (MANUAL) 1.1 10^3/uL (0.0-1.0)
[2019-07-23] MEDS: metroNIDAZOLE 500 MG/100 ML 500 MG/100 ML BAG IV SCH ×3 (05:48→21:30)
[2019-07-23 05:50] LABS: DIFFERENTIAL COMMENT MANUAL DIFFERENTIAL; PLATELET ESTIMATE, MANUAL NORMAL (130-450,000) (NORMAL); PLATELET MORPHOLOGY NORMAL APPEARANCE (NORMAL)
[2019-07-23] MEDS: PANTOPRAZOLE 40 MG VIAL IVP SCH (06:19)
[2019-07-23] MEDS: SODIUM CHLORIDE 0.9% 500 ML IV PRN ×2 (07:00→17:24)
[2019-07-23] MEDS: SPIRONOLACTONE 25 MG TABLET PO SCH ×2 (07:58→17:20)
[2019-07-23] MEDS: FERROUS GLUCONATE 324 MG TABLET PO SCH (07:58)
[2019-07-23] MEDS: MIDODRINE 2.5 MG TABLET PO SCH ×3 (07:58→17:20)
[2019-07-23] MEDS: MULTIVITAMIN W/MINERALS TABLET PO SCH (07:58)
[2019-07-23] MEDS: LACTULOSE 10 GM /15 ML UDC PO SCH ×3 (07:59→17:19)
[2019-07-23] MEDS ORDERED: POTASSIUM PHOSPHATE 15 MMOL in SODIUM CHLORIDE 0.9% 250 ML IV ONE (08:00)
[2019-07-23] MEDS: DOCUSATE SODIUM 250 MG CAPSULE PO SCH ×2 (08:00→20:32)
[2019-07-23] MEDS: polyethylene glycoL 3350 17 GM PACKET PO SCH (08:01)
[2019-07-23] MEDS: SENNA 8.6 MG TABLET PO SCH (08:01)
[2019-07-23] MEDS: PROPRANOLOL 10 MG TABLET PO SCH ×2 (08:07→20:33)
[2019-07-23] MEDS: FLUTICASONE NASAL SPRAY NAS SCH (08:10)
[2019-07-23] MEDS: cefTRIAXone 2 GM in SODIUM CHLORIDE 0.9% MINIBAG 100 ML IV SCH (08:15)
[2019-07-23] MEDS: VANCOMYCIN INJ 1 GM in SODIUM CHLORIDE 0.9% 250 ML IV SCH ×2 (08:50→22:00)
[2019-07-23 09:38] LABS: VANCOMYCIN,TROUGH 26.7 ug/mL (10.0-20.0)
--- NOTE | 2019-07-23 10:43 | PROVIDER PROGRESS NOTE ---
Subjective - General Admit Date: 07/12/19 Procedure Date: 07/19/19 Post Op Days: 4 Procedure Performed: s/p L medial thigh fasciotomy and hematoma evacuation - Review of Systems Wound/Incisions: positive: Other (improving bleeding post op due to oozing from her coagulopathy) Drain Type: Provena incisional VAC All Other Systems: positive: Reviewed and negative - Other Other Information/Narrative: Seems to have started bleeding from incision through the night, filled small incisional VAC canister x2 and now not holding suction. Removed, no active bleeding. Labs and vitals improved, moving back to [facility] surg bed. Objective - Patient Data Vital Signs: Vital Signs x48h Temp Pulse Resp BP BP Pulse Ox 07/23/19 09:00 98.8 C H 82 18 112/59 L 97 07/23/19 08:00 37 C 82 19 117/92 H 96 07/23/19 07:00 89 19 104/69 97 07/23/19 06:16 37.3 C 95 18 113/60 94 07/23/19 05:00 98 17 109/60 100 07/23/19 04:00 37.5 C 94 18 106/61 98 07/23/19 03:00 95 17 102/58 L 100 Weight: Weight 07/21/19 07/22/19 07/23/19 23:59 23:59 23:59 Weight (kg) 66.2 kg 73.5 kg Intake & Output: Intake and Output Totals x24h 07/21/19 07/22/19 07/23/19 23:59 23:59 23:59 Intake Total 2577.334 4216.333 2381.333 Output Total 175 1251 240 Balance 2402.334 2965.333 2141.333 - Lab Results Lab Results: 07/23/19 04:29 07/23/19 04:29 Other Lab Results: Lab Results x24hrs 07/23/19 07/23/19 07/23/19 Range/Units 09:20 09:20 04:29 WBC (4.8-10.8) x10^3/uL RBC (4.20-5.40) 10^6/uL Hgb (12.0-16.0) g/dL Hct (37.0-47.0) % MCV (81.0-99.0) fL MCH (27.0-31.0) pg MCHC (32.0-36.0) g/dL RDW (12.0-15.0) % Plt Count (130-450) 10^3/uL MPV (7.9-10.8) fL Neut # (Auto) Lymph # (Auto) [place] # (Auto) Eos # (Auto) Baso # (Auto) Absolute Nucleated RBC Total Counted Band Neuts % (Manual) (0 - 10) % Abnorm Lymph % (Manual) % Nucleated RBC % Neutrophils # (Manual) (1.5-6.6) 10^3/uL Lymphocytes # (Manual) (1.5-3.5) 10^3/uL Monocytes # (Manual) (0.0-1.0) 10^3/uL Eosinophils # (Manual) (0-0.7) 10^3/uL Basophils # (Manual) (0-0.1) 10^3/uL Differential Comment WBC Morphology (NORMAL) Platelet Estimate (NORMAL) Platelet Morphology (NORMAL) RBC Morph Micro Appear (NORMAL) PT (9.9-12.6) secs INR (0.8-1.2) Whole Blood INR (0.8-1.2) Sodium (135-145) mmol/L Potassium (3.5-5.0) mmol/L Chloride (101-111) mmol/L Carbon Dioxide (21-32) mmol/L Anion Gap (6-13) BUN (6-20) mg/dL Creatinine (0.4-1.0) mg/dL Estimated GFR (MDRD) (>89) Glucose (70-100) mg/dL Calcium (8.5-10.3) mg/dL Phosphorus 1.7 L (2.5-4.6) mg/dL Magnesium (1.7-2.8) mg/dL Total Bilirubin (0.2-1.0) mg/dL AST (10-42) IU/L ALT (10-60) IU/L Alkaline Phosphatase (42-121) IU/L Ammonia 32.0 (7-35) umol/L Total Protein (6.7-8.2) g/dL Albumin (3.2-5.5) g/dL Globulin (2.1-4.2) g/dL Albumin/Globulin Ratio (1.0-2.2) Nasal Screen MRSA (PCR) (NEGATIVE) Stl C. diff Tox B Gene (NEGATIVE) Last Dose Date UNK Last Dose Time UNK Vancomycin Trough 26.7 H* (10.0-20.0) ug/mL Blood Type Antibody Screen Crossmatch IS Only 07/23/19 07/23/19 07/23/19 Range/Units 04:29 04:29 04:29 WBC 9.8 (4.8-10.8) x10^3/uL RBC 2.56 L (4.20-5.40) 10^6/uL Hgb 8.4 L (12.0-16.0) g/dL Hct 24.9 L (37.0-47.0) % MCV 97.3 (81.0-99.0) fL MCH 32.8 H (27.0-31.0) pg MCHC 33.7 (32.0-36.0) g/dL RDW 20.7 H (12.0-15.0) % Plt Count 138 (130-450) 10^3/uL MPV 10.9 H (7.9-10.8) fL Neut # (Auto) Not Reportable Lymph # (Auto) Not Reportable [place] # (Auto) Not Reportable Eos # (Auto) Not Reportable Baso # (Auto) Not Reportable Absolute Nucleated RBC Not Reportable Total Counted 100 Band Neuts % (Manual) 11 H (0 - 10) % Abnorm Lymph % (Manual) 0 % Nucleated RBC % Not Reportable Neutrophils # (Manual) 7.8 H (1.5-6.6) 10^3/uL Lymphocytes # (Manual) 0.3 L (1.5-3.5) 10^3/uL Monocytes # (Manual) 1.1 H (0.0-1.0) 10^3/uL Eosinophils # (Manual) 0.6 (0-0.7) 10^3/uL Basophils # (Manual) 0.0 (0-0.1) 10^3/uL Differential Comment MANUAL DIFFERENTIAL WBC Morphology NORMAL APPEARANCE (NORMAL) Platelet Estimate NORMAL (130-450,000) (NORMAL) Platelet Morphology NORMAL APPEARANCE (NORMAL) RBC Morph Micro Appear 1+ ANISOCYTOSIS (NORMAL) PT 19.6 H (9.9-12.6) secs INR 1.8 H (0.8-1.2) Whole Blood INR (0.8-1.2) Sodium 132 L (135-145) mmol/L Potassium 3.6 (3.5-5.0) mmol/L Chloride 103 (101-111) mmol/L Carbon Dioxide 23 (21-32) mmol/L Anion Gap 6.0 (6-13) BUN 21 H (6-20) mg/dL Creatinine 0.6 (0.4-1.0) mg/dL Estimated GFR (MDRD) 101 (>89) Glucose 136 H (70-100) mg/dL Calcium 7.4 L (8.5-10.3) mg/dL Phosphorus (2.5-4.6) mg/dL Magnesium 1.9 (1.7-2.8) mg/dL Total Bilirubin 3.9 H (0.2-1.0) mg/dL AST 73 H (10-42) IU/L ALT 41 (10-60) IU/L Alkaline Phosphatase 87 (42-121) IU/L Ammonia (7-35) umol/L Total Protein 4.7 L (6.7-8.2) g/dL Albumin 1.9 L (3.2-5.5) g/dL Globulin 2.8 (2.1-4.2) g/dL Albumin/Globulin Ratio 0.7 L (1.0-2.2) Nasal Screen MRSA (PCR) (NEGATIVE) Stl C. diff Tox B Gene (NEGATIVE) Last Dose Date Last Dose Time Vancomycin Trough (10.0-20.0) ug/mL Blood Type Antibody Screen Crossmatch IS Only 07/22/19 07/22/19 07/22/19 Range/Units 18:00 10:45 09:36 WBC (4.8-10.8) x10^3/uL RBC (4.20-5.40) 10^6/uL Hgb (12.0-16.0) g/dL Hct (37.0-47.0) % MCV (81.0-99.0) fL MCH (27.0-31.0) pg MCHC (32.0-36.0) g/dL RDW (12.0-15.0) % Plt Count (130-450) 10^3/uL MPV (7.9-10.8) fL Neut # (Auto) Lymph # (Auto) [place] # (Auto) Eos # (Auto) Baso # (Auto) Absolute Nucleated RBC Total Counted Band Neuts % (Manual) (0 - 10) % Abnorm Lymph % (Manual) % Nucleated RBC % Neutrophils # (Manual) (1.5-6.6) 10^3/uL Lymphocytes # (Manual) (1.5-3.5) 10^3/uL Monocytes # (Manual) (0.0-1.0) 10^3/uL Eosinophils # (Manual) (0-0.7) 10^3/uL Basophils # (Manual) (0-0.1) 10^3/uL Differential Comment WBC Morphology (NORMAL) Platelet Estimate (NORMAL) Platelet Morphology (NORMAL) RBC Morph Micro Appear (NORMAL) PT (9.9-12.6) secs INR (0.8-1.2) Whole Blood INR 1.7 H (0.8-1.2) Sodium (135-145) mmol/L Potassium (3.5-5.0) mmol/L Chloride (101-111) mmol/L Carbon Dioxide (21-32) mmol/L Anion Gap (6-13) BUN (6-20) mg/dL Creatinine (0.4-1.0) mg/dL Estimated GFR (MDRD) (>89) Glucose (70-100) mg/dL Calcium (8.5-10.3) mg/dL Phosphorus (2.5-4.6) mg/dL Magnesium (1.7-2.8) mg/dL Total Bilirubin (0.2-1.0) mg/dL AST (10-42) IU/L ALT (10-60) IU/L Alkaline Phosphatase (42-121) IU/L Ammonia (7-35) umol/L Total Protein (6.7-8.2) g/dL Albumin (3.2-5.5) g/dL Globulin (2.1-4.2) g/dL Albumin/Globulin Ratio (1.0-2.2) Nasal Screen MRSA (PCR) NEGATIVE (NEGATIVE) Stl C. diff Tox B Gene NEGATIVE (NEGATIVE) Last Dose Date Last Dose Time Vancomycin Trough (10.0-20.0) ug/mL Blood Type Antibody Screen Crossmatch IS Only 07/22/19 Range/Units 07:20 WBC (4.8-10.8) x10^3/uL RBC (4.20-5.40) 10^6/uL Hgb (12.0-16.0) g/dL Hct (37.0-47.0) % MCV (81.0-99.0) fL MCH (27.0-31.0) pg MCHC (32.0-36.0) g/dL RDW (12.0-15.0) % Plt Count (130-450) 10^3/uL MPV (7.9-10.8) fL Neut # (Auto) Lymph # (Auto) [place] # (Auto) Eos # (Auto) Baso # (Auto) Absolute Nucleated RBC Total Counted Band Neuts % (Manual) (0 - 10) % Abnorm Lymph % (Manual) % Nucleated RBC % Neutrophils # (Manual) (1.5-6.6) 10^3/uL Lymphocytes # (Manual) (1.5-3.5) 10^3/uL Monocytes # (Manual) (0.0-1.0) 10^3/uL Eosinophils # (Manual) (0-0.7) 10^3/uL Basophils # (Manual) (0-0.1) 10^3/uL Differential Comment WBC Morphology (NORMAL) Platelet Estimate (NORMAL) Platelet Morphology (NORMAL) RBC Morph Micro Appear (NORMAL) PT (9.9-12.6) secs INR (0.8-1.2) Whole Blood INR (0.8-1.2) Sodium (135-145) mmol/L Potassium (3.5-5.0) mmol/L Chloride (101-111) mmol/L Carbon Dioxide (21-32) mmol/L Anion Gap (6-13) BUN (6-20) mg/dL Creatinine (0.4-1.0) mg/dL Estimated GFR (MDRD) (>89) Glucose (70-100) mg/dL Calcium (8.5-10.3) mg/dL Phosphorus (2.5-4.6) mg/dL Magnesium (1.7-2.8) mg/dL Total Bilirubin (0.2-1.0) mg/dL AST (10-42) IU/L ALT (10-60) IU/L Alkaline Phosphatase (42-121) IU/L Ammonia (7-35) umol/L Total Protein (6.7-8.2) g/dL Albumin (3.2-5.5) g/dL Globulin (2.1-4.2) g/dL Albumin/Globulin Ratio (1.0-2.2) Nasal Screen MRSA (PCR) (NEGATIVE) Stl C. diff Tox B Gene (NEGATIVE) Last Dose Date Last Dose Time Vancomycin Trough (10.0-20.0) ug/mL Blood Type O POSITIVE Antibody Screen NEGATIVE Crossmatch IS Only See Detail - Current Medications Current Medications: Current Medications Generic Name Dose Route Start Last Admin Trade Name Freq PRN Reason Stop Dose Admin Docusate Sodium 250 - 500 mg 07/16/19 22:00 07/23/19 08:00 Colace 250mg Capsule PO Not Given BID KIRK Ferrous Gluconate 324 mg 07/21/19 14:00 07/23/19 07:58 Fergon PO 324 mg DAILYWM KIRK Administration Fluticasone Propionate 2 sprays 07/13/19 09:00 07/23/19 08:10 Flonase YVETTE 2 sprays DAILY KIRK Administration Hydromorphone HCl 0.5 mg 07/12/19 08:50 07/23/19 10:30 Dilaudid Inj Syringe IVP 0.5 mg Q2HR PRN Administration PAIN 8-10 Hydromorphone HCl 1 mg 07/17/19 17:38 07/19/19 09:41 Dilaudid Inj Carp IVP 1 mg TID PRN Administration PAIN Ceftriaxone Sodium 2 gm/ 100 mls @ 200 mls/hr 07/21/19 09:00 07/23/19 08:45 Sodium Chloride IV Infused DAILY KIRK Infusion Metronidazole 500 mg in 100 mls @ 100 mls/hr 07/21/19 02:00 07/23/19 07:00 Flagyl 500 Mg/100 Ml IV Infused Q8H KIRK Infusion Sodium Chloride 500 mls @ 0 mls/hr 07/21/19 09:25 07/23/19 07:45 Normal Saline 0.9% IV 0 mls/hr Q24H PRN Infusion TKO RATE TKO Vancomycin HCl 1 gm/ Sodium 250 mls @ 167 mls/hr 07/21/19 22:00 07/23/19 10: 20 Chloride IV Infused Q12H KIRK Infusion Potassium Phosphate 15 mmol/ 255 mls @ 63 mls/hr 07/23/19 08:00 07/23/19 07:45 Sodium Chloride IV 07/23/19 12:02 63 mls/hr ONCE ONE Administration Protocol Lactulose 10 gm 07/16/19 18:00 07/23/19 07:59 Enulose PO Not Given TIDWM KIRK Midodrine 2.5 mg 07/17/19 17:00 07/23/19 07:58 PO 2.5 mg TIDWM KIRK Administration Multivitamins/Minerals 1 tab 07/14/19 09:00 07/23/19 07:58 Theragran M PO 1 tab DAILYWM KIRK Administration Ondansetron HCl 4 mg 07/13/19 20:44 07/21/19 10:29 Zofran Inj IVP 4 mg BID PRN Administration Nausea / Vomiting Oxycodone HCl 5 mg 07/12/19 07:24 07/23/19 09:43 Roxicodone PO 5 mg Q4HR PRN Administration Pain 5 to 7 Pantoprazole Sodium 40 mg 07/22/19 09:00 07/23/19 06:19 Protonix IVP 40 mg QDAC KIRK Administration Polyethylene Glycol 17 gm 07/14/19 09:00 07/23/19 08:01 Miralax PO Not Given DAILY KIRK Propranolol HCl 10 mg 07/17/19 21:00 07/23/19 08:07 Inderal PO 10 mg BID KIRK Administration Senna 8.6 mg 07/21/19 09:00 07/23/19 08:01 Senokot PO Not Given DAILY KIRK Sodium Chloride 10 ml 07/12/19 07:24 07/23/19 06:19 Normal Saline Flush 0.9% IVP 10 ml PRN PRN Administration NEEDED PER PROVIDER ORDERS Sodium Chloride 10 ml 07/12/19 09:00 07/23/19 08:02 Normal Saline Flush 0.9% IVP 10 ml 0100,0900,1700 KIRK Administration Spironolactone 25 mg 07/17/19 17:00 07/23/19 07:58 Aldactone PO 25 mg BIDWM KIRK Administration Throat Lozenges 1 lozenge 07/22/19 10:53 07/23/19 01:25 Cepacol MM 1 lozenge Q2HR PRN Administration Throat pain - Physical Exam Comments/Other: AAO, NAD EOMI, MMM, no scleral icterus unlabored RA soft, nt/nd L thigh cellulitis improving minimally from yesterday, compartments soft, VAC removed due to saturation- no active bleeding; calves soft skin jaundice resolved Impression/Plan - Problem List Problem List: L thigh inc closed, POD#4 --> incisional VAC removed, depending on ongoing oozing may replace with larger canister VAC tomorrow --> cellulitis but no evidence of abscess; on IV abx PT/OT needs to mobilize, increasingly deconditioned Cirrhosis - outpt FU - appreciate medicine team assistance, also appreciate heme input SCDs, chemoprophylaxis contraindicated with coagulopathy
--- NOTE | 2019-07-23 17:09 | PROVIDER PROGRESS NOTE ---
Assessment/Plan - Problem List (1) Cellulitis of left leg Assessment/Plan: No more overnight fever. Unchanged swelling Continue iv antibx Await cx. (2) Diarrhea Assessment/Plan: Cx neg and C diff neg. Will decrease Lactulose frequency (3) Anemia Assessment/Plan: After 2U PRBCs Hgb 6>> 8.4. Continue to monitor CBC daily. (4) Bleeding tendency Assessment/Plan: The consult was done by Business Lawyer Dr Martin Kolb. He felt she was oozing due to poor liver-created bleeding Factors. His advice was that if she needs to return to the ER, she needs FFP and vitamin K before surgery. But no FFP or vit K if she is holding stable. All the Factor levels that Dr Kolb requested were done and are pending, except our lab told me they do not do the PFA-100 test, and I informed Dr Kolb of that. Monitor CBC daily. (5) Compartment syndrome of left lower extremity Assessment/Plan: POD #4 after closure by Gen Surgery, who is managing the site (6) Hyperbilirubinemia Assessment/Plan: The bili plateaued at an elevated 6.5, and then decreased to 4.8 >> 3.9 today. The most likely reason is her advanced cirrhosis or chronic persistent Hepatitis. Will avoid hepatotoxic meds, she is not getting a systemic steroid (only topical Flonase intranasally). Follow LFTs daily. Follow Ammonia daily. Continue Lactulose treatment. (7) Liver cirrhosis Assessment/Plan: As per her hx (8) Chronic deep vein thrombosis (DVT) of left femoral vein Assessment/Plan: As per Hx. The risk of starting blood thinner outweighs the benefit at this time, as per Hematology consult done several days ago. (9) Hyponatremia Assessment/Plan: Slt improvement from 130 to 132 today, after NS given in ICU. Follow BMP daily. (10) Heart murmur Assessment/Plan: Mild mitral and tricuspid regurg by Echo done this admission. (11) Alcohol use Assessment/Plan: In her past Hx, (12) Hepatitis C Qualifiers: Viral hepatitis chronicity: chronic Assessment/Plan: In her remote Hx. (13) Hypotension Assessment/Plan: Resolved after 2U PRBCs transfused. Pt moved out of ICU today. PT was on hold and will be ordered to be restarted. - Current Meds Current Meds: Current Medications Generic Name Dose Route Start Last Admin Trade Name Freq PRN Reason Stop Dose Admin Docusate Sodium 250 - 500 mg 07/16/19 22:00 07/23/19 08:00 Colace 250mg Capsule PO Not Given BID KIRK Ferrous Gluconate 324 mg 07/21/19 14:00 07/23/19 07:58 Fergon PO 324 mg DAILYWM KIRK Administration Fluticasone Propionate 2 sprays 07/13/19 09:00 07/23/19 08:10 Flonase YVETTE 2 sprays DAILY KIRK Administration Hydromorphone HCl 0.5 mg 07/12/19 08:50 07/23/19 10:30 Dilaudid Inj Syringe IVP 0.5 mg Q2HR PRN Administration PAIN 8-10 Hydromorphone HCl 1 mg 07/17/19 17:38 07/19/19 09:41 Dilaudid Inj Carp IVP 1 mg TID PRN Administration PAIN Ceftriaxone Sodium 2 gm/ 100 mls @ 200 mls/hr 07/21/19 09:00 07/23/19 08:45 Sodium Chloride IV Infused DAILY KIRK Infusion Metronidazole 500 mg in 100 mls @ 100 mls/hr 07/21/19 02:00 07/23/19 14:55 Flagyl 500 Mg/100 Ml IV Infused Q8H KIRK Infusion Sodium Chloride 500 mls @ 0 mls/hr 07/21/19 09:25 07/23/19 14:00 Normal Saline 0.9% IV Infused Q24H PRN Infusion TKO RATE TKO Vancomycin HCl 1 gm/ Sodium 250 mls @ 167 mls/hr 07/21/19 22:00 07/23/19 10:20 Chloride IV Infused Q12H KIRK Infusion Lactulose 10 gm 07/16/19 18:00 07/23/19 11:54 Enulose PO 10 gm TIDWM KIRK Administration Midodrine 2.5 mg 07/17/19 17:00 07/23/19 11:54 PO 2.5 mg TIDWM KIRK Administration Multivitamins/Minerals 1 tab 07/14/19 09:00 07/23/19 07:58 Theragran M PO 1 tab DAILYWM KIRK Administration Ondansetron HCl 4 mg 07/13/19 20:44 07/21/19 10:29 Zofran Inj IVP 4 mg BID PRN Administration Nausea / Vomiting Oxycodone HCl 5 mg 07/12/19 07:24 07/23/19 13:31 Roxicodone PO 5 mg Q4HR PRN Administration Pain 5 to 7 Pantoprazole Sodium 40 mg 07/22/19 09:00 07/23/19 06:19 Protonix IVP 40 mg QDAC KIRK Administration Polyethylene Glycol 17 gm 07/14/19 09:00 07/23/19 08:01 Miralax PO Not Given DAILY KIRK Propranolol HCl 10 mg 07/17/19 21:00 07/23/19 08:07 Inderal PO 10 mg BID KIRK Administration Senna 8.6 mg 07/21/19 09:00 07/23/19 08:01 Senokot PO Not Given DAILY KIRK Sodium Chloride 10 ml 07/12/19 07:24 07/23/19 06:19 Normal Saline Flush 0.9% IVP 10 ml PRN PRN Administration NEEDED PER PROVIDER ORDERS Sodium Chloride 10 ml 07/12/19 09:00 07/23/19 08:02 Normal Saline Flush 0.9% IVP 10 ml 0100,0900,1700 KIRK Administration Spironolactone 25 mg 07/17/19 17:00 07/23/19 07:58 Aldactone PO 25 mg BIDWM KIRK Administration Throat Lozenges 1 lozenge 07/22/19 10:53 07/23/19 13:29 Cepacol MM 1 lozenge Q2HR PRN Administration Throat pain - Lab Result Fish Bone Diagrams: 07/23/19 04:29 07/23/19 04:29 - Additional Planning My Orders: My Active Orders 07/22/19 18:00 CULTURE, STOOL [RM] Urgent 07/23/19 Evaluate and Treat PT [PT] Routine 07/23/19 21:30 VANCOMYCIN TROUGH [CHEM] Timed 07/24/19 05:00 PHOSPHORUS [CHEM] DAILYLAB 07/25/19 05:00 PHOSPHORUS [CHEM] DAILYLAB Subjective - Subjective Patient Reports: Feeling Better Nursing Reports: Other (The VAC stopped suctioning, the bandge was saturated, the surgeon removed the VAC, a pressure bandage applied) Objective Vital Signs: Vital Signs - 24 hr 07/22/19 07/22/19 07/22/19 18:00 19:00 20:00 Temperature 37.3 C Heart Rate [ 97 98 Monitoring electrodes] Heart Rate [ Sitting] Respiratory 19 16 23 Rate Blood Pressure 116/59 L [Left Brachial artery] Blood Pressure 126/63 123/66 [Right Brachial artery] Blood Pressure [Sitting] O2 Saturation 96 94 100 O2 Saturation [ With Activity] 07/22/19 07/22/19 07/22/19 21:00 22:00 23:00 Temperature Heart Rate [ 95 95 95 Monitoring electrodes] Heart Rate [ Sitting] Respiratory 17 16 17 Rate Blood Pressure 119/56 L 116/59 L 118/64 [Left Brachial artery] Blood Pressure [Right Brachial artery] Blood Pressure [Sitting] O2 Saturation 100 100 99 O2 Saturation [ With Activity] 07/23/19 07/23/19 07/23/19 00:00 01:00 02:00 Temperature 37.3 C Heart Rate [ 98 96 95 Monitoring electrodes] Heart Rate [ Sitting] Respiratory 17 17 18 Rate Blood Pressure 112/57 L 109/52 L 112/53 L [Left Brachial artery] Blood Pressure [Right Brachial artery] Blood Pressure [Sitting] O2 Saturation 99 97 97 O2 Saturation [ With Activity] 07/23/19 07/23/19 07/23/19 03:00 04:00 05:00 Temperature 37.5 C Heart Rate [ 95 94 98 Monitoring electrodes] Heart Rate [ Sitting] Respiratory 17 18 17 Rate Blood Pressure 102/58 L 106/61 109/60 [Left Brachial artery] Blood Pressure [Right Brachial artery] Blood Pressure [Sitting] O2 Saturation 100 98 100 O2 Saturation [ With Activity] 07/23/19 07/23/19 07/23/19 06:16 07:00 08:00 Temperature 37.3 C 37 C Heart Rate [ 95 89 82 Monitoring electrodes] Heart Rate [ Sitting] Respiratory 18 19 19 Rate Blood Pressure 113/60 104/69 [Left Brachial artery] Blood Pressure 117/92 H [Right Brachial artery] Blood Pressure [Sitting] O2 Saturation 94 97 96 O2 Saturation [ With Activity] 07/23/19 07/23/19 07/23/19 09:00 11:00 12:00 Temperature 98.8 C H Heart Rate [ 82 85 89 Monitoring electrodes] Heart Rate [ Sitting] Respiratory 18 17 20 Rate Blood Pressure [Left Brachial artery] Blood Pressure 112/59 L 108/65 113/61 [Right Brachial artery] Blood Pressure [Sitting] O2 Saturation 97 96 97 O2 Saturation [ With Activity] 07/23/19 07/23/1907/23/20 13:35 14:00 15:00 Temperature 37.2 C 37.3 C Heart Rate [ 86 95 Monitoring electrodes] Heart Rate [ 75 Sitting] Respiratory 15 20 Rate Blood Pressure [Left Brachial artery] Blood Pressure 110/60 100/57 L [Right Brachial artery] Blood Pressure 113/61 [Sitting] O2 Saturation 97 95 O2 Saturation [ 87 L With Activity] Oxygen O2 Source [With Activity] Nasal cannula O2 Source Nasal cannula I&O (Last 24 Hrs): Intake and Output Totals x24h 07/21/19 07/22/19 07/23/19 23:59 23:59 23:59 Intake Total 2577.334 4216.333 3278.333 Output Total 175 1251 590 Balance 2402.334 2965.333 2688.333 General: Alert HEENT: Mucous membr. moist/pink, Other ([id number]) Neck: Supple, No JVD Neuro: Alert Cardiovascular: Regular rate, Other (murmur) Respiratory: No respiratory distress Abdomen: Soft Extremities: Other (L upper thigh in bandage) - Results Results: Laboratory Results WBC 9.8 x10^3/uL (4.8-10.8) 07/23/19 04:29 RBC 2.56 10^6/uL (4.20-5.40) L 07/23/19 04:29 Hgb 8.4 g/dL (12.0-16.0) L 07/23/19 04:29 Hct 24.9 % (37.0-47.0) L 07/23/19 04:29 MCV 97.3 fL (81.0-99.0) 07/23/19 04:29 MCH 32.8 pg (27.0-31.0) H 07/23/19 04:29 MCHC 33.7 g/dL (32.0-36.0) 07/23/19 04:29 RDW 20.7 % (12.0-15.0) H 07/23/19 04:29 Plt Count 138 10^3/uL (130-450) 07/23/19 04:29 MPV 10.9 fL (7.9-10.8) H 07/23/19 04:29 Neut # (Auto) Not Reportable 07/23/19 04:29 Lymph # (Auto) Not Reportable 07/23/19 04:29 [place] # (Auto) Not Reportable 07/23/19 04:29 Eos # (Auto) Not Reportable 07/23/19 04:29 Baso # (Auto) Not Reportable 07/23/19 04:29 Absolute Nucleated RBC Not Reportable 07/23/19 04:29 Total Counted 100 07/23/19 04:29 Band Neuts % (Manual) 11 % (0-10) H 07/23/19 04:29 Abnorm Lymph % (Manual) 0 % 07/23/19 04:29 Metamyelocytes % 3 % (-0) H 07/20/19 04:45 Myelocytes % 2 % (-0) H 07/20/19 04:45 Nucleated RBC % Not Reportable 07/23/19 04:29 Neutrophils # (Manual) 7.8 10^3/uL (1.5-6.6) H 07/23/19 04:29 Lymphocytes # (Manual) 0.3 10^3/uL (1.5-3.5) L 07/23/19 04:29 Monocytes # (Manual) 1.1 10^3/uL (0.0-1.0) H 07/23/19 04:29 Eosinophils # (Manual) 0.6 10^3/uL (0-0.7) 07/23/19 04:29 Basophils # (Manual) 0.0 10^3/uL (0-0.1) 07/23/19 04:29 Differential Comment MANUAL DIFFERENTIAL 07/23/19 04:29 WBC Morphology NORMAL APPEARANCE (NORMAL) 07/23/19 04:29 Platelet Estimate NORMAL (130-450,000) (NORMAL) 07/23/19 04:29 Platelet Morphology NORMAL APPEARANCE (NORMAL) 07/23/19 04:29 RBC Morph Micro Appear 1+ MACROCYTOSIS (NORMAL) 1+ HYPOCHROMASIA (NORMAL) 1+ POLYCHROMASIA (NORMAL) 1+ TARGET CELLS (NORMAL) 07/19/19 04:50 RBC Morph Micro Appear 1+ MACROCYTOSIS (NORMAL) 1+ HYPOCHROMASIA (NORMAL) 1+ POLYCHROMASIA (NORMAL) 1+ TARGET CELLS (NORMAL) 07/19/19 04:50 RBC Morph Micro Appear 1+ MACROCYTOSIS (NORMAL) 1+ HYPOCHROMASIA (NORMAL) 1+ POLYCHROMASIA (NORMAL) 07/20/19 04:45 RBC Morph Micro Appear 1+ MACROCYTOSIS (NORMAL) 1+ HYPOCHROMASIA (NORMAL) 1+ POLYCHROMASIA (NORMAL) 07/20/19 04:45 RBC Morph Micro Appear 1+ MACROCYTOSIS (NORMAL) 1+ HYPOCHROMASIA (NORMAL) 1+ POLYCHROMASIA (NORMAL) 07/20/19 04:45 RBC Morph Micro Appear 1+ HYPOCHROMASIA (NORMAL) 1+ MACROCYTOSIS (NORMAL) 1+ POLYCHROMASIA (NORMAL) 07/22/19 05:45 RBC Morph Micro Appear 1+ HYPOCHROMASIA (NORMAL) 1+ MACROCYTOSIS (NORMAL) 1+ POLYCHROMASIA (NORMAL) 07/22/19 05:45 RBC Morph Micro Appear 1+ HYPOCHROMASIA (NORMAL) 1+ MACROCYTOSIS (NORMAL) 1+ POLYCHROMASIA (NORMAL) 07/22/19 05:45 RBC Morph Micro Appear 1+ HYPOCHROMASIA (NORMAL) 1+ POLYCHROMASIA (NORMAL) 1+ ANISOCYTOSIS (NORMAL) 07/23/19 04:29 RBC Morph Micro Appear 1+ HYPOCHROMASIA (NORMAL) 1+ POLYCHROMASIA (NORMAL) 1+ ANISOCYTOSIS (NORMAL) 07/23/19 04:29 RBC Morph Micro Appear 1+ HYPOCHROMASIA (NORMAL) 1+ POLYCHROMASIA (NORMAL) 1+ ANISOCYTOSIS (NORMAL) 07/23/19 04:29 PT 19.6 secs (9.9-12.6) H 07/23/19 04:29 INR 1.8 (0.8-1.2) H 07/23/19 04:29 Whole Blood INR 1.7 (0.8-1.2) H 07/22/19 10:45 APTT 29.8 secs (24.9-33.3) 07/16/19 16:08 Sodium 132 mmol/L (135-145) L 07/23/19 04:29 Potassium 3.6 mmol/L (3.5-5.0) 07/23/19 04:29 Chloride 103 mmol/L (101-111) 07/23/19 04:29 Carbon Dioxide 23 mmol/L (21-32) 07/23/19 04:29 Anion Gap 6.0 (6-13) 07/23/19 04:29 BUN 21 mg/dL (6-20) H 07/23/19 04:29 Creatinine 0.6 mg/dL (0.4-1.0) 07/23/19 04:29 Estimated GFR (MDRD) 101 (>89) 07/23/19 04:29 Glucose 136 mg/dL (70-100) H 07/23/19 04:29 Glycated Hemoglobin 4.7 % (4.6-6.2) 07/13/19 05:20 Estim Average Glucose 88 (70-100) 07/13/19 05:20 Lactic Acid 1.6 mmol/L (0.5-2.2) 07/22/19 07:56 Calcium 7.4 mg/dL (8.5-10.3) L 07/23/19 04:29 Phosphorus 1.7 mg/dL (2.5-4.6) L 07/23/19 04:29 Magnesium 1.9 mg/dL (1.7-2.8) 07/23/19 04:29 Total Bilirubin 3.9 mg/dL (0.2-1.0) H 07/23/19 04:29 Direct Bilirubin 3.1 mg/dL (0.1-0.5) H 07/21/19 05:33 Indirect Bilirubin 2.1 mg/dL 07/16/19 16:08 GGT 63 IU/L (8-38) H 07/19/19 04:50 AST 73 IU/L (10-42) H 07/23/19 04:29 ALT 41 IU/L (10-60) 07/23/19 04:29 Alkaline Phosphatase 87 IU/L (42-121) 07/23/19 04:29 Ammonia 32.0 umol/L (7-35) 07/23/19 09:20 Total Creatine Kinase 139 IU/L (22-269) 07/12/19 01:30 Troponin I High Sens 9.4 ng/L (2.3-14.8) 07/22/19 05:45 C-Reactive Protein 1.1 mg/dL (0-1.0) H 07/15/19 05:18 Total Protein 4.7 g/dL (6.7-8.2) L 07/23/19 04:29 Albumin 1.9 g/dL (3.2-5.5) L 07/23/19 04:29 Globulin 2.8 g/dL (2.1-4.2) 07/23/19 04:29 Albumin/Globulin Ratio 0.7 (1.0-2.2) L 07/23/19 04:29 Lipase 49 U/L (22-51) 07/15/19 05:18 Vitamin B12 760 pg/mL (180-914) 07/18/19 05:59 Folate 12.69 ng/mL (5.90 - >24.8) 07/18/19 05:59 TSH 1.95 uIU/mL (0.34-5.60) 07/16/19 16:08 Cortisol 22.5 ug/dL 07/22/19 05:45 Urine Color DARK YELLOW 07/20/19 12:20 Urine Clarity CLEAR (CLEAR) 07/20/19 12:20 Urine pH 6.0 PH (5.0-7.5) 07/20/19 12:20 Ur Specific [place] 1.015 (1.002-1.030) 07/20/19 12:20 Urine Protein NEGATIVE mg/dL (NEGATIVE) 07/20/19 12:20 Urine Glucose (UA) NEGATIVE mg/dL (NEGATIVE) 07/20/19 12:20 Urine Ketones NEGATIVE mg/dL (NEGATIVE) 07/20/19 12:20 Urine Occult Blood NEGATIVE (NEGATIVE) 07/20/19 12:20 Urine Nitrite NEGATIVE (NEGATIVE) 07/20/19 12:20 Urine Bilirubin MODERATE (NEGATIVE) H 07/20/19 12:20 Urine Urobilinogen 2 E.U./dL (NORMAL) H 07/20/19 12:20 Ur Leukocyte Esterase NEGATIVE (NEGATIVE) 07/20/19 12:20 Urine RBC 0-5 /HPF (0-5) 07/20/19 12:20 Urine WBC 0-3 /HPF (0-5) 07/20/19 12:20 Ur Squamous Epith Cells MANY Squamous (<= Few) H 07/20/19 12:20 Urine Bacteria Rare /HPF (None Seen) 07/20/19 12:20 Urine Casts 0-2 Fine Granular /LPF 07/12/19 03:42 Urine Mucus Moderate Strands 07/12/19 03:42 Ur Microscopic Review INDICATED 07/12/19 03:42 Urine Culture Comments NOT INDICATED 07/20/19 12:20 Nasal Screen MRSA (PCR) NEGATIVE (NEGATIVE) 07/22/19 09:36 Stl C. diff Tox B Gene NEGATIVE (NEGATIVE) 07/22/19 18:00 Last Dose Date UNK 07/23/19 09:20 Last Dose Time UNK 07/23/19 09:20 Vancomycin Trough 26.7 ug/mL (10.0-20.0) H* 07/23/19 09:20 Urine Opiates Screen POSITIVE (NEGATIVE) H 07/12/19 03:42 Ur Oxycodone Screen NEGATIVE (NEGATIVE) 07/12/19 03:42 Urine Methadone Screen NEGATIVE (NEGATIVE) 07/12/19 03:42 Ur Propoxyphene Screen NEGATIVE (NEGATIVE) 07/12/19 03:42 Ur Barbiturates Screen NEGATIVE (NEGATIVE) 07/12/19 03:42 Ur Tricyclics Screen NEGATIVE (NEGATIVE) 07/12/19 03:42 Ur Phencyclidine Scrn NEGATIVE (NEGATIVE) 07/12/19 03:42 Ur Amphetamine Screen NEGATIVE (NEGATIVE) 07/12/19 03:42 U Methamphetamines Scrn NEGATIVE (NEGATIVE) 07/12/19 03:42 U Benzodiazepines Scrn NEGATIVE (NEGATIVE) 07/12/19 03:42 Urine Cocaine Screen NEGATIVE (NEGATIVE) 07/12/19 03:42 U Cannabinoids Screen NEGATIVE (NEGATIVE) 07/12/19 03:42 Ethyl Alcohol 186.5 mg/dL 07/12/19 01:30 Blood Type O POSITIVE 07/22/19 07:20 Blood Type Recheck O POSITIVE 07/12/19 01:10 Antibody Screen NEGATIVE 07/22/19 07:20 Crossmatch IS Only See Detail 07/22/19 07:20 - Procedures Procedures: Procedures EXCISION OF SIGMOID COLON, ENDO, DIAGN (07/14/17) INSPECTION OF UPPER INTESTINAL TRACT, ENDO (03/23/18)
[2019-07-23] MEDS ORDERED: SODIUM CHLORIDE 0.9% 250 ML IV ONE (17:19)
[2019-07-23 21:42] LABS: VANCOMYCIN,TROUGH 3.9 ug/mL (10.0-20.0)
[2019-07-24] MEDS: oxyCODONE 5 MG TABLET PO PRN ×4 (00:11→17:06)
[2019-07-24] MEDS: BENZOCAINE/MENTHOL LOZENGE MM PRN ×3 (00:11→05:41)
[2019-07-24] MEDS: SODIUM CHLORIDE FLUSH 0.9% 10 ML SYRINGE IVP SCH ×3 (00:15→17:01)
[2019-07-24] MEDS ORDERED: MIN OIL/DIMETHICON/COCONUT OIL 92 GM TUBE TOP PRN (03:33)
[2019-07-24] MEDS: SODIUM CHLORIDE FLUSH 0.9% 10 ML SYRINGE IVP PRN ×2 (05:41→06:08)
[2019-07-24] MEDS: HYDROmorphone 0.5 MG/0.5 ML SYRINGE IVP PRN ×4 (05:43→21:58)
[2019-07-24] MEDS: metroNIDAZOLE 500 MG/100 ML 500 MG/100 ML BAG IV SCH ×3 (05:46→21:05)
[2019-07-24 05:49] LABS: BASOPHILS # (AUTO) 0.1 10^3/uL (0.0-0.1); BASOPHILS % (AUTO) 0.9 %; EOSINOPHILS # (AUTO) 0.7 10^3/uL (0.0-0.7); EOSINOPHILS % (AUTO) 5.3 %; HGB - HEMOGLOBIN 8.9 g/dL (12.0-16.0); LYMPHOCYTES % (AUTO) 7.8 %; MEAN CORPUSCULAR HGB CONC 33.5 g/dL (32.0-36.0); MEAN CORPUSCULAR VOLUME 95.7 fL (81.0-99.0); MONOCYTES # (AUTO) 1.2 10^3/uL (0.0-1.0); MONOCYTES % (AUTO) 9.6 %; NEUTROPHILS # (AUTO) 9.6 10^3/uL (1.5-6.6); NEUTROPHILS % (AUTO) 75.1 %; PLT - PLATELET COUNT 134 10^3/uL (130-450); RED BLOOD COUNT 2.78 10^6/uL (4.20-5.40); RED CELL DISTRIBUTION WIDTH 19.7 % (12.0-15.0); WHITE BLOOD COUNT 12.8 x10^3/uL (4.8-10.8)
[2019-07-24 06:00] LABS: ALBUMIN 1.9 g/dL (3.2-5.5); ALBUMIN/GLOBULIN RATIO 0.7 (1.0-2.2); BILIRUBIN,TOTAL 4.6 mg/dL (0.2-1.0); CALCIUM 7.4 mg/dL (8.5-10.3); CREATININE 0.5 mg/dL (0.4-1.0); TOTAL PROTEIN 4.8 g/dL (6.7-8.2)
[2019-07-24] MEDS: PANTOPRAZOLE 40 MG VIAL IVP SCH (06:08)
[2019-07-24] MEDS: MULTIVITAMIN W/MINERALS TABLET PO SCH (07:50)
[2019-07-24] MEDS: SPIRONOLACTONE 25 MG TABLET PO SCH ×2 (07:50→17:01)
[2019-07-24] MEDS: MIDODRINE 2.5 MG TABLET PO SCH ×3 (07:50→17:01)
[2019-07-24] MEDS: FERROUS GLUCONATE 324 MG TABLET PO SCH (07:50)
--- NOTE | 2019-07-24 08:05 | PROVIDER PROGRESS NOTE ---
Assessment/Plan - Problem List (1) Fever Assessment/Plan: She again spiked a fever to 38.1 degrees C at 0300, after defervescing yesterday (after 3 previous nights of fever spikes). WBC also up to 12.8 today from 9.8 yesterday. BP dropped to 83-92 systolic. All cultures are neg to date. Will check CXR, U/A, blood cx and a Lactic acid level. She is on Ceftriaxone & Flagyl empirically (to cover SBP) started 4 days ago, and on iv Vanco for the cellulitis of L upper thigh (started 4 days ago). Will broaden antibx coverage, adding Doxycycline orally to cover atypical bacteria and treat a possible bronchitis. This was advised by Pharmacy over Zithromax, which is problematic in liver impairment. If there is continued fever spikes, she would need imaging of the L hip area and LS spine with an MRI, to evaluate for spread of the infection to her joint or bones (osteo). Will increase Midodrine 2.5mg tid to 5 mg tid to improve low BP. She is not ready for discharge until she is afebrile for 48 hours from now, therefore no transfer to SNF or a Swing bed until Thurs morning at the earliest, and it will depend on her course. (2) Acute bronchitis Assessment/Plan: As above She does complain of an increased cough for 2 days and feels like she is making sputum. (3) Hypotension Assessment/Plan: She always has a "soft" BP and was put on Midodrine this admission. BP improved significantglyt after 2U PRBCs transfused, to 120's/70's Now she is running BPs of 90-100 systolic again. Will increase the Midodrine dose today, from 2.5 tid to 5 tid. (4) Cellulitis of left leg Assessment/Plan: Blood cultures were drawn every time she spiked a fever last week. The blood cx are neg to date. The cellulitis was found on CT of the abd/pelvis, which was done to evaluate for a source of fevers. The site is located just cephalad to the surgical site that was opened for managing the compartment syndrome. Continue pain management and iv antibiotics. Today is Day #4 of Vanco (plus empiric Flagyl and Ceftriaxone), and a 10 day course of treatment is planned for cellulitis. Continue daily PT, and restart OT, now that the severe hypotension from severe anemia has improved, if she can tolerate the pain of the surgical wound and the cellulitis. (5) Compartment syndrome of left lower extremity Assessment/Plan: This was her admitting problem, she was taken to the OR by Dr Mercado and the surgical site was left open for about 6 days, then was sutured closed about [address] Mercado remove the sutures today, and the wound splayed right open. The general surgeon wants a [facility] consult and the wound team to continue with management. I placed an order. The [facility] called me that there is no Wound Nurse here on Mondays. Await Wound consult for further recommendations. (6) Bleeding tendency Assessment/Plan: The consult was done by Hose Operator Dr Martin Kolb at her bedside, several days ago. He felt she was oozing due to poor liver-created bleeding Factors. His advice was that if she needs to return to the ER, she needs FFP and vitamin K before surgery. But no FFP or vit K if she is holding stable. All the Factor levels that Dr Kolb requested were done and are pending, except our lab told me they do not do the PFA-100 test, and I informed Dr Kolb of that. Monitor CBC daily and INR intermittently. (7) Diarrhea Assessment/Plan: Patient has refused her last 2 doses of lactulose because of the amount of liquid diarrhea she has. I spoke to pharmacy regarding firming up her stool: Will add Metamucil and yogurt. We will decrease her lactulose frequency. (8) Anemia Assessment/Plan: She needed a transfusion of 2 units PRBCs when she was severely hypotensive and moved to the ICU. Hemoglobin improved from 6 to 8.5 and has stabilized at above 8. Follow CBC daily (9) Hyperbilirubinemia Assessment/Plan: The bili plateaued at an elevated 6.5, and then oscillating to 4.8 >> 3.9>> 4.6 today. The most likely reason is her advanced cirrhosis or chronic persistent Hepati tis. Will avoid hepatotoxic meds, she is not getting a systemic steroid (only topical Flonase intranasally). Follow LFTs daily. Follow Ammonia intermittently. Continue Lactulose treatment. (10) Liver cirrhosis Assessment/Plan: As per her hx Ammonia level has been 32 for past 2 days. She has diarrhea from the Lactulose, is icteric but has no liver flap. Continue Lactulose. Monitor Ammonia levels occasionally. (11) Chronic deep vein thrombosis (DVT) of left femoral vein Assessment/Plan: As per Hx. The risk of starting blood thinner outweighs the benefit at this time, as per Hematology consult done several days ago. (12) Hyponatremia Assessment/Plan: Slightly improved, but is chronic with her liver disease. Follow BMP daily. (13) Heart murmur Assessment/Plan: An Echo was done this admission and showed mild mitral and tricuspid regurgitation. (14) Alcohol use Assessment/Plan: As per the PMH. (15) Hepatitis C Qualifiers: Viral hepatitis chronicity: chronic Assessment/Plan: As per the [facility]. - Current Meds Current Meds: Current Medications Generic Name Dose Route Start Last Admin Trade Name Freq PRN Reason Stop Dose Admin Docusate Sodium 250 - 500 mg 07/16/19 22:00 07/23/19 20:32 Colace 250mg Capsule PO Not Given BID KIRK Ferrous Gluconate 324 mg 07/21/19 14:00 07/24/19 07:50 Fergon PO 324 mg DAILYWM KIRK Administration Fluticasone Propionate 2 sprays 07/13/19 09:00 07/23/19 08:10 Flonase YVETTE 2 sprays DAILY KIRK Administration Hydromorphone HCl 0.5 mg 07/12/19 08:50 07/24/19 05:43 Dilaudid Inj Syringe IVP 0.5 mg Q2HR PRN Administration PAIN 8-10 Hydromorphone HCl 1 mg 07/17/19 17:38 07/19/19 09:41 Dilaudid Inj Carp IVP 1 mg TID PRN Administration PAIN Ceftriaxone Sodium 2 gm/ 100 mls @ 200 mls/hr 07/21/19 09:00 07/23/19 08:45 Sodium Chloride IV Infused DAILY KIRK Infusion Metronidazole 500 mg in 100 mls @ 100 mls/hr 07/21/19 02:00 07/24/19 06:54 Flagyl 500 Mg/100 Ml IV Infused Q8H KIRK Infusion Sodium Chloride 500 mls @ 0 mls/hr 07/21/19 09:25 07/23/19 17:24 Normal Saline 0.9% IV 20 mls/hr Q24H PRN Administration TKO RATE TKO Vancomycin HCl 1 gm/ Sodium 250 mls @ 167 mls/hr 07/21/19 22:00 07/24/19 00:15 Chloride IV Infused Q12H KIRK Infusion Lactulose 10 gm 07/16/19 18:00 07/23/19 17:19 Enulose PO Not Given TIDWM KIRK Midodrine 2.5 mg 07/17/19 17:00 07/24/19 07:50 PO 2.5 mg TIDWM KIRK Administration Multivitamins/Minerals 1 tab 07/14/19 09:00 07/24/19 07:50 Theragran M PO 1 tab DAILYWM KIRK Administration Ondansetron HCl 4 mg 07/13/19 20:44 07/21/19 10:29 Zofran Inj IVP 4 mg BID PRN Administration Nausea / Vomiting Oxycodone HCl 5 mg 07/12/19 07:24 07/24/19 04:36 Roxicodone PO 5 mg Q4HR PRN Administration Pain 5 to 7 Pantoprazole Sodium 40 mg 07/22/19 09:00 07/24/19 06:08 Protonix IVP 40 mg QDAC KIRK Administration Polyethylene Glycol 17 gm 07/14/19 09:00 07/23/19 08:01 Miralax PO Not Given DAILY KIRK Propranolol HCl 10 mg 07/17/19 21:00 07/23/19 20:33 Inderal PO 10 mg BID KIRK Administration Senna 8.6 mg 07/21/19 09:00 07/23/19 08:01 Senokot PO Not Given DAILY KIRK Sodium Chloride 10 ml 07/12/19 07:24 07/24/19 06:08 Normal Saline Flush 0.9% IVP 10 ml PRN PRN Administration NEEDED PER PROVIDER ORDERS Sodium Chloride 10 ml 07/12/19 09:00 07/24/19 00:15 Normal Saline Flush 0.9% IVP 10 ml 0100,0900,1700 KIRK Administration Spironolactone 25 mg 07/17/19 17:00 07/24/19 07:50 Aldactone PO 25 mg BIDWM KIRK Administration Throat Lozenges 1 lozenge 07/22/19 10:53 07/24/19 05:41 Cepacol MM 1 lozenge Q2HR PRN Administration Throat pain - Lab Result Fish Bone Diagrams: 07/24/19 05:30 07/24/19 05:30 - Additional Planning My Orders: My Active Orders 07/24/19 UA w/ MICROSCOPIC, CULT IF [URIN] Urgent 07/24/19 03:33 Min Oil/Dimeth/Coconut Oil Crm [Cavilon] 1 applic TOP PRN PRN 07/24/19 05:00 AMMONIA [CHEM] Urgent 07/24/19 08:01 Chest 1 View X-Ray [XR] Stat 07/24/19 09:30 VANCOMYCIN TROUGH [CHEM] Timed 07/25/19 05:00 PHOSPHORUS [CHEM] DAILYLAB Subjective - Subjective Patient Reports: Back Pain, Cough (New cough for 2 days, starting to make phlegm) Objective Vital Signs: Vital Signs - 24 hr 07/23/19 07/23/19 07/23/19 09:00 11:00 12:00 Temperature 98.8 C H Heart Rate [ Brachial] Heart Rate [ 82 85 89 Monitoring electrodes] Heart Rate [ Sitting] Respiratory 18 17 20 Rate Blood Pressure [Left Brachial artery] Blood Pressure 112/59 L 108/65 113/61 [Right Brachial artery] Blood Pressure [Sitting] O2 Saturation 97 96 97 O2 Saturation [ With Activity] 07/23/19 07/23/19 07/23/19 13:35 14:00 15:00 Temperature 37.2 C 37.3 C Heart Rate [ Brachial] Heart Rate [ 86 95 Monitoring electrodes] Heart Rate [ 75 Sitting] Respiratory 15 20 Rate Blood Pressure [Left Brachial artery] Blood Pressure 110/60 100/57 L [Right Brachial artery] Blood Pressure 113/61 [Sitting] O2 Saturation 97 95 O2 Saturation [ 87 L With Activity] 07/23/19 07/23/19 07/23/19 17:16 20:34 23:45 Temperature 36.7 C 37.4 C 37.5 C Heart Rate [ 87 88 Brachial] Heart Rate [ 87 Monitoring electrodes] Heart Rate [ Sitting] Respiratory 20 20 16 Rate Blood Pressure [Left Brachial artery] Blood Pressure 115/61 107/58 L 115/52 L [Right Brachial artery] Blood Pressure [Sitting] O2 Saturation 96 96 94 O2 Saturation [ With Activity] 07/24/19 07/24/19 07/24/19 03:03 04:39 07:41 Temperature 38.1 C H 36.8 C 37.5 C Heart Rate [ 90 Brachial] Heart Rate [ 92 Monitoring electrodes] Heart Rate [ Sitting] Respiratory 16 20 Rate Blood Pressure 83/58 L [Left Brachial artery] Blood Pressure 107/50 L [Right Brachial artery] Blood Pressure [Sitting] O2 Saturation 93 92 O2 Saturation [ With Activity] 07/24/19 07:52 Temperature Heart Rate [ Brachial] Heart Rate [ Monitoring electrodes] Heart Rate [ Sitting] Respiratory Rate Blood Pressure 92/48 L [Left Brachial artery] Blood Pressure [Right Brachial artery] Blood Pressure [Sitting] O2 Saturation O2 Saturation [ With Activity] Oxygen O2 Source [With Activity] Nasal cannula O2 Source Room air I&O (Last 24 Hrs): Intake and Output Totals x24h 07/22/19 07/23/19 07/24/19 23:59 23:59 23:59 Intake Total 4216.333 4318.333 350 Output Total 1251 890 Balance 2965.333 3428.333 350 General: Alert, Other (Groggy) HEENT: Mucous membr. moist/pink Neck: Supple Neuro: Alert, Non Focal, Other (Groggy) Cardiovascular: Regular rate Respiratory: No respiratory distress, Breath sounds nml Abdomen: Normal bowel sounds, Soft Extremities: Other (No pedal edema, L upper anterio thigh has a large dry bandage.) - Results Results: Laboratory Results WBC 12.8 x10^3/uL (4.8-10.8) H 07/24/19 05:30 RBC 2.78 10^6/uL (4.20-5.40) L 07/24/19 05:30 Hgb 8.9 g/dL (12.0-16.0) L 07/24/19 05:30 Hct 26.6 % (37.0-47.0) L 07/24/19 05:30 MCV 95.7 fL (81.0-99.0) 07/24/19 05:30 MCH 32.0 pg (27.0-31.0) H 07/24/19 05:30 MCHC 33.5 g/dL (32.0-36.0) 07/24/19 05:30 RDW 19.7 % (12.0-15.0) H 07/24/19 05:30 Plt Count 134 10^3/uL (130-450) 07/24/19 05:30 MPV 11.0 fL (7.9-10.8) H 07/24/19 05:30 Neut # (Auto) 9.6 10^3/uL (1.5-6.6) H 07/24/19 05:30 Lymph # (Auto) 1.0 10^3/uL (1.5-3.5) L 07/24/19 05:30 Lea # (Auto) 1.2 10^3/uL (0.0-1.0) H 07/24/19 05:30 Eos # (Auto) 0.7 10^3/uL (0.0-0.7) 07/24/19 05:30 Baso # (Auto) 0.1 10^3/uL (0.0-0.1) 07/24/19 05:30 Absolute Nucleated RBC 0.00 x10^3/uL 07/24/19 05:30 Total Counted 100 07/23/19 04:29 Band Neuts % (Manual) 11 % (0-10) H 07/23/19 04:29 Abnorm Lymph % (Manual) 0 % 07/23/19 04:29 Metamyelocytes % 3 % (-0) H 07/20/19 04:45 Myelocytes % 2 % (-0) H 07/20/19 04:45 Nucleated RBC % 0.0 /100WBC 07/24/19 05:30 Neutrophils # (Manual) 7.8 10^3/uL (1.5-6.6) H 07/23/19 04:29 Lymphocytes # (Manual) 0.3 10^3/uL (1.5-3.5) L 07/23/19 04:29 Monocytes # (Manual) 1.1 10^3/uL (0.0-1.0) H 07/23/19 04:29 Eosinophils # (Manual) 0.6 10^3/uL (0-0.7) 07/23/19 04:29 Basophils # (Manual) 0.0 10^3/uL (0-0.1) 07/23/19 04:29 Differential Comment MANUAL DIFFERENTIAL 07/23/19 04:29 WBC Morphology NORMAL APPEARANCE (NORMAL) 07/23/19 04:29 Platelet Estimate NORMAL (130-450,000) (NORMAL) 07/23/19 04:29 Platelet Morphology NORMAL APPEARANCE (NORMAL) 07/23/19 04:29 RBC Morph Micro Appear 1+ MACROCYTOSIS (NORMAL) 1+ HYPOCHROMASIA (NORMAL) 1+ POLYCHROMASIA (NORMAL) 1+ TARGET CELLS (NORMAL) 07/19/19 04:50 RBC Morph Micro Appear 1+ MACROCYTOSIS (NORMAL) 1+ HYPOCHROMASIA (NORMAL) 1+ POLYCHROMASIA (NORMAL) 1+ TARGET CELLS (NORMAL) 07/19/19 04:50 RBC Morph Micro Appear 1+ MACROCYTOSIS (NORMAL) 1+ HYPOCHROMASIA (NORMAL) 1+ POLYCHROMASIA (NORMAL) 07/20/19 04:45 RBC Morph Micro Appear 1+ MACROCYTOSIS (NORMAL) 1+ HYPOCHROMASIA (NORMAL) 1+ POLYCHROMASIA (NORMAL) 07/20/19 04:45 RBC Morph Micro Appear 1+ MACROCYTOSIS (NORMAL) 1+ HYPOCHROMASIA (NORMAL) 1+ POLYCHROMASIA (NORMAL) 07/20/19 04:45 RBC Morph Micro Appear 1+ HYPOCHROMASIA (NORMAL) 1+ MACROCYTOSIS (NORMAL) 1+ POLYCHROMASIA (NORMAL) 07/22/19 05:45 RBC Morph Micro Appear 1+ HYPOCHROMASIA (NORMAL) 1+ MACROCYTOSIS (NORMAL) 1+ POLYCHROMASIA (NORMAL) 07/22/19 05:45 RBC Morph Micro Appear 1+ HYPOCHROMASIA (NORMAL) 1+ MACROCYTOSIS (NORMAL) 1+ POLYCHROMASIA (NORMAL) 07/22/19 05:45 RBC Morph Micro Appear 1+ HYPOCHROMASIA (NORMAL) 1+ POLYCHROMASIA (NORMAL) 1+ ANISOCYTOSIS (NORMAL) 07/23/19 04:29 RBC Morph Micro Appear 1+ HYPOCHROMASIA (NORMAL) 1+ POLYCHROMASIA (NORMAL) 1+ ANISOCYTOSIS (NORMAL) 07/23/19 04:29 RBC Morph Micro Appear 1+ HYPOCHROMASIA (NORMAL) 1+ POLYCHROMASIA (NORMAL) 1+ ANISOCYTOSIS (NORMAL) 07/23/19 04:29 PT 19.6 secs (9.9-12.6) H 07/23/19 04:29 INR 1.8 (0.8-1.2) H 07/23/19 04:29 Whole Blood INR 1.7 (0.8-1.2) H 07/22/19 10:45 APTT 29.8 secs (24.9-33.3) 07/16/19 16:08 Sodium 133 mmol/L (135-145) L 07/24/19 05:30 Potassium 4.0 mmol/L (3.5-5.0) 07/24/19 05:30 Chloride 102 mmol/L (101-111) 07/24/19 05:30 Carbon Dioxide 23 mmol/L (21-32) 07/24/19 05:30 Anion Gap 8.0 (6-13) 07/24/19 05:30 BUN 18 mg/dL (6-20) 07/24/19 05:30 Creatinine 0.5 mg/dL (0.4-1.0) 07/24/19 05:30 Estimated GFR (MDRD) 125 (>89) 07/24/19 05:30 Glucose 113 mg/dL (70-100) H 07/24/19 05:30 Glycated Hemoglobin 4.7 % (4.6-6.2) 07/13/19 05:20 Estim Average Glucose 88 (70-100) 07/13/19 05:20 Lactic Acid 1.6 mmol/L (0.5-2.2) 07/22/19 07:56 Calcium 7.4 mg/dL (8.5-10.3) L 07/24/19 05:30 Phosphorus 2.0 mg/dL (2.5-4.6) L 07/24/19 05:30 Magnesium 1.9 mg/dL (1.7-2.8) 07/23/19 04:29 Total Bilirubin 4.6 mg/dL (0.2-1.0) H 07/24/19 05:30 Direct Bilirubin 3.1 mg/dL (0.1-0.5) H 07/21/19 05:33 Indirect Bilirubin 2.1 mg/dL 07/16/19 16:08 GGT 63 IU/L (8-38) H 07/19/19 04:50 AST 63 IU/L (10-42) H 07/24/19 05:30 ALT 39 IU/L (10-60) 07/24/19 05:30 Alkaline Phosphatase 74 IU/L (42-121) 07/24/19 05:30 Ammonia 32.0 umol/L (7-35) 07/23/19 09:20 Total Creatine Kinase 139 IU/L (22-269) 07/12/19 01:30 Troponin I High Sens 9.4 ng/L (2.3-14.8) 07/22/19 05:45 C-Reactive Protein 1.1 mg/dL (0-1.0) H 07/15/19 05:18 Total Protein 4.8 g/dL (6.7-8.2) L 07/24/19 05:30 Albumin 1.9 g/dL (3.2-5.5) L 07/24/19 05:30 Globulin 2.9 g/dL (2.1-4.2) 07/24/19 05:30 Albumin/Globulin Ratio 0.7 (1.0-2.2) L 07/24/19 05:30 Lipase 49 U/L (22-51) 07/15/19 05:18 Vitamin B12 760 pg/mL (180-914) 07/18/19 05:59 Folate 12.69 ng/mL (5.90 - >24.8) 07/18/19 05:59 TSH 1.95 uIU/mL (0.34-5.60) 07/16/19 16:08 Cortisol 22.5 ug/dL 07/22/19 05:45 Urine Color DARK YELLOW 07/20/19 12:20 Urine Clarity CLEAR (CLEAR) 07/20/19 12:20 Urine pH 6.0 PH (5.0-7.5) 07/20/19 12:20 Ur Specific [place] 1.015 (1.002-1.030) 07/20/19 12:20 Urine Protein NEGATIVE mg/dL (NEGATIVE) 07/20/19 12:20 Urine Glucose (UA) NEGATIVE mg/dL (NEGATIVE) 07/20/19 12:20 Urine Ketones NEGATIVE mg/dL (NEGATIVE) 07/20/19 12:20 Urine Occult Blood NEGATIVE (NEGATIVE) 07/20/19 12:20 Urine Nitrite NEGATIVE (NEGATIVE) 07/20/19 12:20 Urine Bilirubin MODERATE (NEGATIVE) H 07/20/19 12:20 Urine Urobilinogen 2 E.U./dL (NORMAL) H 07/20/19 12:20 Ur Leukocyte Esterase NEGATIVE (NEGATIVE) 07/20/19 12:20 Urine RBC 0-5 /HPF (0-5) 07/20/19 12:20 Urine WBC 0-3 /HPF (0-5) 07/20/19 12:20 Ur Squamous Epith Cells MANY Squamous (<= Few) H 07/20/19 12:20 Urine Bacteria Rare /HPF (None Seen) 07/20/19 12:20 Urine Casts 0-2 Fine Granular /LPF 07/12/19 03:42 Urine Mucus Moderate Strands 07/12/19 03:42 Ur Microscopic Review INDICATED 07/12/19 03:42 Urine Culture Comments NOT INDICATED 07/20/19 12:20 Nasal Screen MRSA (PCR) NEGATIVE (NEGATIVE) 07/22/19 09:36 Stl C. diff Tox B Gene NEGATIVE (NEGATIVE) 07/22/19 18:00 Last Dose Date 371203 07/23/19 21:30 Last Dose Time 1020 07/23/19 21:30 Vancomycin Trough 3.9 ug/mL (10.0-20.0) L 07/23/19 21:30 Urine Opiates Screen POSITIVE (NEGATIVE) H 07/12/19 03:42 Ur Oxycodone Screen NEGATIVE (NEGATIVE) 07/12/19 03:42 Urine Methadone Screen NEGATIVE (NEGATIVE) 07/12/19 03:42 Ur Propoxyphene Screen NEGATIVE (NEGATIVE) 07/12/19 03:42 Ur Barbiturates Screen NEGATIVE (NEGATIVE) 07/12/19 03:42 Ur Tricyclics Screen NEGATIVE (NEGATIVE) 07/12/19 03:42 Ur Phencyclidine Scrn NEGATIVE (NEGATIVE) 07/12/19 03:42 Ur Amphetamine Screen NEGATIVE (NEGATIVE) 07/12/19 03:42 U Methamphetamines Scrn NEGATIVE (NEGATIVE) 07/12/19 03:42 U Benzodiazepines Scrn NEGATIVE (NEGATIVE) 07/12/19 03:42 Urine Cocaine Screen NEGATIVE (NEGATIVE) 07/12/19 03:42 U Cannabinoids Screen NEGATIVE (NEGATIVE) 07/12/19 03:42 Ethyl Alcohol 186.5 mg/dL 07/12/19 01:30 Blood Type O POSITIVE 07/22/19 07:20 Blood Type Recheck O POSITIVE 07/12/19 01:10 Antibody Screen NEGATIVE 07/22/19 07:20 Crossmatch IS Only See Detail 07/22/19 07:20 - Procedures Procedures: Procedures EXCISION OF SIGMOID COLON, ENDO, DIAGN (07/14/17) INSPECTION OF UPPER INTESTINAL TRACT, ENDO (03/23/18)
[2019-07-24] MEDS ORDERED: AZITHROMYCIN 250 MG TABLET PO STA (08:36)
--- NOTE | 2019-07-24 08:38 | XRAY Report ---
Reason: Fever, eval for pneumonia Procedure Date: 07/24/2019 Accession Number: [id number] / [id number] Procedure: XR - Chest 1 View X-Ray CPT Code: 36300 Final Report FULL RESULT: EXAM: CHEST RADIOGRAPHY EXAM DATE: 07/24/2019 08:16 AM. CLINICAL HISTORY: Fever, evaluate for pneumonia. COMPARISON: Chest radiograph from 07/22/2019, 07/20/2019; CT of the abdomen and pelvis from 07/21/2019. TECHNIQUE: 1 view. FINDINGS: Lungs/Pleura: There are mild streaky bibasilar opacities, which are new from the prior examination. No pleural effusion or pneumothorax. Mediastinum: Cardiac silhouette is at the upper limits of normal for size. Mild atherosclerotic calcification of the aortic arch present. Mediastinal contour and pulmonary vasculature are within normal limits. Other: A right IJ catheter terminates in the superior SVC. IMPRESSION: 1. New mild, streaky bibasilar opacities, suggestive of atelectasis. 2. Central venous catheter is in similar position. RADIA
[2019-07-24] MEDS: SENNA 8.6 MG TABLET PO SCH ×2 (09:05→09:06)
[2019-07-24] MEDS: DOCUSATE SODIUM 250 MG CAPSULE PO SCH ×2 (09:05→21:05)
[2019-07-24] MEDS: cefTRIAXone 2 GM in SODIUM CHLORIDE 0.9% MINIBAG 100 ML IV SCH (09:06)
[2019-07-24] MEDS: PROPRANOLOL 10 MG TABLET PO SCH ×2 (09:10→21:04)
[2019-07-24] MEDS: LACTULOSE 10 GM /15 ML UDC PO SCH ×3 (09:17→17:00)
[2019-07-24] MEDS: PSYLLIUM PACKET PO SCH (09:18)
[2019-07-24] MEDS: FLUTICASONE NASAL SPRAY NAS SCH (09:18)
[2019-07-24] MEDS: polyethylene glycoL 3350 17 GM PACKET PO SCH (09:18)
[2019-07-24] MEDS: DOXYCYCLINE 100 MG TABLET PO SCH ×2 (09:18→21:05)
[2019-07-24 09:19] LABS: GLUCOSE, URINE (UA) NEGATIVE (NEGATIVE); KETONES,URINE (UA) NEGATIVE (NEGATIVE); LEUKOCYTE ESTERASE, URINE SMALL (NEGATIVE); NITRITE,URINE NEGATIVE (NEGATIVE); OCCULT BLOOD,URINE NEGATIVE (NEGATIVE); PROTEIN,URINE NEGATIVE (NEGATIVE); UROBILINOGEN,URINE 0.2 (NORMAL) E.U./dL (NORMAL)
[2019-07-24 09:20] LABS: CLARITY,URINE CLEAR (CLEAR)
[2019-07-24 09:26] LABS: BILIRUBIN,URINE SMALL (NEGATIVE); ICTOTEST,URINE POSITIVE
[2019-07-24 09:41] LABS: BACTERIA,URINE Few /HPF (None Seen); RBC,URINE 0-5 /HPF (0-5); SQUAMOUS EPITHELIAL CELL,UR MOD Squamous (<= Few)
[2019-07-24 10:15] LABS: VANCOMYCIN,TROUGH 8.2 ug/mL (10.0-20.0)
[2019-07-24] MEDS: VANCOMYCIN INJ 1 GM in SODIUM CHLORIDE 0.9% 250 ML IV SCH ×2 (10:44→18:49)
--- NOTE | 2019-07-24 13:23 | PROVIDER PROGRESS NOTE ---
Subjective - General Admit Date: 07/12/19 Procedure Date: 07/19/19 Post Op Days: 5 Procedure Performed: s/p L medial thigh fasciotomy and hematoma evacuation - Review of Systems Wound/Incisions: positive: Other (improving bleeding post op due to oozing from her coagulopathy) Drain Type: Provena incisional VAC All Other Systems: positive: Reviewed and negative - Other Other Information/Narrative: Another fever overnight, swing bed transfer delayed for at least 48 hrs. stable cellulitis of leg. Objective - Patient Data Vital Signs: Vital Signs x48h Temp Pulse Pulse Pulse Pulse Resp BP 07/24/19 11:11 93 75 90 101/49 L 07/24/19 07:52 07/24/19 07:41 37.5 C 90 20 BP BP BP Pulse Ox 07/24/19 11:11 113/61 97/52 L 07/24/19 07:52 92/48 L 07/24/19 07:41 83/58 L 92 Weight: Weight 07/22/19 07/23/19 07/24/19 23:59 23:59 23:59 Weight (kg) 66.2 kg 73.5 kg 77 kg Intake & Output: Intake and Output Totals x24h 07/22/19 07/23/19 07/24/19 23:59 23:59 23:59 Intake Total 4216.333 4318.333 940 Output Total 1251 890 Balance 2965.333 3428.333 940 - Lab Results Lab Results: 07/24/19 05:30 07/24/19 05:30 Other Lab Results: Lab Results x24hrs 07/24/19 07/24/19 07/24/19 Range/Units 09:57 09:57 09:57 WBC (4.8-10.8) x10^3/uL RBC (4.20-5.40) 10^6/uL Hgb (12.0-16.0) g/dL Hct (37.0-47.0) % MCV (81.0-99.0) fL MCH (27.0-31.0) pg MCHC (32.0-36.0) g/dL RDW (12.0-15.0) % Plt Count (130-450) 10^3/uL MPV (7.9-10.8) fL Neut # (Auto) (1.5-6.6) 10^3/uL Lymph # (Auto) (1.5-3.5) 10^3/uL [place] # (Auto) (0.0-1.0) 10^3/uL Eos # (Auto) (0.0-0.7) 10^3/uL Baso # (Auto) (0.0-0.1) 10^3/uL Absolute Nucleated RBC x10^3/uL Nucleated RBC % /100WBC Sodium (135-145) mmol/L Potassium (3.5-5.0) mmol/L Chloride (101-111) mmol/L Carbon Dioxide (21-32) mmol/L Anion Gap (6-13) BUN (6-20) mg/dL Creatinine (0.4-1.0) mg/dL Estimated GFR (MDRD) (>89) Glucose (70-100) mg/dL Lactic Acid 1.3 (0.5-2.2) mmol/L Calcium (8.5-10.3) mg/dL Phosphorus (2.5-4.6) mg/dL Total Bilirubin (0.2-1.0) mg/dL AST (10-42) IU/L ALT (10-60) IU/L Alkaline Phosphatase (42-121) IU/L Ammonia 32.2 (7-35) umol/L Total Protein (6.7-8.2) g/dL Albumin (3.2-5.5) g/dL Globulin (2.1-4.2) g/dL Albumin/Globulin Ratio (1.0-2.2) Urine Color Urine Clarity (CLEAR) Urine pH (5.0-7.5) PH Ur Specific [place] (1.002-1.030) Urine Protein (NEGATIVE) mg/dL Urine Glucose (UA) (NEGATIVE) mg/dL Urine Ketones (NEGATIVE) mg/dL Urine Occult Blood (NEGATIVE) Urine Nitrite (NEGATIVE) Urine Bilirubin (NEGATIVE) Urine Urobilinogen (NORMAL) E.U./dL Ur Leukocyte Esterase (NEGATIVE) Urine RBC (0-5) /HPF Urine WBC (0-5) /HPF Ur Squamous Epith Cells (<= Few) Urine Bacteria (None Seen) /HPF Urine Culture Comments Last Dose Date UNK Last Dose Time UNK Vancomycin Trough 8.2 L (10.0-20.0) ug/mL 07/24/19 07/24/19 07/24/19 Range/Units 08:30 05:30 05:30 WBC 12.8 H (4.8-10.8) x10^3/uL RBC 2.78 L (4.20-5.40) 10^6/uL Hgb 8.9 L (12.0-16.0) g/dL Hct 26.6 L (37.0-47.0) % MCV 95.7 (81.0-99.0) fL MCH 32.0 H (27.0-31.0) pg MCHC 33.5 (32.0-36.0) g/dL RDW 19.7 H (12.0-15.0) % Plt Count 134 (130-450) 10^3/uL MPV 11.0 H (7.9-10.8) fL Neut # (Auto) 9.6 H (1.5-6.6) 10^3/uL Lymph # (Auto) 1.0 L (1.5-3.5) 10^3/uL [place] # (Auto) 1.2 H (0.0-1.0) 10^3/uL Eos # (Auto) 0.7 (0.0-0.7) 10^3/uL Baso # (Auto) 0.1 (0.0-0.1) 10^3/uL Absolute Nucleated RBC 0.00 x10^3/uL Nucleated RBC % 0.0 /100WBC Sodium 133 L (135-145) mmol/L Potassium 4.0 (3.5-5.0) mmol/L Chloride 102 (101-111) mmol/L Carbon Dioxide 23 (21-32) mmol/L Anion Gap 8.0 (6-13) BUN 18 (6-20) mg/dL Creatinine 0.5 (0.4-1.0) mg/dL Estimated GFR (MDRD) 125 (>89) Glucose 113 H (70-100) mg/dL Lactic Acid (0.5-2.2) mmol/L Calcium 7.4 L (8.5-10.3) mg/dL Phosphorus 2.0 L (2.5-4.6) mg/dL Total Bilirubin 4.6 H (0.2-1.0) mg/dL AST 63 H (10-42) IU/L ALT 39 (10-60) IU/L Alkaline Phosphatase 74 (42-121) IU/L Ammonia (7-35) umol/L Total Protein 4.8 L (6.7-8.2) g/dL Albumin 1.9 L (3.2-5.5) g/dL Globulin 2.9 (2.1-4.2) g/dL Albumin/Globulin Ratio 0.7 L (1.0-2.2) Urine Color DARK YELLOW Urine Clarity CLEAR (CLEAR) Urine pH 6.0 (5.0-7.5) PH Ur Specific [place] 1.015 (1.002-1.030) Urine Protein NEGATIVE (NEGATIVE) mg/dL Urine Glucose (UA) NEGATIVE (NEGATIVE) mg/dL Urine Ketones NEGATIVE (NEGATIVE) mg/dL Urine Occult Blood NEGATIVE (NEGATIVE) Urine Nitrite NEGATIVE (NEGATIVE) Urine Bilirubin SMALL H (NEGATIVE) Urine Urobilinogen 0.2 (NORMAL) (NORMAL) E.U./dL Ur Leukocyte Esterase SMALL H (NEGATIVE) Urine RBC 0-5 (0-5) /HPF Urine WBC 0-3 (0-5) /HPF Ur Squamous Epith Cells MOD Squamous H (<= Few) Urine Bacteria Few (None Seen) /HPF Urine Culture Comments NOT INDICATED Last Dose Date Last Dose Time Vancomycin Trough (10.0-20.0) ug/mL 07/23/19 Range/Units 21:30 WBC (4.8-10.8) x10^3/uL RBC (4.20-5.40) 10^6/uL Hgb (12.0-16.0) g/dL Hct (37.0-47.0) % MCV (81.0-99.0) fL MCH (27.0-31.0) pg MCHC (32.0-36.0) g/dL RDW (12.0-15.0) % Plt Count (130-450) 10^3/uL MPV (7.9-10.8) fL Neut # (Auto) (1.5-6.6) 10^3/uL Lymph # (Auto) (1.5-3.5) 10^3/uL [place] # (Auto) (0.0-1.0) 10^3/uL Eos # (Auto) (0.0-0.7) 10^3/uL Baso # (Auto) (0.0-0.1) 10^3/uL Absolute Nucleated RBC x10^3/uL Nucleated RBC % /100WBC Sodium (135-145) mmol/L Potassium (3.5-5.0) mmol/L Chloride (101-111) mmol/L Carbon Dioxide (21-32) mmol/L Anion Gap (6-13) BUN (6-20) mg/dL Creatinine (0.4-1.0) mg/dL Estimated GFR (MDRD) (>89) Glucose (70-100) mg/dL Lactic Acid (0.5-2.2) mmol/L Calcium (8.5-10.3) mg/dL Phosphorus (2.5-4.6) mg/dL Total Bilirubin (0.2-1.0) mg/dL AST (10-42) IU/L ALT (10-60) IU/L Alkaline Phosphatase (42-121) IU/L Ammonia (7-35) umol/L Total Protein (6.7-8.2) g/dL Albumin (3.2-5.5) g/dL Globulin (2.1-4.2) g/dL Albumin/Globulin Ratio (1.0-2.2) Urine Color Urine Clarity (CLEAR) Urine pH (5.0-7.5) PH Ur Specific [place] (1.002-1.030) Urine Protein (NEGATIVE) mg/dL Urine Glucose (UA) (NEGATIVE) mg/dL Urine Ketones (NEGATIVE) mg/dL Urine Occult Blood (NEGATIVE) Urine Nitrite (NEGATIVE) Urine Bilirubin (NEGATIVE) Urine Urobilinogen (NORMAL) E.U./dL Ur Leukocyte Esterase (NEGATIVE) Urine RBC (0-5) /HPF Urine WBC (0-5) /HPF Ur Squamous Epith Cells (<= Few) Urine Bacteria (None Seen) /HPF Urine Culture Comments Last Dose Date [id number] Last Dose Time 1020 Vancomycin Trough 3.9 L (10.0-20.0) ug/mL - Current Medications Current Medications: Current Medications Generic Name Dose Route Start Last Admin Trade Name Freq PRN Reason Stop Dose Admin Docusate Sodium 250 - 500 mg 07/16/19 22:00 07/24/19 09:05 Colace 250mg Capsule PO 250 mg BID KIRK Administration Doxycycline Hyclate 100 mg 07/24/19 09:00 07/24/19 09:18 Vibramycin PO 100 mg BID KIRK Administration Ferrous Gluconate 324 mg 07/21/19 14:00 07/24/19 07:50 Fergon PO 324 mg DAILYWM KIRK Administration Fluticasone Propionate 2 sprays 07/13/19 09:00 07/24/19 09:18 Flonase YVETTE 2 sprays DAILY KIRK Administration Hydromorphone HCl 0.5 mg 07/12/19 08:50 07/24/19 12:39 Dilaudid Inj Syringe IVP 0.5 mg Q2HR PRN Administration PAIN 8-10 Hydromorphone HCl 1 mg 07/17/19 17:38 07/19/19 09:41 Dilaudid Inj Carp IVP 1 mg TID PRN Administration PAIN Ceftriaxone Sodium 2 gm/ 100 mls @ 200 mls/hr 07/21/19 09:00 07/24/19 09:06 Sodium Chloride IV Infused DAILY KIRK Infusion Metronidazole 500 mg in 100 mls @ 100 mls/hr 07/21/19 02:00 07/24/19 06:54 Flagyl 500 Mg/100 Ml IV Infused Q8H KIRK Infusion Sodium Chloride 500 mls @ 0 mls/hr 07/21/19 09:25 07/23/19 17:24 Normal Saline 0.9% IV 20 mls/hr Q24H PRN Administration TKO RATE TKO Vancomycin HCl 1 gm/ Sodium 250 mls @ 167 mls/hr 07/24/19 10:00 07/24/19 12:14 Chloride IV Infused Q8H KIRK Infusion Lactulose 10 gm 07/16/19 18:00 07/24/19 11:51 Enulose PO Not Given TIDWM KIRK Midodrine 5 mg 07/24/19 12:00 07/24/19 11:51 PO 5 mg TIDWM KIRK Administration Multivitamins/Minerals 1 tab 07/14/19 09:00 07/24/19 07:50 Theragran M PO 1 tab DAILYWM KIRK Administration Ondansetron HCl 4 mg 07/13/19 20:44 07/21/19 10:29 Zofran Inj IVP 4 mg BID PRN Administration Nausea / Vomiting Oxycodone HCl 5 mg 07/12/19 07:24 07/24/19 11:18 Roxicodone PO 5 mg Q4HR PRN Administration Pain 5 to 7 Pantoprazole Sodium 40 mg 07/22/19 09:00 07/24/19 06:08 Protonix IVP 40 mg QDAC KIRK Administration Polyethylene Glycol 17 gm 07/14/19 09:00 07/24/19 09:18 Miralax PO 17 gm DAILY KIRK Administration Propranolol HCl 10 mg 07/17/19 21:00 07/24/19 09:10 Inderal PO Not Given BID KIRK Psyllium Hydrophilic Mucilloid 1 packet 07/24/19 09:00 07/24/19 09:18 Metamucil PO 1 packet DAILY KIRK Administration Senna 8.6 mg 07/21/19 09:00 07/24/19 09:06 Senokot PO 8.6 mg DAILY KIRK Administration Sodium Chloride 10 ml 07/12/19 07:24 07/24/19 06:08 Normal Saline Flush 0.9% IVP 10 ml PRN PRN Administration NEEDED PER PROVIDER ORDERS Sodium Chloride 10 ml 07/12/19 09:00 07/24/19 09:19 Normal Saline Flush 0.9% IVP 10 ml 0100,0900,1700 KIRK Administration Spironolactone 25 mg 07/17/19 17:00 07/24/19 07:50 Aldactone PO 25 mg BIDWM KIRK Administration Throat Lozenges 1 lozenge 07/22/19 10:53 07/24/19 05:41 Cepacol MM 1 lozenge Q2HR PRN Administration Throat pain - Physical Exam Comments/Other: AAO, NAD EOMI, MMM, no scleral icterus unlabored RA soft, nt/nd L thigh cellulitis stable, compartments soft, some fibrinous exudate around sutures and sutures appear tight with swollen skin; calves soft skin jaundice resolved Impression/Plan - Problem List Problem List: L thigh inc closed, POD#5 --> cellulitis stagnant, removed sutures and will have wound care place VAC --> IV abx --> to swing bed when appropriate PT/OT - needs to mobilize, increasingly deconditioned Cirrhosis - outpt FU - appreciate medicine team assistance, also appreciate heme input SCDs, chemoprophylaxis contraindicated with coagulopathy
[2019-07-24] MEDS: SODIUM CHLORIDE 0.9% 500 ML IV PRN (18:47)
--- NOTE | 2019-07-24 19:10 | PHARMACY PROGRESS NOTE ---
- Therapy Status Therapy status: Trough subtherapeutic (Dosing interval changed from q12h to q8h per protocol to bring trough within therapeutic goal) Trough goal: 15-20; for uncomplicated cellulitis 10-15 is generally acceptable - [place] Risk Risk level for Acute Kidney Injury: Moderate Acute Kidney Injury risk factors: Baseline CrCl <50, IV contrast within 72 hrs - Monitoring and Recommendation Clinical response to treatment: I&O Previous 24 hours 07/22/19 07/23/19 07/24/19 23:59 23:59 23:59 Intake Total 4216.333 4318.333 1780 Output Total 1251 890 Balance 2965.333 3428.333 1780 Lab Results 07/24/19 07/23/19 07/22/19 05:30 04:29 05:45 BUN 18 21 H 28 H Creatinine 0.5 0.6 0.8 Estimated GFR (MDRD) 125 101 72 L 07/21/19 07/20/19 07/19/19 05:33 04:45 04:50 BUN 27 H 23 H 25 H Creatinine 0.9 0.6 0.7 Estimated GFR (MDRD) 63 L 101 85 L 07/18/19 07/17/19 07/16/19 05:59 05:32 05:30 BUN 27 H 26 H 27 H Creatinine 0.7 0.7 0.6 Estimated GFR (MDRD) 85 L 85 L 101 07/15/19 07/14/19 07/13/19 05:18 05:20 05:20 BUN 36 H 44 H 27 H Creatinine 0.8 1.0 0.7 Estimated GFR (MDRD) 72 L 56 L 85 L 07/12/19 01:30 BUN 14 Creatinine 0.5 Estimated GFR (MDRD) 125 Vancomycin Monitoring 07/24/19 07/23/19 07/23/19 09:57 21:30 09:20 Vancomycin Trough 8.2 L 3.9 L 26.7 H* Cultures 07/22/19 18:00 Stool Campylobacter Antigen Assay - Final 07/22/19 18:00 Stool Stool Culture - Final 07/22/19 00:25 Blood Blood Culture - Preliminary NO GROWTH AFTER 2 DAYS 07/22/19 00:20 Blood Blood Culture - Preliminary NO GROWTH AFTER 2 DAYS 07/21/19 13:23 Blood - Left Arm Blood Culture - Preliminary NO GROWTH AFTER 2 DAYS 07/20/19 08:19 Blood - Right Arm Blood Culture - Preliminary NO GROWTH AFTER 2 DAYS 07/20/19 08:15 Blood - Left Arm Blood Culture - Preliminary NO GROWTH AFTER 2 DAYS 07/20/19 18:35 Stool Occult Blood - Final Monitoring plan: Daily serum creatinine Next trough due prior to maintenance dose #: 4 Next trough due (date/time): 07/25 at 0930 per protocol Areas for additional monitoring: IV to PO when appropriate, Therapy de- escalation based on culture results, Acute Kidney Injury Pharmacy recommendation: Continue current regime (interval changed from q12h to q8h to bring trough more within therapeutic goal range)
[2019-07-25] MEDS: HYDROmorphone 0.5 MG/0.5 ML SYRINGE IVP PRN ×4 (01:36→14:50)
[2019-07-25] MEDS: VANCOMYCIN INJ 1 GM in SODIUM CHLORIDE 0.9% 250 ML IV SCH ×3 (01:38→18:16)
[2019-07-25] MEDS: SODIUM CHLORIDE FLUSH 0.9% 10 ML SYRINGE IVP SCH ×3 (01:41→18:16)
[2019-07-25] MEDS: oxyCODONE 5 MG TABLET PO PRN ×4 (03:13→20:47)
[2019-07-25 05:31] LABS: BASOPHILS # (AUTO) 0.1 10^3/uL (0.0-0.1); BASOPHILS % (AUTO) 0.6 %; EOSINOPHILS # (AUTO) 0.5 10^3/uL (0.0-0.7); EOSINOPHILS % (AUTO) 3.9 %; HGB - HEMOGLOBIN 8.7 g/dL (12.0-16.0); LYMPHOCYTES # (AUTO) 1.1 10^3/uL (1.5-3.5); LYMPHOCYTES % (AUTO) 8.8 %; MEAN CORPUSCULAR HEMOGLOBIN 32.6 pg (27.0-31.0); MEAN CORPUSCULAR HGB CONC 33.6 g/dL (32.0-36.0); MEAN PLATELET VOLUME 10.9 fL (7.9-10.8); MONOCYTES # (AUTO) 1.3 10^3/uL (0.0-1.0); MONOCYTES % (AUTO) 10.2 %; NEUTROPHILS # (AUTO) 9.3 10^3/uL (1.5-6.6); NEUTROPHILS % (AUTO) 74.7 %; PLT - PLATELET COUNT 150 10^3/uL (130-450); RED BLOOD COUNT 2.67 10^6/uL (4.20-5.40); RED CELL DISTRIBUTION WIDTH 19.4 % (12.0-15.0); WHITE BLOOD COUNT 12.4 x10^3/uL (4.8-10.8)
[2019-07-25] MEDS: SODIUM CHLORIDE FLUSH 0.9% 10 ML SYRINGE IVP PRN ×3 (05:31→05:41)
[2019-07-25] MEDS: metroNIDAZOLE 500 MG/100 ML 500 MG/100 ML BAG IV SCH ×2 (05:32→13:46)
[2019-07-25] MEDS: PANTOPRAZOLE 40 MG VIAL IVP SCH (05:34)
[2019-07-25 05:43] LABS: ALBUMIN 1.9 g/dL (3.2-5.5); ALBUMIN/GLOBULIN RATIO 0.7 (1.0-2.2); CALCIUM 7.1 mg/dL (8.5-10.3); CREATININE 0.5 mg/dL (0.4-1.0); PHOSPHORUS 2.1 mg/dL (2.5-4.6); TOTAL PROTEIN 4.7 g/dL (6.7-8.2)
[2019-07-25] MEDS: polyethylene glycoL 3350 17 GM PACKET PO SCH (08:38)
[2019-07-25] MEDS ORDERED: AZITHROMYCIN 250 MG TABLET PO SCH (09:00)
--- NOTE | 2019-07-25 09:12 | PROVIDER PROGRESS NOTE ---
Subjective - Prog Note Date Prog Note Date: 07/25/19 - Subjective Subjective: Reports the pain in her left lower extremity is about 5/6 out of 10. She reports no chest pain but does still feel short of breath at times. Also complains of abdominal pain on palpation. She reports she still has some erythema in her left groin. She has no numbness in her lower extremities and she is able to move both extremities. She also reports her left leg is more edematous compared to the right extremity. She reports no obvious signs of bleeding. She states her appetite has been quite good. Current Medications - Current Medications Current Medications: Active Medications Docusate Sodium (Colace 250mg Capsule) 250 - 500 mg PO BID [facility] Last Admin: 07/24/19 21:05 Dose: 250 mg Doxycycline Hyclate (Vibramycin) 100 mg PO BID [facility] Last Admin: 07/24/19 21:05 Dose: 100 mg Ferrous Gluconate (Fergon) 324 mg PO DAILYWM [facility] Last Admin: 07/24/19 07:50 Dose: 324 mg Fluticasone Propionate (Flonase) 2 sprays YVETTE DAILY [facility] Last Admin: 07/24/19 09:18 Dose: 2 sprays Hydromorphone HCl (Dilaudid Inj Syringe) 0.5 mg IVP Q2HR PRN PRN Reason: PAIN 8-10 Last Admin: 07/25/19 05:40 Dose: 0.5 mg Hydromorphone HCl (Dilaudid Inj Carp) 1 mg IVP TID PRN PRN Reason: PAIN Last Admin: 07/19/19 09:41 Dose: 1 mg Ceftriaxone Sodium 2 gm/ (Sodium Chloride) 100 mls @ 200 mls/hr IV DAILY [facility] Last Infusion: 07/24/19 09:06 Dose: Infused Metronidazole (Flagyl 500 Mg/100 Ml) 500 mg in 100 mls @ 100 mls/hr IV Q8H [facility] Last Infusion: 07/25/19 06:55 Dose: Infused Sodium Chloride (Normal Saline 0.9%) 500 mls @ 0 mls/hr IV Q24H PRN PRN Reason: TKO RATE Last Admin: 07/24/19 18:47 Dose: 20 mls/hr Vancomycin HCl 1 gm/ Sodium (Chloride) 250 mls @ 167 mls/hr IV Q8H [facility] Last Infusion: 07/25/19 03:30 Dose: Infused Lactulose (Enulose) 10 gm PO BIDWM [facility] Last Admin: 07/24/19 17:00 Dose: 10 gm Midodrine () 5 mg PO TIDWM [facility] Last Admin: 07/24/19 17:01 Dose: 5 mg Mineral Oil (Cavilon) 1 applic TOP PRN PRN PRN Reason: Skin Care Multivitamins/Minerals (Theragran M) 1 tab PO DAILYWM [facility] Last Admin: 07/24/19 07:50 Dose: 1 tab Ondansetron HCl (Zofran Inj) 4 mg IVP BID PRN PRN Reason: Nausea / Vomiting Last Admin: 07/21/19 10:29 Dose: 4 mg Oxycodone HCl (Roxicodone) 5 mg PO Q4HR PRN PRN Reason: Pain 5 to 7 Last Admin: 07/25/19 03:13 Dose: 5 mg Pantoprazole Sodium (Protonix) 40 mg IVP QDAC [facility] Last Admin: 07/25/19 05:34 Dose: 40 mg Polyethylene Glycol (Miralax) 17 gm PO DAILY [facility] Last Admin: 07/25/19 08:38 Dose: Not Given Propranolol HCl (Inderal) 10 mg PO BID [facility] Last Admin: 07/24/19 21:04 Dose: Not Given Psyllium Hydrophilic Mucilloid (Metamucil) 1 packet PO DAILY [facility] Last Admin: 07/24/19 09:18 Dose: 1 packet Senna (Senokot) 8.6 mg PO DAILY [facility] Last Admin: 07/24/19 09:06 Dose: 8.6 mg Sodium Chloride (Normal Saline Flush 0.9%) 10 ml IVP PRN PRN PRN Reason: NEEDED PER PROVIDER ORDERS Last Admin: 07/25/19 05:41 Dose: 10 ml Sodium Chloride (Normal Saline Flush 0.9%) 10 ml IVP 0100,0900,1700 [facility] Last Admin: 07/25/19 01:41 Dose: Not Given Spironolactone (Aldactone) 25 mg PO BIDWM [facility] Last Admin: 07/24/19 17:01 Dose: 25 mg Throat Lozenges (Cepacol) 1 lozenge MM Q2HR PRN PRN Reason: Throat pain Last Admin: 07/24/19 05:41 Dose: 1 lozenge Fluticasone [Flonase] 2 sprays YVETTE DAILY 07/12/19 lisinopriL [Lisinopril] 40 mg PO DAILY 07/12/19 Objective - Vital Signs/Intake & Output Reviewed Vital Signs: Yes Vital Signs: Vital Signs x48h Temp Pulse Resp BP Pulse Ox 07/25/19 08:07 36.9 C 92 20 124/65 94 Intake & Output: Intake & Output 07/22/19 07/23/19 07/24/19 07/25/19 23:59 23:59 23:59 23:59 Intake Total 4216.333 4318.333 2130 590 Output Total 1251 890 500 Balance 2965.333 3428.333 2130 90 - Objective General Appearance: positive: No acute distress, Alert Eyes Bilateral: positive: Conjunctivae nml ENT: positive: ENT inspection nml Neck: positive: Nml inspection Respiratory: positive: No respiratory distress. negative: Wheezes, Rales, Rhonchi Cardiovascular: positive: Regular rate & rhythm, No murmur, Tachycardia. negative: Systolic murmur, Diastolic murmur Abdomen: positive: Tenderness (She has diffuse tenderness that is most prominent in the epigastric region. No guarding or rebound tenderness. Her abdomen is slightly distended.). negative: Non-tender, No distention, Guarding, Rebound Skin: positive: Warm, Dry, Other (There is an area of erythema in the left groin superior to the incision site in the left lower extremity. The dressing is in place over the left lower extremity. No other erythema noted.) Extremities: positive: Full ROM, Pedal edema (She has about +2 pitting edema left lower extremity and trace pitting edema in the right lower extremity.), Other (Her left lower extremity is slightly tender to palpation around the incision site. She is able to move all 4 extremities without deficit. Capil lyle refill is less than 2 seconds.) Neurologic/Psychiatric: positive: Oriented x3, Other (No focal motor deficits.). negative: Disoriented to person, Disoriented to place, Disoriented to time - Lab Results Fish Bones: 07/25/19 05:00 07/25/19 05:00 Other Labs: Lab Results x24hrs 07/25/19 07/25/19 07/25/19 Range/Units 05:00 05:00 05:00 WBC 12.4 H (4.8-10.8) x10^3/uL RBC 2.67 L (4.20-5.40) 10^6/uL Hgb 8.7 L (12.0-16.0) g/dL Hct 25.9 L (37.0-47.0) % MCV 97.0 (81.0-99.0) fL MCH 32.6 H (27.0-31.0) pg MCHC 33.6 (32.0-36.0) g/dL RDW 19.4 H (12.0-15.0) % Plt Count 150 (130-450) 10^3/uL MPV 10.9 H (7.9-10.8) fL Neut # (Auto) 9.3 H (1.5-6.6) 10^3/uL Lymph # (Auto) 1.1 L (1.5-3.5) 10^3/uL Republic # (Auto) 1.3 H (0.0-1.0) 10^3/uL Eos # (Auto) 0.5 (0.0-0.7) 10^3/uL Baso # (Auto) 0.1 (0.0-0.1) 10^3/uL Absolute Nucleated RBC 0.00 x10^3/uL Nucleated RBC % 0.0 /100WBC Sodium 132 L (135-145) mmol/L Potassium 3.6 (3.5-5.0) mmol/L Chloride 104 (101-111) mmol/L Carbon Dioxide 21 (21-32) mmol/L Anion Gap 7.0 (6-13) BUN 17 (6-20) mg/dL Creatinine 0.5 (0.4-1.0) mg/dL Estimated GFR (MDRD) 125 (>89) Glucose 134 H (70-100) mg/dL Lactic Acid (0.5-2.2) mmol/L Calcium 7.1 L (8.5-10.3) mg/dL Phosphorus 2.1 L (2.5-4.6) mg/dL Total Bilirubin 5.0 H (0.2-1.0) mg/dL AST 57 H (10-42) IU/L ALT 36 (10-60) IU/L Alkaline Phosphatase 77 (42-121) IU/L Ammonia 24.7 (7-35) umol/L Total Protein 4.7 L (6.7-8.2) g/dL Albumin 1.9 L (3.2-5.5) g/dL Globulin 2.8 (2.1-4.2) g/dL Albumin/Globulin Ratio 0.7 L (1.0-2.2) Urine Color Urine Clarity (CLEAR) Urine pH (5.0-7.5) PH Ur Specific Douglas (1.002-1.030) Urine Protein (NEGATIVE) mg/dL Urine Glucose (UA) (NEGATIVE) mg/dL Urine Ketones (NEGATIVE) mg/dL Urine Occult Blood (NEGATIVE) Urine Nitrite (NEGATIVE) Urine Bilirubin (NEGATIVE) Urine Urobilinogen (NORMAL) E.U./dL Ur Leukocyte Esterase (NEGATIVE) Urine RBC (0-5) /HPF Urine WBC (0-5) /HPF Ur Squamous Epith Cells (<= Few) Urine Bacteria (None Seen) /HPF Urine Culture Comments Last Dose Date Last Dose Time Vancomycin Trough (10.0-20.0) ug/mL Ref Lab Test Result 07/24/19 07/24/19 07/24/19 Range/Units 09:57 09:57 09:57 WBC (4.8-10.8) x10^3/uL RBC (4.20-5.40) 10^6/uL Hgb (12.0-16.0) g/dL Hct (37.0-47.0) % MCV (81.0-99.0) fL MCH (27.0-31.0) pg MCHC (32.0-36.0) g/dL RDW (12.0-15.0) % Plt Count (130-450) 10^3/uL MPV (7.9-10.8) fL Neut # (Auto) (1.5-6.6) 10^3/uL Lymph # (Auto) (1.5-3.5) 10^3/uL Republic # (Auto) (0.0-1.0) 10^3/uL Eos # (Auto) (0.0-0.7) 10^3/uL Baso # (Auto) (0.0-0.1) 10^3/uL Absolute Nucleated RBC x10^3/uL Nucleated RBC % /100WBC Sodium (135-145) mmol/L Potassium (3.5-5.0) mmol/L Chloride (101-111) mmol/L Carbon Dioxide (21-32) mmol/L Anion Gap (6-13) BUN (6-20) mg/dL Creatinine (0.4-1.0) mg/dL Estimated GFR (MDRD) (>89) Glucose (70-100) mg/dL Lactic Acid 1.3 (0.5-2.2) mmol/L Calcium (8.5-10.3) mg/dL Phosphorus (2.5-4.6) mg/dL Total Bilirubin (0.2-1.0) mg/dL AST (10-42) IU/L ALT (10-60) IU/L Alkaline Phosphatase (42-121) IU/L Ammonia 32.2 (7-35) umol/L Total Protein (6.7-8.2) g/dL Albumin (3.2-5.5) g/dL Globulin (2.1-4.2) g/dL Albumin/Globulin Ratio (1.0-2.2) Urine Color Urine Clarity (CLEAR) Urine pH (5.0-7.5) PH Ur Specific Douglas (1.002-1.030) Urine Protein (NEGATIVE) mg/dL Urine Glucose (UA) (NEGATIVE) mg/dL Urine Ketones (NEGATIVE) mg/dL Urine Occult Blood (NEGATIVE) Urine Nitrite (NEGATIVE) Urine Bilirubin (NEGATIVE) Urine Urobilinogen (NORMAL) E.U./dL Ur Leukocyte Esterase (NEGATIVE) Urine RBC (0-5) /HPF Urine WBC (0-5) /HPF Ur Squamous Epith Cells (<= Few) Urine Bacteria (None Seen) /HPF Urine Culture Comments Last Dose Date UNK Last Dose Time UNK Vancomycin Trough 8.2 L (10.0-20.0) ug/mL Ref Lab Test Result 07/24/19 07/21/19 Range/Units 08:30 05:33 WBC (4.8-10.8) x10^3/uL RBC (4.20-5.40) 10^6/uL Hgb (12.0-16.0) g/dL Hct (37.0-47.0) % MCV (81.0-99.0) fL MCH (27.0-31.0) pg MCHC (32.0-36.0) g/dL RDW (12.0-15.0) % Plt Count (130-450) 10^3/uL MPV (7.9-10.8) fL Neut # (Auto) (1.5-6.6) 10^3/uL Lymph # (Auto) (1.5-3.5) 10^3/uL Republic # (Auto) (0.0-1.0) 10^3/uL Eos # (Auto) (0.0-0.7) 10^3/uL Baso # (Auto) (0.0-0.1) 10^3/uL Absolute Nucleated RBC x10^3/uL Nucleated RBC % /100WBC Sodium (135-145) mmol/L Potassium (3.5-5.0) mmol/L Chloride (101-111) mmol/L Carbon Dioxide (21-32) mmol/L Anion Gap (6-13) BUN (6-20) mg/dL Creatinine (0.4-1.0) mg/dL Estimated GFR (MDRD) (>89) Glucose (70-100) mg/dL Lactic Acid (0.5-2.2) mmol/L Calcium (8.5-10.3) mg/dL Phosphorus (2.5-4.6) mg/dL Total Bilirubin (0.2-1.0) mg/dL AST (10-42) IU/L ALT (10-60) IU/L Alkaline Phosphatase (42-121) IU/L Ammonia (7-35) umol/L Total Protein (6.7-8.2) g/dL Albumin (3.2-5.5) g/dL Globulin (2.1-4.2) g/dL Albumin/Globulin Ratio (1.0-2.2) Urine Color DARK YELLOW Urine Clarity CLEAR (CLEAR) Urine pH 6.0 (5.0-7.5) PH Ur Specific Douglas 1.015 (1.002-1.030) Urine Protein NEGATIVE (NEGATIVE) mg/dL Urine Glucose (UA) NEGATIVE (NEGATIVE) mg/dL Urine Ketones NEGATIVE (NEGATIVE) mg/dL Urine Occult Blood NEGATIVE (NEGATIVE) Urine Nitrite NEGATIVE (NEGATIVE) Urine Bilirubin SMALL H (NEGATIVE) Urine Urobilinogen 0.2 (NORMAL) (NORMAL) E.U./dL Ur Leukocyte Esterase SMALL H (NEGATIVE) Urine RBC 0-5 (0-5) /HPF Urine WBC 0-3 (0-5) /HPF Ur Squamous Epith Cells MOD Squamous H (<= Few) Urine Bacteria Few (None Seen) /HPF Urine Culture Comments NOT INDICATED Last Dose Date Last Dose Time Vancomycin Trough (10.0-20.0) ug/mL Ref Lab Test Result REPORT ABX Reporting Has patient been on IV antibiotics over the past 48 hours?: Yes Assessment/Plan - Problem List (1) Fever Impression: She has now been afebrile for the past 24 hours with the highest temperature o sully this period of time being 37.6 C. Her white count is also trending down and there are no bands present. The only obvious source of infection at the moment has been the cellulitis of the left lower extremity. She has been on ceftriaxone and Flagyl empirically to cover for SBP as well. Blood cultures have been checked multiple times these have been negative to date. Her stool cultures have also been negative. She was started on doxycycline yesterday for bronchitis. At this time, she has received 5 days of ceftriaxone and Flagyl for SBP and we will discontinue his antibiotics. We will keep her on vancomycin IV for cellulitis of the left upper thigh. We will we will keep her on dox ycycline for the time being to cover for atypical organisms given the concern for bronchitis. She continues to remain afebrile over next 24 hours, will discontinue the doxycycline and finish a course of vancomycin for cellulitis with the treatment length likely being 7 to 10 days. (2) Cellulitis of left leg Impression: Continues to have erythema of the left lower extremity but this appears to be stable at the moment. She has been afebrile and her white count is beginning to decrease and she no longer has bands present. We will keep her on vancomycin IV with today being day 5. Blood cultures have been negative to date. We will treat for 7 to 10 days depending on her clinical improvement. (3) Hypotension Impression: Blood pressure has been stable in the low 100s systolic with readings as high as 124 systolic. He has been started on midodrine and this has been titrated to 5 mg. Her net fluid balance is positive over this hospitalization and although she does appear edematous she may be intravascularly depleted given her low albumin. At this time, we will continue her on midodrine and discontinue Aldactone and propanolol. We will hold off on administering further IV fluids at the moment. There would likely be no benefit from administration of albumin. We will keep her on the midodrine for the time being. (4) Compartment syndrome of left lower extremity Impression: She is now approximately 2 weeks postop. Sutures were removed yesterday after the site was closed about 5 days ago. Wound care has been consulted for wound VAC placement. Appreciate wound nurse recommendations. Appreciate general surgery recommendations (5) Bleeding tendency Impression: INR remains elevated at 1.8. She has no evidence of significant bleeding at the moment and her hemoglobin remained stable. Factor levels have been sent and results are pending. The time being, we will continue to monitor her INR and CBC. (6) Chronic deep vein thrombosis (DVT) of left femoral vein Impression: There is a chronic DVT in her left lower extremity. No role for anticoagulation given the hematoma she had. (7) Postoperative anemia Impression: She had postoperative anemia that required multiple transfusions of red blood cells. Her hemoglobin has since been stable with no evidence of bleeding. Continue to monitor her CBC. (8) Hematoma of lower extremity Impression: She is status post evacuation on July 12. The etiology of the hematoma is not clear but suspect she likely has an acute or chronic coagulopathy. We will continue to monitor for signs of bleeding. Qualifiers: Encounter type: initial encounter Laterality: left Qualified Code(s): S80.12XA - Contusion of left lower leg, initial encounter (9) Diarrhea Impression: Likely secondary to the lactulose she is receiving. C. difficile was negative. We will decrease her lactulose dosing to titrate to 2-3 bowel movements a day. (10) Elevated INR Impression: Her INR has been increasing and today it is 1.8. This is likely secondary to her liver disease. She did receive vitamin K earlier during his hospitalization. Given there is no evidence of significant bleeding at the moment, will hold off on further vitamin K or FFP. Continue to trend her INR. (11) Liver cirrhosis Impression: Is likely secondary to her hepatitis C and this because of her elevated LFTs and INR. Continue to trend her LFTs and she will require outpatient follow-up with gastroenterology. (12) Hepatitis C Impression: She was diagnosed nearly 25 years ago and was treated for it although it was unsuccessful. Continue to trend her LFTs and have her follow-up with GI on an outpatient basis. Qualifiers: Viral hepatitis chronicity: chronic (13) Alcohol use Impression: Stable. She did not go through withdrawal during this hospitalization.
[2019-07-25] MEDS: DOCUSATE SODIUM 250 MG CAPSULE PO SCH ×2 (09:47→20:47)
[2019-07-25] MEDS: LACTULOSE 10 GM /15 ML UDC PO SCH ×2 (09:47→17:03)
[2019-07-25] MEDS: DOXYCYCLINE 100 MG TABLET PO SCH ×2 (09:49→20:47)
[2019-07-25] MEDS: SPIRONOLACTONE 25 MG TABLET PO SCH (09:49)
[2019-07-25] MEDS: PROPRANOLOL 10 MG TABLET PO SCH (09:49)
[2019-07-25] MEDS: FERROUS GLUCONATE 324 MG TABLET PO SCH (09:49)
[2019-07-25] MEDS: MIDODRINE 2.5 MG TABLET PO SCH ×3 (09:49→17:03)
[2019-07-25] MEDS: MULTIVITAMIN W/MINERALS TABLET PO SCH (09:50)
[2019-07-25] MEDS: PSYLLIUM PACKET PO SCH (09:50)
[2019-07-25] MEDS: FLUTICASONE NASAL SPRAY NAS SCH (09:51)
[2019-07-25] MEDS: cefTRIAXone 2 GM in SODIUM CHLORIDE 0.9% MINIBAG 100 ML IV SCH (09:52)
[2019-07-25 10:37] LABS: VANCOMYCIN,TROUGH 16.2 ug/mL (10.0-20.0)
--- NOTE | 2019-07-25 10:59 | PHARMACY PROGRESS NOTE ---
- Therapy Status Vancomycin regimen day #: 5 Therapy status: Trough therapeutic Basis for treatment: Empirical Trough goal: 15-20 Concurrent antibiotics: doxycycline, ceftriaxone - DOMINGO Risk Risk level for Acute Kidney Injury: Moderate Acute Kidney Injury risk factors: IV contrast within 72 hrs, Goal trough >15 - Monitoring and Recommendation Clinical response to treatment: I&O Previous 24 hours 07/23/19 07/24/19 07/25/19 23:59 23:59 23:59 Intake Total 4318.333 2130 590 Output Total 890 500 Balance 3428.333 2130 90 Lab Results 07/25/19 07/24/19 07/23/19 05:00 05:30 04:29 BUN 17 18 21 H Creatinine 0.5 0.5 0.6 Estimated GFR (MDRD) 125 125 101 07/22/19 07/21/19 07/20/19 05:45 05:33 04:45 BUN 28 H 27 H 23 H Creatinine 0.8 0.9 0.6 Estimated GFR (MDRD) 72 L 63 L 101 07/19/19 07/18/19 07/17/19 04:50 05:59 05:32 BUN 25 H 27 H 26 H Creatinine 0.7 0.7 0.7 Estimated GFR (MDRD) 85 L 85 L 85 L 07/16/19 07/15/19 07/14/19 05:30 05:18 05:20 BUN 27 H 36 H 44 H Creatinine 0.6 0.8 1.0 Estimated GFR (MDRD) 101 72 L 56 L 07/13/19 07/12/19 05:20 01:30 BUN 27 H 14 Creatinine 0.7 0.5 Estimated GFR (MDRD) 85 L 125 Vancomycin Monitoring 07/25/19 07/24/19 07/23/19 10:00 09:57 21:30 Vancomycin Trough 16.2 8.2 L 3.9 L 07/23/19 09:20 Vancomycin Trough 26.7 H* Cultures 07/24/19 09:57 Blood Blood Culture - Preliminary NO GROWTH AFTER 1 DAY 07/20/19 08:19 Blood - Right Arm Blood Culture - Final NO GROWTH AFTER 5 DAYS 07/20/19 08:15 Blood - Left Arm Blood Culture - Final NO GROWTH AFTER 5 DAYS 07/22/19 18:00 Stool Campylobacter Antigen Assay - Final 07/22/19 18:00 Stool Stool Culture - Final 07/22/19 00:25 Blood Blood Culture - Preliminary NO GROWTH AFTER 2 DAYS 07/22/19 00:20 Blood Blood Culture - Preliminary NO GROWTH AFTER 2 DAYS 07/21/19 13:23 Blood - Left Arm Blood Culture - Preliminary NO GROWTH AFTER 2 DAYS 07/20/19 18:35 Stool Occult Blood - Final Monitoring plan: Daily serum creatinine Areas for additional monitoring: IV to PO when appropriate, Therapy de- escalation based on culture results, Acute Kidney Injury Pharmacy recommendation: Continue current regime
[2019-07-25] MEDS ORDERED: HYDROmorphone 1 MG/ML SYRINGE IVP PRN (11:47)
--- NOTE | 2019-07-25 11:57 | PROVIDER PROGRESS NOTE ---
Subjective - General Admit Date: 07/12/19 Procedure Date: 07/19/19 Post Op Days: 6 Procedure Performed: s/p L medial thigh fasciotomy and hematoma evacuation - Review of Systems Wound/Incisions: positive: Other (improving bleeding post op due to oozing from her coagulopathy) Drain Type: Provena incisional VAC All Other Systems: positive: Reviewed and negative - Other Other Information/Narrative: VAC not placed as no wound care apparently available Mondays. They will come today. Pt same, PT came in during our discussion to help pt get out of bed to eat lunch but pt refused because lunch had already arrived. PT will come back this afternoon. Objective - Patient Data Vital Signs: Vital Signs x48h Temp Pulse Resp BP Pulse Ox 07/25/19 08:07 36.9 C 92 20 124/65 94 Weight: Weight 07/23/19 07/24/19 07/25/19 23:59 23:59 23:59 Weight (kg) 73.5 kg 77 kg 77.5 kg Intake & Output: Intake and Output Totals x24h 07/23/19 07/24/19 07/25/19 23:59 23:59 23:59 Intake Total 4318.333 2130 690 Output Total 890 500 Balance 3428.333 2130 190 - Lab Results Lab Results: 07/25/19 05:00 07/25/19 05:00 Other Lab Results: Lab Results x24hrs 07/25/19 07/25/19 07/25/19 Range/Units 10:00 05:00 05:00 WBC (4.8-10.8) x10^3/uL RBC (4.20-5.40) 10^6/uL Hgb (12.0-16.0) g/dL Hct (37.0-47.0) % MCV (81.0-99.0) fL MCH (27.0-31.0) pg MCHC (32.0-36.0) g/dL RDW (12.0-15.0) % Plt Count (130-450) 10^3/uL MPV (7.9-10.8) fL Neut # (Auto) (1.5-6.6) 10^3/uL Lymph # (Auto) (1.5-3.5) 10^3/uL [place] # (Auto) (0.0-1.0) 10^3/uL Eos # (Auto) (0.0-0.7) 10^3/uL Baso # (Auto) (0.0-0.1) 10^3/uL Absolute Nucleated RBC x10^3/uL Nucleated RBC % /100WBC Factor VIII Activity (50-180) % normal Sodium 132 L (135-145) mmol/L Potassium 3.6 (3.5-5.0) mmol/L Chloride 104 (101-111) mmol/L Carbon Dioxide 21 (21-32) mmol/L Anion Gap 7.0 (6-13) BUN 17 (6-20) mg/dL Creatinine 0.5 (0.4-1.0) mg/dL Estimated GFR (MDRD) 125 (>89) Glucose 134 H (70-100) mg/dL Calcium 7.1 L (8.5-10.3) mg/dL Phosphorus 2.1 L (2.5-4.6) mg/dL Total Bilirubin 5.0 H (0.2-1.0) mg/dL AST 57 H (10-42) IU/L ALT 36 (10-60) IU/L Alkaline Phosphatase 77 (42-121) IU/L Ammonia 24.7 (7-35) umol/L Total Protein 4.7 L (6.7-8.2) g/dL Albumin 1.9 L (3.2-5.5) g/dL Globulin 2.8 (2.1-4.2) g/dL Albumin/Globulin Ratio 0.7 L (1.0-2.2) Last Dose Date UNK Last Dose Time UNK Vancomycin Trough 16.2 (10.0-20.0) ug/mL Ref Lab Test Result 07/25/19 07/21/19 07/21/19 Range/Units 05:00 05:33 05:33 WBC 12.4 H (4.8-10.8) x10^3/uL RBC 2.67 L (4.20-5.40) 10^6/uL Hgb 8.7 L (12.0-16.0) g/dL Hct 25.9 L (37.0-47.0) % MCV 97.0 (81.0-99.0) fL MCH 32.6 H (27.0-31.0) pg MCHC 33.6 (32.0-36.0) g/dL RDW 19.4 H (12.0-15.0) % Plt Count 150 (130-450) 10^3/uL MPV 10.9 H (7.9-10.8) fL Neut # (Auto) 9.3 H (1.5-6.6) 10^3/uL Lymph # (Auto) 1.1 L (1.5-3.5) 10^3/uL [place] # (Auto) 1.3 H (0.0-1.0) 10^3/uL Eos # (Auto) 0.5 (0.0-0.7) 10^3/uL Baso # (Auto) 0.1 (0.0-0.1) 10^3/uL Absolute Nucleated RBC 0.00 x10^3/uL Nucleated RBC % 0.0 /100WBC Factor VIII Activity 146 (50-180) % normal Sodium (135-145) mmol/L Potassium (3.5-5.0) mmol/L Chloride (101-111) mmol/L Carbon Dioxide (21-32) mmol/L Anion Gap (6-13) BUN (6-20) mg/dL Creatinine (0.4-1.0) mg/dL Estimated GFR (MDRD) (>89) Glucose (70-100) mg/dL Calcium (8.5-10.3) mg/dL Phosphorus (2.5-4.6) mg/dL Total Bilirubin (0.2-1.0) mg/dL AST (10-42) IU/L ALT (10-60) IU/L Alkaline Phosphatase (42-121) IU/L Ammonia (7-35) umol/L Total Protein (6.7-8.2) g/dL Albumin (3.2-5.5) g/dL Globulin (2.1-4.2) g/dL Albumin/Globulin Ratio (1.0-2.2) Last Dose Date Last Dose Time Vancomycin Trough (10.0-20.0) ug/mL Ref Lab Test Result REPORT - Current Medications Current Medications: Current Medications Generic Name Dose Route Start Last Admin Trade Name Freq PRN Reason Stop Dose Admin Docusate Sodium 250 - 500 mg 07/16/19 22:00 07/25/19 09:47 Colace 250mg Capsule PO Not Given BID [facility] Doxycycline Hyclate 100 mg 07/24/19 09:00 07/25/19 09:49 Vibramycin PO 100 mg BID KIRK Administration Ferrous Gluconate 324 mg 07/21/19 14:00 07/25/19 09:49 Fergon PO 324 mg DAILYWM KIRK Administration Fluticasone Propionate 2 sprays 07/13/19 09:00 07/25/19 09:51 Flonase YVETTE 2 sprays DAILY KIRK Administration Hydromorphone HCl 0.5 mg 07/12/19 08:50 07/25/19 11:29 Dilaudid Inj Syringe IVP 0.5 mg Q2HR PRN Administration PAIN 8-10 Ceftriaxone Sodium 2 gm/ 100 mls @ 200 mls/hr 07/21/19 09:00 07/25/19 10:22 Sodium Chloride IV Infused DAILY KIRK Infusion Metronidazole 500 mg in 100 mls @ 100 mls/hr 07/21/19 02:00 07/25/19 06:55 Flagyl 500 Mg/100 Ml IV Infused Q8H KIRK Infusion Sodium Chloride 500 mls @ 0 mls/hr 07/21/19 09:25 07/24/19 18:47 Normal Saline 0.9% IV 20 mls/hr Q24H PRN Administration TKO RATE TKO Vancomycin HCl 1 gm/ Sodium 250 mls @ 167 mls/hr 07/24/19 10:00 07/25/19 11:29 Chloride IV 167 mls/hr Q8H KIRK Administration Lactulose 10 gm 07/24/19 17:00 07/25/19 09:47 Enulose PO Not Given BIDWM KIRK Midodrine 5 mg 07/24/19 12:00 07/25/19 09:49 PO 5 mg TIDWM [facility] Administration Multivitamins/Minerals 1 tab 07/14/19 09:00 07/25/19 09:50 Theragran M PO 1 tab DAILYWM [facility] Administration Ondansetron HCl 4 mg 07/13/19 20:44 07/21/19 10:29 Zofran Inj IVP 4 mg BID PRN Administration Nausea / Vomiting Oxycodone HCl 5 mg 07/12/19 07:24 07/25/19 09:49 Roxicodone PO 5 mg Q4HR PRN Administration Pain 5 to 7 Pantoprazole Sodium 40 mg 07/22/19 09:00 07/25/19 05:34 Protonix IVP 40 mg QDAC KIRK Administration Polyethylene Glycol 17 gm 07/14/19 09:00 07/25/19 08:38 Miralax PO Not Given DAILY KIRK Psyllium Hydrophilic Mucilloid 1 packet 07/24/19 09:00 07/25/19 09:50 Metamucil PO 1 packet DAILY KIRK Administration Senna 8.6 mg 07/21/19 09:00 07/24/19 09:06 Senokot PO 8.6 mg DAILY KIRK Administration Sodium Chloride 10 ml 07/12/19 07:24 07/25/19 05:41 Normal Saline Flush 0.9% IVP 10 ml PRN PRN Administration NEEDED PER PROVIDER ORDERS Sodium Chloride 10 ml 07/12/19 09:00 07/25/19 09:51 Normal Saline Flush 0.9% IVP 10 ml 0100,0900,1700 KIRK Administration Throat Lozenges 1 lozenge 07/22/19 10:53 07/24/19 05:41 Cepacol MM 1 lozenge Q2HR PRN Administration Throat pain - Physical Exam Comments/Other: AAO, NAD EOMI, MMM, no scleral icterus unlabored RA soft, nt/nd L thigh cellulitis improved, compartments soft; calves soft skin jaundice resolved Impression/Plan - Problem List Problem List: L thigh inc closed, POD#6 --> cellulitis stagnant, removed sutures and wound care to place VAC --> IV abx --> to swing bed when appropriate PT/OT - needs to mobilize, increasingly deconditioned; counseled again Cirrhosis - outpt FU - appreciate medicine team assistance, also appreciate heme input SCDs, chemoprophylaxis contraindicated with coagulopathy
[2019-07-25] MEDS ORDERED: CARBOXYMETHYLCELLULOSE OPHTH DROPS EACHEYE PRN (14:35)
[2019-07-26] MEDS: oxyCODONE 5 MG TABLET PO PRN ×5 (00:57→23:04)
[2019-07-26] MEDS: SODIUM CHLORIDE FLUSH 0.9% 10 ML SYRINGE IVP SCH ×3 (01:42→16:19)
[2019-07-26] MEDS: VANCOMYCIN INJ 1 GM in SODIUM CHLORIDE 0.9% 250 ML IV SCH ×3 (01:42→18:09)
[2019-07-26] MEDS: SODIUM CHLORIDE FLUSH 0.9% 10 ML SYRINGE IVP PRN ×3 (05:09→06:57)
[2019-07-26 05:31] LABS: BASOPHILS % (AUTO) 0.9 %; EOSINOPHILS % (AUTO) 4.9 %; LYMPHOCYTES % (AUTO) 14.2 %; MEAN CORPUSCULAR HEMOGLOBIN 31.9 pg (27.0-31.0); MEAN CORPUSCULAR HGB CONC 33.3 g/dL (32.0-36.0); MEAN CORPUSCULAR VOLUME 95.7 fL (81.0-99.0); MEAN PLATELET VOLUME 10.8 fL (7.9-10.8); MONOCYTES % (AUTO) 10.1 %; NEUTROPHILS % (AUTO) 65.7 %; PLT - PLATELET COUNT 187 10^3/uL (130-450); RED BLOOD COUNT 2.82 10^6/uL (4.20-5.40); RED CELL DISTRIBUTION WIDTH 18.7 % (12.0-15.0); WHITE BLOOD COUNT 13.3 x10^3/uL (4.8-10.8)
[2019-07-26 05:44] LABS: ALBUMIN 1.9 g/dL (3.2-5.5); ALBUMIN/GLOBULIN RATIO 0.6 (1.0-2.2); BILIRUBIN,TOTAL 4.5 mg/dL (0.2-1.0); CALCIUM 7.3 mg/dL (8.5-10.3); CREATININE 0.4 mg/dL (0.4-1.0); TOTAL PROTEIN 4.9 g/dL (6.7-8.2)
[2019-07-26 05:45] LABS: ABNORMAL LYMPHS % (MANUAL) 0 %
[2019-07-26 06:01] LABS: BAND NEUTROPHILS % (MANUAL) 5 %; BASOPHILS # (MANUAL) 0.1 10^3/uL (0-0.1); BASOPHILS % (MANUAL) 1 %; DIFFERENTIAL COMMENT MANUAL DIFFERENTIAL; EOSINOPHILS # (MANUAL) 0.1 10^3/uL (0-0.7); LYMPHOCYTES # (MANUAL) 1.5 10^3/uL (1.5-3.5); LYMPHOCYTES % (MANUAL) 11 %; METAMYELOCYTES % (MANUAL) 1 %; MONOCYTES # (MANUAL) 1.1 10^3/uL (0.0-1.0); MYELOCYTES % (MANUAL) 1 %; PLATELET ESTIMATE, MANUAL NORMAL (130-450,000) (NORMAL); RBC MORPHOLOGY (MULTIPLE) NORMAL APPEARANCE (NORMAL)
[2019-07-26] MEDS: PANTOPRAZOLE 40 MG VIAL IVP SCH (06:47)
[2019-07-26] MEDS: HYDROmorphone 0.5 MG/0.5 ML SYRINGE IVP PRN ×3 (06:57→20:21)
[2019-07-26] MEDS: DOXYCYCLINE 100 MG TABLET PO SCH (10:17)
[2019-07-26] MEDS: PSYLLIUM PACKET PO SCH (10:17)
[2019-07-26] MEDS: MULTIVITAMIN W/MINERALS TABLET PO SCH (10:17)
[2019-07-26] MEDS: FERROUS GLUCONATE 324 MG TABLET PO SCH (10:17)
[2019-07-26] MEDS: MIDODRINE 2.5 MG TABLET PO SCH ×3 (10:17→16:18)
[2019-07-26] MEDS: LACTULOSE 10 GM /15 ML UDC PO SCH ×2 (10:17→18:09)
[2019-07-26] MEDS: DOCUSATE SODIUM 250 MG CAPSULE PO SCH ×2 (10:18→20:21)
[2019-07-26] MEDS: SENNA 8.6 MG TABLET PO SCH (10:18)
[2019-07-26] MEDS: FLUTICASONE NASAL SPRAY NAS SCH (10:19)
--- NOTE | 2019-07-26 12:17 | PROVIDER PROGRESS NOTE ---
Subjective - General Admit Date: 07/12/19 Procedure Date: 07/19/19 Post Op Days: 7 Procedure Performed: s/p L medial thigh fasciotomy and hematoma evacuation - Review of Systems Drain Type: Provena incisional VAC All Other Systems: positive: Reviewed and negative - Other Other Information/Narrative: Still primarily stays in bed. VAC not placed yesterday but wound care says they will be there soon after speaking with them this AM. Objective - Patient Data Vital Signs: Vital Signs x48h Temp Pulse Resp BP Pulse Ox 07/26/19 08:22 36.7 C 88 18 107/51 L 95 Weight: Weight 07/24/19 07/25/19 07/26/19 23:59 23:59 23:59 Weight (kg) 77 kg 77.5 kg 79 kg Intake & Output: Intake and Output Totals x24h 07/24/19 07/25/19 07/26/19 23:59 23:59 23:59 Intake Total 2130 2104.333 560 Output Total 500 300 Balance 2130 1604.333 260 - Lab Results Lab Results: 07/26/19 05:10 07/26/19 05:10 Other Lab Results: Lab Results x24hrs 07/26/19 07/26/19 07/26/19 Range/Units 05:10 05:10 05:10 WBC 13.3 H (4.8-10.8) x10^3/uL RBC 2.82 L (4.20-5.40) 10^6/uL Hgb 9.0 L (12.0-16.0) g/dL Hct 27.0 L (37.0-47.0) % MCV 95.7 (81.0-99.0) fL MCH 31.9 H (27.0-31.0) pg MCHC 33.3 (32.0-36.0) g/dL RDW 18.7 H (12.0-15.0) % Plt Count 187 (130-450) 10^3/uL MPV 10.8 (7.9-10.8) fL Neut # (Auto) Not Reportable Lymph # (Auto) Not Reportable [place] # (Auto) Not Reportable Eos # (Auto) Not Reportable Baso # (Auto) Not Reportable Absolute Nucleated RBC Not Reportable Total Counted 100 Band Neuts % (Manual) 5 (0 - 10) % Abnorm Lymph % (Manual) 0 % Metamyelocytes % 1 H ( - 0) % Myelocytes % 1 H ( - 0) % Nucleated RBC % Not Reportable Neutrophils # (Manual) 10.2 H (1.5-6.6) 10^3/uL Lymphocytes # (Manual) 1.5 (1.5-3.5) 10^3/uL Monocytes # (Manual) 1.1 H (0.0-1.0) 10^3/uL Eosinophils # (Manual) 0.1 (0-0.7) 10^3/uL Basophils # (Manual) 0.1 (0-0.1) 10^3/uL Nucleated RBCs 1 % Differential Comment MANUAL DIFFERENTIAL Platelet Estimate NORMAL (130-450,000) (NORMAL) RBC Morph Micro Appear NORMAL APPEARANCE (NORMAL) Sodium 135 (135-145) mmol/L Potassium 3.5 (3.5-5.0) mmol/L Chloride 107 (101-111) mmol/L Carbon Dioxide 21 (21-32) mmol/L Anion Gap 7.0 (6-13) BUN 15 (6-20) mg/dL Creatinine 0.4 (0.4-1.0) mg/dL Estimated GFR (MDRD) 161 (>89) Glucose 118 H (70-100) mg/dL Calcium 7.3 L (8.5-10.3) mg/dL Total Bilirubin 4.5 H (0.2-1.0) mg/dL AST 61 H (10-42) IU/L ALT 34 (10-60) IU/L Alkaline Phosphatase 86 (42-121) IU/L Ammonia 30.9 (7-35) umol/L Total Protein 4.9 L (6.7-8.2) g/dL Albumin 1.9 L (3.2-5.5) g/dL Globulin 3.0 (2.1-4.2) g/dL Albumin/Globulin Ratio 0.6 L (1.0-2.2) Ref Lab Test Result 07/21/19 07/21/19 07/21/19 Range/Units 05:33 05:33 05:33 WBC (4.8-10.8) x10^3/uL RBC (4.20-5.40) 10^6/uL Hgb (12.0-16.0) g/dL Hct (37.0-47.0) % MCV (81.0-99.0) fL MCH (27.0-31.0) pg MCHC (32.0-36.0) g/dL RDW (12.0-15.0) % Plt Count (130-450) 10^3/uL MPV (7.9-10.8) fL Neut # (Auto) Lymph # (Auto) [place] # (Auto) Eos # (Auto) Baso # (Auto) Absolute Nucleated RBC Total Counted Band Neuts % (Manual) (0 - 10) % Abnorm Lymph % (Manual) % Metamyelocytes % ( - 0) % Myelocytes % ( - 0) % Nucleated RBC % Neutrophils # (Manual) (1.5-6.6) 10^3/uL Lymphocytes # (Manual) (1.5-3.5) 10^3/uL Monocytes # (Manual) (0.0-1.0) 10^3/uL Eosinophils # (Manual) (0-0.7) 10^3/uL Basophils # (Manual) (0-0.1) 10^3/uL Nucleated RBCs % Differential Comment Platelet Estimate (NORMAL) RBC Morph Micro Appear (NORMAL) Sodium (135-145) mmol/L Potassium (3.5-5.0) mmol/L Chloride (101-111) mmol/L Carbon Dioxide (21-32) mmol/L Anion Gap (6-13) BUN (6-20) mg/dL Creatinine (0.4-1.0) mg/dL Estimated GFR (MDRD) (>89) Glucose (70-100) mg/dL Calcium (8.5-10.3) mg/dL Total Bilirubin (0.2-1.0) mg/dL AST (10-42) IU/L ALT (10-60) IU/L Alkaline Phosphatase (42-121) IU/L Ammonia (7-35) umol/L Total Protein (6.7-8.2) g/dL Albumin (3.2-5.5) g/dL Globulin (2.1-4.2) g/dL Albumin/Globulin Ratio (1.0-2.2) Ref Lab Test Result REPORT REPORT REPORT - Current Medications Current Medications: Current Medications Generic Name Dose Route Start Last Admin Trade Name Freq PRN Reason Stop Dose Admin Carboxymethylcellulose 1 drops 07/25/19 14:35 07/25/19 14:49 Refresh 1% Ophth Drops EACHEYE 1 drops PRN PRN Administration Dry Eye Docusate Sodium 250 - 500 mg 07/16/19 22:00 07/26/19 10:18 Colace 250mg Capsule PO 250 mg BID KIRK Administration Doxycycline Hyclate 100 mg 07/24/19 09:00 07/26/19 10:17 Vibramycin PO 100 mg BID KIRK Administration Ferrous Gluconate 324 mg 07/21/19 14:00 07/26/19 10:17 Fergon PO 324 mg DAILYWM K[facility] Administration Fluticasone Propionate 2 sprays 07/13/19 09:00 07/26/19 10:19 Flonase YVETTE Not Given DAILY KIRK Hydromorphone HCl 0.5 mg 07/12/19 08:50 07/26/19 06:57 Dilaudid Inj Syringe IVP 0.5 mg Q2HR PRN Administration PAIN 8-10 Hydromorphone HCl 1 mg 07/25/19 11:47 07/26/19 08:50 Dilaudid Inj Syringe IVP 1 mg TID PRN Administration PAIN Vancomycin HCl 1 gm/ Sodium 250 mls @ 167 mls/hr 07/24/19 10:00 07/26/19 10:30 Chloride IV 167 mls/hr Q8H KIRK Administration Lactulose 10 gm 07/25/19 17:24 07/26/19 10:17 Enulose PO 10 gm BIDWM [facility] Administration Midodrine 5 mg 07/24/19 12:00 07/26/19 10:17 PO 5 mg TIDWM [facility] Administration Multivitamins/Minerals 1 tab 07/14/19 09:00 07/26/19 10:17 Theragran M PO 1 tab DAILYWM [facility] Administration Ondansetron HCl 4 mg 07/13/19 20:44 07/21/19 10:29 Zofran Inj IVP 4 mg BID PRN Administration Nausea / Vomiting Oxycodone HCl 5 mg 07/12/19 07:24 07/26/19 10:18 Roxicodone PO 5 mg Q4HR PRN Administration Pain 5 to 7 Pantoprazole Sodium 40 mg 07/22/19 09:00 07/26/19 06:47 Protonix IVP 40 mg QDAC KIRK Administration Psyllium Hydrophilic Mucilloid 1 packet 07/24/19 09:00 07/26/19 10:17 Metamucil PO 1 packet DAILY KIRK Administration Senna 8.6 mg 07/21/19 09:00 07/26/19 10:18 Senokot PO 8.6 mg DAILY KIRK Administration Sodium Chloride 10 ml 07/12/19 07:24 07/26/19 06:57 Normal Saline Flush 0.9% IVP 10 ml PRN PRN Administration NEEDED PER PROVIDER ORDERS Sodium Chloride 10 ml 07/12/19 09:00 07/26/19 10:30 Normal Saline Flush 0.9% IVP 10 ml 0100,0900,1700 KIRK Administration Throat Lozenges 1 lozenge 07/22/19 10:53 07/24/19 05:41 Cepacol MM 1 lozenge Q2HR PRN Administration Throat pain - Physical Exam Comments/Other: AAO, NAD, depressed affect EOMI, MMM, no scleral icterus unlabored RA soft, nt/nd L thigh cellulitis further improved, compartments soft; calves soft skin jaundice resolved Impression/Plan - Problem List Problem List: L thigh inc closed, POD#7 --> cellulitis stagnant, removed sutures and wound care to place VAC this AM --> abx --> to swing bed when appropriate PT/OT - needs to mobilize, increasingly deconditioned; counseled again; pt still reticent to do much OOB Cirrhosis - outpt FU - appreciate medicine team assistance, also appreciate heme input SCDs, chemoprophylaxis contraindicated with coagulopathy
--- NOTE | 2019-07-26 14:23 | PROVIDER PROGRESS NOTE ---
Subjective - Prog Note Date Prog Note Date: 07/26/19 - Subjective Subjective: Wound VAC was placed today and she states it was not as painful as she thought it would be. She was able to get out of bed and work with physical therapy a little bit today as well. She is tolerating oral intake without difficulty. She still complains of pain at the left lower extremity but it is relatively well controlled. She still has significant edema in that left lower extremity. Reports little bit of shortness of breath but no cough. Denies any chest pain. Current Medications - Current Medications Current Medications: Active Medications Carboxymethylcellulose (Refresh 1% Ophth Drops) 1 drops EACHEYE PRN PRN PRN Reason: Dry Eye Last Admin: 07/25/19 14:49 Dose: 1 drops Docusate Sodium (Colace 250mg Capsule) 250 - 500 mg PO BID [facility] Last Admin: 07/26/19 10:18 Dose: 250 mg Doxycycline Hyclate (Vibramycin) 100 mg PO BID [facility] Last Admin: 07/26/19 10:17 Dose: 100 mg Ferrous Gluconate (Fergon) 324 mg PO DAILYWM [facility] Last Admin: 07/26/19 10:17 Dose: 324 mg Fluticasone Propionate (Flonase) 2 sprays YVETTE DAILY [facility] Last Admin: 07/26/19 10:19 Dose: Not Given Hydromorphone HCl (Dilaudid Inj Syringe) 0.5 mg IVP Q2HR PRN PRN Reason: PAIN 8-10 Last Admin: 07/26/19 06:57 Dose: 0.5 mg Hydromorphone HCl (Dilaudid Inj Syringe) 1 mg IVP TID PRN PRN Reason: PAIN Last Admin: 07/26/19 08:50 Dose: 1 mg Vancomycin HCl 1 gm/ Sodium (Chloride) 250 mls @ 167 mls/hr IV Q8H [facility] Last Infusion: 07/26/19 12:35 Dose: Infused Lactulose (Enulose) 10 gm PO BIDWM [facility] Last Admin: 07/26/19 10:17 Dose: 10 gm Midodrine () 5 mg PO TIDWM [facility] Last Admin: 07/26/19 13:19 Dose: 5 mg Mineral Oil (Cavilon) 1 applic TOP PRN PRN PRN Reason: Skin Care Multivitamins/Minerals (Theragran M) 1 tab PO DAILYWM [facility] Last Admin: 07/26/19 10:17 Dose: 1 tab Ondansetron HCl (Zofran Inj) 4 mg IVP BID PRN PRN Reason: Nausea / Vomiting Last Admin: 07/21/19 10:29 Dose: 4 mg Oxycodone HCl (Roxicodone) 5 mg PO Q4HR PRN PRN Reason: Pain 5 to 7 Last Admin: 07/26/19 10:18 Dose: 5 mg Pantoprazole Sodium (Protonix) 40 mg IVP QDAC [facility] Last Admin: 07/26/19 06:47 Dose: 40 mg Psyllium Hydrophilic Mucilloid (Metamucil) 1 packet PO DAILY [facility] Last Admin: 07/26/19 10:17 Dose: 1 packet Senna (Senokot) 8.6 mg PO DAILY [facility] Last Admin: 07/26/19 10:18 Dose: 8.6 mg Sodium Chloride (Normal Saline Flush 0.9%) 10 ml IVP PRN PRN PRN Reason: NEEDED PER PROVIDER ORDERS Last Admin: 07/26/19 06:57 Dose: 10 ml Sodium Chloride (Normal Saline Flush 0.9%) 10 ml IVP 0100,0900,1700 [facility] Last Admin: 07/26/19 10:30 Dose: 10 ml Throat Lozenges (Cepacol) 1 lozenge MM Q2HR PRN PRN Reason: Throat pain Last Admin: 07/24/19 05:41 Dose: 1 lozenge Fluticasone [Flonase] 2 sprays YVETTE DAILY 07/12/19 lisinopriL [Lisinopril] 40 mg PO DAILY 07/12/19 Objective - Vital Signs/Intake & Output Reviewed Vital Signs: Yes Vital Signs: Vital Signs x48h Temp Pulse Resp BP Pulse Ox 07/26/19 08:22 36.7 C 88 18 107/51 L 95 Intake & Output: Intake & Output 07/23/19 07/24/19 07/25/19 07/26/19 23:59 23:59 23:59 23:59 Intake Total 4318.333 2130 2104.333 960 Output Total 890 500 300 Balance 3428.333 2130 1604.333 660 - Objective General Appearance: positive: No acute distress, Alert Eyes Bilateral: positive: Normal inspection, Conjunctivae nml ENT: positive: ENT inspection nml Neck: positive: Nml inspection Respiratory: positive: No respiratory distress. negative: Wheezes, Rales, Rhonchi Cardiovascular: positive: Regular rate & rhythm, No murmur. negative: Tachycardia, Bradycardia, Systolic murmur Abdomen: positive: Nml bowel sounds, No distention, Tenderness (Mild diffuse tenderness when palpated.). negative: Guarding, Rebound Skin: positive: No rash, Warm, Other (The area of erythema over the superior portion of her left thigh is improving. Wound vac is in place.) Extremities: positive: Pedal edema (+2 pitting edema in left lower extremity. +1 pitting edema in right lower extremity.) Neurologic/Psychiatric: positive: Oriented x3. negative: Disoriented to person, Disoriented to place, Disoriented to time - Lab Results Fish Bones: 07/26/19 05:10 07/26/19 05:10 Other Labs: Lab Results x24hrs 07/26/19 07/26/19 07/26/19 Range/Units 05:10 05:10 05:10 WBC 13.3 H (4.8-10.8) x10^3/uL RBC 2.82 L (4.20-5.40) 10^6/uL Hgb 9.0 L (12.0-16.0) g/dL Hct 27.0 L (37.0-47.0) % MCV 95.7 (81.0-99.0) fL MCH 31.9 H (27.0-31.0) pg MCHC 33.3 (32.0-36.0) g/dL RDW 18.7 H (12.0-15.0) % Plt Count 187 (130-450) 10^3/uL MPV 10.8 (7.9-10.8) fL Neut # (Auto) Not Reportable Lymph # (Auto) Not Reportable [place] # (Auto) Not Reportable Eos # (Auto) Not Reportable Baso # (Auto) Not Reportable Absolute Nucleated RBC Not Reportable Total Counted 100 Band Neuts % (Manual) 5 (0 - 10) % Abnorm Lymph % (Manual) 0 % Metamyelocytes % 1 H ( - 0) % Myelocytes % 1 H ( - 0) % Nucleated RBC % Not Reportable Neutrophils # (Manual) 10.2 H (1.5-6.6) 10^3/uL Lymphocytes # (Manual) 1.5 (1.5-3.5) 10^3/uL Monocytes # (Manual) 1.1 H (0.0-1.0) 10^3/uL Eosinophils # (Manual) 0.1 (0-0.7) 10^3/uL Basophils # (Manual) 0.1 (0-0.1) 10^3/uL Nucleated RBCs 1 % Differential Comment MANUAL DIFFERENTIAL Platelet Estimate NORMAL (130-450,000) (NORMAL) RBC Morph Micro Appear NORMAL APPEARANCE (NORMAL) Sodium 135 (135-145) mmol/L Potassium 3.5 (3.5-5.0) mmol/L Chloride 107 (101-111) mmol/L Carbon Dioxide 21 (21-32) mmol/L Anion Gap 7.0 (6-13) BUN 15 (6-20) mg/dL Creatinine 0.4 (0.4-1.0) mg/dL Estimated GFR (MDRD) 161 (>89) Glucose 118 H (70-100) mg/dL Calcium 7.3 L (8.5-10.3) mg/dL Total Bilirubin 4.5 H (0.2-1.0) mg/dL AST 61 H (10-42) IU/L ALT 34 (10-60) IU/L Alkaline Phosphatase 86 (42-121) IU/L Ammonia 30.9 (7-35) umol/L Total Protein 4.9 L (6.7-8.2) g/dL Albumin 1.9 L (3.2-5.5) g/dL Globulin 3.0 (2.1-4.2) g/dL Albumin/Globulin Ratio 0.6 L (1.0-2.2) Ref Lab Test Result 07/21/19 07/21/19 07/21/19 Range/Units 05:33 05:33 05:33 WBC (4.8-10.8) x10^3/uL RBC (4.20-5.40) 10^6/uL Hgb (12.0-16.0) g/dL Hct (37.0-47.0) % MCV (81.0-99.0) fL MCH (27.0-31.0) pg MCHC (32.0-36.0) g/dL RDW (12.0-15.0) % Plt Count (130-450) 10^3/uL MPV (7.9-10.8) fL Neut # (Auto) Lymph # (Auto) [place] # (Auto) Eos # (Auto) Baso # (Auto) Absolute Nucleated RBC Total Counted Band Neuts % (Manual) (0 - 10) % Abnorm Lymph % (Manual) % Metamyelocytes % ( - 0) % Myelocytes % ( - 0) % Nucleated RBC % Neutrophils # (Manual) (1.5-6.6) 10^3/uL Lymphocytes # (Manual) (1.5-3.5) 10^3/uL Monocytes # (Manual) (0.0-1.0) 10^3/uL Eosinophils # (Manual) (0-0.7) 10^3/uL Basophils # (Manual) (0-0.1) 10^3/uL Nucleated RBCs % Differential Comment Platelet Estimate (NORMAL) RBC Morph Micro Appear (NORMAL) Sodium (135-145) mmol/L Potassium (3.5-5.0) mmol/L Chloride (101-111) mmol/L Carbon Dioxide (21-32) mmol/L Anion Gap (6-13) BUN (6-20) mg/dL Creatinine (0.4-1.0) mg/dL Estimated GFR (MDRD) (>89) Glucose (70-100) mg/dL Calcium (8.5-10.3) mg/dL Total Bilirubin (0.2-1.0) mg/dL AST (10-42) IU/L ALT (10-60) IU/L Alkaline Phosphatase (42-121) IU/L Ammonia (7-35) umol/L Total Protein (6.7-8.2) g/dL Albumin (3.2-5.5) g/dL Globulin (2.1-4.2) g/dL Albumin/Globulin Ratio (1.0-2.2) Ref Lab Test Result REPORT REPORT REPORT ABX Reporting Has patient been on IV antibiotics over the past 48 hours?: Yes Assessment/Plan - Problem List (1) Fever Impression: He remains afebrile now over the past 48 hours. Her white count did increase and there are now 5% bands present. There are no obvious source of infection at the moment except for the cellulitis of the left lower extremity which has improved and nearly resolved. Cultures have been negative to date as well. Her ceftriaxone and Flagyl were discontinued yesterday after receiving 5 days for SBP. We will also discontinue the doxycycline today and keep her on just the vancomycin IV for the cellulitis she had. We will recheck her white count in the morning as the increase today may potentially be reactive. If her white count decreases tomorrow, she will likely be ready for discharge to a correction facility where she can finish a course of antibiotics for the ce llulitis. (2) Leukocytosis Impression: Her white count continues to slowly increase and she does have 5% bands today. It is unclear if this secondary to infection or possibly reactive in nature. We will keep her on vancomycin IV for cellulitis and continue to trend the white count. If it rises tomorrow, will consider panculturing her once again and possibly obtaining further imaging of the abdomen or her left lower extremity. (3) Cellulitis of left leg Impression: Erythema has improved in her left lower extremity. She remains afebrile although her white count did increase. We will continue her on vancomycin IV with today being day 6. (4) Hypotension Impression: Her blood pressure has been stable on midodrine 5 mg. We will continue this 3 times a day. (5) Bleeding tendency Impression: INR remains elevated at 1.8. She has no evidence of significant bleeding at the moment and her hemoglobin remained stable. Factor levels have been sent and results are pending. We will continue to monitor for signs of bleeding. If she requires intervention, she will need vitamin K and FFP preoperatively. (6) Chronic deep vein thrombosis (DVT) of left femoral vein Impression: There is a chronic DVT in her left lower extremity. No role for anticoagulation given the hematoma she had. (7) Postoperative anemia Impression: She had postoperative anemia that required multiple transfusions of red blood cells. Her hemoglobin has since been stable with no evidence of bleeding. Continue to monitor her CBC. (8) Diarrhea Impression: Labile. This is likely secondary to the lactulose she was receiving. She is now only receiving it to titrate to 2-3 bowel movements a day. (9) Elevated INR Impression: Her INR was elevated at 1.8. This leg secondary to her liver disease. She did receive vitamin K earlier on during this hospitalization. We will continue to monitor it for the time being. There is no indication to her Versed as her hemoglobin is stable and there is no evidence of bleeding. (10) Liver cirrhosis Impression: This is chronic and secondary to hepatitis C. Her LFTs have been stable. (11) Hepatitis C Impression: This was diagnosed about 25 years ago and she was treated with antiviral but this was unsuccessful. Qualifiers: Viral hepatitis chronicity: chronic (12) Alcohol use Impression: Stable. She did not go through withdrawal during this hospitalization. (13) Compartment syndrome of left lower extremity Impression: This has resolved. Now over 2 weeks postoperatively. Wound VAC has been placed today. (14) Hematoma of lower extremity Impression: This has resolved. The hematoma was evacuated on July 12. Wound VAC is in place in the left lower extremity. Qualifiers: Encounter type: initial encounter Laterality: left Qualified Code(s): S80.12XA - Contusion of left lower leg, initial encounter
[2019-07-27] MEDS: SODIUM CHLORIDE FLUSH 0.9% 10 ML SYRINGE IVP SCH ×2 (01:45→08:35)
[2019-07-27] MEDS: VANCOMYCIN INJ 1 GM in SODIUM CHLORIDE 0.9% 250 ML IV SCH ×2 (01:46→10:30)
[2019-07-27] MEDS: oxyCODONE 5 MG TABLET PO PRN ×4 (03:26→15:51)
[2019-07-27] MEDS: SODIUM CHLORIDE FLUSH 0.9% 10 ML SYRINGE IVP PRN ×4 (03:26→06:16)
[2019-07-27 05:31] LABS: BASOPHILS % (AUTO) 0.7 %; EOSINOPHILS % (AUTO) 4.6 %; HGB - HEMOGLOBIN 8.6 g/dL (12.0-16.0); LYMPHOCYTES % (AUTO) 16.2 %; MEAN CORPUSCULAR HEMOGLOBIN 31.4 pg (27.0-31.0); MEAN CORPUSCULAR HGB CONC 33.1 g/dL (32.0-36.0); MEAN CORPUSCULAR VOLUME 94.9 fL (81.0-99.0); MEAN PLATELET VOLUME 10.4 fL (7.9-10.8); MONOCYTES % (AUTO) 8.3 %; NEUTROPHILS % (AUTO) 64.8 %; PLT - PLATELET COUNT 189 10^3/uL (130-450); RED BLOOD COUNT 2.74 10^6/uL (4.20-5.40); RED CELL DISTRIBUTION WIDTH 19.2 % (12.0-15.0)
[2019-07-27 05:34] LABS: ABNORMAL LYMPHS % (MANUAL) 0 %
[2019-07-27 05:40] LABS: ALBUMIN 1.8 g/dL (3.2-5.5); ALBUMIN/GLOBULIN RATIO 0.6 (1.0-2.2); BILIRUBIN,TOTAL 4.6 mg/dL (0.2-1.0); CALCIUM 7.2 mg/dL (8.5-10.3); CREATININE 0.6 mg/dL (0.4-1.0); TOTAL PROTEIN 4.8 g/dL (6.7-8.2)
[2019-07-27 05:57] LABS: BAND NEUTROPHILS % (MANUAL) 6 %; DIFFERENTIAL COMMENT MANUAL DIFFERENTIAL; EOSINOPHILS # (MANUAL) 0.3 10^3/uL (0-0.7); LYMPHOCYTES # (MANUAL) 0.9 10^3/uL (1.5-3.5); LYMPHOCYTES % (MANUAL) 8 %; MONOCYTES # (MANUAL) 0.8 10^3/uL (0.0-1.0); PLATELET ESTIMATE, MANUAL NORMAL (130-450,000) (NORMAL)
[2019-07-27] MEDS: PANTOPRAZOLE 40 MG VIAL IVP SCH (06:16)
[2019-07-27] MEDS ORDERED: POTASSIUM CHLORIDE 20 MEQ TABLET PO ONE (07:35)
[2019-07-27] MEDS: FLUTICASONE NASAL SPRAY NAS SCH (08:32)
[2019-07-27] MEDS: LACTULOSE 10 GM /15 ML UDC PO SCH (08:33)
[2019-07-27] MEDS: MIDODRINE 2.5 MG TABLET PO SCH ×2 (08:34→12:49)
[2019-07-27] MEDS: MULTIVITAMIN W/MINERALS TABLET PO SCH (08:34)
[2019-07-27] MEDS: FERROUS GLUCONATE 324 MG TABLET PO SCH (08:34)
[2019-07-27] MEDS: SENNA 8.6 MG TABLET PO SCH (08:34)
[2019-07-27] MEDS: DOCUSATE SODIUM 250 MG CAPSULE PO SCH (08:34)
[2019-07-27] MEDS: PSYLLIUM PACKET PO SCH (08:34)
--- NOTE | 2019-07-27 10:01 | Discharge Plan ---
"Discharge Plan for SNF / [facility] - Discharge Plan And Transition Orders Problem Reviewed?: Yes Disposition: 03 SNF DC/Xfer Condition: Stable Allergies and Adverse Reactions: Allergies Allergy/AdvReac Type Severity Reaction Status Date / Time gabapentin AdvReac Intermediate Dizziness/S Verified 07/12/19 08:55 elling risperidone [From Risperdal] AdvReac Intermediate Sedation/Ti Verified 07/12/19 08:55 ngling ampicillin AdvReac Vaginal Verified 07/12/19 08:55 yeast infection venlafaxine HCl * AdvReac Dizziness Verified 06/14/19 10:41 [From Effexor] Health Concerns: The patient was admitted to the hospital on July 12 after she was found to have an intramuscular hematoma of the left upper thigh and concern for compartment syndrome. The ultrasound that time also showed a chronic DVT in the left femoral vein. She was taken to the OR where the hematoma was evacuated. The wound was left open. She continued to ooze and bleed over the next few days and required a blood transfusion for postoperative anemia. Her INR had remained elevated at 1.4 and she received multiple doses of vitamin K without improvement. Hematology was consulted given her ongoing bleeding and her coagulopathy especially given she also had thrombosis in the left femoral vein. It was felt that this was secondary to her liver cirrhosis. Hematology ordered multiple lab tests and requested that she follow-up with hematology on an outpatient basis in 2 weeks once she is discharged here at the [facility] [place] [place] clinic. The patient then spiked a fever and developed a leukocytosis. She was started on vancomycin for cellulitis of the left upper extremity after CT of the abdomen and pelvis was done looking for an abdominal source of infection. The CT showed some stranding around left upper thigh and so there was concern for cellulitis given the erythema that was present there as well. She was taken back to the OR prior to the diagnosis of cellulitis for closure of the wound. When she was diagnosed with cellulitis, sutures were removed and decision was made to place wound VAC for wound healing. During this time, she also became hypotensive and required transfer to the intensive care unit. She is found to have once again acute blood loss anemia and she was transfused 2 units of packed red blood cells with improvement in her blood pressure and hemoglobin. She was then transferred back to [facility]. She was started on midodrine as her blood pressures remained soft in the 90s systolic. There was also concern for possible SBP and so she was treated with ceftriaxone and Flagyl IV for 5 days. Despite continued antibiotic therapy, she spiked another low-grade fever and her white count had increased again. She was pancultured once again with all cultures being negative. She remained on vancomycin IV and her white count has since improved and she has now been afebrile for over 72 hours. Her white count is still mildly elevated at 11 but this has improved and although she still has 6% bands, it is felt to be reactive at the moment as there is no other obvious source of infection. The cellulitis of her left upper thigh has significantly improved. We will continue her on vancomycin IV to complete 10 days of therapy the last day being July 30. Her hemoglobin has also been stable at around 9 g. A wound VAC was placed in the left upper thigh on July 26. The patient has worked with PT and OT while she was hospitalized and this should be continued at [facility]. Plan of Treatment: Continue Doxycyline for 3 more days to complete 10 days of therapy on July 30. Continue the midodrine 5 mg 3 times daily with meals. This can hopefully be titrated as her blood pressure stabilizes. She be provided with oxycodone 5 mg to take as needed for pain control. She should follow-up with a film sound engineer on outpatient basis given her liver cirrhosis. She will need follow-up with hematology in 2 weeks to follow-up on her coagulopathy lab tests to discuss further management of this. - SNF / [facility] Transition Orders Admit to (Facility): [facility] Discharge Diagnosis: Leukocytosis - She has now been afebrile for over 72 hours and her white count is decreasing although there are still 6% bands present. There is no obvious source of new infection at the moment and she continues to be treated for the cellulitis of the left lower extremity with IV vancomycin. Cultures have been checked multiple times and have been negative to date as well as her urine and chest x-rays. She did receive 5 days of ceftriaxone and Flagyl IV while hospitalized for possible SBP. She will continue on Doxycyline until the 30 July to complete 10 days of antibiotic therapy. Suspect that her elevated white count and bands are reactive in nature at this moment. She should have a CBC in a few days to make sure her white count is not increasing. Cellulitis of left leg - This was evident on the CT of the abdomen and pelvis which showed soft tissue stranding near the site of the incision. Given she also had erythema at the site, she was treated for cellulitis with IV van comycin. She will continue on Doxycyline until 30 July to complete 10 days of therapy. Hypotension - She was hypotensive while hospitalized and initially this was felt to be secondary to acute blood loss anemia. Her blood pressure improved with transfusion but remained low in the 90s. She was started on midodrine and this has been continued. Her blood pressure has been stable in the 120 systolic. Her midodrine can potentially be titrated off if her blood pressure remained stable. She was previously on lisinopril at home prior to this hospitalization. Bleeding tendency - She had reported history of spontaneous hematomas in the past and her INR was elevated at 1.4 on admission. Currently it is elevated at 1.8. We believe this secondary to her liver cirrhosis. We did discuss with hematology who saw the patient while hospitalized and ordered multiple studies. Her coag factor II activity was low at 42. Coag factor V activity was low at 45. Factor VII activity, clotting was low at 28. PTT, activated was normal at 28. Factor VIII activity, clotting was elevated at 338. Von Willebrand factor was high at greater than 420. Ristocetin cofactor was high at greater than 600. Hematology recommended outpatient follow-up in 2 weeks when she is discharged from the hospital here at the [facility] [place] [place] clinic. Chronic DVT of left femoral vein - This was an incidental finding during this hospitalization. Given it is chronic in nature and the hematoma she had, she has not been anticoagulated. Postoperative anemia - She had postoperative anemia and acute blood loss. She required transfusion of 4 packed red blood cells during this hospitalization. Her hemoglobin has since been stable at around 9. Diarrhea - This has improved and is secondary to the lactulose she was receiving for elevated ammonia. Her ammonia has been stable in the low 30s. She can continue with lactulose 10 g to titrate to 2-3 bowel movements a day. Elevated INR - INR is elevated at 2.2 today prior to discharge possibly to be secondary to her liver cirrhosis and coagulopathy. She was given 5 mg of oral vitamin K prior to discharge. She has no evidence of bleeding and her hemoglobin has been stable. She will need outpatient follow-up with hematology. Hematology recommended to administer vitamin K 5 mg and FFP prior to any intervention in the future. Liver cirrhosis - This is secondary to hepatitis C. Her LFTs have been stable. She should have outpatient follow-up with gastroenterology at some point. Hepatitis C - This was diagnosed about 25 years ago and she was treated with an antiviral but unfortunately treatment was not successful. Alcohol use - She did not go through withdrawal during this hospitalization. Compartment syndrome of the left lower extremity - She underwent a fasciotomy of the left upper thigh on July 12 for compartment syndrome secondary to an intramuscular hematoma. This was performed by general surgery. She now has a wound VAC in place. Hematoma of lower extremity - She had an intramuscular hematoma of the left upper thigh which was evacuated on July 12 with general surgery. She now has a wound VAC in place. It is believed this occurred secondary to her coagulopathy and she will need to follow-up with hematology. Medicare Certification Statement: I certify that [facility] long term care is medically necessary on a continuing basis for any of the conditions for which she/he is receiving care during hospitalization. Notify PCP of admission and forward orders to primary provider for signature. Weight on admission and: Weekly Other Notification Orders: Call PCP immediately if patient develops dyspnea, chest pain/tightness or edema. Additional Bowel Program Orders: If no BM after 2 days, nurse may give M.O.M. 30ml PO PRN and/or ducolax Supp 1 SD and/or JACK 250mg P.O., and/or senna 1-2 tabs PO. On day 3 nurse may give repeat above order until residents constipation is resolved. Treatments & Other Orders: She has a wound VAC in place in the left upper thigh. She will need to be followed by wound care. Lab Tests or X-ray Orders: Please have a CBC drawn in 1 week to make sure her white count and hemoglobin are stable. Please also have an INR checked in 1 we ek. Medication Orders: PLEASE REFER TO THE DISCHARGE MEDICATION LIST. Insulin Orders?: No - Medications New Prescriptions: Doxycycline Monohydrate 100 mg PO BID #6 capsule Ferrous Sulfate 325 mg PO DAILY #30 tablet Lactulose 10 gm PO DAILY 30 Days #1 bottle Midodrine 5 mg PO TIDWM #30 tablet Multivitamin W/Minerals [Theragran M] 1 tab PO DAILYWM #30 tablet oxyCODONE [Roxicodone] 5 mg PO Q4H PRN #30 tablet PRN Reason: Pain Senna [Senokot] 8.6 mg PO DAILY PRN #30 tablet PRN Reason: Constipation - Diet Texture: Regular - Therapies | Activity Therapy: Evaluation | Treat if indicated: PT, OT Rehabilitation Potential: Return to independent living Activity: Activity as Tolerated Follow Up: Follow-up with hematology in the [facility] in 2 weeks."
[2019-07-27 10:10] LABS: INR 2.2 (0.8-1.2)
[2019-07-27] MEDS ORDERED: CHERRY SYRUP 10 ML UDC PO ONE ×2 (10:38→11:00)
[2019-07-27] MEDS ORDERED: PHYTONADIONE 10 MG/ML AMP PO ONE (10:47)
--- NOTE | 2019-07-27 11:58 | DISCHARGE SUMMARY ---
"Discharge Summary Admit Date: 07/12/19 Discharge Date: 07/27/19 Discharging Provider: Db Cadena Primary Care Provider: Aria Conway Code Status: Attempt Resuscitation Condition at Discharge: Stable Discharge Disposition: SNF DC/Xfer Discharge Facility Name: [facility] - DIAGNOSES Admission Diagnoses: Compartment syndrome of left lower extremity. Discharge Diagnoses with Status of Each Condition: Leukocytosis - She has now been afebrile for over 72 hours and her white count is decreasing although there are still 6% bands present. There is no obvious source of new infection at the moment and she continues to be treated for the cellulitis of the left lower extremity with IV vancomycin. Cultures have been checked multiple times and have been negative to date as well as her urine and chest x-rays. She did receive 5 days of ceftriaxone and Flagyl IV while hospitalized for possible SBP. She will continue on Doxycyline until the 30 July to complete 10 days of antibiotic therapy. Suspect that her elevated white count and bands are reactive in nature at this moment. She should have a CBC in a few days to make sure her white count is not increasing. Cellulitis of left leg - This was evident on the CT of the abdomen and pelvis which showed soft tissue stranding near the site of the incision. Given she also had erythema at the site, she was treated for cellulitis with IV vancomycin. She will continue on Doxycyline until 30 July to complete 10 days of therapy. Hypotension - She was hypotensive while hospitalized and initially this was felt to be secondary to acute blood loss anemia. Her blood pressure improved with transfusion but remained low in the 90s. She was started on midodrine and this has been continued. Her blood pressure has been stable in the 120 systolic. Her midodrine can potentially be titrated off if her blood pressure remained stable. She was previously on lisinopril at home prior to this hospitalization. Bleeding tendency - She had reported history of spontaneous hematomas in the past and her INR was elevated at 1.4 on admission. Currently it is elevated at 1.8. We believe this secondary to her liver cirrhosis. We did discuss with hematology who saw the patient while hospitalized and ordered multiple studies. Her coag factor II activity was low at 42. Coag factor V activity was low at 45. Factor VII activity, clotting was low at 28. PTT, activated was normal at 28. Factor VIII activity, clotting was elevated at 338. Von Willebrand factor was high at greater than 420. Ristocetin cofactor was high at greater than 600. Hematology recommended outpatient follow-up in 2 weeks when she is discharged from the hospital here at the [facility] clinic. Chronic DVT of left femoral vein - This was an incidental finding during this hospitalization. Given it is chronic in nature and the hematoma she had, she has not been anticoagulated. Postoperative anemia - She had postoperative anemia and acute blood loss. She required transfusion of 4 packed red blood cells during this hospitalization. Her hemoglobin has since been stable at around 9. Diarrhea - This has improved and is secondary to the lactulose she was receiving for elevated ammonia. Her ammonia has been stable in the low 30s. She can continue with lactulose 10 g to titrate to 2-3 bowel movements a day. Elevated INR - INR is elevated at 2.2 today prior to discharge possibly to be secondary to her liver cirrhosis and coagulopathy. She was given 5 mg of oral vitamin K prior to discharge. She has no evidence of bleeding and her hemoglobin has been stable. She will need outpatient follow-up with hematology. Hematology recommended to administer vitamin K 5 mg and FFP prior to any intervention in the future. Liver cirrhosis - This is secondary to hepatitis C. Her LFTs have been stable. She should have outpatient follow-up with gastroenterology at some point. Hepatitis C - This was diagnosed about 25 years ago and she was treated with an antiviral but unfortunately treatment was not successful. Alcohol use - She did not go through withdrawal during this hospitalization. Compartment syndrome of the left lower extremity - She underwent a fasciotomy of the left upper thigh on July 12 for compartment syndrome secondary to an int ramuscular hematoma. This was performed by general surgery. She now has a wound VAC in place. Hematoma of lower extremity - She had an intramuscular hematoma of the left upper thigh which was evacuated on July 12 with general surgery. She now has a wound VAC in place. It is believed this occurred secondary to her coagulopathy and she will need to follow-up with hematology. - HPI History of Present Illness: H&P per Dr. Mercado on 07/12/19: 64yo F presenting overnight with severe pain of her left upper inner thigh. She says this started and became severe and unremitting overnight but she first noticed pain in this area several weeks ago, which resolved after a few days, then again a week ago with a similar course before resolving and restarting last night. Her earlier episodes were less severe but did limit her mobility somewhat. Now she is not able to walk nor move her hip to any significant degree in any direction. She also has a noted DVT which appears chronic per read but is unknown to patient. She denies anticoagulant/ antiplatelets but says on questioning that she 'tends to be a bleeder;' this has not been worked up. She had a similar episode on her dorsal hand a year or so ago which was drained in the ED; she does not seem to have had any further workup for this. Her compartment pressures measure 26-27 per ED physician. On exam, she has skin sensation intact and palpable DP pulse. She has severe pain with passive flexion, abduction, and adduction of the hip. She will not move it herself due to pain. The area of her upper medial thigh is firm and all other compartments are soft. On imaging, a 14cm hematoma is noted as well as an old-appearing pubic bone fracture nearby. She denies trauma to the area at all recently including falls or twisting or noted bruising. She has elevated TB and liver enzymes, has had more elevated episodes in the past. She has history of hep C and possibly B per chart; she says she was treated and 'things improved' but never resolved. She has an etoh of 186 but denies heavy or regular drinking and has never had withdrawal symptoms per patient. - CONSULTS | PROCEDURES Consultations: General Surgery, Medicine, PT/OT, Wound Care Procedures: She underwent left thigh fasciotomy of medial compartment and evacuation of hematoma on July 12. She underwent intermediate closure of left thigh wound on July 19. Sutures were removed on 20 July given the cellulitis of that extremity. A wound VAC was placed July 26. Imaging: Venous duplex on July 11 of the left lower extremity showed a medial upper thigh hematoma measuring 11 x 8 cm. There is also suggestion of chronic DVT that is non-occlusive within the femoral and popliteal vein. CT of the left lower extremity showed a large hematoma with an abductor brevis muscle measuring 14 x 10.3 x 7.7 cm. Right upper quadrant ultrasound performed on July 17 showed a fatty infiltrated liver. CBD was 13.5 mm. Mild intrahepatic biliary dilatation. CT of the abdomen pelvis on July 21 showed no ascites in the abdomen or pelvis. There was fat stranding and small amount of free fluid near the area of the hematoma in the left thigh. Echocardiogram showed injection fraction of 70%. Her right heart pressures were all normal. Normal diastology. No significant valvular disease. - HOSPITAL COURSE Hospital Course: The patient was admitted to the hospital on July 12 after she was found to have an intramuscular hematoma of the left upper thigh and concern for compartment syndrome. The ultrasound that time also showed a chronic DVT in the left femoral vein. She was taken to the OR where the hematoma was evacuated. The wound was left open. She continued to ooze and bleed over the next few days and required a blood transfusion for postoperative anemia. Her INR had remained elevated at 1.4 and she received multiple doses of vitamin K without improvement. Hematology was consulted given her ongoing bleeding and her coagulopathy especially given she also had thrombosis in the left femoral vein. It was felt that this was secondary to her liver cirrhosis. Hematology ordered multiple lab tests and requested that she follow-up with hematology on an outpatient basis in 2 weeks once she is discharged here at the [facility] clinic. The patient then spiked a fever and developed a leukocytosis. She was started on vancomycin for cellulitis of the left upper extremity after CT of the abdomen and pelvis was done looking for an abdominal source of infection. The CT showed some stranding around left upper thigh and so there was concern for cellulitis given the erythema that was present there as well. She was taken back to the OR prior to the diagnosis of cellulitis for closure of the wound. When she was diagnosed with cellulitis, sutures were removed and decision was made to place wound VAC for wound healing. During this time, she also became hypotensive and required transfer to the intensive care unit. She is found to have once again acute blood loss anemia and she was transfused 2 units of packed red blood cells with improvement in her blood pressure and hemoglobin. She was then transferred back to [facility]. She was started on midodrine as her blood pressures remained soft in the 90s systolic. There was also concern for possible SBP and so she was treated with ceftriaxone and Flagyl IV for 5 days. Despite continued antibiotic therapy, she spiked another low-grade fever and her white count had increased again. She was pancultured once again with all cultures being negative. She remained on vancomycin IV and her white count has since improved and she has now been afebrile for over 72 hours. Her white count is still mildly elevated at 11 but this has improved and although she still has 6% bands, it is felt to be reactive at the moment as there is no other obvious source of infection. The cellulitis of her left upper thigh has significantly improved. We will continue her on vancomycin IV to complete 10 days of therapy the last day being July 30. Her hemoglobin has also been stable at around 9 g. A wound VAC was placed in the left upper thigh on July 26. The patient has worked with PT and OT while she was hospitalized and this should be continued at [facility]. - ALLERGIES Allergies/Adverse Reactions: Allergies Allergy/AdvReac Type Severity Reaction Status Date / Time gabapentin AdvReac Intermediate Dizziness/S Verified 07/12/19 08:55 elling risperidone [From Risperdal] AdvReac Intermediate Sedation/Ti Verified 07/12/19 08:55 ngling ampicillin AdvReac Vaginal Verified 07/12/19 08:55 yeast infection venlafaxine HCl * AdvReac Dizziness Verified 06/14/19 10:41 [From Effexor] - MEDICATIONS Home Medications: Ambulatory Orders Medication Instructions Recorded Confirmed Fluticasone [Flonase] 2 sprays YVETTE DAILY 07/12/19 07/12/19 Doxycycline Monohydrate 100 mg PO BID #6 capsule 07/27/19 Ferrous Sulfate 325 mg PO DAILY #30 tablet 07/27/19 Lactulose 10 gm PO DAILY 30 Days #1 bottle 07/27/19 Midodrine 5 mg PO TIDWM #30 tablet 07/27/19 Multivitamin W/Minerals [Theragran 1 tab PO DAILYWM #30 tablet 07/27/19 M] Senna [Senokot] 8.6 mg PO DAILY PRN #30 tablet 07/27/19 oxyCODONE [Roxicodone] 5 mg PO Q4H PRN #30 tablet 07/27/19 - PHYSICAL EXAM AT DISCHARGE General Appearance: positive: No acute distress, Alert Eyes Bilateral: positive: Normal inspection, Conjunctivae nml ENT: positive: ENT inspection nml Neck: positive: Nml inspection Respiratory: positive: No respiratory distress. negative: Wheezes, Rales, Rhonchi Cardiovascular: positive: Regular rate & rhythm, No murmur. negative: Tach ycardia, Bradycardia Abdomen: positive: Non-tender, No distention. negative: Tenderness, Guarding, Rebound Skin: positive: Warm, Dry, Other (Wound VAC is in place over the left upper thigh. There is minimal erythema present.) Extremities: positive: Pedal edema (She has +2 pitting edema left lower extremity. She has +1 pitting edema in the right lower extremity) Neurologic/Psychiatric: positive: Oriented x3. negative: Disoriented to person, Disoriented to place, Disoriented to time, Slurred/abnml speech - LABS Result Diagrams: 07/27/19 05:10 07/27/19 05:10 - DIAGNOSTIC IMAGING Diagnostic Imaging Results: Final report reviewed - FOLLOW UP Follow Up: She will follow-up with hematology in 2 weeks here at the [facility] clinic. - TIME SPENT Time Spent in Discharge (Minutes): 45"
--- NOTE | 2019-07-27 12:48 | PROVIDER PROGRESS NOTE ---
Subjective - General Admit Date: 07/12/19 Procedure Date: 07/19/19 Post Op Days: 8 Procedure Performed: s/p L medial thigh fasciotomy and hematoma evacuation - Review of Systems Wound/Incisions: positive: Other (improving bleeding post op due to oozing from her coagulopathy) Drain Type: Provena incisional VAC All Other Systems: positive: Reviewed and negative - Other Other Information/Narrative: To swing bed today. Doing fine, no acute issues, still resistant to moving much. Asks why her legs are swollen and we reviewed what laying in bed for two weeks will do. VAC placed, good seal. Objective - Patient Data Vital Signs: Vital Signs x48h Temp Pulse Resp BP Pulse Ox 07/27/19 07:58 37.1 C 92 16 120/56 L 95 Weight: Weight 07/25/19 07/26/19 07/27/19 23:59 23:59 23:59 Weight (kg) 77.5 kg 79 kg 81 kg Intake & Output: Intake and Output Totals x24h 07/25/19 07/26/19 07/27/19 23:59 23:59 23:59 Intake Total 2104.333 1767 490 Output Total 500 800 Balance 1604.333 967 490 - Lab Results Lab Results: 07/27/19 05:10 07/27/19 05:10 Other Lab Results: Lab Results x24hrs 07/27/19 07/27/19 07/27/19 Range/Units 09:55 05:10 05:10 WBC (4.8-10.8) x10^3/uL RBC (4.20-5.40) 10^6/uL Hgb (12.0-16.0) g/dL Hct (37.0-47.0) % MCV (81.0-99.0) fL MCH (27.0-31.0) pg MCHC (32.0-36.0) g/dL RDW (12.0-15.0) % Plt Count (130-450) 10^3/uL MPV (7.9-10.8) fL Neut # (Auto) Lymph # (Auto) Delta # (Auto) Eos # (Auto) Baso # (Auto) Absolute Nucleated RBC Total Counted Band Neuts % (Manual) (0 - 10) % Abnorm Lymph % (Manual) % Nucleated RBC % Neutrophils # (Manual) (1.5-6.6) 10^3/uL Lymphocytes # (Manual) (1.5-3.5) 10^3/uL Monocytes # (Manual) (0.0-1.0) 10^3/uL Eosinophils # (Manual) (0-0.7) 10^3/uL Basophils # (Manual) (0-0.1) 10^3/uL Differential Comment Platelet Estimate (NORMAL) RBC Morph Micro Appear (NORMAL) PT 24.0 H (9.9-12.6) secs INR 2.2 H (0.8-1.2) Sodium 135 (135-145) mmol/L Potassium 3.4 L (3.5-5.0) mmol/L Chloride 108 (101-111) mmol/L Carbon Dioxide 22 (21-32) mmol/L Anion Gap 5.0 L (6-13) BUN 12 (6-20) mg/dL Creatinine 0.6 (0.4-1.0) mg/dL Estimated GFR (MDRD) 101 (>89) Glucose 105 H (70-100) mg/dL Calcium 7.2 L (8.5-10.3) mg/dL Total Bilirubin 4.6 H (0.2-1.0) mg/dL AST 69 H (10-42) IU/L ALT 34 (10-60) IU/L Alkaline Phosphatase 77 (42-121) IU/L Ammonia 32.0 (7-35) umol/L Total Protein 4.8 L (6.7-8.2) g/dL Albumin 1.8 L (3.2-5.5) g/dL Globulin 3.0 (2.1-4.2) g/dL Albumin/Globulin Ratio 0.6 L (1.0-2.2) 07/27/19 Range/Units 05:10 WBC 11.0 H (4.8-10.8) x10^3/uL RBC 2.74 L (4.20-5.40) 10^6/uL Hgb 8.6 L (12.0-16.0) g/dL Hct 26.0 L (37.0-47.0) % MCV 94.9 (81.0-99.0) fL MCH 31.4 H (27.0-31.0) pg MCHC 33.1 (32.0-36.0) g/dL RDW 19.2 H (12.0-15.0) % Plt Count 189 (130-450) 10^3/uL MPV 10.4 (7.9-10.8) fL Neut # (Auto) Not Reportable Lymph # (Auto) Not Reportable Delta # (Auto) Not Reportable Eos # (Auto) Not Reportable Baso # (Auto) Not Reportable Absolute Nucleated RBC Not Reportable Total Counted 100 Band Neuts % (Manual) 6 (0 - 10) % Abnorm Lymph % (Manual) 0 % Nucleated RBC % Not Reportable Neutrophils # (Manual) 9.0 H (1.5-6.6) 10^3/uL Lymphocytes # (Manual) 0.9 L (1.5-3.5) 10^3/uL Monocytes # (Manual) 0.8 (0.0-1.0) 10^3/uL Eosinophils # (Manual) 0.3 (0-0.7) 10^3/uL Basophils # (Manual) 0.0 (0-0.1) 10^3/uL Differential Comment MANUAL DIFFERENTIAL Platelet Estimate NORMAL (130-450,000) (NORMAL) RBC Morph Micro Appear 1+ OVALOCYTES (NORMAL) PT (9.9-12.6) secs INR (0.8-1.2) Sodium (135-145) mmol/L Potassium (3.5-5.0) mmol/L Chloride (101-111) mmol/L Carbon Dioxide (21-32) mmol/L Anion Gap (6-13) BUN (6-20) mg/dL Creatinine (0.4-1.0) mg/dL Estimated GFR (MDRD) (>89) Glucose (70-100) mg/dL Calcium (8.5-10.3) mg/dL Total Bilirubin (0.2-1.0) mg/dL AST (10-42) IU/L ALT (10-60) IU/L Alkaline Phosphatase (42-121) IU/L Ammonia (7-35) umol/L Total Protein (6.7-8.2) g/dL Albumin (3.2-5.5) g/dL Globulin (2.1-4.2) g/dL Albumin/Globulin Ratio (1.0-2.2) - Current Medications Current Medications: Current Medications Generic Name Dose Route Start Last Admin Trade Name Freq PRN Reason Stop Dose Admin Carboxymethylcellulose 1 drops 07/25/19 14:35 07/25/19 14:49 Refresh 1% Ophth Drops EACHEYE 1 drops PRN PRN Administration Dry Eye Docusate Sodium 250 - 500 mg 07/16/19 22:00 07/27/19 08:34 Colace 250mg Capsule PO Not Given BID KIRK Ferrous Gluconate 324 mg 07/21/19 14:00 07/27/19 08:34 Fergon PO 324 mg DAILYWM KIRK Administration Fluticasone Propionate 2 sprays 07/13/19 09:00 07/27/19 08:32 Flonase YVETTE 2 sprays DAILY KIRK Administration Vancomycin HCl 1 gm/ Sodium 250 mls @ 167 mls/hr 07/24/19 10:00 07/27/19 10:30 Chloride IV 167 mls/hr Q8H KIRK Administration Lactulose 10 gm 07/25/19 17:24 07/27/19 08:33 Enulose PO 10 gm BIDWM KIRK Administration Midodrine 5 mg 07/24/19 12:00 07/27/19 08:34 PO 5 mg TIDWM KIRK Administration Multivitamins/Minerals 1 tab 07/14/19 09:00 07/27/19 08:34 Theragran M PO 1 tab DAILYWM KIRK Administration Ondansetron HCl 4 mg 07/13/19 20:44 07/21/19 10:29 Zofran Inj IVP 4 mg BID PRN Administration Nausea / Vomiting Oxycodone HCl 5 mg 07/12/19 07:24 07/27/19 08:34 Roxicodone PO 5 mg Q4HR PRN Administration Pain 5 to 7 Pantoprazole Sodium 40 mg 07/22/19 09:00 07/27/19 06:16 Protonix IVP 40 mg QDAC KIRK Administration Psyllium Hydrophilic Mucilloid 1 packet 07/24/19 09:00 07/27/19 08:34 Metamucil PO Not Given DAILY [facility] Senna 8.6 mg 07/21/19 09:00 07/27/19 08:34 Senokot PO Not Given DAILY [facility] Sodium Chloride 10 ml 07/12/19 07:24 07/27/19 06:16 Normal Saline Flush 0.9% IVP 10 ml PRN PRN Administration NEEDED PER PROVIDER ORDERS Sodium Chloride 10 ml 07/12/19 09:00 07/27/19 08:35 Normal Saline Flush 0.9% IVP 30 ml 0100,0900,1700 KIRK Administration Throat Lozenges 1 lozenge 07/22/19 10:53 07/24/19 05:41 Cepacol MM 1 lozenge Q2HR PRN Administration Throat pain - Physical Exam Comments/Other: AAO, NAD, depressed affect EOMI, MMM, no scleral icterus unlabored RA soft, nt/nd L thigh cellulitis further improved, compartments soft, VAC with good seal; calves soft skin jaundice resolved Impression/Plan - Problem List Problem List: L thigh inc closed, POD#8 --> cellulitis improving; removed sutures and wound care placed VAC --> abx, now only PO doxy --> to swing bed today; will continue VAC changes with wound care and I will stay in touch with them for follow up PT/OT - needs to mobilize, increasingly deconditioned; counseled again; pt still reticent to do much OOB Cirrhosis - outpt FU - appreciate medicine team assistance, also appreciate heme input SCDs, chemoprophylaxis contraindicated with coagulopathy
[2019-07-27 15:41] VITALS: BP 146/72
== END 2019-07-27 16:09 | DRG 500 ==
LOC: EDUNIT# → ED 22:24 → MS2 07-12 07:18 → SDS 07-12 07:18 → MS2 07-12 09:07 → ICU 07-22 08:29 → MS2 07-23 16:38
PROVIDERS: ADMIT Surgery; ATTEND Internal Medicine
PROC: 0KNT0ZZ Release Left Lower Leg Muscle, Open Approach (ICD-10-PCS; principal; 2019-07-12 07:30)
PROC: 30233N1 Transfusion of Nonautologous Red Blood Cells into Peripheral Vein, Percutaneous Approach (ICD-10-PCS; 2019-07-15)
PROC: 0JQM3ZZ Repair Left Upper Leg Subcutaneous Tissue and Fascia, Percutaneous Approach (ICD-10-PCS; 2019-07-19)
PROC: 05HM33Z Insertion of Infusion Device into Right Internal Jugular Vein, Percutaneous Approach (ICD-10-PCS; 2019-07-22)
DX: S70.12XA Contusion of left thigh, initial encounter (principal); X58.XXXA Exposure to other specified factors, initial encounter; M79.81 Nontraumatic hematoma of soft tissue; K65.2 Spontaneous bacterial peritonitis; L03.116 Cellulitis of left lower limb; D62 Acute posthemorrhagic anemia; D68.4 Acquired coagulation factor deficiency; K52.1 Toxic gastroenteritis and colitis; I82.512 Chronic embolism and thrombosis of left femoral vein; I82.532 Chronic embolism and thrombosis of left popliteal vein; E87.1 Hypo-osmolality and hyponatremia; K76.6 Portal hypertension; B18.2 Chronic viral hepatitis C; K74.69 Other cirrhosis of liver; K83.8 Other specified diseases of biliary tract; K70.30 Alcoholic cirrhosis of liver without ascites; B19.20 Unspecified viral hepatitis C without hepatic coma; F10.129 Alcohol abuse with intoxication, unspecified; Y90.6 Blood alcohol level of 120-199 mg/100 ml; I95.9 Hypotension, unspecified; J43.9 Emphysema, unspecified; T47.3X5A Adverse effect of saline and osmotic laxatives, initial encounter; Y92.230 Patient room in hospital as the place of occurrence of the external cause; G89.29 Other chronic pain; M54.9 Dorsalgia, unspecified; M19.90 Unspecified osteoarthritis, unspecified site; M43.6 Torticollis; S12.9XXS Fracture of neck, unspecified, sequela; F17.210 Nicotine dependence, cigarettes, uncomplicated; F90.9 Attention-deficit hyperactivity disorder, unspecified type; R41.3 Other amnesia; R01.1 Cardiac murmur, unspecified; F03.90 Unspecified dementia, unspecified severity, without behavioral disturbance, psychotic disturbance, mood disturbance, and anxiety; G62.9 Polyneuropathy, unspecified; R25.1 Tremor, unspecified; K21.9 Gastro-esophageal reflux disease without esophagitis; R35.0 Frequency of micturition; R35.1 Nocturia; H91.90 Unspecified hearing loss, unspecified ear; H54.7 Unspecified visual loss; J32.9 Chronic sinusitis, unspecified; G47.00 Insomnia, unspecified; N20.0 Calculus of kidney; Z86.19 Personal history of other infectious and parasitic diseases; Z87.01 Personal history of pneumonia (recurrent)
CPT/HCPCS: 20950; 36415; 71045; 73701; 74177; 76700; 80048; 80053; 80076; 80202; 81001; 81599; 82140; 82247; 82248; 82272; 82533; 82550; 82607; 82746; 82977; 83036; 83605; 83690; 83735; 84100; 84443; 84484; 85014; 85018; 85025; 85210; 85220; 85240; 85245; 85246; 85610; 85730; 86140; 86850; 86900; 86901; 86920; 87040; 87045; 87046; 87150; 87493; 90686; 93005; 93306; 93971; 96374; 97110; 97162; 97164; 97165; 97168; 97530; 97535; 99223; 99285; 99291; A6250; A9270; J1170; J3370; J7120; P9016; P9040; Q0162; Q9967; 80306; 80320; 81003; 87086; 90670

== ENCOUNTER 2019-07-28 12:42 | Outpatient (CLI) | payer MEDICARE, MEDICAID | END 2019-07-28 12:43 | disposition critical access hospital (66) | LOC: EMS 12:42 | PROVIDERS: ATTEND Surgery | DX: R22.42 Localized swelling, mass and lump, left lower limb (principal); R10.32 Left lower quadrant pain | CPT/HCPCS: A0425; A0429 ==

== ENCOUNTER 2019-07-28 12:46 | Emergency (ER) | payer MEDICARE, MEDICAID ==
[2019-07-28] MEDS ORDERED: oxyCODONE 5 MG TABLET PO STA (14:52)
--- NOTE | 2019-07-28 14:55 | ED Physician Documentation ---
History of Present Illness - Stated complaint Stated Complaint: WOUND CARE - Chief complaint Chief Complaint: General - History obtained from History obtained from: Patient - History of Present Illness Timing: Chronic Pain level max: 0 Pain level now: 0 - Additonal information Additional information: Patient was discharged from the hospital yesterday with a wound VAC on the left lower extremity in the left thigh. She thinks that it appears more red today. She is on doxycycline currently. Had just spent 2 weeks in the hospital. No fevers. No vomiting. Nothing makes it better or worse. 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: Ovarian cysts : Nocturia, Frequency, Kidney stones HEENT: Chronic vision loss, Chronic sinusitis, Chronic hearing loss Psych: Depression, Anxiety, ADD/ADHD, Other Musculoskeletal: Osteoarthritis, Fatigue, Chronic back pain Derm: Other (bronze skin) - Past Surgical History Past Surgical History: Yes General: Colonoscopy Ortho: Spine surgery, Other - Present Medications Home Medications: Ambulatory Orders Medication Instructions Recorded Confirmed Fluticasone [Flonase] 2 sprays YVETTE DAILY 07/12/19 07/12/19 Doxycycline Monohydrate 100 mg PO BID #6 capsule 07/27/19 Ferrous Sulfate 325 mg PO DAILY #30 tablet 07/27/19 Lactulose 10 gm PO DAILY 30 Days #1 bottle 07/27/19 Midodrine 5 mg PO TIDWM #30 tablet 07/27/19 Multivitamin W/Minerals [Theragran 1 tab PO DAILYWM #30 tablet 07/27/19 M] Senna [Senokot] 8.6 mg PO DAILY PRN #30 tablet 07/27/19 oxyCODONE [Roxicodone] 5 mg PO Q4H PRN #30 tablet 07/27/19 - Allergies Allergies/Adverse Reactions: Allergies Allergy/AdvReac Type Severity Reaction Status Date / Time gabapentin AdvReac Intermediate Dizziness/S Verified 07/28/19 12:52 elling risperidone [From Risperdal] AdvReac Intermediate Sedation/Ti Verified 07/28/19 12:52 ngling ampicillin AdvReac Vaginal Verified 07/28/19 12:52 yeast infection venlafaxine HCl * AdvReac Dizziness Verified 07/28/19 12:52 [From Effexor] - Social History Does the pt smoke?: Yes Smoking Status: Current some day smoker Does the pt drink ETOH?: Yes Does the pt have substance abuse?: No - Immunizations Immunizations are current?: No Immunizations: TDAP >10years/unknown - POLST Patient has POLST: No POLST Status: Full Code PD ED PE NORMAL - Vitals Vital signs reviewed: Yes - General General: Alert and oriented X 3, No acute distress - HEENT HEENT: Moist mucous membranes - Cardiac Cardiac: RRR - Respiratory Respiratory: No respiratory distress, Clear bilaterally - Abdomen Abdomen: Soft, Non tender, Non distended - Derm Derm: Warm and dry - Extremities Extremities: Other (Mild erythema near the wound VAC. There is also mild erythema to the lateral aspect of the thigh. No crepitus. No drainage. Neurovascular intact.) - Neuro Neuro: Alert and oriented X 3 Results - Vitals Vitals: Vital Signs - 24 hr 07/28/19 07/28/19 07/28/19 12:52 14:59 16:00 Temperature 36.6 C 36 C L Heart Rate 93 87 82 Respiratory 16 20 16 Rate Blood Pressure 121/63 111/59 L 125/62 O2 Saturation 94 97 97 Oxygen O2 Source [With Activity] Nasal cannula O2 Source Room air - Labs Labs: Laboratory Tests 07/28/19 07/28/19 07/28/19 15:18 15:18 15:18 WBC 12.5 H RBC 3.16 L Hgb 10.0 L Hct 30.7 L MCV 97.2 MCH 31.6 H MCHC 32.6 RDW 20.4 H Plt Count 234 MPV 10.1 Neut # (Auto) 8.7 H Lymph # (Auto) 1.7 [place] # (Auto) 1.2 H Eos # (Auto) 0.3 Baso # (Auto) 0.1 Absolute Nucleated RBC 0.00 Nucleated RBC % 0.0 Manual Slide Review Indicated Platelet Estimate NORMAL (130-450,000) Platelet Morphology NORMAL APPEARANCE RBC Morph Micro Appear 1+ POLYCHROMASIA ESR 59 H Sodium 135 Potassium 3.6 Chloride 107 Carbon Dioxide 21 Anion Gap 7.0 BUN 12 Creatinine 0.7 Estimated GFR (MDRD) 85 L Glucose 113 H Calcium 7.9 L C-Reactive Protein 2.8 H PD MEDICAL DECISION MAKING - ED course Complexity details: reviewed old records, reviewed results, re-evaluated patient, considered differential, d/w patient, d/w senior environmental consultant (Dr. Cadena who came and evaluated the patient in the emergency department) ED course: 64-year-old female with a wound VAC in place. Discharged yesterday from the hospital. I consulted the hospitalist, Dr. Cadena, who took care of the patient in the hospital. He states that the wound does not look significantly different than prior. Lab values were checked and they are not significantly different either. We will continue the doxycycline and have her follow-up closely with surgery for further evaluation. Patient counseled regarding signs and symptoms for which I believe and urgent re-evaluation would be necessary. Patient with good understanding of and agreement to plan and is comfortable going home at this time This document was made in part using voice recognition software. While efforts are made to proofread this document, sound alike and grammatical errors may occur. Departure - Departure Disposition: 01 Home, Self Care Clinical Impression: Visit for wound check Condition: Good Instructions: ED Wound Infec After Surgery Follow-Up: Ambrocio Ceballos MD [Provider Admit Priv/Credential] - Within 1 week Comments: Continue the medication at home. Please follow-up with the surgical clinic [facility] 3 days. They should recheck your CBC, your sed rate and your CRP next week. Return if you worsen. Discharge Date/Time: 07/28/19 16:25
[2019-07-28 15:23] LABS: PLT - PLATELET COUNT 234 10^3/uL (130-450)
[2019-07-28 15:25] LABS: BASOPHILS # (AUTO) 0.1 10^3/uL (0.0-0.1); EOSINOPHILS # (AUTO) 0.3 10^3/uL (0.0-0.7); EOSINOPHILS % (AUTO) 2.6 %; LYMPHOCYTES # (AUTO) 1.7 10^3/uL (1.5-3.5); LYMPHOCYTES % (AUTO) 13.6 %; MEAN CORPUSCULAR HEMOGLOBIN 31.6 pg (27.0-31.0); MEAN CORPUSCULAR HGB CONC 32.6 g/dL (32.0-36.0); MEAN CORPUSCULAR VOLUME 97.2 fL (81.0-99.0); MEAN PLATELET VOLUME 10.1 fL (7.9-10.8); MONOCYTES # (AUTO) 1.2 10^3/uL (0.0-1.0); MONOCYTES % (AUTO) 9.4 %; NEUTROPHILS # (AUTO) 8.7 10^3/uL (1.5-6.6); NEUTROPHILS % (AUTO) 69.5 %; RED BLOOD COUNT 3.16 10^6/uL (4.20-5.40); RED CELL DISTRIBUTION WIDTH 20.4 % (12.0-15.0); WHITE BLOOD COUNT 12.5 x10^3/uL (4.8-10.8)
[2019-07-28 15:45] LABS: CALCIUM 7.9 mg/dL (8.5-10.3); CREATININE 0.7 mg/dL (0.4-1.0); CRP - C-REACTIVE PROTEIN 2.8 mg/dL (0-1.0)
[2019-07-28 15:55] LABS: PLATELET ESTIMATE, MANUAL NORMAL (130-450,000) (NORMAL); PLATELET MORPHOLOGY NORMAL APPEARANCE (NORMAL)
[2019-07-28 16:05] VITALS: BP 125/62
== END 2019-07-28 16:25 | disposition home or self-care (01) ==
LOC: EDUNIT# → ED 12:46
DX: Z71.1 Person with feared health complaint in whom no diagnosis is made (principal); I10 Essential (primary) hypertension; F03.90 Unspecified dementia, unspecified severity, without behavioral disturbance, psychotic disturbance, mood disturbance, and anxiety; F17.200 Nicotine dependence, unspecified, uncomplicated; Z98.890 Other specified postprocedural states
CPT/HCPCS: 36415; 80048; 85025; 85651; 86140; 99282; 99283; A9270

== ENCOUNTER 2019-08-01 17:45 | Outpatient (CLI) | payer MEDICARE, MEDICAID ==
[2019-08-01 19:32] LABS: BASOPHILS # (AUTO) 0.1 10^3/uL (0.0-0.1); EOSINOPHILS # (AUTO) 0.2 10^3/uL (0.0-0.7); EOSINOPHILS % (AUTO) 2.6 %; HGB - HEMOGLOBIN 8.6 g/dL (12.0-16.0); LYMPHOCYTES # (AUTO) 1.4 10^3/uL (1.5-3.5); LYMPHOCYTES % (AUTO) 15.6 %; MEAN CORPUSCULAR HEMOGLOBIN 31.3 pg (27.0-31.0); MEAN CORPUSCULAR HGB CONC 31.3 g/dL (32.0-36.0); MEAN PLATELET VOLUME 10.3 fL (7.9-10.8); MONOCYTES # (AUTO) 0.8 10^3/uL (0.0-1.0); MONOCYTES % (AUTO) 8.1 %; NEUTROPHILS # (AUTO) 6.7 10^3/uL (1.5-6.6); NEUTROPHILS % (AUTO) 72.2 %; PLT - PLATELET COUNT 214 10^3/uL (130-450); RED BLOOD COUNT 2.75 10^6/uL (4.20-5.40); RED CELL DISTRIBUTION WIDTH 19.9 % (12.0-15.0); WHITE BLOOD COUNT 9.2 x10^3/uL (4.8-10.8)
== END 2019-08-01 23:59 | disposition home or self-care (01) ==
LOC: LAB.R 17:45
DX: R79.1 Abnormal coagulation profile (principal); D72.829 Elevated white blood cell count, unspecified; L03.116 Cellulitis of left lower limb
CPT/HCPCS: 85025; 85651; 86140

== ENCOUNTER 2019-08-03 15:45 | Outpatient (CLI) | payer MEDICARE, MEDICAID ==
[2019-08-03 17:48] LABS: BASOPHILS # (AUTO) 0.1 10^3/uL (0.0-0.1); BASOPHILS % (AUTO) 1.3 %; EOSINOPHILS # (AUTO) 0.3 10^3/uL (0.0-0.7); EOSINOPHILS % (AUTO) 3.3 %; HGB - HEMOGLOBIN 9.6 g/dL (12.0-16.0); LYMPHOCYTES # (AUTO) 1.8 10^3/uL (1.5-3.5); LYMPHOCYTES % (AUTO) 20.7 %; MEAN CORPUSCULAR HEMOGLOBIN 31.5 pg (27.0-31.0); MEAN CORPUSCULAR HGB CONC 31.2 g/dL (32.0-36.0); MEAN PLATELET VOLUME 10.9 fL (7.9-10.8); MONOCYTES # (AUTO) 0.7 10^3/uL (0.0-1.0); MONOCYTES % (AUTO) 8.5 %; NEUTROPHILS # (AUTO) 5.5 10^3/uL (1.5-6.6); NEUTROPHILS % (AUTO) 65.6 %; PLT - PLATELET COUNT 236 10^3/uL (130-450); RED BLOOD COUNT 3.05 10^6/uL (4.20-5.40); RED CELL DISTRIBUTION WIDTH 19.2 % (12.0-15.0); WHITE BLOOD COUNT 8.5 x10^3/uL (4.8-10.8)
[2019-08-03 17:54] LABS: ALBUMIN 2.4 g/dL (3.2-5.5); ALBUMIN/GLOBULIN RATIO 0.5 (1.0-2.2); BILIRUBIN,TOTAL 4.4 mg/dL (0.2-1.0); CALCIUM 9.2 mg/dL (8.5-10.3); CREATININE 0.7 mg/dL (0.4-1.0); TOTAL PROTEIN 6.8 g/dL (6.7-8.2)
== END 2019-08-03 23:59 | disposition home or self-care (01) ==
LOC: LAB.R 15:45
DX: M79.A12 Nontraumatic compartment syndrome of left upper extremity (principal); D72.829 Elevated white blood cell count, unspecified; S70.12XD Contusion of left thigh, subsequent encounter; B18.2 Chronic viral hepatitis C; R79.1 Abnormal coagulation profile
CPT/HCPCS: 80053; 85025; 85610; 87040

== ENCOUNTER 2019-08-12 08:00 | Outpatient (CLI) | payer MEDICARE, MEDICAID | END 2019-08-12 23:59 | disposition home or self-care (01) | LOC: LAB.R 08:00 | PROVIDERS: ATTEND Family Medicine | DX: L08.9 Local infection of the skin and subcutaneous tissue, unspecified (principal) | CPT/HCPCS: 87070; 87181; 87205 ==

== ENCOUNTER 2019-08-15 15:52 | Outpatient (CLI) | payer MEDICARE, MEDICAID ==
[2019-08-15 18:26] LABS: BASOPHILS # (AUTO) 0.1 10^3/uL (0.0-0.1); BASOPHILS % (AUTO) 1.2 %; EOSINOPHILS # (AUTO) 0.5 10^3/uL (0.0-0.7); EOSINOPHILS % (AUTO) 6.9 %; HGB - HEMOGLOBIN 11.7 g/dL (12.0-16.0); LYMPHOCYTES # (AUTO) 1.7 10^3/uL (1.5-3.5); LYMPHOCYTES % (AUTO) 25.6 %; MEAN CORPUSCULAR HEMOGLOBIN 33.4 pg (27.0-31.0); MEAN CORPUSCULAR HGB CONC 33.5 g/dL (32.0-36.0); MEAN CORPUSCULAR VOLUME 99.7 fL (81.0-99.0); MEAN PLATELET VOLUME 11.1 fL (7.9-10.8); MONOCYTES # (AUTO) 0.9 10^3/uL (0.0-1.0); MONOCYTES % (AUTO) 13.3 %; NEUTROPHILS # (AUTO) 3.5 10^3/uL (1.5-6.6); NEUTROPHILS % (AUTO) 52.7 %; PLT - PLATELET COUNT 171 10^3/uL (130-450); RED CELL DISTRIBUTION WIDTH 16.6 % (12.0-15.0); WHITE BLOOD COUNT 6.6 x10^3/uL (4.8-10.8)
== END 2019-08-15 15:53 | disposition home or self-care (01) ==
LOC: LAB.R 15:52
DX: I82.512 Chronic embolism and thrombosis of left femoral vein (principal)
CPT/HCPCS: 85025; 85651

== ENCOUNTER 2019-08-17 08:00 | Outpatient (CLI) | payer MEDICARE, MEDICAID | END 2019-08-17 23:59 | disposition home or self-care (01) | LOC: LAB.R 08:00 | DX: E80.7 Disorder of bilirubin metabolism, unspecified (principal); D72.829 Elevated white blood cell count, unspecified; R74.9 Abnormal serum enzyme level, unspecified | CPT/HCPCS: 81599; 85210; 85220; 85240; 85245; 85246; 85290; 85730 ==

== ENCOUNTER 2019-09-08 08:00 | Outpatient (CLI) | payer MEDICARE, MEDICAID ==
[2019-09-08 11:56] LABS: GLUCOSE, URINE (UA) NEGATIVE (NEGATIVE); KETONES,URINE (UA) NEGATIVE (NEGATIVE); LEUKOCYTE ESTERASE, URINE TRACE (NEGATIVE); NITRITE,URINE NEGATIVE (NEGATIVE); OCCULT BLOOD,URINE LARGE (NEGATIVE); PROTEIN,URINE 30 mg/dL (NEGATIVE); UROBILINOGEN,URINE 0.2 (NORMAL) E.U./dL (NORMAL)
[2019-09-08 12:10] LABS: BILIRUBIN,URINE NEGATIVE (NEGATIVE); CLARITY,URINE CLOUDY (CLEAR); ICTOTEST,URINE NEGATIVE
[2019-09-08 12:11] LABS: BACTERIA,URINE Rare /HPF (None Seen); CRYSTALS,URINE 3-5 Calcium Oxalate /LPF; RBC,URINE TNTC /HPF (0-5); SQUAMOUS EPITHELIAL CELL,UR RARE Squamous (<= Few)
== END 2019-09-08 23:59 | disposition home or self-care (01) ==
LOC: LAB.R 08:00
DX: N39.0 Urinary tract infection, site not specified (principal)
CPT/HCPCS: 81001; 81003

== ENCOUNTER 2019-10-13 08:00 | Outpatient (CLI) | payer MEDICARE, MEDICAID ==
[2019-10-13 19:18] LABS: BILIRUBIN,URINE NEGATIVE (NEGATIVE); GLUCOSE, URINE (UA) NEGATIVE (NEGATIVE); KETONES,URINE (UA) TRACE mg/dL (NEGATIVE); LEUKOCYTE ESTERASE, URINE NEGATIVE (NEGATIVE); NITRITE,URINE NEGATIVE (NEGATIVE); OCCULT BLOOD,URINE LARGE (NEGATIVE); PH,URINE 6.5 PH (5.0-7.5); PROTEIN,URINE 100 mg/dL (NEGATIVE); UROBILINOGEN,URINE 1 (NORMAL) E.U./dL (NORMAL)
[2019-10-13 19:20] LABS: CLARITY,URINE BLOODY (CLEAR)
[2019-10-13 19:21] LABS: BACTERIA,URINE None Seen /HPF (None Seen); RBC,URINE TNTC /HPF (0-5); SQUAMOUS EPITHELIAL CELL,UR NONE SEEN (<= Few)
== END 2019-10-13 23:59 | disposition home or self-care (01) ==
LOC: LAB.R 08:00
PROVIDERS: ATTEND Family Medicine
DX: B18.2 Chronic viral hepatitis C (principal); K74.60 Unspecified cirrhosis of liver; T81.49XD Infection following a procedure, other surgical site, subsequent encounter
CPT/HCPCS: 81001; 81003

== ENCOUNTER 2019-10-16 09:31 | Outpatient (CLI) | payer MEDICARE, MEDICAID ==
--- NOTE | 2019-10-16 13:34 | Ultrasound Report ---
Reason: DVT Procedure Date: 10/16/2019 Accession Number: [id number] / [id number] Procedure: US - Duplex Ext Veins Left CPT Code: Final Report FULL RESULT: EXAM: LEFT LOWER EXTREMITY VENOUS ULTRASOUND EXAM DATE: 10/16/2019 09:39 AM. CLINICAL HISTORY: DVT. COMPARISON: DUPLEX EXT VEINS LEFT 07/11/2019 11:14 PM. TECHNIQUE: Real-time sonographic vascular imaging was performed by the poising inspector through the lower extremity utilizing both color-flow and Doppler spectral analysis. Multiple patient financial representative static images were saved for review. FINDINGS: Common Femoral Vein (CFV): Normal. CFV-GSV Junction: Normal. Profunda Femoral Vein (PFV): Normal. Femoral Vein (FV) Prox: Normal. Femoral Vein (FV) Mid: Normal. Femoral Vein (FV) Dist: Normal. Popliteal Vein: Normal. Posterior Tibial Veins: Normal. Peroneal Veins: Normal. Contralateral Side CFV: Normal. Other: None. IMPRESSION: No evidence for deep venous thrombosis. RADIA
== END 2019-10-16 09:32 | disposition home or self-care (01) ==
LOC: DI 09:31
PROVIDERS: ATTEND Internal Medicine Hematology & Oncology
DX: Z86.718 Personal history of other venous thrombosis and embolism (principal)

== ENCOUNTER 2019-10-18 14:35 | Emergency (ER) | payer MEDICARE, MEDICAID ==
[2019-10-18 14:44] VITALS: BP 139/88
[2019-10-18] MEDS ORDERED: SULFAMETH/TRIMETH DS 800/160 MG TABLET PO STA (15:17)
[2019-10-18] MEDS ORDERED: cephALEXin 250 MG CAPSULE PO STA (15:17)
--- NOTE | 2019-10-18 15:27 | ED Physician Documentation ---
History of Present Illness - Stated complaint Stated Complaint: L LEG PAIN - Chief complaint Chief Complaint: General - History obtained from History obtained from: Patient - History of Present Illness Timing: Today Pain level max: 8 Pain level now: 8 - Additonal information Additional information: 64-year-old female states that she has redness and swelling to the left a recurrent infected wound on that leg. She is concerned it is becoming infected again. No fevers. No chills. She is being followed by home health for this. She also states that she is out of pain medication. Nothing makes it better or worse. 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: Ovarian cysts : Nocturia, Frequency, Kidney stones HEENT: Chronic vision loss, Chronic sinusitis, Chronic hearing loss Psych: Depression, Anxiety, ADD/ADHD, Other Musculoskeletal: Osteoarthritis, Fatigue, Chronic back pain Derm: Other (bronze skin) - Past Surgical History Past Surgical History: Yes General: Colonoscopy Ortho: Spine surgery, Other - Present Medications Home Medications: Ambulatory Orders Medication Instructions Recorded Confirmed Fluticasone [Flonase] 2 sprays YVETTE DAILY 07/12/19 10/04/19 Ferrous Sulfate 325 mg PO DAILY #30 tablet 07/27/19 10/04/19 Lactulose 10 gm PO DAILY 30 Days #1 bottle 07/27/19 10/04/19 Midodrine 5 mg PO TIDWM #30 tablet 07/27/19 10/04/19 Multivitamin W/Minerals [Theragran 1 tab PO DAILYWM #30 tablet 07/27/19 10/04/19 M] oxyCODONE [Roxicodone] 5 mg PO Q4H PRN #30 tablet 07/27/19 10/04/19 Cephalexin [Keflex] 500 mg PO Q6H #40 capsule 10/18/19 Sulfamethox/Trimeth 800/160 1 each PO BID #20 tablet 10/18/19 [Bactrim Ds 800/160] - Allergies Allergies/Adverse Reactions: Allergies Allergy/AdvReac Type Severity Reaction Status Date / Time gabapentin AdvReac Intermediate Dizziness/S Verified 10/04/19 13:32 elling risperidone [From Risperdal] AdvReac Intermediate Sedation/Ti Verified 10/04/19 13:32 ngling ampicillin AdvReac Vaginal Verified 10/04/19 13:32 yeast infection venlafaxine HCl * AdvReac Dizziness Verified 10/04/19 13:32 [From Effexor] - Social History Does the pt smoke?: Yes Smoking Status: Current some day smoker Does the pt drink ETOH?: Yes Does the pt have substance abuse?: No - Immunizations Immunizations are current?: No Immunizations: TDAP >10years/unknown - POLST Patient has POLST: No POLST Status: Full Code PD ED PE NORMAL - Vitals Vital signs reviewed: Yes - General General: Alert and oriented X 3, No acute distress - HEENT HEENT: Moist mucous membranes - Derm Derm: Warm and dry - Extremities Extremities: Other (Light erythema on the medial aspect of the left thigh. Blanches easily. No crepitus. No drainage from the wound site. Neurovascular intact.) - Neuro Neuro: Alert and oriented X 3 - Psych Psych: Normal mood, Normal affect Results - Vitals Vitals: Vital Signs - 24 hr 10/18/19 14:40 Temperature 36.7 C Heart Rate 97 Respiratory 16 Rate Blood Pressure 139/88 H O2 Saturation 96 Oxygen O2 Source [With Activity] Nasal cannula O2 Source Room air PD MEDICAL DECISION MAKING - ED course Complexity details: reviewed old records, reviewed results, considered differential, d/w patient ED course: Patient with what appears to be cellulitis to the left thigh. She states that the doxycycline she was on did not work and states that she is most recently been on Keflex and that seemed to work better for her. We will place her on Keflex and Bactrim. There is nothing to culture at this time. She will return if she worsens. Patient counseled regarding signs and symptoms for which I believe and urgent re-evaluation would be necessary. Patient with good understanding of and agreement to plan and is comfortable going home at this time This document was made in part using voice recognition software. While efforts are made to proofread this document, sound alike and grammatical errors may occur. Departure - Departure Disposition: 01 Home, Self Care Clinical Impression: Cellulitis Qualifiers: Site of cellulitis: extremity Site of cellulitis of extremity: lower extremity Laterality: left Qualified Code(s): L03.116 - Cellulitis of left lower limb Condition: Good Instructions: ED Infec Skin Cellulitis Follow-Up: Ed Farley DO [Primary Care Provider] - Within 3 Days Prescriptions: Cephalexin [Keflex] 500 mg PO Q6H #40 capsule Sulfamethox/Trimeth 800/160 [Bactrim Ds 800/160] 1 each PO BID #20 tablet Comments: Take all antibiotics until gone. Return if you worsen. Follow-up with your doctor for further care. You need to be rechecked in 3 days with your doctor. Return sooner if you worsen
== END 2019-10-18 15:36 | disposition home or self-care (01) ==
LOC: ED 14:35
DX: L03.116 Cellulitis of left lower limb (principal); I10 Essential (primary) hypertension; F17.200 Nicotine dependence, unspecified, uncomplicated
CPT/HCPCS: 99282; 99284; A9270

== ENCOUNTER 2019-10-31 08:00 | Outpatient (CLI) | payer MEDICARE, MEDICAID ==
[2019-10-31 13:39] LABS: PARTIAL THROMBOPLASTIN TIME 40.1 secs (24.9-33.3)
[2019-10-31 14:02] LABS: INR 1.3 (0.8-1.2); PT - PROTHROMBIN TIME 14.3 secs (9.9-12.6)
[2019-10-31 14:11] LABS: BASOPHILS # (AUTO) 0.1 10^3/uL (0.0-0.1); BASOPHILS % (AUTO) 1.5 %; EOSINOPHILS # (AUTO) 0.2 10^3/uL (0.0-0.7); EOSINOPHILS % (AUTO) 2.8 %; HGB - HEMOGLOBIN 14.1 g/dL (12.0-16.0); LYMPHOCYTES # (AUTO) 1.4 10^3/uL (1.5-3.5); MEAN CORPUSCULAR HEMOGLOBIN 34.6 pg (27.0-31.0); MEAN CORPUSCULAR HGB CONC 33.9 g/dL (32.0-36.0); MEAN PLATELET VOLUME 11.8 fL (7.9-10.8); MONOCYTES # (AUTO) 0.7 10^3/uL (0.0-1.0); MONOCYTES % (AUTO) 11.7 %; NEUTROPHILS # (AUTO) 3.6 10^3/uL (1.5-6.6); NEUTROPHILS % (AUTO) 60.5 %; PLT - PLATELET COUNT 146 10^3/uL (130-450); RED BLOOD COUNT 4.08 10^6/uL (4.20-5.40); RED CELL DISTRIBUTION WIDTH 17.4 % (12.0-15.0)
[2019-10-31 14:38] LABS: ALBUMIN 3.4 g/dL (3.2-5.5); BILIRUBIN,DIRECT 1.1 mg/dL (0.1-0.5); BILIRUBIN,TOTAL 3.5 mg/dL (0.2-1.0); CALCIUM 9.4 mg/dL (8.5-10.3); CREATININE 0.4 mg/dL (0.4-1.0); TOTAL PROTEIN 7.5 g/dL (6.7-8.2)
== END 2019-10-31 23:59 | disposition home or self-care (01) ==
LOC: LAB.WCP 08:00
PROVIDERS: ATTEND Physician Assistant Medical
DX: S60.222D Contusion of left hand, subsequent encounter (principal); K76.9 Liver disease, unspecified
CPT/HCPCS: 36415; 80048; 80076; 85025; 85610; 85730

== ENCOUNTER 2019-12-14 21:38 | Outpatient (CLI) | payer MEDICARE, MEDICAID ==
--- NOTE | 2019-12-15 08:12 | Ultrasound Report ---
PROCEDURE: Duplex Ext Veins Right INDICATIONS: BLEEDING DISORDER TECHNIQUE: Real-time imaging, as well as color and pulse Doppler interrogation, were performed of the lower extr emity deep veins from the inguinal ligament to the popliteal fossa. COMPARISON: None. FINDINGS: The deep veins are normally compressible, and free of intraluminal thrombus. Color and pu lse Doppler demonstrate normal phasic intraluminal flow. There is normal augmentation response to di stal compression maneuver. There is a heterogeneous focus of echogenicity within the medial mid calf measuring 16 x 14 x 8 mm. IMPRESSION: 1. No deep venous thrombosis. 2. Focus of heterogeneous echogenicity within the calf. This is nonspecific. This could represent a f ocus of hematoma. Thrombosed superficial vein or abscess in appropriate circumstance cannot be exclud ed. The above findings are concordant with preliminary report. Reviewed by: Haley Calvillo MD on 12/15/2019 8:11 AM PDT Approved by: Haley Calvillo MD on 12/15/2019 8:11 AM PDT Station ID: [id number]
== END 2019-12-14 21:39 | disposition home or self-care (01) ==
LOC: DI 21:38
PROVIDERS: ATTEND Internal Medicine
DX: D68.9 Coagulation defect, unspecified (principal); K74.60 Unspecified cirrhosis of liver; K72.90 Hepatic failure, unspecified without coma; R79.89 Other specified abnormal findings of blood chemistry

== ENCOUNTER 2020-05-17 04:09 | Outpatient (CLI) | payer MEDICARE, MEDICAID | END 2020-05-17 04:10 | disposition critical access hospital (66) | LOC: EMS 04:09 | PROVIDERS: ATTEND Surgery | DX: S61.452A Open bite of left hand, initial encounter (principal); W55.01XA Bitten by cat, initial encounter | CPT/HCPCS: A0425; A0429 ==

== ENCOUNTER 2020-05-17 04:27 | Emergency (ER) | payer MEDICARE, MEDICAID ==
[2020-05-17] MEDS ORDERED: LIDOCAINE 1% 2 ML VIAL MC ONE (04:43)
[2020-05-17] MEDS ORDERED: cefTRIAXone 1 GM VIAL IM STA (04:43)
--- NOTE | 2020-05-17 05:17 | ED Physician Documentation ---
PD HPI UPPER EXT INJURY - Stated complaint Stated Complaint: CAT BITE/INFECTION - Chief complaint Chief Complaint: Wound - History obtained from History obtained from: Patient - History of Present Illness Location: Left, Hand Type of injury: Other (cat bite) Where injury occurred: Home Timing - onset: How many hours ago (36) Timing - duration: Days (2) Timing - details: Gradual onset, Still present Improved by: Rest, Immobilization Worsened by: Moving, Palpating Associated symptoms: Swelling, Discolored Contributing factors: Anticoagulated (multifactorial coagulopathy) Similar symptoms before: Has not had sx before Recently seen: Not recently seen - Additonal information Additional information: 65-year-old female with a complicated history of failure of treatment of hepatitis C and cirrhosis with a multifactorial coagulopathy has had a bite to the dorsum of her left hand by at a friend's pet cat. The patient states she was simply putting the cat when the cat bit her in the hand. There is some bleeding to the area there is some hematoma forming and now she has developed a lymphangitic streak up the forearm. She is coming to the emergency department for treatment. Review of Systems Constitutional: denies: Fever Eyes: denies: Decreased vision Ears: denies: Ear pain Nose: denies: Congestion Throat: denies: Sore throat Cardiac: denies: Chest pain / pressure, Palpitations Respiratory: denies: Dyspnea, Cough GI: denies: Vomiting 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, Cirrhosis, Other SMT TECHNICIAN: Ovarian cysts : Nocturia, Frequency, Kidney stones HEENT: Chronic vision loss, Chronic sinusitis, Chronic hearing loss Psych: Depression, Anxiety, ADD/ADHD, Other Musculoskeletal: Osteoarthritis, Fatigue, Chronic back pain Derm: Other Other Past Medical History: coagulation disorder - Past Surgical History Past Surgical History: Yes General: Colonoscopy Ortho: Spine surgery, Other - Present Medications Home Medications: Ambulatory Orders Medication Instructions Recorded Confirmed Fluticasone [Flonase] 2 sprays YVETTE DAILY 07/12/19 04/10/20 Ferrous Sulfate 325 mg PO DAILY #30 tablet 07/27/19 04/10/20 Lactulose 10 gm PO DAILY 30 Days #1 bottle 07/27/19 04/10/20 Midodrine 5 mg PO TIDWM #30 tablet 07/27/19 04/10/20 Pnv No.95/Ferrous Fum/Folic AC 1 tab PO DAILY 01/10/20 04/10/20 [ Formula Tablet] Cefuroxime Axetil [Cefuroxime] 500 mg PO BID #14 tablet 05/17/20 oxyCODONE [Roxicodone] 5 - 10 mg PO Q6H PRN #14 tablet 05/17/20 - Allergies Allergies/Adverse Reactions: Allergies Allergy/AdvReac Type Severity Reaction Status Date / Time gabapentin AdvReac Intermediate Dizziness/S Verified 04/10/20 14:43 elling risperidone [From Risperdal] AdvReac Intermediate Sedation/Ti Verified 04/10/20 14:43 ngling ampicillin AdvReac Vaginal Verified 04/10/20 14:43 yeast infection venlafaxine HCl * AdvReac Dizziness Verified 04/10/20 14:43 [From Effexor] - Social History Does the pt smoke?: Yes Smoking Status: Current every day smoker Does the pt drink ETOH?: Yes Does the pt have substance abuse?: No - Immunizations Immunizations are current?: No Immunizations: TDAP >10years/unknown - POLST Patient has POLST: No POLST Status: Full Code PD ED PE NORMAL - Vitals Vital signs reviewed: Yes (Hypertensive) - General General: Alert and oriented X 3, No acute distress, Well developed/nourished - HEENT HEENT: Atraumatic, PERRL, EOMI - Respiratory Respiratory: No respiratory distress - Derm Derm: Normal color, Warm and dry - Extremities Extremities: Other (There is swelling to the dorsum of the left hand with a hematoma and puncture alarcon to the dorsum of the hand with superficial bleeding. The hematoma is elevated about half a centimeter and covers the entire dorsum of the hand. There is lymphangitic streaking on the dorsum of the forearm extending) - Neuro Neuro: Alert and oriented X 3, calibrator barometers 2-12 intact, No motor deficit, No sensory deficit, Normal speech Eye Opening: Spontaneous Motor: Obeys Commands Verbal: Oriented GCS Score: 15 - Psych Psych: Normal mood, Normal affect Results - Vitals Vitals: Vital Signs - 24 hr 05/17/20 04:30 Temperature 36.7 C Heart Rate 90 Respiratory 17 Rate Blood Pressure 153/96 H O2 Saturation 90 L Oxygen O2 Source [With Activity] Nasal cannula O2 Source Room air PD MEDICAL DECISION MAKING - ED course Complexity details: reviewed old records, considered differential, d/w patient ED course: 65-year-old female with a clotting disorder has developed a hematoma over the dorsum of the hand which has resulted from up cat bite that appears infected. I am concerned this will have a difficult outcome as there is both hematoma and infection present and not a clear indication to open the wound at this point. She is administered Rocephin IM and we will place her on some cefuroxime orally. I discussed with the patient she may need further treatment as signs and symptoms develop including possible incision and drainage. Departure - Departure Disposition: 01 Home, Self Care Clinical Impression: Animal bite with open wound Condition: Stable Instructions: ED Bite Cat Follow-Up: Ed Farley DO [Primary Care Provider] - Prescriptions: Cefuroxime Axetil [Cefuroxime] 500 mg PO BID #14 tablet oxyCODONE [Roxicodone] 5 - 10 mg PO Q6H PRN #14 tablet PRN Reason: Pain
[2020-05-17 06:57] VITALS: BP 158/81
== END 2020-05-17 06:55 | disposition home or self-care (01) ==
LOC: EDUNIT# → ED 04:27
DX: S61.452A Open bite of left hand, initial encounter (principal); L08.9 Local infection of the skin and subcutaneous tissue, unspecified; W55.01XA Bitten by cat, initial encounter; Y93.K9 Activity, other involving animal care; Y92.009 Unspecified place in unspecified non-institutional (private) residence as the place of occurrence of the external cause; D68.9 Coagulation defect, unspecified; B19.20 Unspecified viral hepatitis C without hepatic coma; K74.60 Unspecified cirrhosis of liver; I10 Essential (primary) hypertension; F17.200 Nicotine dependence, unspecified, uncomplicated
CPT/HCPCS: 96372; 99283; 99284

== ENCOUNTER 2020-05-24 09:21 | Outpatient (CLI) | payer MEDICARE, MEDICAID ==
--- NOTE | 2020-05-24 14:47 | XRAY Report ---
PROCEDURE: Hand 2 View LT INDICATIONS: BITTEN BY CAT, LOOKING FOR FB TECHNIQUE: 2 views of the hand(s) acquired. COMPARISON: None FINDINGS: Bones: No fractures or dislocations. No suspicious bony lesions. Soft tissues: No suspicious soft tissue calcifications. No radiopaque foreign body. IMPRESSION: No radiopaque foreign body. No visualized acute fracture or dislocation. However, occult injury canno t be excluded. Recommend short interval imaging follow-up in 7-10 days as clinically indicated for ad ditional evaluation. Reviewed by: Haley Calvillo MD on 05/24/2020 2:46 PM PST Approved by: Haley Calvillo MD on 05/24/2020 2:46 PM PST Station ID: [id number]
== END 2020-05-24 23:59 | disposition home or self-care (01) ==
LOC: DI.N 09:21
PROVIDERS: ATTEND Physician Assistant Medical
DX: S61.452A Open bite of left hand, initial encounter (principal); W55.01XA Bitten by cat, initial encounter

== ENCOUNTER 2020-06-25 14:26 | Outpatient (CLI) | payer MEDICARE, MEDICAID ==
[2020-06-25] MEDS ORDERED: GADOBUTROL 7.5 MMOL/7.5 ML VIAL ONE (15:17)
[2020-06-25] MEDS ORDERED: GADOBUTROL 7.5 MMOL/7.5 ML VIAL IVP ONE (17:02)
--- NOTE | 2020-06-25 17:25 | Ultrasound Report ---
PROCEDURE: Ext Limited Non Vascular INDICATIONS: RT LEG SWELLING, PAIN TECHNIQUE: Real-time scanning was performed of the right leg posterior thigh, with image documentati on. COMPARISON: None. FINDINGS: Targeted ultrasound was performed in the region of clinical concern in the posterior inferior right t high. No mass or hematoma. No fluid collection. IMPRESSION: No hematoma or fluid collection in the region of clinical concern in the right posterior thigh. Reviewed by: Reza Younger MD on 06/25/2020 5:24 PM PST Approved by: Reza Younger MD on 06/25/2020 5:24 PM PST Station ID: [id number]
--- NOTE | 2020-06-26 10:12 | MRI Report ---
SCREENING BREAST MRI OF BOTH BREASTS: 06/25/2020 CLINICAL: Routine screening. No prior exams were available for comparison. TECHNIQUE: The patient was placed prone in a dedicated breast imaging coil. Precontrast axial STIR and 3D FLASH without fat saturation sequences were obtained. Both before and after bolus injection of contrast, sequential 1-minute axial 3D FLASH with fat saturation sequences for 3 time points, with subtraction images and maximum intensity projections (MIPs) generated. Delayed sagittal FLASH images with fat s aturation were also obtained. Computer-aided detection, including computer algorithm analysis of MRI image data for lesion detectio n and characterization, pharmacokinetic analysis, with further physician review for interpretation, w as performed. FINDINGS: Image quality: Excellent. There is mild background parenchymal enhancement. Right breast: No suspicious mass or abnormal non-mass enhancement is identified. No significant righ t axillary lymphadenopathy is seen. Left breast: There is a 0.7 x 0.6 x 0.6 cm oval mass in the left breast 10 oclock middle depth appr oximately 7 cm from the nipple with homogeneous enhancement and circumscribed margins. Kinetic curve assessment is mildly compromised by motion, but appears to demonstrate medium enhancement with platea u on delayed images. Additionally, there is a 0.7 x 0.6 x 0.4 cm irregular mass with mild hyperenhancement in the left gregory ast at the 11 oclock position posterior depth approximately 9 cm from the nipple. This lesion also a ppears to demonstrate medium enhancement initially with plateau, although motion artifact is present. There is no significant left axillary lymphadenopathy. Miscellaneous: The included portions of the anterior chest wall and upper abdomen demonstrate no sig nificant abnormality. IMPRESSION: INCOMPLETE: NEEDS ADDITIONAL IMAGING EVALUATION 1. A 0.7 x 0.6 x 0.6 cm oval circumscribed enhancing mass is seen in the left breast at the 10 ocloc k position middle depth approximately 7 cm from the nipple. Targeted ultrasound is recommended for fu rther evaluation. 2. A 0.7 x 0.6 x 0.4 cm irregular enhancing mass is seen in the left breast at the 11 oclock positio n posterior depth approximately 9 cm from the nipple. Targeted ultrasound is recommended for further evaluation. 3. No suspicious mass or abnormal non-mass enhancement is identified in the right breast. 4. No significant axillary lymphadenopathy. BIRADS 0: Additional imaging required. Left breast diagnostic ultrasound is recommended for further e vauation. COMMENT: The imaging literature indicates that a negative contrast breast MRI examination has a high sensitivity and a moderate specificity for detecting and excluding invasive carcinomas to a detection threshold of 3-5 mm; nonetheless, appropriate clinical and mammographic follow-up are recommended. MRI is not sensitive for detecting DCIS (ductal carcinoma in situ) and may not detect large invasive neoplasms that show only minimal enhancement such as mucinous carcinoma. If there are suspicious jamal cifications or clinically worrisome palpable masses, then biopsy should still be considered. Invasiv e neoplasms can be hidden by co-existent and benign enhancement caused by mastitis, hormone therapy e ffects, radiation therapy, , and recent biopsy or surgery. False positive examinations can occur in a number of circumstances, including breasts that have recently been subject to invasive pro cedures and those that contain atypical ductal hyperplasia, hormonally stimulated glandular tissue, f at necrosis, or radial scars. This exam was interpreted at Station ID: [id number]. Electronically Signed By: Martin Love M.D. ar/:06/25/2020 17:24:24 ACR BI-RADS Category 0: Incomplete 3340F BI-RADS CATEGORY: (0) - 0 Ultrasound [id number] Immediate follow-up LATERALITY: (L)
== END 2020-06-25 14:27 | disposition home or self-care (01) ==
LOC: DI 14:26
PROVIDERS: ATTEND Internal Medicine
DX: N63.25 Unspecified lump in the left breast, overlapping quadrants (principal); K74.60 Unspecified cirrhosis of liver; D68.4 Acquired coagulation factor deficiency; D68.2 Hereditary deficiency of other clotting factors
CPT/HCPCS: 76882; 77049; A9585

== ENCOUNTER 2020-07-09 10:27 | Outpatient (CLI) | payer MEDICARE, MEDICAID ==
--- NOTE | 2020-07-10 14:59 | Ultrasound Report ---
LIMITED ULTRASOUND OF LEFT BREAST: 07/09/2020 CLINICAL: Patient returns for additional imaging over a suspected mass in the left breast. Comparison is made to exam dated: 06/25/2020 breast MRI - [facility]. Color flow and real-time ultrasound of the left breast 1-3 o'clock region were performed on the area s of interest. There is a 0.6 cm x 0.5 cm x 0.6 cm oval mass with a circumscribed margin in the left breast at 3 o'c lock posterior depth. This oval mass is of mixed echogenicity with fatty hilum. This may correlate with breast MRI findings and appears benign. Color flow imaging demonstrates that there is vasculari ty present. No discrete mass is identified at the 1-2:00 positions to correlate with the second finding on MRI. IMPRESSION: PROBABLY BENIGN The 0.6 cm x 0.5 cm x 0.6 cm oval mass in the left breast is consistent with a lymph node and appears benign. This may correlate with one of the findings on prior MRI. A follow-up breast MRI in 6 months is recommended to demonstrate stability of the 2 findings. This exam was interpreted at Station ID: [id number]. Electronically Signed By: Prabhu Connor M.D. ddp/:07/09/2020 12:30:05 Ultrasound BI-RADS: 3 Probably benign BI-RADS CATEGORY: (3) - 3 MRI [id number] 6 month follow-up LATERALITY: (B)
== END 2020-07-09 10:28 | disposition home or self-care (01) ==
LOC: DI 10:27
PROVIDERS: ATTEND Internal Medicine
DX: R92.8 Other abnormal and inconclusive findings on diagnostic imaging of breast (principal)

== ENCOUNTER 2020-08-05 10:48 | Outpatient (CLI) | payer MEDICARE, MEDICAID ==
[2020-08-05 11:12] LABS: CREATININE 0.4 mg/dL (0.4-1.0)
[2020-08-05] MEDS ORDERED: IOVERSOL 320 100 ML VIAL IVP ONE ×2 (11:51→12:15)
--- NOTE | 2020-08-05 13:04 | CT Report ---
PROCEDURE: IVP INDICATIONS: HX OF GROSS HEMATURIA CONTRAST: IV CONTRAST: Optiray 320 ml: 140 PO CONTRAST: *NO PO CONTRAST TECHNIQUE: After the administration of intravenous contrast, 5 mm thick sections acquired from the diaphragms to the symphysis. 5 mm thick coronal and sagittal reformats were acquired. For radiation dose reducti on, the following was used: automated exposure control, adjustment of mA and/or kV according to leonardo ent size. COMPARISON: CT abdomen/pelvis 07/21/2019 FINDINGS: Image quality: Excellent. Lung bases: There is mild atelectasis in the lung bases. Heart size is normal. Urinary system: Both kidneys are normal in size and enhancement. Multiple nonobstructing calculi ar e seen in the left kidney, largest of which measures up to 4 mm at the inferior pole. A 2 mm nonobstr ucting calculus is seen at the inferior pole of the right kidney. Contrast-filled renal calyces are n ormal in morphology. Contrast filled portions of both ureters are normal in caliber. Bladder wall t hickness is normal. Solid organs: Calcified lesions in the liver are nonspecific, but may be related to prior granulomat ous changes or prior trauma. A hypodense lesion in the left hepatic lobe demonstrate peripheral nodul ar discontinuous enhancement, compatible with a hemangioma. Liver and spleen are normal in size. Gal lbladder appears normal. There is no significant intrahepatic biliary duct dilatation. The common christine e duct is diffusely enlarged to 14 mm. Nonobstructing calculus is seen. Pancreas enhances normally. No adrenal nodules. Peritoneum and bowel: Bowel loops demonstrate normal wall thickness and caliber. No free fluid or a ir. Nodes and vessels: No retroperitoneal or mesenteric adenopathy by size criteria. Aorta and inferior vena cava are normal in size. Moderate atherosclerotic calcifications are seen in the aorta. A larg e portosystemic shunt is seen involving the inferior mesenteric vein with connection to the right int ernal iliac vein. Abdominal wall: No ventral hernias. Pelvis: No pathologic free pelvic fluid. No inguinal hernias or adenopathy. Bones: Chronic fracture deformity is seen in the left pubic bone. There is dextroconvex curvature of the lumbar spine with associated degenerative changes. No vertebral body compression fractures. Chron ic tissue scarring is seen at the anteromedial aspect of the left upper thigh. IMPRESSION: 1. Multiple bilateral nonobstructing renal calculi. No hydronephrosis. No urothelial lesion is seen. 2. Large inferior mesenteric vein to right internal iliac vein portosystemic shunt is of uncertain e tiology, but not significantly changed in appearance when compared to the CT from 07/21/2019. No kush l vein thrombosis is seen. Reviewed by: Martin Love MD on 08/05/2020 1:02 PM PST Approved by: Martin Love MD on 08/05/2020 1:02 PM PST Station ID: [id number]
== END 2020-08-05 10:49 | disposition home or self-care (01) ==
LOC: LAB 10:48 → DI 10:49
PROVIDERS: ATTEND Urology
DX: N20.0 Calculus of kidney (principal); Z87.448 Personal history of other diseases of urinary system
CPT/HCPCS: 36415; 74178; 82565; 84520; Q9967

== ENCOUNTER 2020-09-25 10:39 | Emergency (ER) | payer MEDICARE, MEDICAID ==
--- OUTSIDE RECORDS SUMMARY | 2020-09-25 11:10 | EXTERNAL MEDICAL SUMMARY RPT | Continuity of Care Document ---
:1955 Demographics Phone Unavailable Preferred Language Unknown Marital Status Unknown Mandaen Affiliation Unknown Race Unknown Ethnic Group Unknown Author Organization [facility] Address [address] [id number] Phone Social History date description facility [id number]
[2020-09-25] MEDS ORDERED: IOPAMIDOL-300 100 ML VIAL ONE (12:08)
--- NOTE | 2020-09-25 13:29 | CT Report ---
PROCEDURE: ANGIO CHEST W/WO INDICATIONS: SOB, CP, J J vaccine 9 d/a, known superficial clot CONTRAST: IV CONTRAST: Isovue 300 ml: 80 PO CONTRAST: *NO PO CONTRAST TECHNIQUE: After the administration of intravenous contrast, 2 mm thick sections acquired from the pulmonary api benito to the posterior costophrenic angles. 3-dimensional maximum intensity projection (MIP) coronal a nd sagittal reformats were then acquired through the thorax. For radiation dose reduction, the follow ing was used: automated exposure control, adjustment of mA and/or kV according to patient size. COMPARISON: Similar pulmonary angiogram 02/17/2017 reviewed. FINDINGS: Image quality: Excellent. Pulmonary arteries: Pulmonary arteries are normal in size, and demonstrate no intraluminal filling d efects to suggest central pulmonary embolism. Lungs and pleura: Lungs are clear except for a small stable area of linear scarring within the lingu lar segment left upper lobe. This was also present in 2017. No pleural effusions or pneumothorax. C entral and peripheral airways are patent. Mediastinum: Heart size is normal, without pericardial effusion. No mediastinal or hilar adenopathy . Thoracic aorta is normal in caliber and enhancement. Esophagus is normal in caliber, without hiat al hernia. Bones and chest wall: No suspicious bony lesions. Ribs and thoracic spine appear intact throughout. The thyroid is not well seen due to early arterial phase of contrast enhancement. No axillary or s upraclavicular adenopathy. Abdomen: Visualized upper abdominal solid organs appear normal in the early arterial phase of enhanc ement. IMPRESSION: Excellent visualization of the pulmonary arteries. No pulmonary embolus is found. Mild chronic linear scarring lingular segment left upper lobe, present also on similar prior CT scanning from February 2017. Source of new shortness of breath is not found. Reviewed by: Zi Malcolm MD on 09/25/2020 1:27 PM PDT Approved by: Zi Malcolm MD on 09/25/2020 1:27 PM PDT Station ID: [id number]
--- NOTE | 2020-09-25 13:41 | ED Physician Documentation ---
History of Present Illness - Stated complaint Stated Complaint: SOA/LT SWOLLEN - Chief complaint Chief Complaint: Resp - History obtained from History obtained from: Patient - Additonal information Additional information: Pt comes to the ED for CC of "my doctor sent me to r/o PE." Pt had her J&J vaccine 5 days ago, and has a long-standing h/o superficial venous thrombi in her lower extremities, as well as hypocoagulability from chronic liver disease. Pt states that because of this, her doctor has monitored her thrombi closely, rather than put her on anticoagulation. Pt states she began feeling a sense of tightness in her central chest, which is worse when she takes a deep breath, about 3 days ago. She states that when she inhales, she feels a sharp pain. No cough, fever or chills. No other complaints. Pt denies any worsening swelling or pain in her legs. She denies any air hunger. No radiation of pain. Review of Systems Ten Systems: 10 systems reviewed and negative Constitutional: reports: Reviewed and negative Eyes: reports: Reviewed and negative Ears: reports: Reviewed and negative Nose: reports: Reviewed and negative Throat: reports: Reviewed and negative Cardiac: reports: Chest pain / pressure. denies: Pedal edema Respiratory: reports: Reviewed and negative. denies: Dyspnea GI: reports: Reviewed and negative. denies: Nausea : reports: Reviewed and negative Skin: reports: Reviewed and negative Musculoskeletal: reports: Reviewed and negative Neurologic: reports: Reviewed and negative Psychiatric: reports: Reviewed and negative Endocrine: reports: Reviewed and negative Immunocompromised: reports: Reviewed and negative PD PAST MEDICAL HISTORY - Past Medical History Past Medical History: Yes Cardiovascular: Hypertension, Deep vein thrombosis, Murmur Respiratory: COPD, Pneumonia, Shortness of breath Neuro: Dementia, Headaches, Peripheral neuropathy, Tremors Endocrine/Autoimmune: None GI: GERD, GI bleed, Hemorrhoids, Hepatitis, Cirrhosis 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 HORSE: Ovarian cysts : Nocturia, Frequency, Kidney stones HEENT: Chronic vision loss, Chronic sinusitis, Chronic hearing loss Psych: Depression, Anxiety, ADD/ADHD Musculoskeletal: Osteoarthritis, Fatigue, Chronic back pain Derm: Other - Past Surgical History Past Surgical History: Yes General: Colonoscopy Ortho: Spine surgery, Other - Present Medications Home Medications: Ambulatory Orders Medication Instructions Recorded Confirmed Fluticasone [Flonase] 2 sprays YVETTE DAILY 07/12/19 09/25/20 Ferrous Sulfate 325 mg PO DAILY #30 tablet 07/27/19 09/25/20 Pnv No.95/Ferrous Fum/Folic AC 1 tab PO DAILY 01/10/20 09/25/20 [ Formula Tablet] - Allergies Allergies/Adverse Reactions: Allergies Allergy/AdvReac Type Severity Reaction Status Date / Time gabapentin AdvReac Intermediate Dizziness/S Verified 09/25/20 11:09 elling risperidone [From Risperdal] AdvReac Intermediate Sedation/Ti Verified 09/25/20 11:09 ngling ampicillin AdvReac Vaginal Verified 09/25/20 11:09 yeast infection venlafaxine HCl * AdvReac Dizziness Verified 09/25/20 11:09 [From Effexor] - Social History Does the pt smoke?: Yes Smoking Status: Current every day smoker Does the pt drink ETOH?: Yes Does the pt have substance abuse?: No - Immunizations Immunizations are current?: No Immunizations: TDAP >10years/unknown - POLST Patient has POLST: No POLST Status: Full Code PD ED PE NORMAL - Vitals Vital signs reviewed: Yes - General General: Alert and oriented X 3, No acute distress (Pt appears bright and alert, and converses easily.), Well developed/nourished - HEENT HEENT: Atraumatic, PERRL, EOMI, Moist mucous membranes - Neck Neck: Supple, no meningeal sign - Cardiac Cardiac: RRR, No murmur, Strong equal pulses - Respiratory Respiratory: No respiratory distress, Clear bilaterally - Abdomen Abdomen: Soft, Non tender, Non distended - Derm Derm: Normal color, Warm and dry, No rash - Extremities Extremities: No deformity, No edema, Other (Indurated cords noted bilateral lower extremities. No ST edema. No erythema.) - Neuro Neuro: Alert and oriented X 3 - Psych Psych: Normal mood, Normal affect Results - Vitals Vitals: Vital Signs - 24 hr 09/25/20 09/25/20 09/25/20 10:42 11:09 13:50 Temperature 36.2 C L 36.9 C Heart Rate 73 71 75 Respiratory 20 11 L 16 Rate Blood Pressure 154/101 H 161/94 H 157/97 H O2 Saturation 90 L 93 93 Oxygen O2 Source [With Activity] Nasal cannula O2 Source Room air Oxygen Flow Rate 2 - Rads (name of study) CTA chest Radiology: Final report received, EMP read indepedently, See rad report (No PE) PD MEDICAL DECISION MAKING - ED course Complexity details: reviewed old records, reviewed results, re-evaluated patient, considered differential, d/w patient ED course: The pt had already had labs this morning, demonstrating good kidney function, so I ordered a CTA chest, based on the pt's h/o clots and recent vaccine. This was negative. Based on the pt's description of sx, I suspected a chest wall origin of the pt's discomfort. The pt seemed to have more discomfort with deep breaths than actual dyspnea. I felt the pt was stable for d/c. She was instructed to follow up with her doctor for further management of her ongoing, chronic medical issues. Departure - Departure Disposition: 01 Home, Self Care Clinical Impression: Chest wall pain Dyspnea Qualifiers: Dyspnea type: unspecified Qualified Code(s): R06.00 - Dyspnea, unspecified Condition: Stable Instructions: ED Chest Pain Costochondritis, ED Dyspnea Shortness of Breath Comments: Your CT scan of the chest shows no pulmonary embolism. Your vital signs also do not indicate likelihood of this. The pain in your chest seems to be coming from the wall of your chest, rather than the deeper organs. Please follow-up with Dr. Kolb and your primary doctor to determine further management of your other underlying problems Discharge Date/Time: 09/25/20 14:00
[2020-09-25] MEDS ORDERED: IOPAMIDOL-300 100 ML VIAL IVP ONE (13:43)
[2020-09-25 13:51] VITALS: BP 157/97
== END 2020-09-25 14:00 | disposition home or self-care (01) ==
LOC: ED 10:39
DX: R07.89 Other chest pain (principal); R06.00 Dyspnea, unspecified; F17.200 Nicotine dependence, unspecified, uncomplicated; Z86.718 Personal history of other venous thrombosis and embolism
CPT/HCPCS: 93005; 99284

== ENCOUNTER 2020-10-05 08:18 | Outpatient (CLI) | payer MEDICARE, MEDICAID ==
--- NOTE | 2020-10-05 09:45 | Ultrasound Report ---
PROCEDURE: Pelvic w/Transvaginal INDICATIONS: POSTMENOPAUSAL BLEEDING TECHNIQUE: Real-time scanning was performed of the pelvic organs, with image documentation. Additional endovagi nal scanning was necessary due to incomplete visualization of the adnexal and endometrial structures by transabdominal scanning. COMPARISON: Pelvic MRI dated 12/24/2007; pelvic ultrasound dated 12/12/[address] abdomen and pelvis dated 07/21/2019 FINDINGS: No pathologic free abdominal or pelvic fluid. Prominent vascular structure is again noted within the left side of the pelvis consistent with known prominent draining vein. Uterus: Uterus is normal in size at 7.3 x 3.0 x 4.8 cm. Relatively hypoechoic masses consistent wit h fibroids are noted. Within the posterior right side of the lower uterine segment there is a subsero osorio fibroid measuring 2.5 x 2.0 x 2.1 cm. On the right side of the fundus anteriorly is an intramural fibroid measuring 1.7 x 1.5 x 1.5 cm. Within the posterior aspect of the mid uterine body there is a 0.7 x 1.0 x 0.7 cm fibroid. These are grossly unchanged from comparison exams. The endometrium measu res 2 mm in combined thickness. There are nabothian cysts. Ovaries: The right ovary measures 1.8 x 1.2 x 1.2 cm. The left ovary measures 1.9 x 1.2 x 1.1 cm. Si ngle hyperechoic focus within the left ovary measuring 8 x 7 x 4 mm. This previously measured 12 x 10 x 18 mm. This is of unlikely clinical significance given the decreased size and may represent focal fat in the setting of a small dermoid versus calcification. No suspicious cystic or solid mass. IMPRESSION: Fibroid uterus, grossly unchanged. Endometrial thickness within normal limits. Reviewed by: Ruben Mauricio DO on 10/05/2020 8:44 AM NINA Approved by: Ruben Mauricio DO on 10/05/2020 8:44 AM NINA Station ID: [id number]
== END 2020-10-05 08:19 | disposition home or self-care (01) ==
LOC: DI 08:18
PROVIDERS: ATTEND Family Medicine
DX: D25.2 Subserosal leiomyoma of uterus (principal); D25.1 Intramural leiomyoma of uterus; D25.9 Leiomyoma of uterus, unspecified

== ENCOUNTER 2021-01-27 09:43 | Outpatient (CLI) | payer MEDICARE, MEDICAID ==
--- NOTE | 2021-01-27 11:25 | Ultrasound Report ---
PROCEDURE: Abdomen Limited INDICATIONS: CIRRHOSIS TECHNIQUE: Real-time focused scanning was performed of the abdomen, with image documentation. COMPARISON: Abdominal ultrasound 10/04/2018 and 01/02/2017. CT KUB 08/05/[address] abdomen and pelvis 10/23/2018. FINDINGS: Liver is normal in size. Liver is diffusely echogenic. Multiple calcified granulomas are stable racquel red to prior CT scan. 3.2 x 2.4 x 3.6 cm echogenic lesion in the left lower liver which corresponds t o hemangioma identified in prior CT scan of the abdomen and pelvis obtained 10/23/2018. Small hepatic cysts are not significantly changed compared to prior exams. Liver has nodular margins. Hepatofugal f low noted in the main portal vein. No gallstones. 5 mm polyp noted in the gallbladder which is not significantly changed compared to edith or ultrasounds. No gallbladder wall thickening with gallbladder wall measuring less than 1 mm. No per icholecystic fluid. No sonographic Abbott sign. Biliary tree is mildly dilated to 9.9 mm. Mild intrahepatic biliary tree dilatation. Pancreas is sonographically normal. Right kidney measures 11.6 cm in long axis. Small cysts noted in the superior pole of the right kidne y. 1.9 cm in maximum diameter echogenic lesion noted in the lower pole of the right kidney which may represent a small angiomyolipoma. IMPRESSION: 1. Echogenic liver with nodular margins compatible with reported hepatic cirrhosis. 2. Hepatofugal flow in the main portal vein with probable venous varices compatible with sequela of p ortal hypertension. 3. Mild biliary tree dilatation with common bile duct dilatation up to 9.9 mm. Recommend correlation with clinical and laboratory data to exclude biliary obstruction. 5. 6 x 3 x 5 mm gallbladder polyp. 4. 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 Reviewed by: Shayna Camacho MD, PhD on 01/27/2021 11:23 AM PDT Approved by: Shayna Camacho MD, PhD on 01/27/2021 11:23 AM PDT Station ID: [id number]
== END 2021-01-27 09:44 | disposition home or self-care (01) ==
LOC: DI 09:43
PROVIDERS: ATTEND Family Medicine
DX: K74.60 Unspecified cirrhosis of liver (principal); K83.9 Disease of biliary tract, unspecified; K82.4 Cholesterolosis of gallbladder

== ENCOUNTER 2021-02-01 09:54 | Emergency (ER) | payer MEDICARE, MEDICAID ==
[2021-02-01 10:18] VITALS: BP 181/110
[2021-02-01] MEDS ORDERED: LIDOCAINE 1% 2 ML VIAL SUBQ STA (11:24)
--- NOTE | 2021-02-01 11:57 | ED Physician Documentation ---
PD HPI LOWER EXT INJURY - Stated complaint Stated Complaint: LT LEG BLEEDING - Chief complaint Chief Complaint: Laceration - History obtained from History obtained from: Patient - History of Present Illness PD HPI LOW EXT INJURY LOCATION: Left, Lower leg Type of injury: Laceration Where injury occurred: Other (doctors office) Timing - onset: How many days ago (3) Timing - duration: Days (3) Timing - details: Abrupt onset, Still present Improved by: Rest, Dressing Worsened by: Moving, Palpating Associated symptoms: No: Weakness, Numbness, Tingling Contributing factors: No: Anticoagulated Similar symptoms before: Diagnosis (laceration) Recently seen: Surgery - Additional information Additional information: 65-year-old female has had a procedure done on her left anterior calf in the dermatology clinic 3 days ago and she has had some trouble with bleeding from the top portion of this wound. She got back to the clinic they placed a pressure dressing she is blood through the pressure dressing is come to the emergency department this morning for evaluation. 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: Ovarian cysts : Nocturia, Frequency, Kidney stones HEENT: Chronic vision loss, Chronic sinusitis, Chronic hearing loss Psych: Depression, Anxiety, ADD/ADHD Musculoskeletal: Osteoarthritis, Fatigue, Chronic back pain Derm: Other - Past Surgical History Past Surgical History: Yes General: Colonoscopy Ortho: Spine surgery, Other - Present Medications Home Medications: Ambulatory Orders Medication Instructions Recorded Confirmed Fluticasone [Flonase] 2 sprays YVETTE DAILY 07/12/19 10/16/20 Ferrous Sulfate 325 mg PO DAILY #30 tablet 07/27/19 10/16/20 Pnv No.95/Ferrous Fum/Folic AC 1 tab PO DAILY 01/10/20 10/16/20 [ Formula Tablet] Omeprazole 40 mg PO DAILY 30 Days #30 tab 01/15/21 - Allergies Allergies/Adverse Reactions: Allergies Allergy/AdvReac Type Severity Reaction Status Date / Time gabapentin AdvReac Intermediate Dizziness/S Verified 01/15/21 13:56 elling risperidone [From Risperdal] AdvReac Intermediate Sedation/Ti Verified 01/15/21 13:56 ngling ampicillin AdvReac Vaginal Verified 01/15/21 13:56 yeast infection venlafaxine HCl * AdvReac Dizziness Verified 01/15/21 13:56 [From Effexor] - Social History Does the pt smoke?: Yes Smoking Status: Current every day smoker Does the pt drink ETOH?: Yes Does the pt have substance abuse?: No - Immunizations Immunizations are current?: No Immunizations: TDAP >10years/unknown - POLST Patient has POLST: No POLST Status: Full Code PD ED PE NORMAL - Vitals Vital signs reviewed: Yes (Hypertensive) - General General: Alert and oriented X 3, No acute distress, Well developed/nourished - HEENT HEENT: Atraumatic, PERRL, EOMI - Respiratory Respiratory: No respiratory distress - Derm Derm: Normal color, Warm and dry, No rash - Extremities Extremities: No deformity, No edema, Other (On the anterior calf of the left leg in the mid calf there is a laceration that has been sutured that is about 3-1/2 cm in length. The top end of this wound has a small portion which is continuing to ooze blood. There is no foreign body.) - Neuro Neuro: Alert and oriented X 3, dolly pusher 2-12 intact, No motor deficit, No sensory deficit, Normal speech Eye Opening: Spontaneous Motor: Obeys Commands Verbal: Oriented GCS Score: 15 - Psych Psych: Normal mood, Normal affect Results - Vitals Vitals: Vital Signs - 24 hr 02/01/21 10:07 Temperature 36.7 C Heart Rate 88 Respiratory 18 Rate Blood Pressure 181/110 H O2 Saturation 95 Oxygen O2 Source [With Activity] Nasal cannula O2 Source Room air Procedures - Laceration (location) Left calf Length in cm: 1 Wound type: Linear, Clean Neurovascular status: Sensory intact, Motor intact, Vascular intact Anesthesia: Lidocaine 1% Wound preparation: Hibiclens, Irrigated copiously NS, Wound explored, To the base Skin layer closure: Nylon, Interrupted, Size #-0 - enter number (4-0), Sutures - enter # (1) Other: Patient tolerated well, No complications, Neurovascular intact, Dressing applied, Tetanus UTD, Other (Treatment appears to have resolved the patient's losing) PD MEDICAL DECISION MAKING - ED course Complexity details: considered differential, d/w patient ED course: 65-year-old female who has had a recent surgical procedure done to her left anterior calf has some bleeding from the top portion of the wound. This closed with a single suture and results in resolution of the patient's bleeding. Departure - Departure Disposition: 01 Home, Self Care Clinical Impression: Laceration of calf Condition: Stable Instructions: ED Laceration All Follow-Up: Ed Farley DO [Primary Care Provider] - Comments: Follow-up with dermatology as planned Discharge Date/Time: 02/01/21 12:20
[2021-02-01] MEDS ORDERED: BACITRACIN ZINC OINT 1 PACKET TOP STA (12:02)
== END 2021-02-01 12:20 | disposition home or self-care (01) ==
LOC: ED 09:54
DX: L76.21 Postprocedural hemorrhage of skin and subcutaneous tissue following a dermatologic procedure (principal); I10 Essential (primary) hypertension; F17.200 Nicotine dependence, unspecified, uncomplicated
CPT/HCPCS: 12001; 99282; A9270

== ENCOUNTER 2021-02-12 14:43 | Outpatient (CLI) | payer MEDICARE, MEDICAID ==
--- NOTE | 2021-02-12 16:47 | XRAY Report ---
PROCEDURE: Chest 2 View X-Ray INDICATIONS: SHORTNESS OF BREATH TECHNIQUE: Two views of the chest were acquired. COMPARISON: 07/24/2019 FINDINGS: Surgical changes and devices: None. Lungs and pleura: No pleural effusions or pneumothorax. Scattered subsegmental scarring/atelectasi s. No acute consolidation. Mediastinum: Mediastinal contours appear normal. Heart size is normal. Bones and chest wall: Lateral curvature of the spine. IMPRESSION: Scattered subsegmental scarring/atelectasis. No acute consolidation. Reviewed by: Ruben Steele MD on 02/12/2021 4:46 PM PDT Approved by: Ruben Steele MD on 02/12/2021 4:46 PM PDT Station ID: [id number]
--- NOTE | 2021-02-12 17:00 | XRAY Report ---
PROCEDURE: Shoulder 2 View RT INDICATIONS: PX IN R SHOULDER TECHNIQUE: 2 views of the shoulder were acquired. COMPARISON: Prior chest radiograph dated 02/12/2021.. FINDINGS: Bones: No fractures or dislocations. No suspicious bony lesions. Visualized ribs appear intact. M oderate acromioclavicular and glenohumeral joint space narrowing with articular osteophyte formation. Soft tissues: No suspicious soft tissue calcifications. IMPRESSION: Acromioclavicular and glenohumeral joint degeneration. Reviewed by: HÉCTOR Yuen on 02/12/2021 4:59 PM PDT Approved by: Garry Cooper MD on 02/12/2021 4:59 PM PDT Station ID: [id number]
== END 2021-02-12 14:44 | disposition home or self-care (01) ==
LOC: DI.N 14:43
PROVIDERS: ATTEND Family Medicine
DX: J98.4 Other disorders of lung (principal); J98.11 Atelectasis; M19.011 Primary osteoarthritis, right shoulder; R06.02 Shortness of breath
CPT/HCPCS: 36415; 80053; 83880; 84484; 85027

== ENCOUNTER 2021-02-12 14:47 | Outpatient (CLI) | payer MEDICARE, MEDICAID ==
[2021-02-12 18:00] LABS: HCT - HEMATOCRIT 45.8 % (37.0-47.0); MEAN CORPUSCULAR HEMOGLOBIN 37.5 pg (27.0-31.0); MEAN CORPUSCULAR HGB CONC 34.9 g/dL (32.0-36.0); MEAN CORPUSCULAR VOLUME 107.3 fL (81.0-99.0); MEAN PLATELET VOLUME 12.6 fL (7.9-10.8); RED BLOOD COUNT 4.27 10^6/uL (4.20-5.40); RED CELL DISTRIBUTION WIDTH 13.2 % (12.0-15.0); WHITE BLOOD COUNT 6.6 x10^3/uL (4.8-10.8)
[2021-02-12 18:10] LABS: ALBUMIN 3.7 g/dL (3.2-5.5); BILIRUBIN,TOTAL 3.1 mg/dL (0.2-1.0); CALCIUM 9.2 mg/dL (8.5-10.3); CREATININE 0.5 mg/dL (0.4-1.0); POTASSIUM 3.6 mmol/L (3.5-5.0); TOTAL PROTEIN 7.5 g/dL (6.7-8.2)
== END 2021-02-12 14:48 | disposition home or self-care (01) ==
LOC: LAB.N 14:47
PROVIDERS: ATTEND Family Medicine
DX: R06.02 Shortness of breath (principal)
CPT/HCPCS: 36415; 80053; 83880; 84484; 85027

== ENCOUNTER 2021-02-12 19:22 | Outpatient (CLI) | payer MEDICARE, MEDICAID | END 2021-02-12 19:23 | disposition short-term general hospital (02) | LOC: EMS 19:22 | DX: R06.02 Shortness of breath (principal); R79.89 Other specified abnormal findings of blood chemistry | CPT/HCPCS: A0425; A0429 ==

== ENCOUNTER 2021-02-15 09:43 | Outpatient (CLI) | payer MEDICARE, MEDICAID ==
[2021-02-15] MEDS ORDERED: IOVERSOL 320 50 ML VIAL ONE (10:05)
[2021-02-15] MEDS ORDERED: IOPAMIDOL-300 100 ML VIAL ONE (10:05)
== END 2021-02-15 09:44 | disposition home or self-care (01) ==
LOC: DI 09:43
PROVIDERS: ATTEND Family Medicine
DX: Z53.9 Procedure and treatment not carried out, unspecified reason (principal)

== ENCOUNTER 2021-03-14 10:53 | Emergency (ER) | payer MEDICARE, MEDICAID ==
--- NOTE | 2021-03-14 11:29 | ED Physician Documentation ---
History of Present Illness - Stated complaint Stated Complaint: BLOOD IN URINE, SHLDR PX, SOA - Chief complaint Chief Complaint: General - History obtained from History obtained from: Patient - Additonal information Additional information: 66yo female with complaints of hematuria that has been intermittent since October and noted constant x7 days. No clots. Has frequency with it. No fevers/chills. No associated flank pain. Saw urology, but patient vague on workup and results of that. She does state that she had a cystoscopy that was negative though. No dysuria. Has also complaints of chronic shoulder pain. Had brief relief with lidocaine/steroid shot 1 week ago. Also C/O progressive SOA, had hospital visit at [facility] a week or two ago with "a bunch of tests," that were normal per her. 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 : Nocturia, Frequency, Kidney stones HEENT: Chronic vision loss, Chronic sinusitis, Chronic hearing loss Psych: Depression, Anxiety, ADD/ADHD Musculoskeletal: Osteoarthritis, Fatigue, Chronic back pain Derm: Other - Past Surgical History Past Surgical History: Yes General: Colonoscopy Ortho: Spine surgery, Other - Present Medications Home Medications: Ambulatory Orders Medication Instructions Recorded Confirmed Fluticasone [Flonase] 2 sprays YVETTE DAILY 07/12/19 10/16/20 Ferrous Sulfate 325 mg PO DAILY #30 tablet 07/27/19 10/16/20 Pnv No.95/Ferrous Fum/Folic AC 1 tab PO DAILY 01/10/20 10/16/20 [ Formula Tablet] Omeprazole 40 mg PO DAILY 30 Days #30 tab 01/15/21 Furosemide [Lasix] 20 mg PO DAILY #30 tablet 03/14/21 HYDROcod/ACETAM 5/325 [[place] 5/325] 1 - 2 tab PO Q6H PRN #15 tablet 03/14/21 Potassium Chloride [Klor-Con 10] 10 meq PO DAILY #30 tab 03/14/21 - Allergies Allergies/Adverse Reactions: Allergies Allergy/AdvReac Type Severity Reaction Status Date / Time gabapentin AdvReac Intermediate Dizziness/S Verified 03/14/21 10:59 elling risperidone [From Risperdal] AdvReac Intermediate Sedation/Ti Verified 03/14/21 10:59 ngling ampicillin AdvReac Vaginal Verified 03/14/21 10:59 yeast infection venlafaxine HCl * AdvReac Dizziness Verified 03/14/21 10:59 [From Effexor] - Social History Does the pt smoke?: Yes Smoking Status: Current every day smoker Does the pt drink ETOH?: Yes Does the pt have substance abuse?: No - Immunizations Immunizations are current?: No Immunizations: TDAP >10years/unknown - POLST Patient has POLST: No POLST Status: Full Code PD ED PE NORMAL - Vitals Vital signs reviewed: Yes - General General: Alert and oriented X 3, No acute distress - HEENT HEENT: PERRL, EOMI - Neck Neck: Supple, no meningeal sign, No bony TTP - Cardiac Cardiac: RRR, Other (holosystolic murmur) - Respiratory Respiratory: No respiratory distress, Other (wheezy throughout) - Abdomen Abdomen: Soft, Non tender - Derm Derm: Normal color, Warm and dry - Extremities Extremities: Other (BLE pitting edema) - Neuro Neuro: Alert and oriented X 3, Normal speech Results - Vitals Vitals: Vital Signs - 24 hr 03/14/21 03/14/21 10:59 13:02 Temperature 36.5 C 36.6 C Heart Rate 69 70 Respiratory 16 16 Rate Blood Pressure 134/97 H 134/60 H O2 Saturation 94 97 Oxygen O2 Source [With Activity] Nasal cannula O2 Source Room air - Labs Labs: Laboratory Tests 03/14/21 03/14/21 03/14/21 11:21 11:21 11:32 WBC 5.9 RBC 3.94 L Hgb 14.9 Hct 43.9 MCV 111.4 H MCH 37.8 H MCHC 33.9 RDW 16.1 H Plt Count 89 L MPV 11.4 H Neut # (Auto) 3.7 Lymph # (Auto) 1.1 L Bledsoe # (Auto) 0.9 Eos # (Auto) 0.1 Baso # (Auto) 0.1 Absolute Nucleated RBC 0.00 Nucleated RBC % 0.0 Manual Slide Review Indicated Platelet Estimate DECREASED (<130,000) Platelet Morphology NORMAL APPEARANCE RBC Morph Micro Appear 2+ MACROCYTOSIS PT 18.7 H INR 1.7 H Sodium 141 Potassium 3.8 Chloride 107 Carbon Dioxide 21 Anion Gap 13.0 BUN 27 H Creatinine 0.7 Estimated GFR (MDRD) 84 L Glucose 97 Calcium 9.7 Magnesium 1.7 Total Bilirubin 3.4 H AST 88 H ALT 56 Alkaline Phosphatase 78 B-Natriuretic Peptide Total Protein 6.9 Albumin 3.7 Globulin 3.2 Albumin/Globulin Ratio 1.2 Lipase 66 H Urine Color Urine Clarity Urine pH Ur Specific Oden Urine Protein Urine Glucose (UA) Urine Ketones Urine Occult Blood Urine Nitrite Urine Bilirubin Urine Urobilinogen Ur Leukocyte Esterase Urine RBC Urine WBC Ur Squamous Epith Cells Urine Bacteria Ur Microscopic Review Urine Culture Comments Ethyl Alcohol < 5.0 03/14/21 03/14/21 11:32 12:04 WBC RBC Hgb Hct MCV MCH MCHC RDW Plt Count MPV Neut # (Auto) Lymph # (Auto) Bledsoe # (Auto) Eos # (Auto) Baso # (Auto) Absolute Nucleated RBC Nucleated RBC % Manual Slide Review Platelet Estimate Platelet Morphology RBC Morph Micro Appear PT INR Sodium Potassium Chloride Carbon Dioxide Anion Gap BUN Creatinine Estimated GFR (MDRD) Glucose Calcium Magnesium Total Bilirubin AST ALT Alkaline Phosphatase B-Natriuretic Peptide 1440 H Total Protein Albumin Globulin Albumin/Globulin Ratio Lipase Urine Color RED/BLOODY Urine Clarity BLOODY Urine pH 7.0 Ur Specific Oden 1.020 Urine Protein >=300 H Urine Glucose (UA) NEGATIVE Urine Ketones NEGATIVE Urine Occult Blood LARGE H Urine Nitrite NEGATIVE Urine Bilirubin NEGATIVE Urine Urobilinogen 2 H Ur Leukocyte Esterase NEGATIVE Urine RBC TNTC H Urine WBC 4-5 Ur Squamous Epith Cells RARE Squamous Urine Bacteria Rare Ur Microscopic Review INDICATED Urine Culture Comments NOT INDICATED Ethyl Alcohol PD MEDICAL DECISION MAKING - ED course ED course: Records from [facility] ED obtained and reviewed. She had a visit a month ago to the day, February 12. For similar complaints to today. Work-up at that time demonstrated a BNP of 3423, bilirubin 2.6 she had an echocardiogram done on the of last month as an outpatient demonstrating mild LVH, EF of 55 to 60%, mild MR, severe TR cuspid regurgitation 66-year-old woman presents with multiple complaints, most pressing for her is that she needs pain medication for her chronic right shoulder pain. She has results of an x-ray with her showing osteoarthritis. Other complaints seem to be chronic and have undergone previous work-ups demonstrating probably some level of right-sided heart failure causing fluid overload and we will put her on a diuretic for that. The cause of her hematuria has not been previously elucidated despite cystoscopy per her, no evidence of infection today. Departure - Departure Disposition: 01 Home, Self Care Clinical Impression: Hep C w/o coma, chronic, Tobacco abuse disorder Shoulder pain Qualifiers: Chronicity: chronic Laterality: right Qualified Code(s): M25.511 - Pain in right shoulder Dyspnea Qualifiers: Dyspnea type: shortness of breath Qualified Code(s): R06.02 - Shortness of breath Hematuria Qualifiers: Hematuria type: gross Qualified Code(s): R31.0 - Gross hematuria Condition: Good Record reviewed to determine appropriate education?: Yes Instructions: ED CHF Right Side Prescriptions: Potassium Chloride [Klor-Con 10] 10 meq PO DAILY #30 tab Furosemide [Lasix] 20 mg PO DAILY #30 tablet HYDROcod/ACETAM 5/325 [[place] 5/325] 1 - 2 tab PO Q6H PRN #15 tablet PRN Reason: Pain Comments: [facility] [place]. You were seen today for multiple complaints, for the shoulder I am prescribing some pain medication since you have already had x-rays showing arthritic changes there and nothing else. For the blood in the urine, since it is still going on, seems reasonable to follow-up with urologist again. There is no signs of UTI. For the leg swelling and shortness of breath I am prescribing a water pill and I recommend you use your inhaler. With the water pill I am also prescribing a potassium supplement as the water pill tends to take the potassium out of your system. Follow-up with your primary care physician, next billable appointment. Return if worsening. I think it would be best given your shortness of breath if you could quit smoking, and completely abstain from alcohol too. I am prescribing a short course of narcotic pain medication for you. These are potentially dangerous and addictive medications that should be used carefully. These medications may constipate you. Take an sbgn-hwz-hlnvoev stool softener (docusate) twice daily with plenty of water while taking these medications. If you go 24 hours without a bowel movement, take swyx-iqa-wylqczx miralax, per package instructions. Do not drink or drive while taking these medications. If you received narcotic or sedating medications while in the emergency department, do not drive for 24 hours. Store this medication in a safe, secure place and out of reach of children. It is a violation of federal law to give or sell this medication to another person or to use in a manner other than prescribed. The ED will not refill narcotic prescriptions, including prescriptions lost or stolen. To dispose of unwanted medications: 1. [facility] at [address] in [place] has a medication drop box. They accept prescription medications (in pill form) Wednesday through Wednesday 9:00 a.m. to 5:00 p.m. 2. The [facility] accepts prescription medications (in pill form only) for disposal year round. Call for more information. 3. Contact the [facility] for the next [facility] sponsored prescription drug collection event. , [phone], or [phone]; Note that many narcotic pain relievers also contain Tylenol/acetaminophen. Please ensure that your total dose of acetaminophen from all sources does not exceed 3 g (3000 mg) per day.
[2021-03-14 11:42] LABS: BASOPHILS # (AUTO) 0.1 10^3/uL (0.0-0.1); BASOPHILS % (AUTO) 1.2 %; EOSINOPHILS # (AUTO) 0.1 10^3/uL (0.0-0.7); EOSINOPHILS % (AUTO) 2.2 %; HCT - HEMATOCRIT 43.9 % (37.0-47.0); HGB - HEMOGLOBIN 14.9 g/dL (12.0-16.0); LYMPHOCYTES # (AUTO) 1.1 10^3/uL (1.5-3.5); LYMPHOCYTES % (AUTO) 18.2 %; MEAN CORPUSCULAR HEMOGLOBIN 37.8 pg (27.0-31.0); MEAN CORPUSCULAR HGB CONC 33.9 g/dL (32.0-36.0); MEAN CORPUSCULAR VOLUME 111.4 fL (81.0-99.0); MEAN PLATELET VOLUME 11.4 fL (7.9-10.8); MONOCYTES # (AUTO) 0.9 10^3/uL (0.0-1.0); MONOCYTES % (AUTO) 15.7 %; NEUTROPHILS # (AUTO) 3.7 10^3/uL (1.5-6.6); NEUTROPHILS % (AUTO) 62.2 %; PLT - PLATELET COUNT 89 10^3/uL (130-450); RED BLOOD COUNT 3.94 10^6/uL (4.20-5.40); RED CELL DISTRIBUTION WIDTH 16.1 % (12.0-15.0); WHITE BLOOD COUNT 5.9 x10^3/uL (4.8-10.8)
[2021-03-14 11:43] LABS: INR 1.7 (0.8-1.2); PT - PROTHROMBIN TIME 18.7 secs (9.9-12.6)
[2021-03-14] MEDS ORDERED: HYDROcod/ACETAM 5/325 MG TABLET PO STA (11:43)
[2021-03-14 11:44] LABS: ALBUMIN 3.7 g/dL (3.2-5.5); ALBUMIN/GLOBULIN RATIO 1.2 (1.0-2.2); ALKALINE PHOSPHATASE 78 IU/L (42-121); ALT ALANINE AMINOTRANSFERASE 56 IU/L (10-60); AST ASPARTATE AMINOTRANSFERASE 88 IU/L (10-42); BILIRUBIN,TOTAL 3.4 mg/dL (0.2-1.0); BUN - BLOOD UREA NITROGEN 27 mg/dL (6-20); CALCIUM 9.7 mg/dL (8.5-10.3); CARBON DIOXIDE - CO2 21 mmol/L (21-32); CHLORIDE 107 mmol/L (101-111); CREATININE 0.7 mg/dL (0.4-1.0); ETOH - ETHANOL < 5.0 mg/dL; GFR - MDRD 84 (>89); GLUCOSE 97 mg/dL (70-100); LIPASE 66 U/L (22-51); MAGNESIUM 1.7 mg/dL (1.7-2.8); POTASSIUM 3.8 mmol/L (3.5-5.0); SODIUM 141 mmol/L (135-145); TOTAL PROTEIN 6.9 g/dL (6.7-8.2)
[2021-03-14 12:01] LABS: SLIDE REVIEW? Indicated
--- NOTE | 2021-03-14 12:08 | XRAY Report ---
PROCEDURE: Chest 1 View X-Ray INDICATIONS: dyspnea TECHNIQUE: One view of the chest was acquired. COMPARISON: 02/12/2021 FINDINGS: Surgical changes and devices: None. Lungs and pleura: No pleural effusions or pneumothorax. Lungs are clear. Mediastinum: Mildly tortuous thoracic aorta is seen. Heart size is enlarged. Bones and chest wall: No suspicious bony lesions. Overlying soft tissues appear unremarkable. IMPRESSION: No acute cardiopulmonary pathology. Reviewed by: Lazaro Hawthorne MD on 03/14/2021 12:06 PM PDT Approved by: Lazaro Hawthorne MD on 03/14/2021 12:06 PM PDT Station ID: [id number]
[2021-03-14 12:22] LABS: PLATELET ESTIMATE, MANUAL DECREASED (<130,000) (NORMAL); PLATELET MORPHOLOGY NORMAL APPEARANCE (NORMAL); RBC MORPHOLOGY (MULTIPLE) 2+ MACROCYTOSIS (NORMAL)
[2021-03-14 12:26] LABS: BILIRUBIN,URINE NEGATIVE (NEGATIVE); GLUCOSE, URINE (UA) NEGATIVE (NEGATIVE); KETONES,URINE (UA) NEGATIVE (NEGATIVE); LEUKOCYTE ESTERASE, URINE NEGATIVE (NEGATIVE); NITRITE,URINE NEGATIVE (NEGATIVE); OCCULT BLOOD,URINE LARGE (NEGATIVE); PROTEIN,URINE >=300 mg/dL (NEGATIVE); UROBILINOGEN,URINE 2 E.U./dL (NORMAL)
[2021-03-14 12:27] LABS: BACTERIA,URINE Rare /HPF (None Seen); CLARITY,URINE BLOODY (CLEAR); RBC,URINE TNTC /HPF (0-5); SQUAMOUS EPITHELIAL CELL,UR RARE Squamous (<= Few)
[2021-03-14 13:13] VITALS: BP 134/60
== END 2021-03-14 13:08 | disposition home or self-care (01) ==
LOC: ED 10:53
DX: R31.0 Gross hematuria (principal); I11.0 Hypertensive heart disease with heart failure; I50.810 Right heart failure, unspecified; F17.200 Nicotine dependence, unspecified, uncomplicated; M25.511 Pain in right shoulder; G89.29 Other chronic pain; M19.011 Primary osteoarthritis, right shoulder; B19.20 Unspecified viral hepatitis C without hepatic coma
CPT/HCPCS: 36415; 71045; 80053; 81001; 83690; 83735; 83880; 85025; 85610; 99283; 99284; A9270; G0480; 80320; 81003; 87086

== ENCOUNTER 2021-03-24 10:56 | Outpatient (CLI) | payer MEDICARE, MEDICAID ==
[2021-03-24] MEDS ORDERED: ALBUTEROL 1 PUFF INH STA (12:59)
== END 2021-03-24 10:57 | disposition home or self-care (01) ==
LOC: RT 10:56
PROVIDERS: ATTEND Family Medicine
DX: J44.9 Chronic obstructive pulmonary disease, unspecified (principal); R06.02 Shortness of breath; Z86.718 Personal history of other venous thrombosis and embolism
CPT/HCPCS: 94060; 94729

== ENCOUNTER 2021-03-25 15:30 | Outpatient (CLI) | payer MEDICARE, MEDICAID ==
--- NOTE | 2021-03-26 09:00 | Ultrasound Report ---
PROCEDURE: Pelvic w/Transvaginal INDICATIONS: POSTMENOPAUSAL BLEEDING TECHNIQUE: Real-time scanning was performed of the pelvic organs, with image documentation. Additional endovagi nal scanning was necessary due to incomplete visualization of the adnexal and endometrial structures by transabdominal scanning. COMPARISON: October 05, 2020. FINDINGS: UTERUS: Anteverted, heterogeneous echotexture, measuring 8.6 x 2.9 x 4.5 cm. The endometrial thickness measures up to 2.7 mm. At least 4 fibroids are seen. Fibroid 1: Midline posterior, subserosal uterus, measuring 17 x 17 x 21 mm. Fibroid 2: Right anterior, intramural uterus, measuring 11 x 10 x 12 mm. . Fibroid 3: Midline posterior, intramural, measuring 9 x 9 x 7 L Fibroid 4: Left anterior, intramural, measuring 11 x 10 x 9 mm RIGHT OVARY: 2.8 x 1.1 x 1.2 cm. Color-flow projects over the ovarian tissue. LEFT OVARY: 2.3 x 1.3 x 1.9 cm. Color-flow projects over the ovarian tissue. OTHER: Prominent vessels are seen in the pelvis, which are nonspecific but can be seen in the setting of pelvic congestion. IMPRESSION: 1.Myomatous change of the uterus as detailed above. Reviewed by: Richi Zapata MD on 03/26/2021 8:59 AM PDT Approved by: Richi Zapata MD on 03/26/2021 8:59 AM PDT Station ID: [id number]
== END 2021-03-25 15:31 | disposition home or self-care (01) ==
LOC: DI 15:30
PROVIDERS: ATTEND Obstetrics & Gynecology
DX: D25.2 Subserosal leiomyoma of uterus (principal); D25.1 Intramural leiomyoma of uterus

== ENCOUNTER 2021-04-03 08:49 | Outpatient (CLI) | payer MEDICARE, MEDICAID ==
--- NOTE | 2021-04-03 11:52 | CARDIAC PROCEDURE NOTE ---
Stress Test Report Service Date: 04/03/21 Service Time: 11:00 Ordering Provider: Ed Farley DO Indication for Test: Assess for ischemic contribution to her recent fluid retention and exertional dyspnea. Significant Medical History: -Julieta has a complex past medical history that includes hypertension (for about 2 years), long-term cigarette smoking with COPD (though reports abstinence for about 2 weeks now), alcoholism with probable cirrhosis and recurrent DVT. She tells me today that she had a skin lesion excised from her left gutiérrez in late February, and thereafter she started to notice increasing shortness of breath with activity and lower extremity swelling, with weight gain that she estimates at about 15 pounds. She presented to the [facility] Emergency Department on 03/13/2021 for evaluation of these symptoms, for which she was started on daily furosemide with potassium supplementation. When seen a few days later by Dr. Farley, she described modest decrease in her swelling and her diuretic regimen was augmented. She had been referred for a diagnostic echocardiogram that was done at [facility]. It is Julieta's understanding that this study showed an abnormality of the left heart, though I do not have the echo report available to review. There was a diagnostic echocardiogram done here it would be in July,, that showed normal left ventricular size and function with mild aortic sclerosis, mitral annular calcification and normal valve function throughout. The right heart function was assessed as normal at that time. Cardiac Risk Factors: Primary risk is long-term tobacco smoking with only recent abstinence. Her paternal grandfather had "atherosclerosis" and her father an [place] in his elder years; she has no siblings nor children. She has not had diabetes or hyperlipidemia to her knowledge. Type of Stress Test: Pharmacologic Stress Test with MPI Pharmacologic Agent: Lexiscan Procedure: -Pharmacologic Stress Test- After signing informed consent, the patient underwent resting SPECT imaging and then performed a walking Lexiscan pharmacologic stress test, on which she walked at 0.7 mph on flat ground for 2 minutes ("baseline") followed by injection of Lexiscan and 99Tc-Myoview tracer, with monitoring for an additional 6 minutes. The test was terminated due to completing the protocol. Baseline walking heart rate: 109 Peak heart rate: 122 Normal HR response. Baseline walking BP: 127/95 Peak BP: 136/92 Normal BP response. Rhythm during testing: Sinus rhythm with isolated, monomorphic PVCs. Symptoms: During the walking period her dyspnea increased, more notably following Lexiscan administration. EKG at rest showed normal sinus rhythm with left atrial abnormality, right bundle branch block and QTc prolongation (492 ms) slightly beyond that expected due to RBBB. EKG at peak stress showed no ischemia by EKG criteria. In Recovery heart rate and blood pressure declined to baseline levels. Nuclear imaging was performed at rest and with stress. The images will be reported separately. IDio MD, was present throughout this walking Lexiscan stress test and supervised it in its entirety. Summary: 1) Abnormal resting EKG. 2) Adequate stress was likely achieved. 3) Normal BP response to pharmacologic agent. 4) No ischemic changes by EKG criteria were seen at peak stress. 5) Nuclear image analysis revealed . See separate report for more detail. PRELIMINARY CONCLUSIONS: 1) Low risk results by symptoms and EKG, await image interpretation.
[2021-04-03] MEDS ORDERED: AMINOPHYLLINE 500 MG/20 ML VIAL ONE (12:18)
[2021-04-03] MEDS ORDERED: REGADENOSON 0.4 MG/5 ML SYRINGE IVP ONE (12:18)
== END 2021-04-03 08:50 | disposition home or self-care (01) ==
LOC: DI 08:49
PROVIDERS: ATTEND Family Medicine
DX: R94.31 Abnormal electrocardiogram [ECG] [EKG] (principal); R06.02 Shortness of breath; I10 Essential (primary) hypertension; J44.9 Chronic obstructive pulmonary disease, unspecified; F17.210 Nicotine dependence, cigarettes, uncomplicated
CPT/HCPCS: 78452; 93017; A9500

== ENCOUNTER 2021-04-28 09:30 | Outpatient (CLI) | payer MEDICARE, MEDICAID ==
--- NOTE | 2021-04-28 10:49 | XRAY Report ---
PROCEDURE: Shoulder 3 View RT INDICATIONS: Right SHOULDER PX TECHNIQUE: 4 views of the shoulder were acquired. COMPARISON: February 12, 2021. FINDINGS: BONES: No acute, displaced fracture or dislocation. The glenohumeral joint is maintained. Moderate a rthrosis about the AC joint with osteophytosis. SOFT TISSUES: No focal abnormality or appreciable pneumothorax. IMPRESSION: 1.No acute osseous abnormality. Reviewed by: Richi Zapata MD on 04/28/2021 10:48 AM [facility] Approved by: Richi Zapata MD on 04/28/2021 10:48 AM [facility] Station ID: [id number]
== END 2021-04-28 23:59 | disposition home or self-care (01) ==
LOC: DI.N 09:30
PROVIDERS: ATTEND Physician Assistant
DX: M25.511 Pain in right shoulder (principal)

== ENCOUNTER 2021-05-09 05:09 | Outpatient (CLI) | payer MEDICARE, MEDICAID | END 2021-05-09 05:10 | disposition critical access hospital (66) | LOC: EMS 05:09 | DX: S99.922A Unspecified injury of left foot, initial encounter (principal); X50.1XXA Overexertion from prolonged static or awkward postures, initial encounter; Y93.89 Activity, other specified; Y92.009 Unspecified place in unspecified non-institutional (private) residence as the place of occurrence of the external cause | CPT/HCPCS: A0425; A0429 ==

== ENCOUNTER 2021-05-09 05:29 | Emergency (ER) | payer MEDICARE, MEDICAID ==
[2021-05-09] MEDS ORDERED: ACETAMINOPHEN 325 MG TABLET PO STA (05:33)
--- NOTE | 2021-05-09 05:37 | ED Physician Documentation ---
History of Present Illness - Stated complaint Stated Complaint: ANKLE PAIN - History obtained from History obtained from: Patient - Additonal information Additional information: 66yF bibems with L ankle pain sudden onset while decorating [place] lights yesterday and twisting it. felt sudden, constant, aching pain in the ankle since that time, worse with weight bearing, better with tylenol at midnight. woke at 4am with worsening pain and called ems. patient was able to bear weight immediately after the accident and ems reports that she did take a few steps to the stretcher in the field. denies other injury. Review of Systems Musculoskeletal: reports: Extremity pain, Joint pain 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, Cirrhosis CLINICAL OPERATIONS SPECIALIST: Ovarian cysts : Nocturia, Frequency, Kidney stones HEENT: Chronic vision loss, Chronic sinusitis, Chronic hearing loss Psych: Depression, Anxiety, ADD/ADHD Musculoskeletal: Osteoarthritis, Fatigue, Chronic back pain Derm: Other - Past Surgical History Past Surgical History: Yes General: Colonoscopy Ortho: Spine surgery, Other - Present Medications Home Medications: Ambulatory Orders Medication Instructions Recorded Confirmed Fluticasone [Flonase] 2 sprays YVETTE DAILY 07/12/19 04/16/21 Ferrous Sulfate 325 mg PO DAILY #30 tablet 07/27/19 04/16/21 Pnv No.95/Ferrous Fum/Folic AC 1 tab PO DAILY 01/10/20 04/16/21 [ Formula Tablet] Omeprazole 40 mg PO DAILY 30 Days #30 tab 01/15/21 04/16/21 Furosemide [Lasix] 20 mg PO DAILY #30 tablet 03/14/21 04/16/21 HYDROcod/ACETAM 5/325 [[place] 5/325] 1 - 2 tab PO Q6H PRN #15 tablet 03/14/21 04/16/21 Potassium Chloride [Klor-Con 10] 10 meq PO DAILY #30 tab 03/14/21 04/16/21 - Allergies Allergies/Adverse Reactions: Allergies Allergy/AdvReac Type Severity Reaction Status Date / Time gabapentin AdvReac Intermediate Dizziness/S Verified 03/14/21 10:59 elling risperidone [From Risperdal] AdvReac Intermediate Sedation/Ti Verified 03/14/21 10:59 ngling ampicillin AdvReac Vaginal Verified 03/14/21 10:59 yeast infection venlafaxine HCl * AdvReac Dizziness Verified 03/14/21 10:59 [From Effexor] - Social History Does the pt smoke?: Yes Smoking Status: Current every day smoker Does the pt drink ETOH?: Yes Does the pt have substance abuse?: No - Immunizations Immunizations are current?: No Immunizations: TDAP >10years/unknown - POLST Patient has POLST: No POLST Status: Full Code PD ED PE NORMAL - Vitals Vital signs reviewed: Yes - General General: Alert and oriented X 3, No acute distress, Well developed/nourished - HEENT HEENT: Atraumatic, PERRL, EOMI - Neck Neck: Supple, no meningeal sign - Abdomen Abdomen: Non tender, Non distended - Derm Derm: Normal color, Warm and dry Results - Vitals Vitals: Vital Signs - 24 hr 05/09/21 05:33 Heart Rate 86 Respiratory 16 Rate Blood Pressure 121/71 O2 Saturation 98 Oxygen O2 Source [With Activity] Nasal cannula O2 Source Room air PD MEDICAL DECISION MAKING - ED course ED course: 66yF p/w L ankle pain after twisting it yesterday. patient is requesting h ydrocodone prescription by name. explained that she should start with tylenol. return precautions given. plan to f/u with orthopedics. Departure - Departure Disposition: 01 Home, Self Care Clinical Impression: Ankle pain, left Condition: Good Instructions: ED FRANKI Comments: You were seen in the emergency department for a likely ankle sprain. Your xrays did not show a broken bone. Please follow up with orthopedics in 1 week if you continue to have pain. take tylenol 650 mg every 6 hours for pain. return to the ed if you have new or worsening symptoms or other concerns.
[2021-05-09 05:38] VITALS: BP 121/71
--- NOTE | 2021-05-09 12:10 | XRAY Report ---
PROCEDURE: Ankle 3 View LT INDICATIONS: ankle pain TECHNIQUE: 3 views of the ankle were acquired. COMPARISON: None FINDINGS: Bones: No fractures or dislocations. Ankle mortise is normally aligned. No suspicious bony lesions . Soft tissues: Minimal tibiotalar joint effusion. Achilles tendon appears normal. IMPRESSION: No visualized acute fracture or dislocation. However, occult injury cannot be excluded. Recommend short interval imaging follow-up in 7-10 days as clinically indicated for additional evalua tion. Reviewed by: Haley Calvillo MD on 05/09/2021 12:09 PM [facility] Approved by: Haley Calvillo MD on 05/09/2021 12:09 PM [facility] Station ID: [id number]
== END 2021-05-09 06:29 | disposition home or self-care (01) ==
LOC: EDUNIT# → ED 05:29 → SUPCPDRO 05:29 → ED 06:29
DX: M25.572 Pain in left ankle and joints of left foot (principal); X50.1XXA Overexertion from prolonged static or awkward postures, initial encounter; Y93.89 Activity, other specified; I10 Essential (primary) hypertension; Z86.718 Personal history of other venous thrombosis and embolism; F17.200 Nicotine dependence, unspecified, uncomplicated
CPT/HCPCS: 73610; 99281; 99283; A9270

== ENCOUNTER 2021-12-02 08:55 | Outpatient (CLI) | payer MEDICARE, MEDICAID ==
--- NOTE | 2021-12-03 10:30 | CT Report ---
PROCEDURE: Abdomen/Pelvis WO INDICATIONS: Left-sided flank pain. TECHNIQUE: Noncontrast 5 mm thick sections acquired from the diaphragms to the symphysis. 5 mm coronal and sagi ttal reformats were then performed. For radiation dose reduction, the following was used: automated exposure control, adjustment of mA and/or kV according to patient size. COMPARISON: Ultrasound abdomen limited, 01/27/2021. Ultrasound pelvis, 03/25/2021. CT IVP, 08/05/2020 CT abdomen pelvis with contrast, 07/21/2019. FINDINGS: Image quality: Excellent. ABDOMEN: Lung bases: Bibasilar scars and atelectasis. Heart size is normal. Solid organs: There are multiple calcified nodules seen liver along the hepatic capsule. A 2 cm hypo dense nodule is noted in the anterior left hepatic lobe within segment 2, unchanged compared to last CT dated 08/05/2020. Liver and spleen are normal in size. Gallbladder is normal Pancreas is normal in contours. No adrenal nodules. Nonobstructive renal calculi are seen in the left kidney. There is a 3 mm the superior pole. A 6 mm s tone is noted in the inferior pole demonstrating CT density 567 Hounsfield units. A couple of 1-2 mm stones are seen in the inferior pole the right kidney. Kidneys are normal in size. No hydronephrosis. Peritoneum and bowel: Unenhanced bowel loops demonstrate normal wall thickness and caliber. No free fluid or air. Nodes and vessels: No retroperitoneal or mesenteric adenopathy by size criteria. Aorta and inferior vena cava are normal in caliber. Moderate atherosclerotic calcifications. Miscellaneous: Small fat-containing ventral hernia is noted. PELVIS: Genitourinary: Bladder wall thickness is normal. Uterus is normal. No adnexal mass. No pathological free fluid in the cul-de-sac. Miscellaneous: No inguinal hernias or adenopathy. Bones: No suspicious bony lesions. No vertebral body compression fractures. Old left pubic fractur e/deformity. Scoliosis and moderate to severe degenerative changes lumbar spine. IMPRESSION: 1. Nephrolithiasis bilaterally. No hydronephrosis. 2. Multiple calcific foci in the liver, most likely sequelae of remote granulomatous infection. 3. Stable 2 cm hypodense nodule in the anterior left hepatic lobe, likely a benign hemangioma. 4. Scoliosis and degenerative changes in lumbar spine. Reviewed by: Donna Morris MD on 12/03/2021 10:28 AM PDT Approved by: Donna Morris MD on 12/03/2021 10:28 AM PDT Station ID: [id number]
== END 2021-12-02 08:56 | disposition home or self-care (01) ==
LOC: DI 08:55
PROVIDERS: ATTEND Nurse Practitioner Family
DX: N20.0 Calculus of kidney (principal); K76.89 Other specified diseases of liver; M47.816 Spondylosis without myelopathy or radiculopathy, lumbar region

== ENCOUNTER 2022-01-29 09:04 | Outpatient (CLI) | payer MEDICARE, MEDICAID | END 2022-01-29 09:05 | disposition home or self-care (01) | LOC: DI 09:04 | PROVIDERS: ATTEND Internal Medicine Cardiovascular Disease | DX: I50.810 Right heart failure, unspecified (principal); I08.1 Rheumatic disorders of both mitral and tricuspid valves; J44.9 Chronic obstructive pulmonary disease, unspecified | CPT/HCPCS: 93306 ==

== ENCOUNTER 2022-04-19 10:52 | Emergency (ER) | payer MEDICARE, MEDICAID ==
[2022-04-19 11:41] VITALS: BP 129/79
--- OUTSIDE RECORDS SUMMARY | 2022-04-19 12:16 | EXTERNAL MEDICAL SUMMARY RPT | Continuity of Care Document ---
:1955 Author Organization [facility] Address [address] [place] [address] Phone Allergies No information. Encounters No information. Functional Status No information. Immunizations No information. Medications No information. Problems No information. Procedures No information. Results/Labs test date author facility value unit interpret ation Result panel 1 (unknown) (no (unknown) (unknown) (no value) (units (unk nown) date) unknown) (unknown) (no (unknown) (unknown) [address] [place] [address] (units (unknown) date) unknown) (unknown) (no (unknown) (unknown) [place], [place] (units ( unknown) date) [id number] unknown) (unknown) (no (unknown) (unknown) [facility] (units (unknown) date) unknown) (unknown) (no (unknown) (unknown) Signed (units (unkno wn) date) unknown) (unknown) (no (unknown) (unknown) Ultrasound Report (units (unknown) date) unknown) (unknown) (no (unknown) (unknown) (no value) (units (unk nown) date) unknown) (unknown) (no (unknown) (unknown) 01/19/22 (units (unkno wn) date) unknown) (unknown) (no (unknown) (unknown) 03/18/2021 breast (units (unknown) date) MRI - [place] unknown) Health, 07/09/2020 ultrasound, and 06/25/2020 (unknown) (no (unknown) (unknown) A follow-up (units (un known) date) mammogram and an unknown) ultrasound in 6 months is recommended to (unknown) (no (unknown) (unknown) CLINICAL: Patient (units (unknown) date) refuses unknown) mammograms. Incomplete recent brst MRI. (unknown) (no (unknown) (unknown) Color flow and (units (unknown) date) real-time unknown) ultrasound of the left breast 3 o'clock, and axilla (unknown) (no (unknown) (unknown) Comparison is (units ( unknown) date) made to exams unknown) dated: 10/31/2021 breast MRI, 03/18/2021 breast (unknown) (no (unknown) (unknown) Electronically (units (unknown) date) Signed By: Reza unknown) Miguel Younger M.D. (unknown) (no (unknown) (unknown) Exam findings (units ( unknown) date) were conveyed to unknown) the patient. Patient is advised to monitor for (unknown) (no (unknown) (unknown) IMPRESSION: (units (un known) date) PROBABLY BENIGN unknown) (unknown) (no (unknown) (unknown) No significant (units (unknown) date) abnormalities were unknown) seen sonographically in the left axilla. (unknown) (no (unknown) (unknown) Patient will be (units (unknown) date) due for right unknown) mammogram at that time. (unknown) (no (unknown) (unknown) Prior MRI (units (unkn own) date) demonstrated unknown) enhancing benign-appearing right breast masses. These (unknown) (no (unknown) (unknown) The 0.4 cm mass (units (unknown) date) in the left breast unknown) at 3 o'clock anterior depth is consistent (unknown) (no (unknown) (unknown) The 0.8 cm mass (units (unknown) date) in the left breast unknown) at 3 o'clock middle depth resembles a lymph (unknown) (no (unknown) (unknown) There also is a (units (unknown) date) 0.4 cm x 0.3 cm x unknown) 0.3 cm oval mass in the left breast at 3 (unknown) (no (unknown) (unknown) There is a 0.8 cm (units (unknown) date) x 0.7 cm x 0.7 cm unknown) oval mass with a circumscribed margin in (unknown) (no (unknown) (unknown) This correlates (units (unknown) date) with breast MRI unknown) findings. Color flow imaging demonstrates that (unknown) (no (unknown) (unknown) This exam was (units ( unknown) date) interpreted at unknown) Station ID: [id number]. (unknown) (no (unknown) (unknown) Ultrasound (units (unk nown) date) BI-RADS: 3 unknown) Probably benign (unknown) (no (unknown) (unknown) [facility] (units ( unknown) date) [facility]. unknown) (unknown) (no (unknown) (unknown) anterior depth 3 (units (unknown) date) cm from the unknown) nipple. This oval mass is hypoechoic. This (unknown) (no (unknown) (unknown) breast MRI (units (unk nown) date) findings. Color unknown) flow imaging demonstrates that there is no (unknown) (no (unknown) (unknown) breast at 3 (units (un known) date) o'clock middle unknown) depth 3 cm from the nipple. This oval mass is (unknown) (no (unknown) (unknown) change. (units (unkno wn) date) unknown) (unknown) (no (unknown) (unknown) copy to: Jennifer Gomes (units (unknown) date) John unknown) (unknown) (no (unknown) (unknown) fibroadenoma and (units (unknown) date) is probably unknown) benign. (unknown) (no (unknown) (unknown) fibroadenoma and (units (unknown) date) is probably unknown) benign. (unknown) (no (unknown) (unknown) letter sent: (units (u nknown) date) Followup unknown) Recommended (unknown) (no (unknown) (unknown) no vascularity (units (unknown) date) present. unknown) (unknown) (no (unknown) (unknown) of these masses. (units (unknown) date) unknown) (unknown) (no (unknown) (unknown) performed. Lozano (units (unknown) date) scale images of unknown) the real-time examination were reviewed. (unknown) (no (unknown) (unknown) present. This is (units (unknown) date) located 0.8 cm unknown) from the above described mass. (unknown) (no (unknown) (unknown) represent (units (unkn own) date) additional unknown) fibroadenomas. A breast MRI in 6 months could demonstrate (unknown) (no (unknown) (unknown) slc/:01/19/2022 (units (unknown) date) 13:35:37 unknown) (unknown) (no (unknown) (unknown) stability. (units (unk nown) date) unknown) (unknown) (no (unknown) (unknown) [id number] (units (unkno wn) date) unknown) (unknown) (no (unknown) (unknown) Accession Number: (units (unknown) date) [id number] unknown) (unknown) (no (unknown) (unknown) Age/Sex: 66 / F (units (unknown) date) Date of Service: unknown) (unknown) (no (unknown) (unknown) : 1955 (units (unknown) date) Acct:[id number] unknown) (unknown) (no (unknown) (unknown) LIMITED (units (unkno wn) date) ULTRASOUND OF LEFT unknown) BREAST AND AXILLA: 01/19/2022 (unknown) (no (unknown) (unknown) Loc: [place] (units (unkno wn) date) unknown) (unknown) (no (unknown) (unknown) MRI, (units (unkno wn) date) unknown) (unknown) (no (unknown) (unknown) Ordering (units (unkno wn) date) Provider: unknown) Martin Kolb MD (unknown) (no (unknown) (unknown) Patient: (units (unkno wn) date) Julieta Goldberg L unknown) MR#: [id number] (unknown) (no (unknown) (unknown) Procedure: [place] (units ( unknown) date) breast LT limited unknown) (unknown) (no (unknown) (unknown) breast MRI - (units (u nknown) date) unknown) (unknown) (no (unknown) (unknown) correlates with (units (unknown) date) unknown) (unknown) (no (unknown) (unknown) could (units (unkno wn) date) unknown) (unknown) (no (unknown) (unknown) demonstrate (units (un known) date) unknown) (unknown) (no (unknown) (unknown) hypoechoic. (units (un known) date) unknown) (unknown) (no (unknown) (unknown) node or a (units (unkn own) date) unknown) (unknown) (no (unknown) (unknown) o'clock (units (unkno wn) date) unknown) (unknown) (no (unknown) (unknown) regions were (units (u nknown) date) unknown) (unknown) (no (unknown) (unknown) significant (units (un known) date) unknown) (unknown) (no (unknown) (unknown) stability (units (unkn own) date) unknown) (unknown) (no (unknown) (unknown) the left (units (unkno wn) date) unknown) (unknown) (no (unknown) (unknown) there is (units (unkno wn) date) unknown) (unknown) (no (unknown) (unknown) vascularity (units (un known) date) unknown) (unknown) (no (unknown) (unknown) with a (units (unkno wn) date) unknown) Social History No information. Vital Signs No information.
--- NOTE | 2022-04-19 14:03 | ED Physician Documentation ---
PD HPI UPPER EXT INJURY - Stated complaint Stated Complaint: L HAND LAC - Chief complaint Chief Complaint: Laceration - History obtained from History obtained from: Patient - Additonal information Additional information: Patient is a 67-year-old female presenting for evaluation of laceration to her left index finger as she was cutting potatoes for clam chowder. She does not take a blood thinner. Bleeding is controlled with pressure.She has had a tetanus shot within 10 years. 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: Ovarian cysts : Nocturia, Frequency, Kidney stones HEENT: Chronic vision loss, Chronic sinusitis, Chronic hearing loss Psych: Depression, Anxiety, ADD/ADHD Musculoskeletal: Osteoarthritis, Fatigue, Chronic back pain Derm: Other - Past Surgical History Past Surgical History: Yes General: Colonoscopy Ortho: Spine surgery, Other - Present Medications Home Medications: Ambulatory Orders Medication Instructions Recorded Confirmed Fluticasone [Flonase] 2 sprays YVETTE DAILY 07/12/19 03/11/22 Ferrous Sulfate 325 mg PO DAILY #30 tablet 07/27/19 03/11/22 Pnv No.95/Ferrous Fum/Folic AC 1 tab PO DAILY 01/10/20 03/11/22 [ Formula Tablet] Omeprazole 40 mg PO DAILY 30 Days #30 tab 01/15/21 03/11/22 Furosemide [Lasix] 20 mg PO DAILY #30 tablet 03/14/21 03/11/22 Potassium Chloride [Klor-Con 10] 10 meq PO DAILY #30 tab 03/14/21 03/11/22 Omeprazole 40 mg PO DAILY #30 tab 10/22/21 03/11/22 Metoprolol Tartrate [Lopressor] 25 mg PO BID 02/13/22 03/11/22 LORazepam [Ativan] 1 - 2 mg PO ONCE PRN 02/25/22 03/11/22 - Allergies Allergies/Adverse Reactions: Allergies Allergy/AdvReac Type Severity Reaction Status Date / Time gabapentin AdvReac Intermediate Dizziness/S Verified 03/14/21 10:59 elling risperidone [From Risperdal] AdvReac Intermediate Sedation/Ti Verified 03/14/21 10:59 ngling ampicillin AdvReac Vaginal Verified 03/14/21 10:59 yeast infection venlafaxine HCl * AdvReac Dizziness Verified 03/14/21 10:59 [From Effexor] - Social History Does the pt smoke?: Yes Smoking Status: Current every day smoker Does the pt drink ETOH?: Yes Does the pt have substance abuse?: No - Immunizations Immunizations are current?: No Immunizations: TDAP >10years/unknown - POLST Patient has POLST: No POLST Status: Full Code PD ED PE NORMAL - General General: Alert and oriented X 3, No acute distress, Well developed/nourished - HEENT HEENT: Atraumatic - Cardiac Cardiac: Strong equal pulses - Respiratory Respiratory: No respiratory distress - Extremities Extremities: Other (Laceration to fingertip pad of left index finger, normal range of motion, brisk cap refill, no signs of pulsatile bleeding) - Neuro Neuro: No motor deficit, No sensory deficit Results - Vitals Vitals: Vital Signs - 24 hr 04/19/22 11:39 Temperature 37.0 C Heart Rate 63 Respiratory 17 Rate Blood Pressure 129/79 O2 Saturation 98 Oxygen O2 Source [With Activity] Nasal cannula O2 Source Room air Procedures - Laceration (location) Left index finger Length in cm: 2 Wound type: Linear, Clean Neurovascular status: Sensory intact, Motor intact, Vascular intact Tendon involvement: Tendon intact Anesthesia: Lidocaine 1% Wound preparation: Chlorhexadine Skin layer closure: Interrupted, Size #-0 - enter number (4), Sutures - enter # (6) Other: Patient tolerated well, No complications, Dressing applied, Tetanus UTD PD MEDICAL DECISION MAKING - ED course ED course: Patient with laceration to left index finger. Wound was cleaned and sutured. No signs of tendon injury or vascular injury.Normal motor and sensation. Patient was advised on need to return for suture removal as well as concerning symptoms to return for. Departure - Departure Disposition: 01 Home, Self Care Clinical Impression: Laceration of left index finger Qualifiers: Encounter type: initial encounter Damage to nail status: without damage Foreign body presence: without foreign body Qualified Code(s): S61.211A - Laceration without foreign body of left index finger without damage to nail, initial encounter Condition: Stable Instructions: ED Laceration Ext Sutr Stap Tape Comments: You have a wound to your left index finger that was sutured with 6 stitches. We have applied a dressing which should be kept on for the next 24 hours. You can remove the dressing after that. You should return in 1 week to have the stitches removed.Please make sure to keep the wound clean and dry. Discharge Date/Time: 04/19/22 14:15
== END 2022-04-19 14:15 | disposition home or self-care (01) ==
LOC: ED 10:52
DX: S61.211A Laceration without foreign body of left index finger without damage to nail, initial encounter (principal); W26.0XXA Contact with knife, initial encounter; Y93.G1 Activity, food preparation and clean up
CPT/HCPCS: 12001; 99282

== ENCOUNTER 2022-08-25 12:43 | Outpatient (CLI) | payer MEDICARE, MEDICAID | END 2022-08-25 12:44 | disposition home or self-care (01) | LOC: DI 12:43 | PROVIDERS: ATTEND Internal Medicine Cardiovascular Disease | DX: I50.810 Right heart failure, unspecified (principal); I08.1 Rheumatic disorders of both mitral and tricuspid valves | CPT/HCPCS: 93306 ==

== ENCOUNTER 2022-12-31 23:34 | Outpatient (CLI) | payer MEDICARE, MEDICAID | END 2022-12-31 23:59 | disposition EMS.NT | LOC: EMS 23:34 | DX: R14.0 Abdominal distension (gaseous) (principal); R10.11 Right upper quadrant pain; R10.12 Left upper quadrant pain; R11.10 Vomiting, unspecified ==

== ENCOUNTER 2023-03-10 09:57 | Outpatient (CLI) | payer MEDICARE, MEDICAID ==
[2023-03-10 10:44] LABS: THYROID STIMULATING HORMONE 1.28 uIU/mL (0.34-5.60)
[2023-03-10 10:46] LABS: CHOL/HDL RATIO 3.8 (<4.4); CHOLESTEROL 239 mg/dL; HDL CHOLESTEROL 63 mg/dL; LDL CHOLESTEROL,CALCULATED 149 mg/dL; LDL/HDL RATIO 2.4 (<4.4); TRIGLYCERIDES 137 mg/dL (48-352); VLDL CHOLESTEROL 27 mg/dL
== END 2023-03-10 09:58 | disposition home or self-care (01) ==
LOC: LAB 09:57
PROVIDERS: ATTEND Physician Assistant
DX: E78.5 Hyperlipidemia, unspecified (principal)
CPT/HCPCS: 36415; 80061; 83721; 84443

== ENCOUNTER 2023-06-02 10:03 | Outpatient (CLI) | payer MEDICARE, MEDICAID ==
[2023-06-02 10:28] LABS: CHOLESTEROL 153 mg/dL; HDL CHOLESTEROL 51 mg/dL; LDL CHOLESTEROL,CALCULATED 68 mg/dL; LDL/HDL RATIO 1.3 (<4.4); TRIGLYCERIDES 172 mg/dL (48-352); VLDL CHOLESTEROL 34 mg/dL
[2023-06-02 11:37] LABS: ESTIMATED AVERAGE GLUCOSE 97 mg/dL (70-100)
== END 2023-06-02 10:04 | disposition home or self-care (01) ==
LOC: LAB 10:03
PROVIDERS: ATTEND Physician Assistant
DX: E78.5 Hyperlipidemia, unspecified (principal); R73.01 Impaired fasting glucose
CPT/HCPCS: 36415; 80061; 83036; 83721

== ENCOUNTER 2023-08-04 09:57 | Outpatient (CLI) | payer MEDICARE, MEDICAID ==
[2023-08-04 10:41] LABS: CHOLESTEROL 160 mg/dL; HDL CHOLESTEROL 53 mg/dL; LDL CHOLESTEROL,CALCULATED 81 mg/dL; LDL/HDL RATIO 1.5 (<4.4); TRIGLYCERIDES 129 mg/dL (48-352); VLDL CHOLESTEROL 26 mg/dL
== END 2023-08-04 09:58 | disposition home or self-care (01) ==
LOC: LAB 09:57
PROVIDERS: ATTEND Physician Assistant
DX: E78.5 Hyperlipidemia, unspecified (principal)
CPT/HCPCS: 36415; 80061; 83721

== ENCOUNTER 2023-10-26 10:44 | Outpatient (CLI) | payer MEDICARE, MEDICAID ==
[2023-10-26] MEDS ORDERED: DIATRIZOATE MEGLU/DIATRIZO SOD 30 ML BOTTLE PO ONE (10:57)
[2023-10-26] MEDS: DIATRIZOATE MEGLU/DIATRIZO SOD 30 ML BOTTLE PO ONE (12:08)
--- NOTE | 2023-10-26 16:17 | CT Report ---
PROCEDURE: Abdomen/Pelvis WO INDICATIONS: ABD PAIN TECHNIQUE: A CT scan of the abdomen and pelvis was performed without the use of intravenous contrast. Images we re recorded and evaluated at appropriate window settings. Reformats: coronal and sagittal. For radiat ion dose reduction, the following was used: automated exposure control, adjustment of mA and/or kV ac cording to patient size. COMPARISON: 03/04/2022, ultrasound 10/05/2023 FINDINGS: Image quality: Diagnostic Lower chest: Scattered scarring and atelectasis at the lung bases. And annular calcifications. Border line heart size. Liver: Solid organs not well evaluated without IV contrast. No contour deforming mass is seen. There are calcifications as before. Gallbladder and biliary system: Possible sludge. Moderately distended biliary system is similar to pr ior. CBD measures up to 1.3 cm as before. The gallbladder is underdistended and difficult to evaluate . Pancreas: No ductal dilation Spleen: An enlarged Adrenals: Bilateral mild thickening Kidneys: Left lower pole nonobstructing calculus. No hydronephrosis. Vessels and lymph nodes: Not well evaluated without IV contrast. No abdominal aortic aneurysm. No pat hologic lymph nodes by size criteria. Bowel and peritoneum: No small bowel obstruction. No pathologic ascites. Body wall: Small fat-containing umbilical hernia Pelvis: Bladder is unremarkable. Reproductive organs not well evaluated on noncontrast CT, overall un remarkable Bones: Similar deformity of the left pubic bone. There are degenerative changes and mild rightward sp inal curvature. IMPRESSION: No acute abdominopelvic abnormality on this limited noncontrast CT. Other stable and incidental findi ngs are described above. Unchanged biliary ductal dilation. Reviewed by: Lobito Link MD on 10/26/2023 4:15 PM PDT Approved by: Lobito Link MD on 10/26/2023 4:15 PM PDT Station ID: [id number]
== END 2023-10-26 10:45 | disposition home or self-care (01) ==
LOC: DI 10:44
PROVIDERS: ATTEND Physician Assistant
DX: R10.30 Lower abdominal pain, unspecified (principal); R10.13 Epigastric pain; K83.8 Other specified diseases of biliary tract
CPT/HCPCS: 74176; Q9963

== ENCOUNTER 2023-12-24 09:34 | Outpatient (CLI) | payer MEDICARE, MEDICAID ==
--- NOTE | 2023-12-24 15:28 | CT Report ---
PROCEDURE: Lung Cancer Screen INDICATIONS: SMOKER TECHNIQUE: A CT scan of the chest was performed. Intravenous contrast media was not administered. Images were re corded and evaluated at appropriate window settings. Reformats: axial MIP of the chest, coronal and s agittal. For radiation dose reduction, the following was used: automated exposure control, adjustment of mA and/or kV according to patient size. COMPARISON: None. FINDINGS: Image quality: Excellent. Prior cancer history: Unsure. Lungs and pleura: Dependent atelectasis/scarring in posterior aspect of bilateral lung yu are see n. Linear atelectasis/scarring in anterior and medial aspect of bilateral lung bases also noted. No p leural effusions. No pneumothorax. No suspicious pulmonary nodules which require follow up. Mediastinum: Heart size is normal. No pericardial effusion. No large vessel abnormality. No mediastin al adenopathy by size criteria. Two vessel coronary artery calcifications. Chest wall and lower neck: Hypodense nodule in lower pole of left thyroid lobe is seen measures 1.2 c m in size.. No axillary or supraclavicular adenopathy by size. Bones: No aggressive osseous abnormality. Upper Abdomen: Nonobstructing stone is seen in mid pole left kidney. Gallbladder is surgically absent .. IMPRESSION: Lung RAD: 1 - Negative. Recommendation: Continue annual screening in 12 Months with LDCT Non-Lung Significant Findings: Two-vessel coronary artery atherosclerotic calcifications. 1.2 cm hypodense nodule involving lower pole left thyroid lobe concerning for nodular goiter suggest clinical correlation and follow-up ultrasound of thyroid gland if not previously done. Reviewed by: Lazaro Hawthorne MD on 12/24/2023 3:26 PM PDT Approved by: Lazaro Hawthorne MD on 12/24/2023 3:26 PM PDT Station ID: [id number]
== END 2023-12-24 09:35 | disposition home or self-care (01) ==
LOC: DI 09:34
PROVIDERS: ATTEND Nurse Practitioner
DX: Z12.2 Encounter for screening for malignant neoplasm of respiratory organs (principal); F17.210 Nicotine dependence, cigarettes, uncomplicated

== ENCOUNTER 2023-12-26 09:06 | Outpatient (CLI) | payer MEDICARE, MEDICAID ==
[2023-12-26 09:54] LABS: BASOPHILS # (AUTO) 0.1 10^3/uL (0.0-0.1); BASOPHILS % (AUTO) 1.7 %; EOSINOPHILS # (AUTO) 0.3 10^3/uL (0.0-0.7); EOSINOPHILS % (AUTO) 4.7 %; HCT - HEMATOCRIT 45.4 % (37.0-47.0); LYMPHOCYTES # (AUTO) 1.2 10^3/uL (1.5-3.5); LYMPHOCYTES % (AUTO) 22.8 %; MEAN CORPUSCULAR HEMOGLOBIN 31.8 pg (27.0-31.0); MEAN CORPUSCULAR VOLUME 96.4 fL (81.0-99.0); MEAN PLATELET VOLUME 11.5 fL (7.9-10.8); MONOCYTES # (AUTO) 0.5 10^3/uL (0.0-1.0); MONOCYTES % (AUTO) 9.7 %; NEUTROPHILS # (AUTO) 3.3 10^3/uL (1.5-6.6); NEUTROPHILS % (AUTO) 60.9 %; PLT - PLATELET COUNT 96 10^3/uL (130-450); RED BLOOD COUNT 4.71 10^6/uL (4.20-5.40); RED CELL DISTRIBUTION WIDTH 13.6 % (12.0-15.0); WHITE BLOOD COUNT 5.3 x10^3/uL (4.8-10.8)
[2023-12-26 09:56] LABS: INR 1.4 (0.8-1.2)
[2023-12-26 10:04] LABS: ALBUMIN 3.8 g/dL (3.2-5.5); ALBUMIN/GLOBULIN RATIO 1.1 (1.0-2.2); BILIRUBIN,TOTAL 1.8 mg/dL (0.2-1.0); CALCIUM 9.8 mg/dL (8.5-10.3); CREATININE 0.8 mg/dL (0.6-1.3); TOTAL PROTEIN 7.2 g/dL (6.4-8.9)
[2023-12-26 10:23] LABS: ESTIMATED AVERAGE GLUCOSE 97 mg/dL (70-100)
[2023-12-26 10:24] LABS: FERRITIN 38.4 ng/mL (11.0-306.8)
--- NOTE | 2023-12-26 10:26 | Ultrasound Report ---
PROCEDURE: Abdomen Limited INDICATIONS: CIRRHOSIS TECHNIQUE: Real-time focused scanning was performed of the abdomen, with image documentation. COMPARISONS: CT of abdomen and pelvis dated 10/26/2023. FINDINGS: Limited ultrasound examination of all 4 quadrants of abdomen show no free abdominal fluid. IMPRESSION: No ascites fluid is seen. Reviewed by: Lazaro Cary MD on 12/26/2023 10:25 AM PDT Approved by: Lazaro Cary MD on 12/26/2023 10:25 AM PDT Station ID: [id number]
== END 2023-12-26 09:07 | disposition home or self-care (01) ==
LOC: DI 09:06
PROVIDERS: ATTEND Nurse Practitioner
DX: K74.60 Unspecified cirrhosis of liver (principal); R10.13 Epigastric pain; R79.0 Abnormal level of blood mineral; R73.01 Impaired fasting glucose
CPT/HCPCS: 36415; 80053; 82150; 82728; 82977; 83036; 83540; 83690; 84466; 85025; 85610

== ENCOUNTER 2024-01-02 09:06 | Outpatient (CLI) | payer MEDICARE, MEDICAID ==
[2024-01-02 09:47] LABS: BASOPHILS # (AUTO) 0.1 10^3/uL (0.0-0.1); BASOPHILS % (AUTO) 1.3 %; EOSINOPHILS # (AUTO) 0.2 10^3/uL (0.0-0.7); HCT - HEMATOCRIT 40.3 % (37.0-47.0); HGB - HEMOGLOBIN 13.3 g/dL (12.0-16.0); LYMPHOCYTES # (AUTO) 1.1 10^3/uL (1.5-3.5); LYMPHOCYTES % (AUTO) 18.5 %; MEAN CORPUSCULAR HEMOGLOBIN 31.9 pg (27.0-31.0); MEAN CORPUSCULAR VOLUME 96.6 fL (81.0-99.0); MEAN PLATELET VOLUME 12.1 fL (7.9-10.8); MONOCYTES # (AUTO) 0.7 10^3/uL (0.0-1.0); MONOCYTES % (AUTO) 12.5 %; NEUTROPHILS # (AUTO) 3.8 10^3/uL (1.5-6.6); NEUTROPHILS % (AUTO) 64.5 %; PLT - PLATELET COUNT 85 10^3/uL (130-450); RED BLOOD COUNT 4.17 10^6/uL (4.20-5.40); RED CELL DISTRIBUTION WIDTH 13.6 % (12.0-15.0); WHITE BLOOD COUNT 5.9 x10^3/uL (4.8-10.8)
[2024-01-02 10:03] LABS: ALBUMIN 3.5 g/dL (3.2-5.5); BILIRUBIN,TOTAL 1.9 mg/dL (0.2-1.0); CALCIUM 9.9 mg/dL (8.5-10.3); CREATININE 0.9 mg/dL (0.6-1.3); POTASSIUM 3.4 mmol/L (3.5-4.5)
== END 2024-01-02 09:07 | disposition home or self-care (01) ==
LOC: LAB 09:06
PROVIDERS: ATTEND Nurse Practitioner
DX: E87.6 Hypokalemia (principal); K74.60 Unspecified cirrhosis of liver; K85.90 Acute pancreatitis without necrosis or infection, unspecified; D68.9 Coagulation defect, unspecified
CPT/HCPCS: 36415; 80053; 82150; 83690; 85025

== ENCOUNTER 2024-02-15 08:56 | Outpatient (CLI) | payer MEDICARE, MEDICAID ==
--- NOTE | 2024-02-15 11:54 | MRI Report ---
Lumbar Spine WO Clinical History: 68 years of age, Female, BACK PAIN. Comparison: 09/20/2015 Technique: Multiplanar multisequence lumbar spine MRI without contrast was performed. Findings: Prior surgery: None. Vertebral bodies: Vertebral body heights are maintained. Alignment: Moderate dextroscoliosis of the lumbar spine, centered at L2-3. Straightening of the lumba r spine. Bone marrow: Multilevel fibrovascular endplate change at the lumbar spine and visualized lower thorac ic spine, most pronounced and moderate at L4-5, and at T9-10, partially visualized. Marrow edema of t he left L1-2 facet, and the right L4-5 facet, degenerative. Intervertebral discs: Multilevel disc bulge and disc desiccation. The conus medullaris is normal in contour, signal intensity, and location. The tip of the conus is at L1. The following axial levels are detailed below: T12-L1: Mild disc bulge. Moderate right, mild left facet arthropathy. No central canal stenosis. No r ight neuroforaminal stenosis. No left neuroforaminal stenosis. L1-L2: Disc bulge. Mild bilateral facet arthropathy. No central canal stenosis. No right neuroforamin al stenosis. Moderate left neuroforaminal stenosis. L2-L3: Disc bulge. Mild central canal stenosis. No right neuroforaminal stenosis. Moderate left neuro foraminal stenosis. L3-L4: Mild bilateral facet arthropathy. Disc bulge. Mild central canal stenosis. No right neuroforam inal stenosis. Mild left neuroforaminal stenosis. L4-L5: Moderate right facet arthropathy. Mild disc bulge. No central canal stenosis. Moderate right n euroforaminal stenosis. No left neuroforaminal stenosis. L5-S1: Moderate bilateral facet arthropathy. No central canal stenosis. No right neuroforaminal steno sis. No left neuroforaminal stenosis. Visualized sacrum and pelvis: Visualized sacrum is intact. No abdominal aortic aneurysm. Small bilate ral renal cysts. Mild thickening of the left adrenal gland. IMPRESSION: 1.Multilevel degenerative changes of the lumbar spine, with multilevel moderate neuroforaminal stenos is, progressed from prior exam. 2.Multilevel mild central canal stenosis. 3.Moderate dextroscoliosis of the lumbar spine. Reviewed by: Saray Miranda MD on 02/15/2024 11:52 AM PDT Approved by: Saray Miranda MD on 02/15/2024 11:52 AM PDT Station ID: [id number]
== END 2024-02-15 08:57 | disposition home or self-care (01) ==
LOC: DI 08:56
PROVIDERS: ATTEND Physician Assistant
DX: M47.816 Spondylosis without myelopathy or radiculopathy, lumbar region (principal); M51.36 Other intervertebral disc degeneration, lumbar region; M48.061 Spinal stenosis, lumbar region without neurogenic claudication; M47.817 Spondylosis without myelopathy or radiculopathy, lumbosacral region; M41.9 Scoliosis, unspecified